=== PATIENT | male | born 1970 | race Caucasian/White ===

== ENCOUNTER 2023-06-23 14:01 | Outpatient (OUT) | payer MEDICARE, SELFPAY ==
[2023-06-23 16:00] LABS: Anion Gap 12.1; BUN Creatinine Ratio 11.1; Calcium 8.9 mg/dL (8.5-10.1); Carbon Dioxide 27.1 mmol/L (21.0-32.0); Chloride 103 mmol/L (98-107); Estimated GFR (African America >60 (>=60); Estimated GFR (Non-African Ame >60 (>=60); Glucose 114 mg/dL (74-106); Potassium 4.2 mmol/L (3.5-5.1); Sodium 138 mmol/L (136-145)
== END 2023-06-23 14:02 | disposition home or self-care (01) ==
LOC: LAB 14:07
PROVIDERS: PCP Family Medicine; Visit Provider Family Medicine
DX: N18.2 Chronic kidney disease, stage 2 (mild) (principal)
CPT/HCPCS: 36415; 80048

== ENCOUNTER 2024-02-25 14:33 | Outpatient (OUT) | payer MEDICARE, SELFPAY ==
[2024-02-25 15:51] LABS: Estimated GFR (African America >60 (>=60); Estimated GFR (Non-African Ame >60 (>=60); Thyroid Stimulating Hormone 0.027 uIU/mL (0.358-3.740)
[2024-02-26 10:10] LABS: Lithium (Eskalith(R)), Serum 0.3 mmol/L (0.5-1.2)
== END 2024-02-25 14:34 | disposition home or self-care (01) ==
LOC: LAB 14:35
PROVIDERS: PCP Family Medicine; Visit Provider Psychiatry & Neurology Psychiatry
DX: F31.9 Bipolar disorder, unspecified (principal); Z79.899 Other long term (current) drug therapy
CPT/HCPCS: 36415; 80178; 82565; 84443

== ENCOUNTER 2025-09-12 11:35 | Outpatient (OUT) | payer MEDICARE, SELFPAY ==
--- OUTSIDE RECORDS SUMMARY | 2025-09-06 08:30 | XMS_ITS | Encounter Summary ---
Author Organization [facility] Address [address] [facility] [[email or web address] [place] [address] Care Team Providers Care Program Host Name Role Phone Gabino Hdez DO Primary Care Provider [phone] Gabino Hdez DO Unavailable [phone] Edwige Gilman ADDICTION NURSE Unavailable [phone] Delicia Hearn Unavailable Reason for Visit * ReasonCommentsToe Problem Encounter Details DateTypeDepartmentCare Team (Latest Contact Info)Lxtkdyjxgzt83/20/2025 8:30 AM ESTOffice Visit [facility] [address] [facility] [address] [place] [address] Bharathi Chinchilla, DPM [address] [facility] [address] [place] [address] Contusion of left foot, initial encounter (Primary Dx); Diabetes mellitus due to underlying condition with diabetic polyneuropathy, without long-term current use of insulin (HCC); Paronychia, toe, left; Left Achilles tendinitis; Contracture of left ankle; Contracture of right ankle Social History Tobacco UseTypesPacks/DayYears UsedDateSmoking Tobacco: Every EtsAzdgxwzeem801.9 Started: 10/18/1984Smokeless Tobacco: Never Tobacco Cessation:Ready to Q uit: Not Asked; Counseling Given: Yes Alcohol UseStandard Drinks/FxjfEcyqwtrrGcw39 (1 standard drink = 0.6 oz pure alcohol)caffeine more than 4 cups per cieQ0097 Health LiteracyAnswerDate RecordedHow often do you need to have someone help you when you read instructions, pamphlets, or other written material from your doctor or pharmacy? Never05/19/2024Social Connection and Isolation PanelAnswerDate RecordedIn a typical week, how many times do you talk on the phone with family, friends, or neighbors?Three times a week05/19/2024How often do you get together with friends or relatives?Once a week05/19/2024How often do you attend sabianism or catholic services?Never05/19/2024o you belong to any clubs or organizations such as sabianism groups, unions, fraternal or athletic groups, or school groups?No 05/19/2024How often do you attend meetings of the clubs or organizations you belong to?Never05/19/2024re you , , , , never , or living with a partner?Bsrudio6305/19/2024UDIT-CAnswerDate RecordedQ1: How often do you have a drink containing alcohol?4 or more times a week 05/19/2024Q2: How many drinks containing alcohol do you have on a typical day when you are drinking?10 or more05/19/2024Q3: How often do you have six or more drinks on one occasion?Daily or almost daily05/19/2024Overall Financial Resource Strain (CARDIA)AnswerDate RecordedHow hard is it for you to pay for the very basics like food, housing, medical care, and heating?Not hard at all05/19/2024 PHQ-2AnswerDate RecordedPatient Health Questionnaire-2 [facility]bdnc191[facility] - Occupational Stress QuestionnaireAnswerDate RecordedDo you feel stress - tense, restless, nervous, or anxious, or unable to sleep at night because yourmind is troubled all the time - these days?To some senfbk0705/19/2024Exercise Vital SignAnswerDate RecordedOn average, how many days per week do you engage in moderate to strenuous exercise (like a brisk walk)?0 days05/19/2024On average, how many minutes do you engage in exercise at this level?0 min05/19/2024Hunger Vital SignAnswerDate RecordedWithin the past 12 months, you worried that your food would run out before you got the money to buy more.Never true05/19/2024Within the past 12 months, the food you bought just didn't last and you didn't have money to get more.Never true05/19/2024RAPARE - TransportationAnswerDate RecordedIn the past 12 months, has lack of transportation kept you from medical appointments or from getting medications?No 05/19/2024In the past 12 months, has lack of transportation kept you from meetings, work, or from getting things needed for daily living?No05/19/2024 Housing Stability Vital SignAnswerDate RecordedIn the last 12 months, was there a time when you were not able to pay the mortgage or rent on time?No05/19/2024 Number of Times Moved in the Last YearNot on file05/19/2024t any time in the past 12 months, were you homeless or living in a [place] facility (including now)?No 05/19/2024Sex and Gender InformationValueDate RecordedSex Assigned at BirthNot on fileLegal VkhFayk4612/30/2022 6:39 PM EDTGender IdentityNot on fileSexual OrientationNot on filedocumented as of this encounter Last Filed Vital Signs Vital SignReadingTime TakenCommentsBlood Pressure--Pulse--Temperature-- Respiratory Wfvi856411/06/2024 8:32 AM ESTOxygen Saturation--Inhaled Oxygen Concentration--Giboyd83.3 kg (208 lb)09/06/2025 8:32 AM DZEBskrxr944.3 cm (5' 11 )09/06/2025 8:32 AM ESTBody Mass Index29.01111/06/2024 8:32 AM ESTdocumented in this encounter Progress Notes * Bharathi Chinchilla DPM - 09/06/2025 8:30 AM EST Patient: Mo Randhawa : 1970 PCP: Gabino Hdez, SUBJECTIVE Patient presents today for follow up contusion to left 2nd toe and states now he has some drainage from the toe and redness and pain. Denies nausea vomiting chills Patient also has complaints of pain to the posterior left heel and states pain up to a 5/10 and points to the Achilles region of the left heel states been present for the past few weeks painful with ambulation Patient is type 2 diabetic with numbness and burning to his toes and history of peripheral neuropathy Patient also has had back issues in the past Allergies: Allergies Allergen Reactions Penicillins Hives and Unknown Other Reaction(s): Hives and rash Rifampin Other and Anaphylaxis Did not wake up for 3 days Rifamycins Other and Unknown Did not wake up for 3 days Heparin (Porcine) Unknown Rifapentine Fentanyl Rash, Unknown and Itching Patch only-irritation from Heparin Other and GI bleeding Unknown Latex Rash After prolong use Morphine Other and Unknown Brings pain on Other Reaction(s): Pt. states sometimes increases pain rather than decreasing Past Medical History: Past Medical History: Diagnosis Date Alcohol abuse 10/29/2020 Avascular necrosis of bone of hip (HCC) 05/22/2024 Bipolar disorder (HCC) Carpal tunnel syndrome of left wrist 05/22/2024 Cirrhosis (HCC) Diabetes (HCC) GERD (gastroesophageal reflux disease) Hyperlipidemia Hypertension Hypothyroid Kidney disease Kidney stones Lumbosacral spondylosis Lumbosacral spondylosis without myelopathy 06/21/2018 Added automatically from request for surgery [id number] MRSA (methicillin resistant staph aureus) culture positive 05/22/2024 NAFLD (nonalcoholic fatty liver disease) Nicotine abuse 05/22/2024 Osteomyelitis (HCC) 05/22/2024 Post concussion syndrome RAD (reactive airway disease) ([facility]) Medications: Current Outpatient Medications: acetaminophen (Tylenol 8 Hour) 650 MG ER tablet, Three times daily, Disp: , Rfl: albuterol (ProAir RespiClick) 90 mcg/act breath-activated inhaler, Inhale 180 mcg every 4 (four) hours., Disp: , Rfl: atenolol (Tenormin) 25 MG tablet, Take 1 tablet (25 mg) by mouth at bedtime, Disp: 90 tablet, Rfl: 1 Blood Glucose Monitoring Suppl (Propableuch Verio Flex System) w/Device kit, 1 each Daily, Disp: 1 kit, Rfl: 0 busPIRone (Buspar) 15 MG tablet, Take 15 mg by mouth in the morning and 15 mg in the evening., Disp: , Rfl: busPIRone (Buspar) 5 MG tablet, Take 5 mg by mouth in the morning and 5 mg before bedtime., Disp: ,Rfl: cyclobenzaprine (Flexeril) 5 MG tablet, TAKE 1 TO 2 TABLETS BY MOUTH AT BEDTIME, Disp: 60 tablet, Rfl: 2 diclofenac sodium 1 % gel, Four times daily, Disp: , Rfl: donepezil (Aricept) 5 MG tablet, TAKE 1 TABLET BY MOUTH AT BEDTIME, Disp: 90 tablet, Rfl: 1 doxepin (SINEquan) 150 MG capsule, 1 (one) time each day at the same time., Disp: , Rfl: glimepiride (Amaryl) 1 MG tablet, Take 1 tablet (1 mg) by mouth in the morning. Take before meals.,Disp: 90 tablet, Rfl: 1 glucose blood (OneTouch Verio) test strip, Fsbs daily, Disp: 100 strip, Rfl: 3 hydrOXYzine pamoate (Vistaril) 50 MG capsule, every 6 (six) hours., Disp: , Rfl: Lancets 33G misc, 1 each Daily, Disp: 100 each, Rfl: 2 levothyroxine (Synthroid, Levoxyl) 175 MCG tablet, TAKE 1 TABLET ONE TIME DAILY IN THE MORNING ON AN EMPTY STOMACH, Disp: 90 tablet, Rfl: 0 lithium 150 MG capsule, Take 150 mg by mouth in the morning and 150 mg before bedtime., Disp: , Rfl: magnesium oxide (Mag-Ox) 400 (240 Mg) MG tablet, TAKE 1 TABLET BY MOUTH EVERY DAY, Disp: 90 tablet,Rfl: 0 metFORMIN (Glucophage) 1000 MG tablet, Take 1 tablet (1,000 mg) by mouth in the morning and 1 tablet (1,000 mg) in the evening. Take with meals., Disp: 180 tablet, Rfl: 1 pantoprazole (ProtoNix) 40 MG EC tablet, Take 1 tablet (40 mg) by mouth in the morning. Take beforemeals. Do not crush, chew, or split., Disp: 30 tablet, Rfl: 0 pravastatin (Pravachol) 40 MG tablet, Take 1 tablet (40 mg) by mouth at bedtime, Disp: 90 tablet, Rfl: 1 pregabalin (Lyrica) 150 MG capsule, Take 1 capsule (150 mg) by mouth in the morning and 1 capsule (150 mg) before bedtime., Disp: 180 capsule, Rfl: 1 SEROquel 200 MG tablet, 1 tablet at bedtime Orally In the evening, Disp: , Rfl: sertraline (Zoloft) 50 MG tablet, Take 50 mg by mouth Daily, Disp: , Rfl: Social History: Social History Socioeconomic History Marital status: Spouse name: Not on file Number of children: Not on file Years of education: Not on file Highest education level: Not on file Occupational History Not on file Tobacco Use Smoking status: Every Day Current packs/day: 1.00 Average packs/day: 1 pack/day for 40.9 years (40.9 ttl pk-yrs) Types: Cigarettes Start date: 10/18/1984 Smokeless tobacco: Never Vaping Use Vaping status: Never Used Substance and Sexual Activity Alcohol use: Yes Alcohol/week: 42.0 standard drinks of alcohol Types: 42 Cans of beer per week Comment: caffeine more than 4 cups per day Drug use: Not on file Sexual activity: Not on file Other Topics Concern Not on file Social History Narrative Not on file Social Drivers of Health Financial Resource Strain: Low Risk (05/19/2024) Overall Financial Resource Strain (CARDIA) Difficulty of Paying Living Expenses: Not hard at all Food Insecurity: No Food Insecurity (05/24/2024) Received from [facility] Hunger Screening Within the past 12 months we worried whether our food would run out before we got money to buy more.: Never True Within the past 12 months the food we bought just didn't last and we didn't have money to get more.: Never True Transportation Needs: No Transportation Needs (05/19/2024) PRAPARE - Transportation Lack of Transportation (Medical): No Lack of Transportation (Non-Medical): No Physical Activity: Inactive (05/19/2024) Exercise Vital Sign Days of Exercise per Week: 0 days Minutes of Exercise per Session: 0 min Stress: Stress Concern Present (05/19/2024) [place] [facility]ational [facility] - Occupational Stress Questionnaire Feeling of Stress : To some extent Social Connections: Moderately Isolated (05/19/2024) Social Connection and Isolation Panel Frequency of Communication with Friends and Family: Three times a week Frequency of Social Gatherings with Friends and Family: Once a week Attends Uatsdin Services: Never Active Member of Clubs or Organizations: No Attends Club or Organization Meetings: Never Marital Status: Intimate Partner Violence: Not on file Housing Stability: Unknown (05/19/2024) Housing Stability Vital Sign Unable to Pay for Housing in the Last Year: No Number of Times Moved in the Last Year: Not on file Homeless in the Last Year: No ROS: Gastrointestinal: denies abdominal pain, ulcers, or changes in appetite or bowel habits Musculoskeletal: positive hx of arthritis, loss of strength, with positive history of back pain Cardiovascular: denies CP, palpitations, irregular rhythms OBJECTIVE LE EXAM: DERM: Positive hair growth b/l feet. Left 2nd digit nail has positive erythema with slight serous sanguinous drainage VASC: Positive palpable pedal pulses bilaterally NEURO: 5.07 [place] Germán monofilament test intact to digits and forefoot bilaterally 125Hz tuning fork diminished to 1st MPJ bilaterally ORTHO: Positive pain on palpation to toenails of the left 1,2,3,4,5 toes and right 1,2,3,4,5 toes positive pain on palpation left 2nd toe Positive pain on palpation to posterior left Achilles tendon retrocalcaneal bursa with negative palpable Mcgraws ASSESSMENT 1. Contusion of left foot, initial encounter 2. Diabetes mellitus due to underlying condition with diabetic polyneuropathy, without long-term current use of insulin (HCC) 3. Paronychia, toe, left 4. Left Achilles tendinitis 5. Contracture of left ankle PLAN Patient placed on Medrol pack Recommended to apply ice to affected areas for 20 minutes, twice daily. Ice should not be applied directly to skin. Pt dispensed pneumatic CAM walker ([id number]) today to maintain 90 degree foot to ankle position. Pt informed to only remove walker when at rest or bathing. ABN signed and in chart for device if warranted. The boot was assembled and adjusted liner and straps and pneumatically inflated for proper customfitting by Bharathi Chinchilla DPM and staff. A verbal order was given for dispensing of device. The radha ent is ambulatory and may benefit functionally from this device. It may be used for the following conditions as noted per medical diagnosis. Performed I and D of abcess with total removal of nail to access infection to the left 2nd toenail. Pt informed of risks and benefits of procedure including infection,pain,bleeding, reoccurance. Pt consents. Next, 3cc of xylocaine 2% plain injected into affected digit for anesthesia. The affected toe was prepped and draped in usual sterile manner and offending nail was removed withminimal blood loss and positive serosanguinous drainage noted. Wound then was flushed with NSS and DSD applied to digit. Pt is to have a prescription for an antibiotic. Bharathi Chinchilla DPM documented in this encounter Plan of Treatment DateTypeDepartmentCare Team (Latest Contact Info)Qcwkdsrpwzu57/04/2025 2:00 PM ESTOffice Visit [facility] [address] [facility] [address] [place] [phone] Bharathi Chinchilla DPM [address] [address] 11/01/2025 4:10 PM ESTOffice Visit [facility] [address] [facility] [address] [place] [phone] Bharathi Chinchilla DPM [address] [address] documented as of this encounter Visit Diagnoses Diagnosis Contusion of left foot, initial encounter- Primary Diabetes mellitus due to underlying condition with diabetic polyneuropathy, without long-term current use of insulin (HCC) Paronychia, toe, left Left Achilles tendinitis Contracture of left ankle Contracture of right ankle Paronychia, toe, left- Primary Contusion of left foot, initial encounter Diabetes mellitus due to underlying condition with diabetic polyneuropathy, without long-term current use of insulin (HCC) Left Achilles tendinitis Contracture of left ankle documented in this encounter Care Teams Team MemberRelationshipSpecialtyStart DateEnd Date Gabino Hdez DO [address] [place] [address] PCP - GeneralFamily Medicine02/23/23 Gabino Hdez DO [address] [place] [address] PCP - ACO Reach11/24/24 Edwige Gilman, THEA [address] [place] [address] Social WorkerFamily Medicine11/29/24 Delicia Hearn PA [address] [facility] [address] [place] [address] Physician AssistantNeurology01/03/25documented as of this encounter
--- OUTSIDE RECORDS SUMMARY | 2025-09-12 09:00 | XMS_ITS | Encounter Summary ---
Author Organization [facility] Address [address] [place] [address] Care Team Providers Care Resident In Diagnostic Radiology Name Role Phone Gabino Hdez DO Primary Care Provider [phone] Gabino Hdez DO Unavailable [phone] Edwige Gilman MACHINE TOOL OPERATOR Unavailable [phone] Delicia Hearn Unavailable Reason for Visit * ReasonCommentsAllergy TestingPt is miserable he vomits all day has lost over 60 last four months never gets out of house scents in the air make him sick also environmental. * Consultation (Routine) - ClosedSpecialtyDiagnoses / ProceduresReferred By ContactReferred To ContactAllergy Diagnoses Sensitive to smells Procedures HI OFFICE/OUTPATIENT [facility] 60 MINUTES Gabino Hdez, DO [address] [place] [address] Phone: tel: fax: Christiano Haley MD [address] [place] [address] Phone: tel: fax: Referral IDStatusReasonStart DateExpiration DateVisits RequestedVisits [id number] Specialty Services Required / Encounter Details DateTypeDepartmentCare Team (Latest Contact Info)Pmgaqhzkphf59/26/2025 9:00 AM ESTOffice Visit [facility] [address] [place] [phone] Christiano Haley MD [address] [place] [address] Chronic rhinitis Social History Tobacco UseTypesPacks/DayYears UsedDateSmoking Tobacco: Every KijWyipvjfgup161.9 Started: 10/18/1984Smokeless Tobacco: Never Tobacco Cessation:Ready to Q uit: Not Asked; Counseling Given: Not Answered Alcohol UseStandard Drinks/CdszJksldezaHbl19 (1 standard drink = 0.6 oz pure alcohol)caffeine more than 4 cups per qjgU8752 Health LiteracyAnswerDate RecordedHow often do you need [...] relatives?Once a week05/19/2024How often do you attend mosque or pentecostalism services?Never05/19/2024o you belong to any clubs or organizations such as mosque groups, unions, fraternal or athletic groups, or school groups?No 05/19/2024How often do you attend meetings of the clubs or organizations you belong to?Never05/19/2024re you , , , , never , or living with a partner?Xprgokl8005/19/2024UDIT-CAnswerDate RecordedQ1: How often do you have a [...] hard at all05/19/2024 PHQ-2AnswerDate RecordedPatient Health Questionnaire-2 Exucd185/26/2025[facility] [place] [facility] - Occupational Stress QuestionnaireAnswerDate RecordedDo you feel stress - tense, restless, nervous, or anxious, or unable to sleep at night because yourmind is troubled all the time - these days?To some tcrfra1805/19/2024Exercise Vital SignAnswerDate RecordedOn average, how many days [...] were you homeless or living in a long-term (including now)?No 05/19/2024Sex and Gender InformationValueDate RecordedSex Assigned at BirthNot on fileLegal AkiCxbh4912/30/2022 6:39 PM EDTGender IdentityNot on fileSexual OrientationNot on filedocumented as of this encounter Last Filed Vital Signs Vital SignReadingTime TakenCommentsBlood Pressure--Pulse--Temperature-- Respiratory Rate--Oxygen Saturation--Inhaled Oxygen Concentration--Tymbyj43.7 kg (200 lb)09/12/2025 9:07 AM LDLNqregn214.3 cm (5' 11 )09/12/2025 9:07 AM ESTBody Mass Index27.8909/12/2025 9:07 AM ESTdocumented in this encounter Plan of Treatment DateTypeDepartmentCare Team (Latest Contact Info)Svqepyravqa34/04/2025 2:00 PM ESTOffice Visit [facility] [address] [place] [phone] Bharathi Chinchilla, MANASM [address] [address] 11/01/2025 4:10 PM ESTOffice Visit [facility] [address] [place] [address] Bharathi Chinchilla DPM [address] [address] documented as of this encounter Visit Diagnoses Diagnosis Chronic rhinitis Paronychia, toe, left- Primary Contusion of left foot, initial encounter Diabetes mellitus due to underlying condition with diabetic polyneuropathy, without long-term current use of insulin (HCC) Left Achilles tendinitis Contracture of left ankle documented in this encounter Care Teams Team MemberRelationshipSpecialtyStart DateEnd Date Gabino Hdez DO [address] [place] [address] PCP - GeneralFamily Medicine02/23/23 Gabino Hdez DO [address] [place] [address] PCP - ACO Reach11/24/24 Edwige Gilman LSW [address] [place] [address] Social WorkerFamily Medicine11/29/24 Delicia Hearn PA [address] [place] [address] Physician AssistantNeurology01/03/25documented as of this encounter
--- OUTSIDE RECORDS SUMMARY | 2025-09-12 11:47 | XMS_ITS | Clinical Summary ---
Author Organization [facility] Address [facility] [place] [address] Care Team Providers Care Transmitter Engineer In Charge Name Role Phone Gabino Hdez Primary Care Provid er Allergies Active AllergyReactionsCriticalityNoted DateCommentsHeparin Gagbyhgjp49/29/2004 Xqbgiwtjm65/29/8646Gcoghhvgmjt63/29/9498Qexfervoogd72/29/2004 Medications MedicationSigDispense QuantityRefillsLast FilledStart DateEnd DateStatus MS CONTIN 30MG TABLET SA Take one(1) tablet two(2) times daily.Active TOPAMAX 100MG TABLET Take one(1) tablet two(2) times daily.Active FLEXERIL 10MG TABLET Take one(1) tablet three times daily.Active PROMETHAZINE 25MG TABLET Take one(1) tablet four (4) times daily.Active PAXIL CR 25MG TABLET Take one(1) tablet daily.Active METHADONE HCL 10MG TABLET every 8 hrs pfa320Active ATIVAN 1MG TABLET 1 2 mgmqid tzr626Active SYNTHROID 100MCG TABLET Take one(1) tablet daily.Active MULTIVITAMIN TABLET Take one(1) tablet daily.Active GLUCOSAMINE 500MG CAPLET 2 tabs yto019Active BEXTRA 20MG TABLET Take one(1) tablet daily.Active Active Problems ProblemNoted DateDiagnosed DateDisplacement of lumbar intervertebral disc without hmqzisnchl52/29/2004 Social History Tobacco UseTypesPacks/DayYears UsedDateSmoking Tobacco: Never AssessedSex and Gender InformationValueDate RecordedSex Assigned at BirthNot on fileLegal Sex Male09/18/2012 10:02 AM ESTGender IdentityNot on fileSexual OrientationNot on file Plan of Treatment Health MaintenanceDue DateLast DoneCommentsAnxiety Yatqtpdjn86/26/1990Depression Svwobwsfn67/26/1990HIV Olognzdla72/26/1990Hepatitis C Cpkproxyy21/26/1990 DTaP,Tdap,Td Vaccine (1 - Tdap)1991Hepatitis B Vaccine (1 of 3 - 19+ 3- dose series)1991Lipid Uwreqtscp79/26/2007CT Qotiidsrbwir54/26/2017 Cologuard (FIT-DNA)04/12/20171516Zfcrbebcurg24/26/2017Colorectal Cancer Screening 2017Diabetes Vttqkdape26/26/2017Fecal Occult Blood2017Sigmoidoscopy 2017Pneumococcal Vaccine: 50+ (1 of 1 - PCV)2022hingrix Vaccine (1 of 2)2Covid-19 Vaccine (1 - 2024- season)2025Influenza Vaccine (#1)2025 Insurance Care Teams Team MemberRelationshipSpecialtyStart DateEnd Gabino Hdez DO [address] [place] [address] PCP - GeneralFamily Medicine11/15/15
--- OUTSIDE RECORDS SUMMARY | 2025-09-12 11:47 | XMS_ITS | Clinical Summary ---
Author Organization [facility] Address [address] [place] [address] Phone Care Team Providers Care Landscaping Crew Leader Name Role Phone Gabino Hdez DO Primary Care Provider [phone] Allergies Active AllergyReactionsCriticalityNoted DateCommentsHeparin AnaloguesOtherLow 02/14/2004 Unknown RobuiijdInbrfmwNub03/14/2013 Brings pain on Other Reaction(s): Pt. states sometimes increases pain rather than decreasing Brings pain on PenicillinsHives,EjzmhirIlri29/29/2004 Other Reaction(s): Hives and rash Rifamycin AnaloguesAnaphylaxis,LypdiqlUrdr59/29/2004 Did not wake up for 3 days Medications MedicationSigDispense QuantityRefillsLast FilledStart DateEnd DateStatus atenolol (Tenormin) 25 mg tablet Take 1 tablet (25 mg) by mouth once daily.05/22/2024ctive busPIRone (Buspar) 5 mg tablet Take 1 tablet (5 mg) by mouth 2 times a day.07/06/2022ctive busPIRone (Buspar) 15 mg tablet Take 1 tablet (15 mg) by mouth twice a day.Active sertraline (Zoloft) 50 mg tablet Take 1 tablet (50 mg) by mouth once daily.07/01/2022ctive lithium 150 mg capsule Take 1 capsule (150 mg) by mouth twice a day.02/10/2024ctive SeroqueL 200 mg tablet Take 1 tablet (200 mg) by mouth once daily at bedtime.04/26/2024ctive levothyroxine (Synthroid, Levoxyl) 175 mcg tablet Take 1 tablet (175 mcg) by mouth early in the morning..05/22/2024ctive doxepin (SINEquan) 150 mg capsule Take 1 tablet by mouth once daily.Active PARoxetine (Paxil) 40 mg tablet Take 1 tablet (40 mg) by mouth once daily in the morning. Take before meals. Active metFORMIN (Glucophage) 1,000 mg tablet Take 1 tablet (1,000 mg) by mouth.05/22/2024ctive promethazine (Phenergan) 25 mg tablet Take 1 tablet (25 mg) by mouth every 6 hours if needed.Active hydrOXYzine pamoate (Vistaril) 50 mg capsule Take 1 capsule (50 mg) by mouth every 6 hours.Active pravastatin (Pravachol) 40 mg tablet Take 1 tablet (40 mg) by mouth once daily in the evening.02/16/2024ctive Active Problems ProblemNoted DateDiagnosed DatePreop cardiovascular exam05/29/2024Essential rsoknlyfcizs13/12/2024Mixed wfjounjlzhxkta84/12/2024iabetes mellitus type II, non insulin ycetoqfzx81/12/2024MI 30.0-30.9,adult05/29/2024urrent smoker 05/29/2024bnormal EKG005/29/2024 Family History Medical HistoryRelationNameCommentsNo Known ProblemsFatherAtrial fibrillation MotherDiabetes type IMotherThyroid diseaseMothercancer gallbladderMotherRheum arthritisSisterRelationNameStatusCommentsFatherMotherSister Social History Tobacco UseTypesPacks/DayYears UsedDateSmoking Tobacco: Every DayCigarettes Smokeless Tobacco: Former Tobacco Cessation:Ready to Q uit: No; Counseling Given: Yes Comments:vapin Alcohol UseStandard Drinks/WeekCommentsYes0 (1 standard drink = 0.6 oz pure alcohol)occSex and Gender InformationValueDate RecordedSex Assigned at BirthNot on fileLegal IhaWffh4104/27/2024 1:18 PM EDTGender IdentityNot on fileSexual OrientationNot on file Last Filed Vital Signs Vital SignReadingTime TakenCommentsBlood Celduagg765/8008 10:21 AM EDT Ddhmf7671 10:18 AM EDTTemperature--Respiratory Rate--Oxygen Saturation-- Inhaled Oxygen Concentration--Vuxkoh13.9 kg (218 lb)05/29/2024 10:18 AM EDT Bmigzs160.3 cm (5' 11 )05/29/2024 10:18 AM EDTBody Mass Index30. 10:18 AM EDT Plan of Treatment Health MaintenanceDue DateLast DoneCommentsDiabetes: Hemoglobin A1C1972HIV Ypcjnpder1972Lipid Panel1972Medicare Annual Wellness Visit (AWV) 1972TSH Level1972MMR Vaccines (1 of 1 - Standard series)1973 Diabetes: Retinopathy Pynfmcobo10/26/1982Hepatitis C Ffijeoooc92/26/1990 Hepatitis B Vaccines (1 of 3 - 19+ 3-dose series)1991Pneumococcal Vaccine (1 of 2 - PCV)1991DTaP/Tdap/Td Vaccines (1 - Tdap)1994PSA Prostate Cancer Xrkisurva69/26/2022Zoster Vaccines (1 of 2)2Diabetes: Urine Protein Srkflwcoc54/05/2023Influenza Vaccine (#1), 07/29/2017COVID-19 Vaccine ( - season), 01/28/2021, 01/06/2021HIB VaccinesAged OutNo longer eligible based on patient's age to complete this topicHPV VaccinesAged OutNo longer eligible based on patient's age to complete this topicHepatitis A VaccinesAged OutNo longer eligible based on patient's age to complete this topicIPV VaccinesAged OutNo longer eligible based on patient's age to complete this topicMeningococcal VaccineAged OutNo longer eligible based on patient's age to complete this topicRotavirus VaccinesAged Out No longer eligible based on patient's age to complete this topic Insurance * Guarantor: Cecelia Randhawa TypeRelation to PatientDate of BirthPhoneBilling AddressPersonal/DjtnxyLslc1970 [address] [address] Care Teams Team MemberRelationshipSpecialtyStart DateEnd Date Gabino Hdez DO [address] [place] [address] PCP - GeneralFamily Medicine05/29/24
--- OUTSIDE RECORDS SUMMARY | 2025-09-12 11:47 | XMS_ITS | Clinical Summary ---
Author Organization [facility] Address [address] [place] [address] Care Team Providers Care Technical Stenographer Name Role Phone Gabino Hdez DO Primary Care Provider [phone] Gabino Hdez DO Unavailable [phone] Edwige Gilman FIELD INTERVIEWER Unavailable [phone] Delicia Hearn Unavailable Allergies Active AllergyReactionsCriticalityNoted DateCommentsFentanylRash,Unknown,Itching Low01/13/2017 Patch only-irritation from HeparinOther,GI hxbxrkslVrv13/29/2004 Unknown Heparin (Porcine)Tmprlux2104/26/20246445DieeiSfjyXfd40/25/2020 After prolong use MorphineOther,OnmcndqPxm30/14/2013 Brings pain on Other Reaction(s): Pt. states sometimes increases pain rather than decreasing PenicillinsHives,VisduwcQlui49/29/2004 Other Reaction(s): Hives and rash RifampinOther,BddjkhitggwAdfi27/29/2017 Did not wake up for 3 days RifamycinsOther,XogpbwrKmvi66/29/2004 Did not wake up for 3 days Rzrfoahqbod72/29/2004 Medications MedicationSigDispense QuantityRefillsLast FilledStart DateEnd DateStatus albuterol (ProAir RespiClick) 90 mcg/act breath-activated inhaler Inhale 180 mcg every 4 (four) hours.Active busPIRone (Buspar) 15 MG tablet Take 15 mg by mouth in the morning and 15 mg in the evening.Active busPIRone (Buspar) 5 MG tablet Take 5 mg by mouth in the morning and 5 mg before bedtime.07/06/2022ctive doxepin (SINEquan) 150 MG capsule 1 (one) time each day at the same time.Active hydrOXYzine pamoate (Vistaril) 50 MG capsule every 6 (six) hours.Active SEROquel 200 MG tablet 1 tablet at bedtime Orally In the eveningActive sertraline (Zoloft) 50 MG tablet Take 50 mg by mouth Daily07/01/2022ctive acetaminophen (Tylenol 8 Hour) 650 MG ER tablet Three times daily08/30/2023ctive diclofenac sodium 1 % gel Four times daily04/26/2024ctive lithium 150 MG capsule Take 150 mg by mouth in the morning and 150 mg before bedtime.02/10/2024ctive donepezil (Aricept) 5 MG tablet Indications:Cognitive impairmentTAKE 1 TABLET BY MOUTH AT BEDTIME 90 tablet 4Active magnesium oxide (Mag-Ox) 400 (240 Mg) MG tablet Indications:Acute post-traumatic headache, not intractableTAKE 1 TABLET BY MOUTH EVERY DAY 90 tablet 5Active pregabalin (Lyrica) 150 MG capsule Indications:Numbness and tinglingTake 1 capsule (150 mg) by mouth in the morning and 1 capsule (150 mg) before bedtime. 180 capsule 5Active cyclobenzaprine (Flexeril) 5 MG tablet Indications:Classical migraine with intractable migraine, so statedTAKE 1 TO 2 TABLETS BY MOUTH AT BEDTIME 60 tablet 5Active glucose blood (PetrabytesTouch Verio) test strip Indications:Type 2 diabetes mellitus with other specified complication, without long-term current use of insulin ([facility])Fsbs daily 100 strip 5Active Blood Glucose Monitoring Suppl (OneTouch Verio Flex System) w/Device kit Indications:Type 2 diabetes mellitus with other specified complication, without long-term current use of insulin ([facility])1 each Daily 1 kit 5Active Lancets 33G [facility] Indications:Type 2 diabetes mellitus with other specified complication, without long-term current use of insulin ([facility])1 each Daily 100 each 5Active glimepiride (Amaryl) 1 MG tablet Indications:Type 2 diabetes mellitus with other specified complication, without long-term current use of insulin ([facility])Take 1 tablet (1 mg) by mouth in the morning. Take before meals. 90 tablet 503/6Active pravastatin (Pravachol) 40 MG tablet Indications:Mixed hyperlipidemiaTake 1 tablet (40 mg) by mouth at bedtime 90 tablet 5Active pantoprazole (ProtoNix) 40 MG EC tablet Indications:Gastroesophageal reflux disease, unspecified whether esophagitis presentTake 1 tablet (40 mg) by mouth in the morning. Take before meals. Do not crush, chew, or split. 30 tablet 5Active atenolol (Tenormin) 25 MG tablet Indications:Primary hypertensionTake 1 tablet (25 mg) by mouth at bedtime 90 tablet 5Active metFORMIN (Glucophage) 1000 MG tablet Indications:Type 2 diabetes mellitus with other skin complications (HCC)Take 1 tablet (1,000 mg) by mouth in the morning and 1 tablet (1,000 mg) in the evening. Take with meals. 180 tablet /6Active levothyroxine (Synthroid, Levoxyl) 175 MCG tablet Indications:Hypothyroidism, unspecified typeTAKE 1 TABLET ONE TIME DAILY IN THE MORNING ON AN EMPTY STOMACH 90 tablet 5Active methylPREDNISolone (Medrol Dospak) 4 MG tablets Indications:Left Achilles tendinitisFollow schedule on MEDROL PACK package instructions to be used as directed 21 tablet 5Active azithromycin (Zithromax Z-Darrell) 250 MG tablet Indications:Paronychia, toe, leftTake 1 tablet (250 mg) by mouth Daily for 5 days Use as directed 6 tablet Expired Active Problems ProblemNoted DateDiagnosed DateCognitive kaycyxwyga85/03/2024MI 30.0-30.9,adult 05/29/2024urrent onacqd1305/29/2024Mixed ipwcyijquzljyi06/12/2024Essential edjlmdhwhhom25/12/2024hronic pain jevzvwgt93/07/2024cquired mallet deformity of right ring pzeiut8405/22/20240407Ibikkyn77/05/2024hronic skoktlcwpp76/05/2024 Kidney ithkjzz6705/22/2024ervical disc bbjydnx5805/22/2024Herniation of intervertebral disc of cervical dieroz2405/22/2024Type 2 diabetes mellitus with other specified rbpsferjbksa25/10/2023ervical faeeirhdfqvbd39/07/2023ipolar 1 zvegpttl89/09/2017Type 2 diabetes mellitus with other skin complications 01/24/2017Encounter for long-term opiate analgesic use01/13/2017Cervical spondylosis without /08/1263Icqbpm55/11/2016Gastroesophageal reflux rpjmlyx2112/27/20150215Opflgpcpknwhux64/11/6312Jpmoxinyeoht44/11/2016Hypothyroidism 12/27/2015 Resolved Problems ProblemNoted DateDiagnosed DateResolved DateAbnormal EKG0 Preop cardiovascular examDiabetes mellitus type II, non insulin hasawlsig83vascular necrosis of bone of hip05/22/2024 04/17/2025ilateral hip painarpal tunnel syndrome of left wristRight carpal tunnel lnjryuat12MRSA (methicillin resistant staph aureus) culture volhglqx60 Nondisplaced fracture of proximal third of navicular (scaphoid) bone of left wrist, initial encounter for closed muggsrji45Osteomyelitis Other specified postprocedural Paresthesia of skinPostoperative visit Yoarsulvhygqdenx62Edema of right upper osijkcvaz29/05/2024 04/17/2025Nicotine abusePain due to internal orthopedic prosthetic devices, implants and grafts, initial otdrhkdic40 Edema of right upper fmphldhcy85/ight cervical radiculopathy ainyspepsia and disorder of function of jszgidg22GERD (gastroesophageal reflux disease)12/30/2023 01/03/2024ostoperative pain of zungbjoml00Intractable migraine without status lbjnihokumf53Peripheral vascular disorder due to diabetes sgvuwzgh61Skin sensation disturbance lcohol abuseRefractory migraine Lumbosacral spondylosis without laegxgkkrw09/04/2018 04/17/2025 Overview (05/27/2023): Added automatically from request for surgery [id number] Disorder of Overview (05/27/2023): Added automatically from request for surgery [id number] Disc displacement, mgytcg12 Overview (05/27/2023): Added automatically from request for surgery [id number] Sacrococcygeal disorders, not elsewhere oafzvfabpn78Other intervertebral disc displacement, lumbar dxnwfb67Spondylosis without myelopathy or radiculopathy, lumbar zzzegv33Fatigue Spondylosis of lumbar spineTesticular ggzsepgpfklm59Vitamin B ofkrjsjjqy57 Displacement of lumbar intervertebral disc without mwpzujtdmg31/29/2004 01/03/2024ain in limb Encounters DateTypeDepartmentCare ChlsVspfgcjhhcr22/26/2025 9:00 AM ESTOffice Visit [facility] [place] [address] [place] [address] Christiano Haley MD Chronic irurmapw03/26/2025[facility] flowsheet [facility] [address] [place] [address] Christiano Haley MD 09/12/20256100Waowns17/20/2025 8:[address] [facility] [address] [place] [phone] Bharathi Chinchilla DPM Contusion of left foot, initial encounter (Primary Dx); Diabetes mellitus due to underlying condition with diabetic polyneuropathy, without long-term current use of insulin (HCC); Paronychia, toe, left; Left Achilles tendinitis; Contracture of left ankle; Contracture of right ankle09/06/2025[facility] flowsheet [facility] [address] [facility] [address] [place] [phone] Bharathi Chinchilla DPM 09/06/20250240Uqnhpl01/10/2025Telephone [facility] [address] [place] [address] Edwige Gilman LSW 08/20/2025Patient Outreach [facility] [address] [place] [address] Edwige Gilman LSW 07/19/2025Refill [facility] [address] [place] [address] Adia Ramirez MA Primary hypertension; Type 2 diabetes mellitus with other skin complications (HCC); Hypothyroidism, unspecified type07/16/2025Patient Outreach [facility] [address] [place] [address] Edwige Gilman LSW 07/09/2025Refill [facility] [address] [place] [address] Adia Ramirez MA Gastroesophageal reflux disease, unspecified whether esophagitis present 07/05/2025 2:00 PM EDTOffice Visit [facility] [address] [place] [phone] Bharathi Chinchilla DPM Contusion of left foot, initial encounter (Primary Dx); Diabetes mellitus due to underlying condition with diabetic polyneuropathy, without long-term current use of insulin (HCC); Pain due to onychomycosis of toenails of both feet07/05/2025amboo flowsheet [facility] [address] [place] [address] Bharathi Chinchilla DPM 07/05/20259364Scorfk27/17/2025[facility] [address] [place] [address] Adia Ramirez MA Type 2 diabetes mellitus with other specified complication, without long-term current use of insulin (HCC); Gastroesophageal reflux disease, unspecified whether esophagitis present; Mixed znbsfnxsrgytvg66/17/2025[facility] [address] [place] [address] Gabino Hdez, Gastroesophageal reflux disease, unspecified whether esophagitis present; Mixed dssnfuylywvusp62/03/2025[facility]phone [facility] [address] [place] [address] Sima Veloz LPN Gywrsqvi05/02/2025[facility]phone [facility] [address] [place] [address] Nayeli Malagon MA 06/14/2025Patient Outreach [facility] [address] [place] [address] Edwige Gilman LSW from Last 3 Months Immunizations ImmunizationAdministration DatesNext DueInfluenza, Injectable, MDCK, preservative free07/29/2017Influenza, injectable, /26/2021 Family History Medical HistoryRelationNameCommentsHypertensionFatherMental illnessFatherCancer MotherDiabetesMotherObesityMotherOsteoporosisMotherRelationNameStatusComments DaughterAliveFatherAliveMotherAliveSisterAliveSonAlive Social History Tobacco UseTypesPacks/DayYears UsedDateSmoking Tobacco: Every PktGmjysghear472.9 Started: 10/18/1984Smokeless Tobacco: Never Tobacco Cessation:Ready to Q uit: Not Asked; Counseling Given: Not Answered Alcohol UseStandard Drinks/MshvOsdjjdmrIdt68 (1 standard drink = 0.6 oz pure alcohol)caffeine more than 4 cups per myfF4112 Health LiteracyAnswerDate RecordedHow often do you need [...] relatives?Once a week05/19/2024How often do you attend jain or druze services?Never05/19/2024o you belong to any clubs or organizations such as jain groups, unions, fraternal or athletic groups, or school groups?No 05/19/2024How often do you attend meetings of the clubs or organizations you belong to?Never05/19/2024re you , , , , never , or living with a partner?Oavlczq3305/19/2024UDIT-CAnswerDate RecordedQ1: How often do you have a [...] hard at all05/19/2024 PHQ-2AnswerDate RecordedPatient Health Questionnaire-2 Eaxlr102Finhighland ridge hospital [place] [facility] - Occupational Stress QuestionnaireAnswerDate RecordedDo you feel stress - tense, restless, nervous, or anxious, or unable to sleep at night because yourmind is troubled all the time - these days?To some pryoif6105/19/2024Exercise Vital SignAnswerDate RecordedOn average, how many days [...] were you homeless or living in a care home (including now)?No 05/19/2024Sex and Gender InformationValueDate RecordedSex Assigned at BirthNot on fileLegal RepJfav3412/30/2022 6:39 PM EDTGender IdentityNot on fileSexual OrientationNot on file Last Filed Vital Signs Vital SignReadingTime TakenCommentsBlood Fdurpxbt821/7407 4:05 PM EDT Hhwid486704/17/2025 4:05 PM MCINtrbggkkcfx34.6 ??C (97.9 ??F)04/17/2025 4:05 PM EDTRespiratory Zjhv440911/06/2024 8:32 AM ESTOxygen Axusqdzmpj05%04/17/2025 4:05 PM EDTInhaled Oxygen Concentration--Imqndl70.7 kg (200 lb)09/12/2025 9:07 AM EST Sfqceg144.3 cm (5' 11 )09/12/2025 9:07 AM ESTBody Mass Index27.8909/12/2025 9:07 AM EST Plan of Treatment DateTypeDepartmentCare Team (Latest Contact Info)Nhmvfkioiix04/04/2025 2:00 PM ESTOffice Visit [facility] [address] [facility] [address] [place] [address] Bharathi Chinchilla DPM [address] [address] 11/01/2025 4:10 PM ESTOffice Visit [facility] [address] [phone] Bharathi Chinchilla DPM [address] [address] Health MaintenanceDue DateLast DoneCommentsCT Fnuqjxejxcqo1972Colonoscopy 1972Colorectal Cancer Lftxitshb1972FIT-DNA1972FIT1972 FOBT1972Lung Cancer Screening Shared Decision Bodjjt18 1972 Vnzfkkiqxurrk1972Pneumococcal Vaccine: Pediatrics (0 to 5 Years) and At- Risk Patients (6 to 64 Years) (1 of 2 - PCV)1991Diabetes: Retinopathy Zlbqgwzzl09/, 12/20/2020, 12/08/2019COVID-19 Vaccine (2024- season), 01/28/2021, 01/06/2021Influenza Vaccine (#1) , 07/29/2017Diabetes: Hemoglobin A1C, 12/13/2024, 03/15/2024, Additional history existsDiabetes: Urine Protein Ajrpbrawv64, 05/25/2023, 05/25/2023, Additional history exists Medicare Annual Wellness (AWV), 05/27/2023, 05/26/2022 Procedures Procedure NamePriorityDate/TimeAssociated DiagnosisCommentsPOCT GLYCOSYLATED HEMOGLOBIN (HGB A1C)Jcrnoyx3104/17/2025 4:24 PM EDT Type 2 diabetes mellitus with other specified complication, without long-term current use of insulin (HCC) MICROALBUMIN / CREATININE URINE EIKJEPwupvom94/26/2025 2:43 PM EST Type 2 diabetes mellitus with other specified complication, without long-term current use of insulin (HCC) COLOR FUNDUS PHOTOGRAPHY - OU - BOTH CUFOGjhtiby84/18/2023 12:00 PM EDT from Last 3 Months or Most Recently Relevant to Health Maintenance Results * POCT glycosylated hemoglobin (Hb A1C) docked device (04/17/2025 4:24 PM EDT) ComponentValueRef RangeTest MethodAnalysis TimePerformed AtPathologist SignatureHemoglobin A1C5.5Specimen (Source)Anatomical Location / Laterality Collection Method / VolumeCollection TimeReceived TimeBloodVenous blood specimen / Cwffnfm1004/17/2025 4:24 PM EDT Narrative Authorizing ProviderResult TypeResult StatusMatthew Prasanth Hdez DOPOINT OF CARE TEST ENTER/EDIT ORDERABLESFinal Result * Microalbumin / creatinine urine ratio (12/13/2024 2:43 PM EST)ComponentValue Ref RangeTest MethodAnalysis TimePerformed AtPathologist SignatureCreat Ur 188.0Not Estab. mg/dLLABCORPAlbumin Ur17.6Not Estab. ug/mLLABCORPAlb/Creat Ratio Urine90 - 29 mg/g creatLABCORPComment: ? Normal: ?0 - ??29 ? Moderately increased: 30 - 300 Severely increased: >300 Specimen (Source)Anatomical Location / LateralityCollection Method / Volume Collection TimeReceived TimeUrineUrine specimen obtained by clean catch procedure / Jjmfbzl3512/13/2024 2:43 PM EST12/13/2024 Narrative [facility] - 12/14/2024 6:06 AM EST Performed at: 01 - [facility] [address] ??[id number] Armature Winder Helper Repair: Devon Leos PhD, Phone: ??[phone] Authorizing ProviderResult TypeResult StatusMatthew C Petznick DOLAB URINE ORDERABLESFinal ResultPerforming OrganizationAddressCity/State/[facility] CodePhone Number [facility] * Color Fundus Photography - OU - Both Eyes (02/02/2023 12:00 PM EDT)Anatomical RegionLateralityModalityHeadFundus PhotographySpecimen (Source)Anatomical Location / LateralityCollection Method / VolumeCollection TimeReceived Time 02/02/2023 12:00 PM EDT Narrative 02/02/2023 12:00 PM EDT PERFORMED AT [facility] LOCATION:[id number] [facility] Procedure Note CONVERSION, GENERIC - 03/04/2023 PERFORMED AT [facility] LOCATION:[id number] [facility] Authorizing ProviderResult TypeResult StatusMatthew C Petznick DOOPHTH PHOTOGRAPHYFinal Result from Last 3 Months or Most Recently Relevant to Health Maintenance Insurance Care Teams Team MemberRelationshipSpecialtyStart DateEnd Date Gabino Hdez, DO [address] [place] [address] [facility] - [facility]02/23/23 Gabino Hdez DO [address] [place] [address] PCP - ACO Reach11/24/24 Edwige Gilman, THEA [address] [place] [address] Social [facility]erC[facility] Specialty [facility] Medicine11/29/24 Delicia Hearn PA [address] [place] [address] Physician AssistantNeurology01/03/25
--- OUTSIDE RECORDS SUMMARY | 2025-09-12 11:47 | XMS_ITS | Encounter Summary ---
Author Organization [facility] Address [address] [place] [address] [place] [address] Care Team Providers Care Non Linear Editor Name Role Phone Gabino Hdez DO Primary Care Provider [phone] Gabino Hdez DO Unavailable [phone] Edwige Gilman CAREER SERVICES REPRESENTATIVE Unavailable [phone] Delicia Hearn Unavailable Encounter Details DateTypeDepartmentCare Team (Latest Contact Info)Evkzhkcisjv18/20/2025amboo flowsheet [facility] [address] [facility] 120 [place] [address] Bharathi Chinchilla DPM [address] [facility] 5 [place] [address] Social History Tobacco UseTypesPacks/DayYears UsedDateSmoking Tobacco: Every UllUiikpfnhbk614.9 Started: 10/18/1984Smokeless Tobacco: NeverAlcohol UseStandard Drinks/Week PckqkwfuZna80 (1 standard drink = 0.6 oz pure alcohol)caffeine more than 4 cups per bfvA7397 Health LiteracyAnswerDate RecordedHow often do you need to have someone help you when you read instructions, pamphlets, or other written material from your doctor or pharmacy?Never05/19/2024Social Connection and Isolation PanelAnswerDate RecordedIn a typical week, how many times do you talk on the phone with family, friends, or neighbors?Three times a week05/19/2024How often do you get together with friends or relatives?Once a week05/19/2024How often do you attend anglican or christian services?Never05/19/2024o you belong to any clubs or organizations such as anglican groups, unions, fraternal or athletic groups, or school groups?No05/19/2024How often do you attend meetings of the clubs or organizations you belong to?Never05/19/2024re you , , , , never , or living with a partner?Vsewovk7605/19/2024 AUDIT-CAnswerDate RecordedQ1: How often do you have a drink containing alcohol?4 or more times a week05/19/2024Q2: How many drinks containing alcohol do you have on a typical day when you are drinking?10 or more05/19/2024Q3: How often do you have six or more drinks on one occasion?Daily or almost daily05/19/2024Overall Financial Resource Strain (CARDIA)AnswerDate RecordedHow hard is it for you to pay for the very basics like food, housing, medical care, and heating?Not hard at all05/19/2024HQ-2AnswerDate RecordedPatient Health Questionnaire-2 Score0 12/13/2024[facility] [place] [facility] - Occupational Stress QuestionnaireAnswerDate RecordedDo you feel stress - tense, restless, nervous, or anxious, or unable to sleep at night because yourmind is troubled all the time - these days?To some uvexwg4005/19/2024Exercise Vital SignAnswerDate Recorded On average, how many days per week do you engage in moderate to strenuous exercise (like a brisk walk)?0 days05/19/2024On average, how many minutes do you engage in exercise at this level?0 min05/19/2024Hunger Vital SignAnswerDate RecordedWithin the past 12 months, you worried that your food would run out before you got the money to buymore.Never true05/19/2024Within the past 12 months, the food you bought just didn't last and you didn't have money to get more.Never true05/19/2024RAPARE - TransportationAnswerDate RecordedIn the past 12 months, has lack of transportation kept you from medical appointments or from getting medications?No05/19/2024In the past 12 months, has lack of transportation kept you from meetings, work, or from getting things needed for daily living?No05/19/2024Housing Stability Vital SignAnswerDate RecordedIn the last 12 months, was there a time when you were not able to pay the mortgage or rent on time?No05/19/2024Number of Times Moved in the Last YearNot on file 05/19/2024t any time in the past 12 months, were you homeless or living in a senior care (including now)?No05/19/2024Sex and Gender InformationValueDate Recorded Sex Assigned at BirthNot on fileLegal IdlPiwn1812/30/2022 6:39 PM EDTGender IdentityNot on fileSexual OrientationNot on filedocumented as of this encounter Plan of Treatment DateTypeDepartmentCare Team (Latest Contact Info)Ivkchlxzcik39/04/2025 2:00 PM ESTOffice Visit [facility] [address] [place] [place] [address] Bharathi Chinchilla DPM [address] [address] 11/01/2025 4:10 PM ESTOffice Visit [facility] [address] [place] [place] [address] Bharathi Chinchilla DPM [address] [address] documented as of this encounter Visit Diagnoses Not on filedocumented in this encounter Care Teams Team MemberRelationshipSpecialtyStart DateEnd Date Gabino Hdez DO [address] [place] [address] PCP - GeneralFamily Medicine02/23/23 Gabino Hdez DO [address] [place] [place] [address] PCP - ACO Reach11/24/24 Edwige Gilman, THEA [address] [place] [address] Social WorkerFamily Medicine11/29/24 Delicia Hearn PA [address] [place], [place] [address] Physician AssistantNeurology01/03/25documented as of this encounter
--- OUTSIDE RECORDS SUMMARY | 2025-09-12 11:47 | XMS_ITS | Encounter Summary ---
Author Organization [facility] Address [address] [place] [address] [place] [address] Care Team Providers Care Director Non Profit Name Role Phone Gabino Hdez DO Primary Care Provider +- [phone] Gabino Hdez DO Unavailable [phone] Edwige Gilman COMMUNITY MANAGER Unavailable [phone] Delicia Hearn Unavailable Encounter Details DateTypeDepartmentCare Team (Latest Contact Info)Hblqdyqooje74/26/2025Travel Social History Tobacco UseTypesPacks/DayYears UsedDateSmoking Tobacco: Every GzuOikrjycmwz121.9 Started: 10/18/1984Smokeless Tobacco: NeverAlcohol UseStandard Drinks/Week JlkykepiYcm58 (1 standard drink = 0.6 oz pure alcohol)caffeine more than 4 cups per mqjU7759 Health LiteracyAnswerDate RecordedHow often do you need [...] relatives?Once a week05/19/2024How often do you attend confucianism or scientologist services?Never05/19/2024o you belong to any clubs or organizations such as confucianism groups, unions, fraternal or athletic groups, or school groups?No05/19/2024How often do you attend meetings of the clubs or organizations you belong to?Never05/19/2024re you , , , , never , or living with a partner?Sswqvul3905/19/2024 AUDIT-CAnswerDate RecordedQ1: How often do you have [...] hard at all05/19/2024HQ-2AnswerDate RecordedPatient Health Questionnaire-2 Score0 12/13/2024[facility] [place] [facility] Occup[facility] - Occupational Stress QuestionnaireAnswerDate RecordedDo you feel stress - tense, restless, nervous, or anxious, or unable to sleep at night because yourmind is troubled all the time - these days?To some clnmqa2405/19/2024Exercise Vital SignAnswerDate Recorded On average, how many [...] were you homeless or living in a halfway (including now)?No05/19/2024Sex and Gender InformationValueDate Recorded Sex Assigned at BirthNot on fileLegal DxvJxtf2012/30/2022 6:39 PM EDTGender IdentityNot on fileSexual OrientationNot on filedocumented as of this encounter Plan of Treatment DateTypeDepartmentCare Team (Latest Contact Info)Zjedepzwozr81/04/2025 2:00 PM ESTOffice Visit [facility] [address] [place] [place] [address] Bharathi Chinchilla, DPM [address] [place] [address] 11/01/2025 4:10 PM ESTOffice Visit [facility] [address] [place] [place] [address] Bharathi Chinchilla DPM [address] [address] documented as of this encounter Visit Diagnoses Not on filedocumented in this encounter Care Teams Team MemberRelationshipSpecialtyStart DateEnd Date Gabino Hdez DO [address] [place] [address] PCP - GeneralFamily Medicine02/23/23 Gabino Hdez DO [address] [place] [address] PCP - ACO Reach11/24/24 Edwige Gilman LSW [address] [place] [address] Social WorkerFamily Medicine11/29/24 Delicia Hearn PA [address] [place] [address] Physician AssistantNeurology01/03/25documented as of this encounter
--- OUTSIDE RECORDS SUMMARY | 2025-09-12 11:47 | XMS_ITS | Encounter Summary ---
Author Organization [facility] Address [address] [place] [address] Care Team Providers Care Student Records Coordinator Name Role Phone Gabino Hdez DO Primary Care Provider [phone]- [phone] Gabino Hdez DO Unavailable [phone] Edwige Gilman PATIENT CLERICAL ASSISTANT Unavailable [phone] Delicia Hearn Unavailable Encounter Details DateTypeDepartmentCare Team (Latest Contact Info)Uolesfidojx14/20/2025Travel Social History Tobacco UseTypesPacks/DayYears UsedDateSmoking Tobacco: Every NvxBcdcxnpigv480.9 Started: 10/18/1984Smokeless Tobacco: NeverAlcohol UseStandard Drinks/Week RsabuudtBsg38 (1 standard drink = 0.6 oz pure alcohol)caffeine more than 4 cups per gwlU0677 Health LiteracyAnswerDate RecordedHow often do you need [...] relatives?Once a week05/19/2024How often do you attend cheondoism or judaism services?Never05/19/2024o you belong to any clubs or organizations such as cheondoism groups, unions, fraternal or athletic groups, or school groups?No05/19/2024How often do you attend meetings of the clubs or organizations you belong to?Never05/19/2024re you , , , , never , or living with a partner?Bxunuma4805/19/2024 AUDIT-CAnswerDate RecordedQ1: How often do you have [...] hard at all05/19/2024HQ-2AnswerDate RecordedPatient Health Questionnaire-2 Score0 12/13/2024[facility] [place] of Occupational Health - Occupational Stress QuestionnaireAnswerDate RecordedDo you feel stress - tense, restless, nervous, or anxious, or unable to sleep at night because yourmind is troubled all the time - these days?To some tscjeh3105/19/2024Exercise Vital SignAnswerDate Recorded On average, how many [...] were you homeless or living in a half-way (including now)?No05/19/2024Sex and Gender InformationValueDate Recorded Sex Assigned at BirthNot on fileLegal NdbFzin6512/30/2022 6:39 PM EDTGender IdentityNot on fileSexual OrientationNot on filedocumented as of this encounter Plan of Treatment DateTypeDepartmentCare Team (Latest Contact Info)Rxzjozndtjn12/04/2025 2:00 PM ESTOffice Visit [facility] [address] [place] [address] Bharathi Chinchilla, DPM [address] [place] [address] 11/01/2025 4:10 PM ESTOffice Visit [facility] [address] [place] [place] [address] Bharathi Chinchilla DPM [address] [address] documented as of this encounter Visit Diagnoses Not on filedocumented in this encounter Care Teams Team MemberRelationshipSpecialtyStart DateEnd Date Gabino Hdez DO [address] [place] [address] PCP - GeneralFamily Medicine02/23/23 Gabino Hdez DO [address] [place] [address] PCP - ACO Reach11/24/24 Edwige Gilman LSW [address] [place] [address] Social WorkerFamily Medicine11/29/24 Delicia Hearn PA [address] [place] [address] Physician AssistantNeurology01/03/25documented as of this encounter
--- OUTSIDE RECORDS SUMMARY | 2025-09-12 11:47 | XMS_ITS | Encounter Summary ---
Author Organization [facility] Address [address] [place] [place] [address] Care Team Providers Care Merchandise For Resale Purchasing Agent Name Role Phone Gabino Hdez DO Primary Care Provider [phone]- [phone] Gabino Hdez DO Unavailable [phone] Edwige Gilman MASTER ELECTRICIAN Unavailable [phone] Delicia Hearn Unavailable Encounter Details DateTypeDepartmentCare Team (Latest Contact Info)Wrbdxmlaayq34/26/2025amboo flowsheet [facility] [place] [facility] [address] [facility] [address] [place] [address] Christiano Haley MD [address] [facility] [address] [place] [address] Social History Tobacco UseTypesPacks/DayYears UsedDateSmoking Tobacco: Every FscVatsdafjey085.9 Started: 10/18/1984Smokeless Tobacco: NeverAlcohol UseStandard Drinks/Week WyzbwntlUrd84 (1 standard drink = 0.6 oz pure alcohol)caffeine more than 4 cups per idfS5711 Health LiteracyAnswerDate RecordedHow often do you need [...] relatives?Once a week05/19/2024How often do you attend congregation or gnosticist services?Never05/19/2024o you belong to any clubs or organizations such as congregation groups, unions, fraternal or athletic groups, or school groups?No05/19/2024How often do you attend meetings of the clubs or organizations you belong to?Never05/19/2024re you , , , , never , or living with a partner?Grsyzwd8405/19/2024 AUDIT-CAnswerDate RecordedQ1: How often do you have [...] hard at all05/19/2024HQ-2AnswerDate RecordedPatient Health Questionnaire-2 Score0 12/13/2024[facility] [place] of Occupational Health - Occupational Stress QuestionnaireAnswerDate RecordedDo you feel stress - tense, restless, nervous, or anxious, or unable to sleep at night because yourmind is troubled all the time - these days?To some vkqdij6905/19/2024Exercise Vital SignAnswerDate Recorded On average, how many [...] or living in a care home (including now)?No05/19/2024Sex and Gender InformationValueDate Recorded Sex Assigned at BirthNot on fileLegal NifXsxw5012/30/2022 6:39 PM EDTGender IdentityNot on fileSexual OrientationNot on filedocumented as of this encounter Plan of Treatment DateTypeDepartmentCare Team (Latest Contact Info)Qenanhplqlx33/04/2025 2:00 PM ESTOffice Visit [facility] [address] [place] [address] Bharathi Chinchilla DPM [address] [facility] [place] [address] [place] [address] 11/01/2025 4:10 PM ESTOffice Visit [facility] [address] [place] [address] Bharathi Chinchilla DPM [address] [facility] [place] [address] [place] [address] documented as of this encounter Visit Diagnoses Not on filedocumented in this encounter Care Teams Team MemberRelationshipSpecialtyStart DateEnd Date Gabino Hdez DO [address] [place] [address] PCP - GeneralFamily Medicine02/23/23 Gabino Hdez DO [address] [place] [address] PCP - ACO Reach11/24/24 Edwige Gilman, THEA [address] [place] [address] Social WorkerFamily Medicine11/29/24 Delicia Hearn PA [address] [facility] [address] [place] [address] Physician AssistantNeurology01/03/25documented as of this encounter
--- OUTSIDE RECORDS SUMMARY | 2025-09-12 11:47 | XMS_ITS | Clinical Summary ---
Author Organization [facility] Address [facility] [place] [address] Care Team Providers Care Inspector Production Plastic Parts Name Role Phone Gabino Hdez DO Primary Care Provider [phone] Allergies Active AllergyReactionsCriticalityNoted JassEcxjfcjoRpjwyjnqVqhfAqa38/29/2017 Patch only-irritation from Heparin AnaloguesOther (See Comments)Low01/13/2017 Unknown KyinuYqjxQwu52/25/2020 After prolong use MorphineOther (See Comments)Low01/13/2017 Brings pain on ZsidfgbgrsvIgshrWnv47/29/2017RifampinOther (See Comments)High01/13/2017 Did not wake up for 3 days Medications MedicationSigDispense QuantityRefillsLast FilledStart DateEnd DateStatus atenolol (TENORMIN) 25 mg tablet Take 1 tablet (25 mg total) by mouth once daily at bedtime.Active meloxicam (MOBIC) 7.5 mg tablet Take 1 tablet (7.5 mg total) by mouth in the morning and 1 tablet (7.5 mg total) before bedtime.Active levothyroxine (SYNTHROID, LEVOTHROID) 175 MCG tablet Take 1 tablet (175 mcg total) by mouth in the morning.Active albuterol sulfate 90 mcg/actuation aerosol powdr breath activated Inhale 180 mcg every 4 (four) hours.Active doxepin (SINEquan) 100 mg capsule Take 1 capsule (100 mg total) by mouth nightly.Active busPIRone (BUSPAR) 15 mg tablet Take 1 tablet (15 mg total) by mouth in the morning and 1 tablet (15 mg total) before bedtime.Active hydroCHLOROthiazide (HYDRODIURIL) 25 mg tablet Take 1 tablet (25 mg total) by mouth daily.Active ibuprofen (MOTRIN) 800 mg tablet Take 1 tablet (800 mg total) by mouth every 8 (eight) hours as needed for pain. Active empagliflozin (JARDIANCE) 10 mg tablet tablet Take 1 tablet (10 mg total) by mouth in the morning.Active metFORMIN (GLUCOPHAGE) 1000 mg tablet Take 1 tablet (1,000 mg total) by mouth in the morning and 1 tablet (1,000 mg total) in the evening. Take with meals.Active divalproex (DEPAKOTE) 500 mg EC tablet Take 1 tablet (500 mg total) by mouth in the morning and 1 tablet (500 mg total) before bedtime. Take one tab in the morning and two tabs at night .Active QUEtiapine (SEROquel) 300 mg tablet Take 1 tablet (300 mg total) by mouth nightly.Active hydrOXYzine (ATARAX) 50 mg tablet Take 1 tablet (50 mg total) by mouth as needed.12/28/2019Active promethazine (PHENERGAN) 25 mg tablet Take 1 tablet (25 mg total) by mouth every 6 (six) hours as needed for nausea or vomiting.Active sertraline (ZOLOFT) 50 mg tablet 07/01/2022ctive busPIRone (BUSPAR) 5 mg tablet 07/06/2022ctive pregabalin (LYRICA) 150 mg capsule TAKE 1 CAPSULE BY MOUTH TWICE A DAY FOR 30 DAYS07/02/2022ctive HYDROcodone-acetaminophen (NORCO) 5-325 mg per tablet Indications:Lumbosacral spondylosis without myelopathyTake 1 tablet by mouth 2 (two) times a day as needed for pain. Max Daily Amount: 2 tablets 45 tablet 2023ctive lithium aspartate 20 mg capsule Take 20 mg by mouth in the morning.03/15/2024ctive methylPREDNISolone (MEDROL, JONES,) 4 mg tablet follow package directions 21 tablet 03/29/2024ctive lidocaine (LIDODERM) 5 % Indications:Lumbosacral spondylosis without myelopathy,Sacrococcygeal disorders, not elsewhere classifiedPlace 1 patch on the skin daily. Remove & Discard patch within 12 hours or as directed by 30 patch 03/29/2024ctive cyclobenzaprine (FLEXERIL) 10 mg tablet Take 1 tablet (10 mg total) by mouth 2 (two) times a day as needed for muscle spasms. 30 tablet ctive Active Problems ProblemNoted DateDiagnosed DateChronic pain vtwrjrta34/07/2024ervical xosocbdaybyvj48/07/2023Lumbosacral spondylosis without fajteozksa56/09/2020 Lumbosacral spondylosis without qlpsuyvkku24/04/2018 Overview (06/21/2018): Added automatically from request for surgery [id number] Disorder of slfbnb8003/08/2018 Overview (03/08/2018): Added automatically from request for surgery [id number] Disc displacement, byhnts0311/11/2017 Overview (11/11/2017): Added automatically from request for surgery [id number] Other intervertebral disc displacement, lumbar vkjeru4701/13/2017Cervical spondylosis without ozqnejdvcy78/29/2017Sacrococcygeal disorders, not elsewhere leeqvvvvgk39/29/2017Spondylosis without myelopathy or radiculopathy, lumbar comhat4901/13/2017Encounter for long-term opiate analgesic use01/13/2017 Displacement of lumbar intervertebral disc without iauhlgjkey91/29/2004Pain in limb01/29/2003 Family History Medical HistoryRelationNameCommentsDiabetesDaughterDiabetesMotherRelationName StatusCommentsDaughterMother Social History Tobacco UseTypesPacks/DayYears UsedDateSmoking Tobacco: Every DayCigarettes Smokeless Tobacco: FormerAlcohol UseStandard Drinks/WeekCommentsYes0 (1 standard drink = 0.6 oz pure alcohol)drinks beer occasionallyChildcareAnswerDate Recorded IuhybdxqpKpwvjfp90/12/2019EmploymentAnswerDate RecordedEmploymentUnknown 03/29/2019Hunger ScreeningAnswerDate RecordedWithin the past 12 months we worried whether our food would run out before we got money to buy more.Never True05/24/2024Within the past 12 months the food we bought just didn't last and we didn't have money to get more.Never True4Purpose - LifeAnswerDate RecordedPurpose and direction in uvrjYdubaxa54/11/2021ex and Gender Information ValueDate RecordedSex Assigned at BirthNot on fileLegal OeaXguk9705/23/2015 11:34 AM EDTGender IdentityNot on fileSexual OrientationNot on file Last Filed Vital Signs Vital SignReadingTime TakenCommentsBlood Czzqtomh521/8008 2:09 PM EDT Fzfnr012305/24/2024 2:09 PM WLPWyuthangyhk64.1 ??C (97 ??F)02/11/2024 8:17 AM EDT Respiratory Lmbw986705/24/2024 2:09 PM EDTOxygen Vdhfmhcomm20%05/24/2024 2:09 PM EDTInhaled Oxygen Concentration--Leapxy69.3 kg (219 lb)05/24/2024 2:09 PM EDT Wcuvfb823.9 cm (6')05/24/2024 2:09 PM EDTBody Mass Index29.708 2:09 PM EDT Plan of Treatment Health MaintenanceDue DateLast DoneCommentsDepression Odbvuutmu23/26/1984 DTaP,Tdap and Td Vaccines (1 - Tdap)1991Zoster (Shingles) Vaccine (1 of 2) 2022dult BMI Ixfrkdjfz38/04/2024Tobacco Lppwtmwry62/07/2025 05/24/2024OVID-19 Vaccine ( season)/, 01/28/2021, 01/06/2021Influenza Pxgswjq96/, 07/29/2017 Medical Devices ImplantedTypeAreaManufacturerDevice IdentifierShelf Expiration DateModel / Serial / LotScrewDescription:screws in left hand Insurance Care Teams Team MemberRelationshipSpecialtyStart DateEnd Date Gabino Hdez DO [address] [place] [address] [facility]02/22/17
--- OUTSIDE RECORDS SUMMARY | 2025-09-12 11:47 | XMS_ITS | Clinical Summary ---
Author Organization [facility] Address [facility], [address] [place] [address] Care Team Providers Care Sales And Marketing Associate Name Role Phone Unavailable Primary Care Provider Unavailabl e Allergies Active AllergyReactionsCriticalityNoted UshtKpqaucxgMwabqat85/14/2013Morphine 12/01/20120560Ldcvqxsppea29/14/9517Jpqbsfdefy45/14/2013 Medications MedicationSigDispense QuantityRefillsLast FilledStart DateEnd DateStatus ATENOLOL PO Take by mouth daily.Active levothyroxine (SYNTHROID) 125 MCG tablet Take 125 mcg by mouth Daily.Active hydrochlorothiazide (HYDRODIURIL) 25 MG tablet Take 25 mg by mouth daily.Active omeprazole (PRILOSEC) 20 MG capsule Take 20 mg by mouth daily.Active meloxicam (MOBIC) 15 MG tablet Take 15 mg by mouth daily.Active amLODIPine (NORVASC) 10 MG tablet Take 10 mg by mouth daily.Active busPIRone (BUSPAR) 10 MG tablet Take 10 mg by mouth daily.Active PARoxetine (PAXIL) 40 MG tablet Take 40 mg by mouth every morning.Active Social History Tobacco UseTypesPacks/DayYears UsedDateSmoking Tobacco: Every DayCigarettesSex and Gender InformationValueDate RecordedSex Assigned at BirthNot on fileLegal ZkgSxep2811/27/2012 6:15 PM ESTGender IdentityNot on fileSexual OrientationNot on file Last Filed Vital Signs Vital SignReadingTime TakenCommentsBlood Rfrgaixs777/71012/01/2012 12:08 PM EST Gghpt356512/01/2012 12:08 PM ESTTemperature--Respiratory Rahd318912/01/2012 12:08 PM ESTOxygen Oecliuzmkc56%12/01/2012 12:08 PM ESTInhaled Oxygen Concentration-- Oybzeq42.8 kg (220 lb)12/01/2012 12:08 PM ESTHeight--Body Mass Index-- Plan of Treatment Not on file
--- OUTSIDE RECORDS SUMMARY | 2025-09-12 11:47 | XMS_ITS | CCD ---
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 Name Role Phone PETZNICK, AGATA Admitting Unavailable PETZNICK, AGATA Attending Unavailable PETZNICK, AGATA Primary Care Unavailable PETZNICK, AGATA Admitting Unavailable PETZNICK, AGATA Attending Unavailable PETZNICK, AGATA Primary Care Unavailable PETZNICK, AGATA Consulting Unavailable REQUEST, NONE LISTED Admitting Unavaila ble REQUEST, NONE LISTED Attending Unavaila ble PETZNICK, AGATA Primary Care Unavailable REQUEST, NONE LISTED Consulting Unavaila ble PETZNICK, AGATA Admitting Unavailable PETZNICK, AGATA Attending Unavailable PETZNICK, AGATA Primary Care Unavailable Magaly Rosario Unavailable Petznick, DO Agata Primary Care Provider ELICEO Ortiz Attending Provider Petluigiick, DO Agata Primary Care Provider ELICEO Ortiz Attending Provider Lino Nguyen Unavailable Petznick, DO Agata Primary Care Provider MD Lino Nguyen Attending Provider MD Terrence Gilbert Emergency Provider Kim Felipe Unavailable Petznick, DO Agata Attending Provider Petznick Agata GONSALVES C Primary Care Provider Petznick, DO Agata Primary Care Provider Petznick, DO Agata Attending Provider [phone] MD Ilya Ayers II Attending Provider [phone] Petznick, DO Agata Primary Care Provider [phone] MD Urban Cabrrea Attending Provider Petznick, DO Agata Primary Care Provider [phone] MD Urban Cabrera Attending Provider [phone] MD Magaly Rosario Attending Provider [phone] LONG MCDONALD Attending Unavailable PETZNICK, AGATA C Referring Unavailable PETZNICK, AGATA C Primary Care Unavailable GLENDY ARMENDARIZ Referring Unavailable PETZNICK, AGATA C Primary Care Unavailable BOSSJESSICA Attending Unavailable BOSS, JESSICA Mejia Referring Unavailable PETZNICK, AGATA C Primary Care Unavailable BOSS, JESSICA Mejia Admitting Unavailable BOSS, JESSICA Mejia Attending Unavailable PETZNICK, AGATA C Referring Unavailable PETZNICK, AGATA C Primary Care Unavailable DEISY JAY Attending Unavailable PETZNICK, AGATA C Primary Care Unavailable BSOS, JESSICA Mejia Admitting Unavailable BOSS, JESSICA Mejia Attending Unavailable PETZNICK, AGATA C Referring Unavailable PETZNICK, AGATA C Primary Care Unavailable BOSS, JESSICA Mejia Attending Unavailable BOSS, JESSICA Mejia Referring Unavailable PETZNICK, AGATA C Primary Care Unavailable PRIMO GARCIAS Attending Unavail able PETZNICK, AGATA C Primary Care Unavailable LONG MCDONALD Attending Unavailable PETZNICK, AGATA C Referring Unavailable PETZNICK, AGATA C Primary Care Unavailable LONG MCDONALD Attending Unavailable PETZNICK, AGATA C Referring Unavailable PETZNICK, AGATA C Primary Care Unavailable KRISTAL SINGH Attending Unavailable PETZNICK, AGATA C Primary Care Unavailable Petznick, DO [facility] Primary Care Provider MD Urban Cabrera Attending Provider Petznick DO, Agata C Primary Care Provider Petznick DO, Agata C Unavailable [phone] Mukul SPORTS MEDIA, Edwige Unavailable Mukul PHELPSW, Edwige Unavailable Delicia Heller Unavailable PETZNICK, AGATA C Referring Unavailable PETZNICK, AGATA C Attending Unavailable DELICIA HEARN Attending Unavailable AGATA CORDOVA Attending Unavailable BHARATHI CHINCHILLA Attending Unavailable DIETER CALLE Attending Unavailable BHARATHI RIVERA Attending Unavailable DIETER CALLE Referring Unavailable DELICIA HEARN Attending Unavailable Agata Cordova Primary Care Unavailable Chela Cabreraelrahman Attending Unavailab le DeborahChela vazquezelrahman Admitting Unavailab le Allergies Allergy ClassificationReported Allergen(s)Allergy TypeDate of OnsetReaction(s) Facility (10 sources)fentaNYL; 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: [FENTANYL]Drug Bxzoqun28-27-5347jtysouzVxw [facility] Repository (11 sources)Morphine; 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: [MORPHINE]Drug Vodpsvd50-36-7912Eh. states sometimes increases pain rather than decreasing [facility] Repository (19 sources)Penicillins; 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: [PENICILLINS]Drug allergy (disorder) 07-51-0563Jddyaob Reaction, Hives, Hives and rashThe [facility] (18 sources)rifAMPin; 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: [RIFAMPIN]Drug Mbibgcx00-55-8399Qalfikhpguu [facility] Repository (20 sources)fentaNYLDrug Xoexvcc37-78-6055Sirx, Unknown, ItchingNOMS Healthcare (20 sources)heparinDrug Nqbsobp62-56-4172Zcqxi, GI bleedingMercy Health [facility] (20 sources)MorphineDrug Pvzcvmr51-66-2477fqtog, Other, UnknownNortTemple University Health System [employer] Other (19 sources)Penicillin GDrug Escrhdx13-68-7774mqdxSoaufdzqhElyria Memorial Hospital (17 sources)rifAMPinDrug AllergyanaphylaxisSwedish Medical Center Edmonds [employer] Other (20 sources)Latex; 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: [LATEX]Propensity to adverse reactions 48-73-1488YhsqPUIG Healthcare (1 source)oxyCODONEDrug Drzmagh79-34-4835L[facility] (20 sources)PenicillinsDrug Pidlwsmyzyt41-90-5719Fukzy, UnknownNOMS Healthcare (20 sources)rifAMPinDrug Yprnznx44-25-5131Kbshz, AnaphylaxisNOMS Healthcare (20 sources)rifamycin SVDrug Wkddoun52-56-4187Cbhtt, Unknown, AnaphylaxisNOMS Healthcare (20 sources)rifapentineDrug Iibpmrm71-72-8351FRQZ Healthcare (20 sources)heparin; 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: [heparin (porcine)]Drug Wgdyjxo09-10-4459 [facility] (3 sources)HEPARIN ANALOGUES; 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: [HEPARIN ANALOGUES]Propensity to adverse reactions to drug (disorder)87-75-0597GkkbgYltSucojl Repository (1 source)RIFAMYCIN ANALOGUES; 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: [RIFAMYCIN ANALOGUES]Propensity to adverse reactions to drug (disorder)73[place]61-7[place] [address] Repository (1 source)PenicillinsDrug Fsptlhycdci71-12-3943Kdkqn, [facility] Work Phone: (1 source)PenicillinsDrug allergy (disorder)35-23-1084DfnrveklzMercy Health [facility] Repository (1 source)rifAMPinDrug Uqbualc51-90-5014YobmuiaaiMercy Health [facility] Repository Medications Current Medications MedicationDrug Class(es)DatesSig (Normalized)Sig (Original)8 hr acetaminophen 650 mg extended release oral tablet (20 sources)Start: 90-04-3185wofxomnczarwr (Tylenol 8 Hour) 650 MG ER tablet Three times daily 08/30/2023 Fejrzrzjq446356 200 actuat albuterol 0.09 mg/actuat metered dose inhaler (20 sources)beta2-Adrenergic AgonistStart: 07-99-8083vkpi 2 puff(s) by mouth every four hours as needed for coughalbuterol (ProAir RespiClick) 90 mcg/act breath-activated inhaler Inhale 180 mcg every 4 (four) hours. ActiveamLODIPine 10 mg oral tablet (7 sources)Dihydropyridine Calcium Channel Blockertake 1 tablet by mouth every twenty-four hoursaspirin 81 mg oral tablet (20 sources)Platelet Aggregation Inhibitor, Nonsteroidal Anti-inflammatory Drug Start: 75-60-9165eybd 1 tablet by mouth once dailyStart: 04-27-2019 End: 88-46-7657kxst 81 mg by mouth once dailyAspirin Discontinued 81 MG PO Daily April 27, 2019 12:00am January 22, 2022 8:38amtake 1 tablet by mouth once dailyatenolol 25 mg oral tablet (20 sources)beta-Adrenergic BlockerStart: 50-84-9780upzy 1 tablet by mouth at bedtimeatenolol (Tenormin) 25 MG tablet Indications: Primary hypertension Take 1 tablet (25 mg) by mouth at bedtime 90 tablet 3 05/22/2024 ActiveStart: 01-22-2022 End: 46-00-7404Vsfboglm Discontinued MG TABLET January 22, 2022 12:00am January 22, 2022 8:49amStart: 10-14-2017 End: 64-57-7808yulz 25 mg by mouth once daily in the morningAtenolol Active 25 MG PO Every morning October 14, 2017 1:00amBlood Glucose Monitoring Suppl ([employer] Verio Flex System) w/Device kit (5 sources)Start: 30-86-5104Rwoej Glucose Monitoring Suppl (OneTouch Verio Flex System) w/Device kit Indications: Type 2 diabetes mellitus with other specified complication, without long-term current use of insulin (HCC) 1 eachDaily 1 kit 04/17/2025 ActivebusPIRone hydrochloride 5 mg oral tablet (20 sources)Start: 16-19-8218lkqs 15 mg by mouth twice dailyBuspirone Active 15 MG PO Twice daily January 22, 2022 12:00amStart: 15-24-1945ylpc 1 tablet by mouth in the morningbusPIRone (Buspar) 5 MG tablet Take 5 mg by mouth in the morning and 5 mg before bedtime. 07/06/2022 ActiveStart: 10-14-2017 End: 18-77-0190yqvl 1 tablet by mouth twice dailyBuspirone Discontinued 1 TAB PO Twice daily October 14, 2017 1:00am January 22, 2022 8:38amtake 1 tablet by mouth twice dailyBuSpar 10 MG 1 tablet Orally bid Activecyclobenzaprine hydrochloride 5 mg oral tablet (20 sources)Muscle RelaxantStart: 95-33-3932cjea 1-2 tablets by mouth at bedtime cyclobenzaprine (Flexeril) 5 MG tablet Indications: Classical migraine with intractable migraine, so stated TAKE 1 TO 2 TABLETS BY MOUTH AT BEDTIME 60 tablet 2 03/06/2025 ActiveStart: 09-13-2024 End: 85-03-9520jqgq 1-2 tablets by mouth once daily at bedtimecyclobenzaprine (Flexeril) 5 MG tablet Indications: Classical migraine with intractable migraine, so stated (CMS/HCC) 1-2 tabs PO QHS 60 tablet 2 09/13/2024 12/13/2024 DiscontinuedStart: 85-15-5128cczv 10 mg by mouth every eight hours Cyclobenzaprine Active 10 MG PO Every 8 hours January 19, 2024 12:00amStart: 09-14-2023 End: 56-24-2541faqeewyzkyhrjbh (Flexeril) 10 MG tablet Three times daily 09/14/2023 09/13/2024 Discontinueddexlansoprazole 60 mg delayed release oral capsule (14 sources)Proton Pump InhibitorStart: 57-03-2172wopm 1 capsule by mouth every twenty-four hoursdiclofenac sodium 0.01 mg/mg topical gel (20 sources)Nonsteroidal Anti-inflammatory DrugStart: 98-91-7643sftkgrvcjk sodium 1 % gel Four times daily 04/26/2024 ActiveStart: 97-28-1483Qnwuptntgz Sodium Active 0 TOPICAL Four times daily April 26, 2024 12:00am topically four times daily PRN;Start: 01-19-2024 End: 30-15-5864Dgdtccxlte Sodium Discontinued 0 TOPICAL Four times daily January 19, 2024 12:00am April 26, 2024 3:42pm apply a pea sized amount to affected area two to four times dailyStart: 63-50-8354Uhvteeijii Sodium Active 0 TOPICAL Four times daily January 19, 2024 12:00am apply a pea sized amount to affected area two to four times dailydonepezil hydrochloride 5 mg oral tablet (19 sources)Start: 07-20-2024 End: 32-43-8350fqhv 1 tablet by mouth at bedtimedonepezil (Aricept) 5 MG tablet Indications: Cognitive impairment TAKE 1 TABLET BY MOUTH AT BRRFIAV16 tablet 1 08/14/2024 Activedoxepin hydrochloride 150 mg oral capsule (20 sources)Tricyclic AntidepressantStart: 50-36-4902joua 150 mg by mouth once daily at bedtimeDoxepin Active 150 MG PO Daily at bedtime January 22, 2022 12:00amStart: 01-22-2022 End: 98-39-8084Vhngjfu Discontinued MG January 22, 2022 12:00am January 22, 2022 8:41amStart: 10-14-2017 End: 74-70-7213Maghznl Discontinued October 14, 2017 1:00am October 14, 2017 3:33pmStart: 10-14-2017 End: 12-01-4494slnp 1 tablet by mouth once dailyDoxepin Discontinued 1 TAB PO Daily October 14, 2017 1:00am January 22, 2022 8:40amDoxepin HCl Active empagliflozin 10 mg oral tablet (7 sources)Sodium-Glucose Cotransporter 2 Inhibitortake 1 tablet by mouth every twenty-four hours1 ml erenumab-aooe 140 mg/ml auto-injector (8 sources)Start: 07-20-2024 End: 24-90-5694wydzak 1 mL by subcutaneous injection onceerenumab (Aimovig) 140 MG/ML injection Indications: Classical migraine with intractable migraine, so stated (CMS/HCC) Inject 1 mL (140 mg) under the skin every 28 (twenty-eight) days 1 each 2 07/20/2024 10/18/2024 Activeglimepiride 1 mg oral tablet (6 sources)SulfonylureaStart: 07-04-2025 End: 44-76-2130ptnl 1 tablet by mouth before mealtimeglimepiride (Amaryl) 1 MG tablet Indications: Type 2 diabetes mellitus with other specified complication, without long-term current use of insulin ([facility]) Take 1 tablet (1 mg) by mouth in the morning. Take before meals. 90 tablet 1 07/04/2025 12/31/2025 ActiveStart: 01-02-2025 End: 95-75-8950kaxy 1 tablet by mouth before mealtimeglimepiride (Amaryl) 1 MG tablet Indications: Type 2 diabetes mellitus with other specified complication, without long-term current use of insulin ([facility]) Take 1 tablet (1 mg) by mouth in the morning. Take before meals. 90 tablet 1 01/02/2025 07/01/2025 Active Hydrochlorothiazide-25 mg 25 mg (13 sources)take 25 mg by mouth once dailyHydrochlorothiazide-25 mg 25 mg Orally Once a day ActivehydrOXYzine hydrochloride 50 mg oral tablet (20 sources)AntihistamineStart: 65-04-0478bryl 50 mg by mouth every eight hours Hydroxyzine Hcl Active 50 MG PO Q8H August 30, 2023 1:00amhydrOXYzine pamoate (Vistaril) 50 MG capsule every 6 (six) hours. Activehyoscyamine sulfate 0.125 mg sublingual tablet (1 source)Start: 11-04-2023 End: 30-94-7759qqvhlbblxmv (Levsin/SL) 0.125 MG SL tablet Indications: Epigastric pain , Gastroesophageal reflux disease, unspecified whether esophagitis present , Peripheral vascular disorder due to diabetes mellitus (CMS/HCC) , Type 2 diabetes mellitus with other skin complications (CMS/HCC) , Primary hypertension (CMS/HCC) , Bipolar 1 disorder (CMS/HCC) , Numbness and tingling Place 1 tablet (125 mcg) under the tongue every 6 (six) hours if needed for cramping 45 tablet 1 11/04/2023 12/04/2023 Activeibuprofen 800 mg oral tablet (20 sources)Nonsteroidal Anti-inflammatory DrugStart: 72-07-5238ennj 1 tablet by mouth every eight hours at mealtime as neededIbuprofen 800 MG 1 tablet with food or milk as needed Orally every 8 hrs for 30 days May, ActiveStart: 04-27-2019 End: 98-92-0159nobc 800 mg by mouth three times dailyIbuprofen Discontinued 800 MG PO Three times daily 90 April 27, 2019 12:00am January 22, 2022 8:42am levothyroxine sodium 0.175 mg oral tablet (20 sources)l-ThyroxineStart: 80-38-0334kwhmulqptspqp (Synthroid, Levoxyl) 175 MCG tablet Indications: Hypothyroidism, unspecified type TAKE 1 TABLET ONE TIME DAILY IN THE MORNING ON AN EMPTY STOMACH 90 tablet 1 12/04/2024 ActiveStart: 95-76-5197adrz 1 tablet by mouth in the morninglevothyroxine (Synthroid, Levoxyl) 175 mcg tablet Take 1 tablet (175 mcg) by mouth early in the morning.. 05/22/2024 ActiveStart: 60-97-5691dtxk 150 ug by mouth once dailyLevothyroxine Active 150 MCG PO Daily October 14, 2017 1:00amStart: 32-36-2752vtko 1 tablet by mouth once dailyLevothyroxine Active 1 TAB PO Daily October 14, 2017 1:00amtake 1 tablet by mouth once daily in the morningLevothyroxine Sodium 150 MCG 1 tablet in the morning on an empty stomach Orally Once a day Activetake 1 tablet by mouth once daily in the morningLevothyroxine Sodium 150 MCG 1 tablet in the morning on an empty stomach Orally Once a day Activelithium carbonate 150 mg oral capsule (20 sources)Start: 50-48-3856sfsg 1 capsule by mouth in the morninglithium 150 MG capsule Take 150 mg by mouth in the morning and 150 mg before bedtime. 02/10/2024 Activemagnesium oxide 400 mg oral tablet (20 sources)Start: 48-58-5623cewp 1 tablet by mouth once dailymagnesium oxide (Mag-Ox) 400 (240 Mg) MG tablet Indications: Acute post-traumatic headache, not intractable TAKE 1 TABLET BY MOUTH EVERY DAY 90 tablet 12/08/2024 Active metFORMIN hydrochloride 1000 mg oral tablet (20 sources)BiguanideStart: 12-04-2024 End: 53-98-3253tbaj 1 tablet by mouth in the morningmetFORMIN (Glucophage) 1000 MG tablet Indications: Type 2 diabetes mellitus with other skin complications (HCC) Take 1 tablet (1,000 mg) by mouth in the morning and 1 tablet (1,000 mg) in the evening. Take with meals. 180 tablet 1 12/04/2024 ActiveStart: 05-22-2024 End: 34-13-7634foqv 1 tablet by mouth in the morningmetFORMIN (Glucophage) 1000 MG tablet Indications: Type 2 diabetes mellitus with other skin complications (CMS/HCC) Take 1 tablet (1,000 mg) by mouth in the morning and 1 tablet (1,000 mg) in the evening. Take with meals. 180 tablet 1 05/22/2024 11/18/2024 Active Start: 10-14-2017 End: 07-51-4263tllu 1 tablet by mouth twice dailyMetformin Active 1 TAB PO Twice daily October 14, 2017 1:00ammethylPREDNISolone 4 mg oral tablet (7 sources)CorticosteroidStart: 92-39-8804cmrvuayf 375 mg oral tablet (3 sources)Nonsteroidal Anti-inflammatory DrugStart: 27-62-3992cbbc 1 tablet by mouth every twelve hours at mealtime as neededpantoprazole 40 mg delayed release oral tablet (20 sources)Proton Pump InhibitorStart: 07-04-2025 End: 82-64-3076zpgs 1 tablet by mouth before mealtimepantoprazole (ProtoNix) 40 MG EC tablet Indications: Gastroesophageal reflux disease, unspecified whether esophagitis present Take 1 tablet (40 mg) by mouth in the morning. Take before meals. Do not crush, chew, or split. 90 tablet 1 07/04/2025 08/03/2025 Active Start: 05-22-2024 End: 06-99-5387dynh 1 tablet by mouth before mealtimepantoprazole (ProtoNix) 40 MG EC tablet Indications: Gastroesophageal reflux disease, unspecified whether esophagitis present Take 1 tablet (40 mg) by mouth in the morning. Take before meals. Do not crush, chew, or split.. 90 tablet 1 05/22/2024 ActiveStart: 10-14-2017 End: 18-92-0338nvby 40 mg by mouth once daily at bedtimePantoprazole Active 40 MG PO Daily at bedtime April 18, 2024 3:43pmStart: 02-54-5296uepu 40 mg by mouth twice dailyPantoprazole Active 40 MG PO Twice daily October 14, 2017 1:00am PARoxetine hydrochloride 40 mg oral tablet (1 source)Serotonin Reuptake Inhibitortake 1 tablet by mouth once daily before mealtimePARoxetine (Paxil) 40 mg tablet Take 1 tablet (40 mg) by mouth once daily in the morning. Take before meals. Activepravastatin sodium 40 mg oral tablet (20 sources)HMG-CoA Reductase InhibitorStart: 95-39-7391xygn 1 tablet by mouth at bedtimepravastatin (Pravachol) 40 MG tablet Indications: Mixed hyperlipidemia Take 1 tablet (40 mg) by mouth at bedtime 90 tablet 1 07/04/2025 ActiveStart: 02-81-9480olsekufyjzq (Pravachol) 40 MG tablet Indications: Mixed hyperlipidemia TAKE 1 TABLET EVERY EVENING 90 tablet 3 02/16/2024 ActiveStart: 10-14-2017 End: 96-22-3045voyo 1 tablet by mouth in the eveningpravastatin (Pravachol) 40 MG tablet Indications: Mixed hyperlipidemia (CMS/HCC) Take 1 tablet (40 mg) by mouth in the evening. 90 tablet 1 06/03/2023 11/30/2023 Activepregabalin 150 mg oral capsule (20 sources)Start: 67-27-3520lylf 1 capsule by mouth in the morningpregabalin (Lyrica) 150 MG capsule Indications: Numbness and tingling Take 1 capsule (150 mg) by mouth in the morning and 1 capsule (150 mg) before bedtime. 180 capsule 1 01/02/2025 ActiveStart: 81-72-6325lnny 1 capsule by mouth twice daily at bedtime pregabalin (Lyrica) 150 MG capsule Indications: Numbness and tingling TAKE 1 CAPSULE BY MOUTH TWICEDAILY (IN THE MORNING and BEFORE bedtime) 180 capsule 1 05/19/2024 ActiveStart: 08-30-2023 End: 89-89-8547heeo 150 mg by mouth three times dailyPregabalin Active 150 MG PO Three times daily August 30, 2023 1:00amtake 1 capsule by mouth every twenty-four hoursLyrica 150 MG 1 capsule Orally Once a day Activepromethazine hydrochloride 25 mg oral tablet (17 sources)PhenothiazineStart: 11-04-2023 End: 70-37-3860szlyjqltpsmh (Phenergan) 25 MG tablet Indications: Epigastric pain , Gastroesophageal reflux disease, unspecified whether esophagitis present , Peripheral vascular disorder due to diabetes mellitus (CMS/HCC) , Type 2 diabetes mellitus with other skin complications (CMS/HCC) , Primary hypertension (CMS/HCC) , Bipolar 1 disorder (CMS/HCC) , Numbness and tingling Take 1 tablet (25 mg) by mouth every8 (eight) hours if needed for vomiting or nausea 30 tablet 1 11/04/2023 12/04/2023 ActiveStart: 76-05-3156Clnfltfxbosi Active 1 TAB PO As Directed October 14, 2017 1:00amtake 1 tablet by mouth every six hours as neededpromethazine (Phenergan) 25 mg tablet Take 1 tablet (25 mg) by mouth every 6 hours if needed. ActiveQUEtiapine 200 mg oral tablet (20 sources)Atypical AntipsychoticStart: 49-81-5679glvp 1 tablet by mouth once daily at bedtimeSeroqueL 200 mg tablet Take 1 tablet (200 mg) by mouth once daily at bedtime. 04/26/2024 ActiveStart: 01-22-2022 End: 83-69-6911rfyq 200 mg by mouth once daily at bedtimeQuetiapine Discontinued 200 MG PO Daily at bedtime January 22, 2022 12:00am April 18, 2024 3:46pmStart: 10-14-2017 End: 76-25-7833sjuz 1 tablet by mouth once dailyQuetiapine Discontinued 1 TAB PO Daily October 14, 2017 1:00am January 22, 2022 8:44amtake 1 tablet by mouth at bedtimeSEROquel 300 MG 1 tablet Orally AT BEDTIME Activesertraline 50 mg oral tablet (20 sources)Serotonin Reuptake InhibitorStart: 83-13-6839yfth 1 tablet by mouth once dailysertraline (Zoloft) 50 MG tablet Take 50 mg by mouth Daily 07/01/2022 Activesucralfate 1000 mg oral tablet (13 sources)Aluminum ComplexStart: 47-27-3772woxr 1 tablet by mouth every eight hoursThumb Spica Thumb Spica (10 sources)Start: 52-69-8032Ylprh Spica Thumb Spica February, ActivetraMADol hydrochloride 50 mg oral tablet (13 sources)Opioid AgonistStart: 28-68-9039ccnw 1 tablet by mouth every six hours as needed for pain Completed/Discontinued Medications MedicationDrug Class(es)DatesSig (Normalized)Sig (Original)acetaminophen 325 mg / HYDROcodone bitartrate 5 mg oral tablet (20 sources)Opioid AgonistStart: 08-11-2024 End: 16-71-7382vgve 1-2 tablets by mouth every four to six hours as needed for painHYDROcodone-acetaminophen ([place]) 5-325 MG tablet TAKE 1 TO 2 TABLETS BY MOUTH EVERY 4 TO 6 HOURS NEEDED FOR PAIN FOR 7 DAYS 08/11/2024 12/13/2024 Discontinued (Therapy completed)Start: 06-12-2024 End: 80-20-5252gswk 1 tablet by mouth every four to six hoursHydrocodone- Acetaminophen Discontinued 1 - 2 TAB PO EVERY 4-6 HOURS 50 7 June 20, 2024 July 10, 2024 3:41pm Dispense #50 (fifty) Dx: Z98.890 postopStart: 60-33-3445dyig 1 tablet by mouth twice daily as neededHYDROcodone-acetaminophen ([place]) 5-325 MG tablet Take 1 tablet by mouth 2 (two) times a day as needed. 0 2023 ActiveStart: 01-26-2022 End: 62-66-7869rjtn 1 tablet by mouth every four to six hoursHydrocodone- Acetaminophen Discontinued 1 - 2 TAB PO EVERY 4-6 HOURS 50 7 January 26, 2022 August 30, 2023 5:01pmStart: 04-27-2019 End: 79-59-0648soce 1 tablet by mouth every four to six hoursHydrocodone- Acetaminophen ([place]) 5-325 mg tablet Discontinued 1 - 2 TAB PO EVERY 4-6 HOURS 50 7 April 27, 2019 January 22, 2022 8:45amStart: 10-14-2017 End: 11-94-4455Ferebtugquc-Acetaminophen Discontinued TABLET October 14, 2017 1:00am October 14, 2017 3:34pmtake 5-325 mg by mouth three times dailyNorco 5-325 MG Orally TID Not-Takingdoxycycline hyclate 100 mg oral tablet (20 sources)Tetracycline-class DrugStart: 06-12-2024 End: 98-50-3130onvv 100 mg by mouth twice dailyDoxycycline Hyclate Discontinued 100 MG PO Twice daily 10 June 12, 2024 12:00am July 10, 2024 3:32pm Start: 01-26-2022 End: 65-94-6276bjgr 100 mg by mouth twice dailyDoxycycline Hyclate Discontinued 100 MG PO Twice daily 10 January 26, 2022 12:00am August 5:00pm Start: 04-27-2019 End: 26-49-1347rflf 100 mg by mouth twice dailyDoxycycline Hyclate Discontinued 100 MG PO Twice daily 20 April 27, 2019 12:00am January 22, 2022 8:41am fluticasone propionate 0.05 mg/actuat metered dose nasal spray (10 sources)CorticosteroidStart: 01-02-2025 End: 97-73-2400zscybaonnoi (Flonase) 50 MCG/ACT nasal spray Indications: Sinus congestion 2 sprays daily x 14 days. Shake gently. Before first use, prime pump. After use, clean tip and replace cap. 16 g 01/02/2025 04/17/2025 Discontinued (Therapy completed)Start: 04-18-2024 End: 17-58-0164Baifpfotfoj Propionate Discontinued INTRANASAL April 18, 2024 12:00am April 26, 2024 3:39pmgabapentin 600 mg oral tablet (15 sources)Anti-epileptic AgentStart: 01-22-2022 End: 42-68-4932petw 600 mg by mouth three times dailyGabapentin Discontinued 600 MG PO Three times daily January 22, 2022 12:00am August 30, 2023 5:01pm hydroCHLOROthiazide 25 mg oral tablet (15 sources)Thiazide DiureticStart: 10-14-2017 End: 57-56-3285vzwj 1 tablet by mouth once dailyHydrochlorothiazide Discontinued 1 TAB PO Daily October 14, 2017 1:00am January 22, 2022 8:41amlidocaine 0.05 mg/mg medicated patch (14 sources)Antiarrhythmic, Amide Local AnestheticStart: 03-29-2024 End: 43-39-2676udexe 1 dose transdermal route once dailylidocaine (Lidoderm) 5 % patch Place 1 patch on the skin 1 (one) time each day at the same time 03/1812/13/2024 Discontinued (Therapy completed)lithium aspartate 20 mg oral capsule (8 sources)Start: 03-15-2024 End: 86-10-7344thkb 20 mg by mouth once dailyLithium Aspartate Discontinued 20 MG PO Daily March 15, 2024 12:00am April 26, 2024 3:41pmmeloxicam 7.5 mg oral tablet (20 sources)Nonsteroidal Anti-inflammatory DrugStart: 01-22-2022 End: 71-30-7320mhcp 7.5 mg by mouth twice dailyMeloxicam Discontinued 7.5 MG PO Twice daily January 22, 2022 12:00am August 30, 2023 5:01pmoxyCODONE hydrochloride 5 mg oral tablet (12 sources)Opioid AgonistStart: 09-14-2023 End: 80-54-7206qaru 5-10 mg by mouth every six hoursOxycodone Discontinued 5 - 10 MG PO Q6H 40 8 September 14, 2023 December 16, 2023 12:45pmPrednisone (12 sources)Start: 09-14-2023 End: 11-91-6765Iaveptfyzf Discontinued 1 dose pk PO per package directions September 14, 2023 1:00am December 16, 2023 12:45pm take 4 tabs for 3 days then take 3 tabs for 3 days then take 2 tabs for 3 days then take 1 tab for 3 daysStart: 16-63-6439Msvzxjjneh Active 1 dose pk PO per package directions September 14, 2023 12:00am take 4 tabs for 3 days then take 3 tabs for 3 days then take 2 tabs for 3 days then take 1 tab for 3 dayssulfamethoxazole 800 mg / trimethoprim 160 mg oral tablet (12 sources)Dihydrofolate Reductase Inhibitor Antibacterial, Sulfonamide AntimicrobialStart: 09-14-2023 End: 96-40-1585sdoi 1 tablet by mouth every twelve hoursSulfamethoxazole- Trimethoprim (Bactrim Ds) 800-160 mg tablet Discontinued 1 TAB PO Q12H 2022 1:00am December 16, 2023 12:45pmtriamcinolone acetonide 40 mg/ml injectable suspension (20 sources)CorticosteroidStart: 17-84-7540Tfheyzd-40 Jun, 20 mgStart: 63-59-0300Tgcdple-40 May, 40 mgStart: 74-02-8910Kinuuvr -40 mg Nov, 40 mgdivalproex sodium 500 mg delayed release oral tablet (20 sources)Mood Stabilizer, Anti-epileptic AgentStart: 01-19-2024 End: 81-83-8144Dymvhirftz (Depakote) 500 mg tablet,delayed release (DR/EC) Discontinued 125 MG PO Twice daily January 19, 2024 3:58pm March 15, 2024 4:09pm Start: 10-14-2017 End: 24-94-9040wzsb 1 tablet by mouth twice dailyDivalproex (Depakote) 500 mg tablet,delayed release (DR/EC) Discontinued 500 TAB PO Twice daily October 14, 2017 1:00am January 19, 2024 3:59pm Problems Active Problems Problem ClassificationProblemDateDocumented DateEpisodic/ChronicAbdominal pain (17 sources)Epigastric pain; 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: [Epigastric pain]EpisodicAnxiety disorders (20 sources)Anxiety; 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: [Anxiety disorder, unspecified]Onset: 329463-42-2105NiegwmgThtupi (20 sources)Asthma; 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: [Unspecified asthma, uncomplicated]Onset: 569114-69-2035FmqmomuTyyqbpop mellitus with complications (20 sources)Type 2 diabetes mellitus with other specified complication; 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: [Peripheral vascular disorder due to diabetes mellitus]Onset: 01-24-2017 Resolved: 444005-96-6262CsreqyhFctxnjwqt of lipid metabolism (20 sources)Hyperlipidemia, unspecified; 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: [Hyperlipidemia]Onset: 076138-42-8211YzwbwtwCyxxeobgiq disorders (20 sources)Gastroesophageal reflux disease; 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: [Gastro-esophageal reflux disease without esophagitis]Onset: 12-27-2015 Resolved: 301314-57-9683DjjrvqyQyudusswl hypertension (20 sources)Essential (primary) hypertension; 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: [Hypertensive disorder]Onset: 868811-37-5138UdwgssyObmanuju; including migraine (2 sources)Acute posttraumatic headache; 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: [Acute post-traumatic headache, not intractable]28-59-5901OqphshbgQyxv disorders (20 sources)Bipolar I disorder; 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: [Bipolar disorder, unspecified] Onset: 437756-01-2525RkbyadlUfgxipz (2 sources)Pain in toe; 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: [Tinea unguium]30-54-2598TtnwjaryZwizsr and vomiting (17 sources)Nausea; 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: [Nausea]EpisodicOther acquired deformities (20 sources)Mallet finger of right finger(s); 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: [Mallet finger] EpisodicOther aftercare (2 sources)Encounter for other specified surgical aftercare; 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: [Other specified aftercare following surgery]55-10-6085IbgixsroNsuyu bone disease and musculoskeletal deformities (2 sources)Idiopathic aseptic necrosis of right femur; 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: [Aseptic necrosis of head and neck of femur]16-71-7763QudyzcnMcxne injuries and conditions due to external causes (6 sources)Injury of head; 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: [Unspecified injury of head, sequela] 50-83-0775GtczxtegSgskx nervous system disorders (13 sources)Carpal tunnel syndrome, left upper limbOnset: 01-21-2022 Resolved: 92-35-2142XtwkktoUaaks nervous system disorders (20 sources)Carpal tunnel syndrome, right upper limb; 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: [Carpal tunnel syndrome]Onset: 05-27-2022 Resolved: 30-26-0045IaieplaQsvsh nervous system disorders (2 sources)Carpal tunnel syndrome; 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: [Carpal tunnel syndrome, left upper limb]40-10-7514DftlewaFtoyu nervous system disorders (1 source)Chronic pain syndrome; 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: [Chronic pain syndrome]Onset: 72-78-9388IvcwhyeNmvxr nervous system disorders (6 sources)Disturbance of attention; 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: [Attention and concentration deficit]31-12-6914SlvwrtpSatvw nervous system disorders (4 sources)Chronic pain; 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: [Other chronic pain]47-66-8686Hrnlqfh Other nervous system disorders (12 sources)Chronic pain syndrome; 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: [Chronic pain syndrome]Onset: 966902-63-5551QvndyukDfsnb non-traumatic joint disorders (8 sources)Pain in right wristOnset: 05-27-2022 Resolved: 23-40-8472FtncxmkzZzsjf non-traumatic joint disorders (2 sources)Pain in right hip; 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: [Pain in joint, pelvic region and thigh]29-45-7304AcayjmwxCzwdz nutritional; endocrine; and metabolic disorders (17 sources)Obese class I; 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: [Body mass index (BMI) 31.0-31.9, adult]ChronicOther nutritional; endocrine; and metabolic disorders (2 sources)Body mass index (BMI) 30.0-30.9, adult; 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: [Body mass index (BMI) 30.0-30.9, adult]Onset: 93-04-6181ClqcpzwYtmsw nutritional; endocrine; and metabolic disorders (14 sources)Body mass index 30+ - obesity; 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: [Body mass index (BMI) 30.0-30.9, adult]Onset: 328642-33-7534BowprolJyledlzi codes; unclassified (4 sources)Insomnia; 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: [Other insomnia]33-74-9549IrrjmbaIwvxuqte codes; unclassified (4 sources)Obstructive sleep apnea syndrome; 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: [Obstructive sleep apnea (adult) (pediatric)]42-73-7463YnlteiuQuacgybg codes; unclassified (2 sources)Tobacco use; 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: [Tobacco use disorder]66-85-1020Jehzvvad Skin and subcutaneous tissue infections (2 sources)Onychia of toe of right foot; 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: [Cellulitis of right toe] 00-99-9142KwqnqfgmNjtpcogcdrt; intervertebral disc disorders; other back problems (20 sources)Cervical spondylosis without myelopathy; 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: [Spondylosis without myelopathy or radiculopathy, cervical region]Onset: 02-14-2004 Resolved: 10-11-6864AigrsteVucbpjhnn-related disorders (14 sources)Nicotine dependence, unspecified, uncomplicated; 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: [Smoker]Onset: 79-91-8888GawmtseFkgsmtoavob injury; contusion (2 sources)Contusion of left foot; 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: [Contusion of left foot, initial encounter]82-18-5573HchpliagTkwazmh disorders (20 sources)Hypothyroidism, unspecified; 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: [Hypothyroidism]Onset: hronic Past or Other Problems Problem ClassificationProblemDateDocumented DateEpisodic/ChronicAlcohol-related disorders (20 sources)Alcohol abuse; 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: [Alcohol abuse, uncomplicated]Onset: 10-29-2020 Resolved: 229198-23-0171AzwvhtlIscumryotzp and hemorrhagic disorders (20 sources)Thrombocytopenic disorder; 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: [Thrombocytopenia, unspecified]Onset: 05-22-2024 Resolved: 747507-06-0595FapvsqpAucrjaqgabls of device; implant or graft (20 sources)Pain due to internal orthopedic prosthetic devices, implants and grafts, initial encounter; 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: [Pain]Onset: 01-21-2022 Resolved: 44-25-1883DfqidtucTxucrirn mellitus without complication (12 sources)Type 2 diabetes mellitus without complications; 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: [Type 2 diabetes mellitus]Onset: 05-29-2024 Resolved: 61-23-7094XnqkzjeBnmchghz of upper limb (20 sources)Fracture of scaphoid bone of wrist; 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: [Nondisplaced fracture of proximal third of navicular [scaphoid] bone of left wrist, subsequent encounter for fracture with nonunion]Onset: 01-21-2022 Resolved: 31-93-4627YfvxapccXucknwkx; including migraine (20 sources)Refractory migraine; 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: [Migraine, unspecified, intractable, without status migrainosus]Onset: 04-02-2020 Resolved: 799309-57-4729ThlkapjMimzphokvfofy and screening for infectious disease (20 sources)Culture positive for methicillin resistant Staphylococcus aureus; 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: [Carrier or suspected carrier of Methicillin resistant Staphylococcus aureus]Onset: 05-22-2024 Resolved: 026390-35-3295NbqvqrnbAkmruzmzw arthritis and osteomyelitis (except that caused by tuberculosis or sexually transmitted disease) (20 sources)Osteomyelitis; 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: [Osteomyelitis, unspecified]Onset: 05-22-2024 Resolved: 352538-60-9830NckbovbRtnfaip and fatigue (20 sources)Fatigue; 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: [Other fatigue]Onset: 12-27-2015 Resolved: 005156-06-9839MfidbqtlDqosiqlofuv deficiencies (20 sources)Vitamin B deficiency; 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: [Vitamin B deficiency, unspecified]Onset: 12-27-2015 Resolved: 161849-37-2902RxepjzeeIdhgp acquired deformities (20 sources)Mallet finger; 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: [Mallet finger of right finger(s)] Onset: 884282-90-0177HjbfknewGuymv aftercare (1 source)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; 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: [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]Onset: 830268-43-4905SwuxtfkbOyalz aftercare (20 sources)Postoperative visit; 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: [Encounter for other specified surgical aftercare]Onset: 05-22-2024 Resolved: 783038-51-4128WfqzmgesMdkkt aftercare (20 sources)Patient encounter status; 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: [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]Onset: 543788-42-8914EqwjurhsMfbbv bone disease and musculoskeletal deformities (20 sources)Avascular necrosis of bone of hip; 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: [Idiopathic aseptic necrosis of unspecified femur]Onset: 05-22-2024 Resolved: 028746-14-6669HtkthhcAcrvu diseases of kidney and ureters (20 sources)Kidney disease; 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: [Disorder of kidney and ureter, unspecified]Onset: 058525-07-2186HwguvlhpKhjtf disorders of stomach and duodenum (20 sources)Disorder of function of stomach; 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: [Disease of stomach and duodenum, unspecified]Onset: 12-30-2023 Resolved: 161714-44-9551DdmrgwnkOyfqf endocrine disorders (20 sources)Testicular hypofunction; 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: [Testicular hypofunction] Onset: 12-27-2015 Resolved: 460815-41-1473YpqmnydZzpej nervous system disorders (20 sources)Carpal tunnel syndrome of left wrist; 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: [Carpal tunnel syndrome, left upper limb]Onset: 05-22-2024 Resolved: 406319-94-1755BhzhgarZkjie nervous system disorders (20 sources)Carpal tunnel syndrome of right wrist; 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: [Carpal tunnel syndrome, right upper limb]Onset: 05-22-2024 Resolved: 956058-01-7298QwcutuaHbaqh nervous system disorders (20 sources)Paresthesia; 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: [Paresthesia of skin]Onset: 05-22-2024 Resolved: 870741-99-8138LuuqwyzoLosrs nervous system disorders (1 source)Paresthesia of skinOnset: 01-21-2022 Resolved: 67-01-1326YskrugqiYvxde nervous system disorders (1 source)Anesthesia of skinOnset: 01-21-2022 Resolved: 04-54-6943HbivoioyWcxfg nervous system disorders (20 sources)Pain in limb; 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: [Other acute postprocedural pain]Onset: 01-29-2003 Resolved: 475068-80-6814OczssfnzJftde nervous system disorders (20 sources)Skin sensation disturbance; 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: [Unspecified disturbances of skin sensation]Onset: 09-17-2021 Resolved: 572136-36-2323DlydcyfkTpqwd nervous system disorders (20 sources)Impaired cognition; 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: [Other symptoms and signs involving cognitive functions and awareness]Onset: 378637-49-5618Mjpxnwmy Other non-traumatic joint disorders (1 source)Pain in left wristOnset: 01-21-2022 Resolved: 36-32-9891IikuvcsrCahbj non-traumatic joint disorders (20 sources)Hip pain; 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: [Pain in right hip]Onset: 05-22-2024 Resolved: 671958-84-8951RxtzhtcoWgdmj screening for suspected conditions (not mental disorders or infectious disease) (17 sources)Encounter for screening for malignant neoplasm of prostate; 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: [Abnormal electrocardiogram [ECG] [EKG]]Onset: 05-07-2021 Resolved: 00-50-9005UgbphbduXnmecaqk codes; unclassified (20 sources)Postprocedural state finding; 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: [Other specified postprocedural states]Onset: 05-22-2024 Resolved: 882273-06-9484SawrzhkxLdnrkmwg codes; unclassified (5 sources)Other specified postprocedural statesOnset: 01-21-2022 Resolved: 56-23-1047BqsaaaccHqeuyhll codes; unclassified (20 sources)Edema of right upper limb; 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: [Localized edema]Onset: 12-30-2023 Resolved: 577908-21-1605OzqjajcfCxjdxyrl codes; unclassified (20 sources)Harmful pattern of use of nicotine; 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: [Tobacco use] Onset: 05-22-2024 Resolved: 054963-72-6419WtluwhhoFnloilhx codes; unclassified (20 sources)Pain; 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: [Pain, unspecified]Onset: 12-30-2023 Resolved: 535688-86-6666MsyudyrrIxvjhgtkeyg; intervertebral disc disorders; other back problems (20 sources)Radiculopathy, cervical region; 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: [Right cervical root neuropathy]Onset: 01-13-2017 Resolved: 23-02-9119KpbaqtzcGedshdywwmkq (2 sources)Patient encounter ykukzd66-79-6325 Results Test NameValueInterpretationReference RekehChsmfjecAjY6l (Bld) [Mass fraction]on 47-47-2530Gfrkqhdbjomfif and review of laboratory resultsNormalUniversity Health Truman Medical CenterS HealthcareLaboratory - Hematology and Cell countson 34-97-5769YjW1v (Bld) [Mass fraction]5.5 %[facility] HealthcareCBC W Auto Differential panel (Bld)on 52-65-0507Pcgqfnbvl (Bld) [#/Vol]0.1 10*3/uLNOMS HealthcareBasophils/100 WBC (Bld)1 %Not Estab.[facility] HealthcareEosinophils (Bld) [#/Vol]0.3 10*3/uLNOMS HealthcareEosinophils/100 WBC (Bld)3 %Not Estab.[facility] HealthcareErythrocyte distribution width (RBC) [Ratio]12.5 %11.6 - 15.4 %[facility] HealthcareHematocrit (Bld) [Volume fraction]51 %37.5 - 51.0 %[facility] HealthcareHemoglobin (Bld) [Mass/Vol]16.9 g/dL13.0 - 17.7 g/dLDELTA COMMUNITY MEDICAL [facility]ENTER HealthcareImmature granulocytes (Bld) [#/Vol]0 10*3/uLNOMS HealthcareImmature granulocytes/100 WBC (Bld)0 %Not Estab. [facility] HealthcareLymphocytes (Bld) [#/Vol]2.7 10*3/uLNOMS Healthcare Lymphocytes/100 WBC (Bld)26 %Not Estab.[facility] HospitalMCH (RBC) [Entitic mass]30 pg26.6 - 33.0 pgNOME HealthcareMCHC (RBC) [Mass/Vol]33.1 g/dL31.5 - 35.7 g/dL [facility] HospitalV (RBC) [Entitic vol]90 fL79 - 97 fLNOME HealthcareMonocytes (Bld) [#/Vol]0.8 10*3/uLNOMS HealthcareMonocytes/100 WBC (Bld)8 %Not Estab.[facility] HealthcareNeutrophils (Bld) [#/Vol]6.5 10*3/uLNOMS HealthcareNeutrophils/100 WBC (Bld)62 %Not Estab.[facility] HealthcarePlatelets (Bld) [#/Vol]331 10*3/uLNOMS HealthcareRBC (Bld) [#/Vol]5.64 10*6/uLNOMS HealthcareWBC (Bld) [#/Vol]10.5 10*3/uLNOMS HealthcareLaboratory - Chemistry and Chemistry - challengeon 71-19-5281Yosgcls [Mass/Vol]4.6 g/dL3.8 - 4.9 g/dLNOMS HealthcareALP [Catalytic activity/Vol]91 U/LNOMS HealthcareALT [Catalytic activity/Vol]49 U/LHighNOMS HealthcareAST [Catalytic activity/Vol]30 U/LNOMS HealthcareBilirubin [Mass/Vol] 0.4 mg/dL0.0 - 1.2 mg/dLNOMS HealthcareCalcium [Mass/Vol]9.5 mg/dL8.7 - 10.2 mg/dLNOMS HealthcareChloride [Moles/Vol]103 mmol/L96 - 106 mmol/LNOMS Healthcare CO2 [Moles/Vol]20 mmol/L20 - 29 mmol/LNOMS HealthcareCreatinine [Mass/Vol]1.09 mg/dL0.76 - 1.27 mg/dLNOMS HealthcareFree T4 [Mass/Vol]1.61 ng/dL0.82 - 1.77 ng/dLNOME HealthcareGFR/1.73 sq M.predicted among non-blacks MDRD (S/P/Bld) [Vol rate/Area]82 mL/min/{1.73_m2}59 - PINF mL/min/1.73N[facility]S HealthcareGlobulin (S) [Mass/Vol]2.3 g/dL1.5 - 4.5 g/dLNOMS HealthcareGlucose [Mass/Vol]167 mg/cIWujb45 - 99 mg/dLNOMS HealthcareMagnesium [Mass/Vol]1.8 mg/dL1.6 - 2.3 mg/dLNOME HealthcarePotassium [Moles/Vol]4.4 mmol/L3.5 - 5.2 mmol/LNOMS HealthcareProstate specific Ag [Mass/Vol]2.2 ng/mL0.0 - 4.0 ng/mLNOMS HealthcareComment on above: Tu[employer]anda ECLIA methodology. According to the [employer], Serum PSA should decrease and remain at undetectable levels after radical prostatectomy. The AUA defines biochemical recurrence as an initial PSA value 0.2 ng/mL or greater followed by a subsequent confirmatory PSA value 0.2 ng/mL or greater. Values obtained with different assay methods or kits cannot be used interchangeably. Results cannot be interpreted as absolute evidence of the presence or absence of malignant disease. Protein [Mass/Vol]6.9 g/dL6.0 - 8.5 g/dLNOME HealthcareSodium [Moles/Vol]139 mmol/L134 - 144 mmol/LNOMS HealthcareTSH Qn2.12 m[IU]/LNOMS HealthcareUrea nitrogen [Mass/Vol]11 mg/dL6 - 24 mg/dLNOME HealthcareUrea nitrogen/Creatinine [Mass ratio]10 mg/mg9 - 20NOSaint John's Breech Regional Medical CenterLaboratory - Hematology and Cell counts on 08-64-1147UbG0s (Bld) [Mass fraction]7.2 %High4.8 - 5.6 %[facility] Comment on above:Prediabetes: 5.7 - 6.4 Diabetes: >6.4 Glycemic control for adults with diabetes: <7.0 Lipid 1996 panelon 10-71-4310Hurcrliloxb [Mass/Vol]168 mg/dL100 - 199 mg/dLNOSaint John's Breech Regional Medical CenterCholesterol in HDL [Mass/Vol]35 mg/dLLow39 - PINF mg/dLTexas County Memorial Hospital Cholesterol in LDL [Mass/Vol]96 mg/dL0 - 99 mg/dLNOSaint John's Breech Regional Medical CenterCholesterol in VLDL [Mass/Vol]37 mg/dL5 - 40 mg/dLNOSaint John's Breech Regional Medical CenterTriglyceride [Mass/Vol]218 mg/dLHigh0 - 149 mg/dLTexas County Memorial HospitalMicroalbumin/Creatinine ratio panel (U)on 83-80-5236Ujuojen DL <= 20 mg/L (U) [Mass/Vol]17.6 ug/mLNot Estab.[facility] HealthcareAlbumin/Creatinine (U) [Mass ratio]9NOME HealthcareComment on above: Normal: 0 - 29 Moderately increased: 30 - 300 Severely increased: >300 Creatinine (U) [Mass/Vol]188 mg/dLNot Estab.[facility] HealthcareNo Panel Information on 14-29-4970Ifyzomyigbxpdu and review of laboratory resultsAbnormalTexas County Memorial HospitalPerformed at: 01 - [facility] [address] [id number] Internet Marketing Assistant: Devon Leos PhD, Phone: [phone] Healthcare Amphetamine Screen Ql (U)Ordered By: Arcadio Rao on 06-12-2024 Amphetamines Ql (U)NegativeNegativeMercy Health Springfield Regional Medical CenterBarbiturates [Presence] in Urine by Screen methodOrdered By: Arcadio Rao on 61-19-3060Ronphqnvysqg Screen Ql (U)NegativeNegativeMercy Health Springfield Regional Medical CenterBenzodiazepines Screen Ql (U)Ordered By: Arcadio Rao on 06-12-2024 Benzodiazepines Ql (U)NegativeNegGrant Hospital Benzoylecgonine [Presence] in Urine by Screen methodOrdered By: Arcadio Rao on 38-35-8165Micvxmqaqpkoxga Screen Ql (U)NegativeNegGrant HospitalCannabinoids [Presence] in Urine by Screen methodOrdered By: Arcadio Rao on 86-27-4760Bnrzmeigrygk Screen Ql (U)PositiveHigh NegativeMercy Health Springfield Regional Medical CenterComment on above:These are unconfirmed results and should not be used for legal purposes. Drug Cut-Off Concentration: AMPH 1000 ng/mL JUANI 200 ng/mL MOHAMUD 200 ng/mL COCM 300 ng/mL OP 300 ng/mL PCP 25 ng/mL THC 20 ng/mLGlucose Glucometer (BldC) [Mass/Vol]Ordered By: Magaly Rosario on 06-53-8086Czkohxs [Mass/Vol]131 mg/dLMercy Health Springfield Regional Medical Center Comment on above:Random Glucose Reference Range is dependent on time and content of last meal. Glucose of more than 200 mg/dL in a nonstressed, ambulatory subject supports the diagnosis of Diabetes Mellitus.No Panel InformationOrdered By: Magaly Rosario on 35-48-2006Pmmnrhn Glucose CommentGlu2: cleaned meter [facility] CenterOpiates [Presence] in Urine by Screen method Ordered By: Arcadio Rao on 27-40-1829Sfcaoon Screen Ql (U)Negative NegativeMercy Health Springfield Regional Medical CenterPhencyclidine Screen Ql (U)Ordered By: Arcadio Rao on 97-70-8313Febwxnjufjaxe Ql (U)NegativeNegGrant HospitalAlanine aminotransferase [Enzymatic activity/volume] in Serum or PlasmaOrdered By: Magaly Rosario on 40-71-4986ZJK [Catalytic activity/Vol]71 U/LHigh7-52Fire[facility] Medical CenterAlbumin [Mass/volume] in Serum or Plasma by Bromocresol green (BCG) dye binding metho Ordered By: Magaly Rosario on 70-90-5022Pvubren BCG dye [Mass/Vol]4.7 g/dL 3.5-5.7FSt. Francis HospitalAlkaline phosphatase [Enzymatic activity/volume] in Serum or PlasmaOrdered By: Magaly Rosario on 32-75-7824HLA [Catalytic activity/Vol]67 U/D23-667DuccmsxotMercy Health Springfield Regional Medical CenterAspartate aminotransferase [Enzymatic activity/volume] in Serum or PlasmaOrdered By: Magaly Rosario on 93-86-8884QTP [Catalytic activity/Vol]24 U/F99-58WdfpvtnbcMercy Health Springfield Regional Medical CenterBasophils Auto (Bld) [#/Vol]Ordered By: Magaly Rosario on 69-20-2856Sbpxptaxe (Bld) [#/Vol]0.1 10*3/uL0.0-0.2FSt. Francis HospitalBasophils/100 WBC Auto (Bld)Ordered By: Magaly Rosario on 06-01-2024 Basophils/100 WBC (Bld)1.0 %.[facility] Medical CenterBilirubin.total [Mass/volume] in Serum or PlasmaOrdered By: Magaly Rosario 06-01-2024 Bilirubin [Mass/Vol]0.4 mg/dL0.3-1.0[facility] CenterCalcium [Mass/volume] in Serum or PlasmaOrdered By: Magaly Rosario 77-39-6475Ozkhjjz [Mass/Vol]10.0 mg/dL8.6-10.3FSt. Francis HospitalCarbon dioxide, total [Moles/volume] in Serum or PlasmaOrdered By: Magaly Rosario on 06-01-2024 CO2 [Moles/Vol]25.3 mmol/L21.0-31.0[facility] CenterChloride [Moles/volume] in Serum or PlasmaOrdered By: Magaly Rosario on 06-01-2024 Chloride [Moles/Vol]105 mmol/I70-595TyfoumcmyMercy Health Springfield Regional Medical CenterCreatinine [Mass/volume] in Serum or PlasmaOrdered By: Magaly Rosario 06-01-2024 Creatinine [Mass/Vol]1.06 mg/dL0.70-1.30[facility] Eosinophils Auto (Bld) [#/Vol]Ordered By: Magaly Rosario on 06-01-2024 Eosinophils (Bld) [#/Vol]0.2 10*3/uL0.0-0.45[facility] Eosinophils/100 WBC Auto (Bld)Ordered By: Magaly Rosario on 06-01-2024 Eosinophils/100 WBC (Bld)1.8 %.[facility] Medical CenterErythrocyte distribution width Auto (RBC) [Ratio]Ordered By: Magaly Rosario on 06-01-2024 Erythrocyte distribution width (RBC) [Ratio]13.5 %12.0-14.8[facility] Medical CenterGlobulin Calc (S) [Mass/Vol]Ordered By: Magaly Rosario on 01-25-3114Yxxywvsh (S) [Mass/Vol]2.5 g/dLMercy Health Springfield Regional Medical Center Glucose [Mass/volume] in Serum or PlasmaOrdered By: Magaly Rosario on 06-01-2024 Glucose [Mass/Vol]123 mg/yFRpuo20-713ZutashkkyMercy Health Springfield Regional Medical CenterComment on above:ADA recommended reference rangeGlucose mean value [Mass/volume] in Blood Estimated from glycated hemoglobinOrdered By: Magaly Rosario on 06-01-2024 Average glucose Estimated from glycated hemoglobin (Bld) [Mass/Vol]131 mg/dL [facility] Medical CenterHematocrit Auto (Bld) [Volume fraction]Ordered By: Magaly Rosario on 40-35-7375Pdeyfyvrcc (Bld) [Volume fraction]51.3 %High 38.8-50.0[facility] Medical CenterHemoglobin [Mass/volume] in Blood Ordered By: Magaly Rosario 75-22-1738Ltnwnndgez (Bld) [Mass/Vol]17.2 g/dLHigh 13.0-17.0[facility] CenterLaboratory - Hematology and Cell countsOrdered By: Magaly Rosario on 04-63-4421IuA9e (Bld) [Mass fraction]6.2 % High4.3-5.6FSt. Francis HospitalComment on above:Increased risk for diabetes: 5.7 - 6.4diabetes: >6.4glycemic control for adults with diabetes: &l t;7.0Leukocytes [#/volume] corrected for nucleated erythrocytes in Blood by Automated counOrdered By: Magaly Rosario on 16-53-2086BDY corrected for nucl RBC Auto (Bld) [#/Vol]11.4 10*3/uLHigh4.1-10.5FSt. Francis Hospital Lymphocytes Auto (Bld) [#/Vol]Ordered By: Magaly Rosario on 06-01-2024 Lymphocytes (Bld) [#/Vol]2.1 10*3/uL1.00-4.8[facility] Lymphocytes/100 WBC Auto (Bld)Ordered By: Magaly Rosario on 06-01-2024 Lymphocytes/100 WBC (Bld)18.3 %.[facility] Auto (RBC) [Entitic mass]Ordered By: Magaly Rosario on 77-56-2266DPY (RBC) [Entitic mass] 31.2 pg27.5-35.2FSt. Francis HospitalMCHC Auto (RBC) [Mass/Vol] Ordered By: Magaly Rosario on 28-39-3656ZDUX (RBC) [Mass/Vol]33.6 g/dL32.5-35.6 [facility] CenterMCV Auto (RBC) [Entitic vol]Ordered By: Magaly Rosario on 95-95-1778VWG (RBC) [Entitic vol]93.1 fL83.5-101[facility] CenterMonocytes Auto (Bld) [#/Vol]Ordered By: Magaly Rosario on 81-69-2197Tkhhklymh (Bld) [#/Vol]0.6 10*3/uL0.0-0.8[facility] CenterMonocytes/100 WBC Auto (Bld)Ordered By: Magaly Rosario on 06-01-2024 Monocytes/100 WBC (Bld)5.5 %.[facility] CenterNeutrophils Auto (Bld) [#/Vol]Ordered By: Magaly Rosario on 15-68-8039Yotqmyhryph (Bld) [#/Vol] 8.4 10*3/uLHigh1.8-7.7FSt. Francis HospitalNeutrophils/100 WBC Auto (Bld)Ordered By: Magaly Rosario on 97-68-7824Hhsgqznbgbi/100 WBC (Bld)73.4 %. [facility] CenterNo Panel InformationOrdered By: Magaly Rosario on 06-16-2610Xejaltrxz GFR (CKD-EPI)> 60.0 mL/MinMercy Health Springfield Regional Medical CenterPharmacy Creatinine Clearance (ChemN/AFSt. Francis Hospital Nucleated erythrocytes [Presence] in Blood by Automated countOrdered By: Magaly Rosario on 56-27-4535Cnmgmivat RBC Auto Ql (Bld)0.2 /100{WBC}0-0.5FSt. Francis HospitalPlatelet mean volume Auto (Bld) [Entitic vol]Ordered By: Magaly Rosario on 89-01-9219Rfrwgykl mean volume (Bld) [Entitic vol]7.6 fL 6.6-10.1FSt. Francis HospitalPlatelets Auto (Bld) [#/Vol]Ordered By: Magaly Rosario on 66-52-9642Wduruwuvf (Bld) [#/Vol]345 10*3/hO119-283HpyihjvdlMercy Health Springfield Regional Medical CenterPotassium [Moles/volume] in Serum or PlasmaOrdered By: Magaly Rosario on 75-55-0965Vqsxpgchr [Moles/Vol]4.2 mmol/L3.5-5.1FSt. Francis HospitalProtein [Mass/volume] in Serum or PlasmaOrdered By: Magaly Rosario on 26-37-9172Jyvlcep [Mass/Vol]7.2 g/dL6.4-8.9[facility] CenterRBC Auto (Bld) [#/Vol]Ordered By: Magaly Rosario on 23-41-2599AEE (Bld) [#/Vol]5.51 10*6/uL3.90-5.60[facility]aritan Hospitalerum or plasma albumin/globulin mass ratioOrdered By: Magaly Rosario on 06-01-2024 Albumin/Globulin [Mass ratio]1.9 {ratio}[facility]aritan Hospitalerum or plasma anion gap determinationOrdered By: Magaly Rosario on 71-66-9553Hkzeo gap [Moles/Vol]13.9 mmol/L6.0-15.0[facility] Hospitalodium [Moles/volume] in Serum or PlasmaOrdered By: Magaly Rosario on 72-26-4375Pfcoyu [Moles/Vol]140 mmol/Q860-982AcfjesrftMercy Health Springfield Regional Medical CenterUrea nitrogen [Mass/volume] in Serum or PlasmaOrdered By: Magaly Rosario on 69-07-1325Dzam nitrogen [Mass/Vol]13 mg/dL7-25[facility] CenterWBC Auto (Bld) [#/Vol]Ordered By: Magaly Rosario on 40-67-4720SUK (Bld) [#/Vol]11.4 10*3/uLHigh 4.1-10.5FSt. Francis HospitalECG 12 [place] 00-92-8610Fprlqq sinus rhythmCPACSLakeHealth Beachwood Medical Center Work Phone: alanine aminotransferase [Enzymatic activity/volume] in Serum or PlasmaOrdered By: Magaly Rosario on 98-90-8270MAC [Catalytic activity/Vol]35 U/L7-52[facility] CenterAlbumin [Mass/volume] in Serum or Plasma by Bromocresol green (BCG) dye binding methoOrdered By: Magaly Rosario on 12-35-9997Atyvfft BCG dye [Mass/Vol]4.5 g/dL3.5-5.7FSt. Francis HospitalAlkaline phosphatase [Enzymatic activity/volume] in Serum or PlasmaOrdered By: Magaly Rosario on 43-71-4370UPZ [Catalytic activity/Vol]71 U/L 34-104[facility] CenterAspartate aminotransferase [Enzymatic activity/volume] in Serum or PlasmaOrdered By: Magaly Rosario on 27-68-8326MYG [Catalytic activity/Vol]23 U/Y87-13DhrmcqzpzMercy Health Springfield Regional Medical CenterBasophils Auto (Bld) [#/Vol]Ordered By: Magaly Rosario on 68-67-9219Gdlybygus (Bld) [#/Vol]0.0 10*3/uL0.0-0.2FSt. Francis HospitalBasophils/100 WBC Auto (Bld)Ordered By: Magaly Rosario on 70-98-5227Rujaublxa/100 WBC (Bld)0.6 %. [facility] CenterBilirubin.total [Mass/volume] in Serum or PlasmaOrdered By: Magaly Rosario on 10-41-4009Svszdglcz [Mass/Vol]0.4 mg/dL 0.3-1.0[facility] CenterCalcium [Mass/volume] in Serum or Plasma Ordered By: Magaly Rosario 62-10-9661Bstlsim [Mass/Vol]9.1 mg/dL8.6-10.3 [facility] CenterCarbon dioxide, total [Moles/volume] in Serum or PlasmaOrdered By: Magaly Rosario 06-48-1199MP5 [Moles/Vol]27.8 mmol/L 21.0-31.0[facility] CenterChloride [Moles/volume] in Serum or PlasmaOrdered By: Magaly Rosario 99-26-3963Isigxgfk [Moles/Vol]103 mmol/L 98-107[facility] CenterCreatinine [Mass/volume] in Serum or PlasmaOrdered By: Magaly Rosario 04-93-0103Bilexfrjiq [Mass/Vol]1.21 mg/dL 0.70-1.30[facility] CenterEosinophils Auto (Bld) [#/Vol]Ordered By: Magaly Rosario 80-24-7420Hqkoayrweii (Bld) [#/Vol]0.2 10*3/uL0.0-0.45 [facility] CenterEosinophils/100 WBC Auto (Bld)Ordered By: Magaly Rosario 59-06-9169Nbyrbnuseyg/100 WBC (Bld)2.1 %.[facility] CenterErythrocyte distribution width Auto (RBC) [Ratio]Ordered By: Magaly Rosario 57-36-9327Hwtzwgodmog distribution width (RBC) [Ratio]14.0 % 12.0-14.8[facility] CenterGlobulin Calc (S) [Mass/Vol]Ordered By: Magaly Rosario 89-64-6802Akycujgs (S) [Mass/Vol]2.4 g/dLMercy Health Springfield Regional Medical CenterGlucose [Mass/volume] in Serum or PlasmaOrdered By: Magaly Rosario on 62-19-8357Woiflvc [Mass/Vol]138 mg/lVTirq21-825AtllejjufMercy Health Springfield Regional Medical CenterComment on above:ADA recommended reference rangeGlucose mean value [Mass/volume] in Blood Estimated from glycated hemoglobinOrdered By: Magaly Rosario on 09-65-4865Rgzbipn glucose Estimated from glycated hemoglobin (Bld) [Mass/Vol]123 mg/dLMercy Health Springfield Regional Medical CenterHematocrit Auto (Bld) [Volume fraction]Ordered By: Magaly Rosario on 65-83-1670Fflhmwgtva (Bld) [Volume fraction]47.4 %38.8-50.0[facility] CenterHemoglobin [Mass/volume] in BloodOrdered By: Magaly Rosario on 79-75-4753Qxdnzyjbwp (Bld) [Mass/Vol]16.1 g/dL13.0-17.0[facility] CenterLaboratory - Hematology and Cell countsOrdered By: Magaly Rosario on 08-07-1051UkI3v (Bld) [Mass fraction]5.9 %High4.3-5.6FSt. Francis HospitalComment on above:Increased risk for diabetes: 5.7 - 6.4diabetes: >6.4glycemic control for adults with diabetes: <7.0Leukocytes [#/volume] corrected for nucleated erythrocytes in Blood by Automated counOrdered By: Magaly Rosario on 04-26-2024 WBC corrected for nucl RBC Auto (Bld) [#/Vol]7.8 10*3/uL4.1-10.5FSt. Francis HospitalLymphocytes Auto (Bld) [#/Vol]Ordered By: Magaly Rosario on 80-77-7877Amdouamvunf (Bld) [#/Vol]1.7 10*3/uL1.00-4.8[facility] CenterLymphocytes/100 WBC Auto (Bld)Ordered By: Magaly Rosario on 96-88-2042Gokkihwxbsc/100 WBC (Bld)21.4 %.[facility] Auto (RBC) [Entitic mass]Ordered By: Magaly Rosario on 17-31-8383VEZ (RBC) [Entitic mass]32.0 pg27.5-35.2FSt. Francis HospitalMCHC Auto (RBC) [Mass/Vol]Ordered By: Magaly Rosario on 88-87-4215CGUF (RBC) [Mass/Vol]34.0 g/dL 32.5-35.6FSt. Francis HospitalMCV Auto (RBC) [Entitic vol]Ordered By: Magaly Rosario on 41-70-6728XCZ (RBC) [Entitic vol]93.9 fL83.5-101[facility] CenterMonocytes Auto (Bld) [#/Vol]Ordered By: Magaly Rosario on 48-03-1373Urhnnarwy (Bld) [#/Vol]0.7 10*3/uL0.0-0.8[facility] CenterMonocytes/100 WBC Auto (Bld)Ordered By: Magaly Rosario on 04-26-2024 Monocytes/100 WBC (Bld)8.9 %.[facility] CenterNeutrophils Auto (Bld) [#/Vol]Ordered By: Magaly Rosario on 36-57-9556Kvmtytefiie (Bld) [#/Vol] 5.3 10*3/uL1.8-7.7FSt. Francis HospitalNeutrophils/100 WBC Auto (Bld)Ordered By: Magaly Rosario on 71-99-4896Usiivbgricy/100 WBC (Bld)67.0 %. [facility] CenterNo Panel InformationOrdered By: Magaly Rosario on 78-17-1806Koqawwtsz GFR (CKD-EPI)> 60.0 mL/MinMercy Health Springfield Regional Medical CenterPharmacy Creatinine Clearance (ChemN/AFSt. Francis Hospital Nucleated erythrocytes [Presence] in Blood by Automated countOrdered By: Magaly Rosario on 25-50-4698Svdnpamwg RBC Auto Ql (Bld)0.1 /100{WBC}0-0.5FSt. Francis HospitalPlatelet mean volume Auto (Bld) [Entitic vol]Ordered By: Magaly Rosario on 06-23-0561Ejauagmy mean volume (Bld) [Entitic vol]7.5 fL 6.6-10.1FSt. Francis HospitalPlatelets Auto (Bld) [#/Vol]Ordered By: Magaly Rosario on 81-05-1929Gbvaeurjb (Bld) [#/Vol]282 10*3/jG213-967FuwinnajyMercy Health Springfield Regional Medical CenterPotassium [Moles/volume] in Serum or PlasmaOrdered By: Magaly Rosario on 83-53-3820Qqxursreg [Moles/Vol]4.4 mmol/L3.5-5.1FSt. Francis HospitalProtein [Mass/volume] in Serum or PlasmaOrdered By: Magaly Rosario on 98-33-2006Ewmumlf [Mass/Vol]6.9 g/dL6.4-8.9[facility] CenterRBC Auto (Bld) [#/Vol]Ordered By: Magaly Rosario on 17-31-4815TYI (Bld) [#/Vol]5.05 10*6/uL3.90-5.60[facility] Hospitalerum or plasma albumin/globulin mass ratioOrdered By: Magaly Rosario on 04-26-2024 Albumin/Globulin [Mass ratio]1.9 {ratio}[facility] Hospitalerum or plasma anion gap determinationOrdered By: Magaly Rosario on 54-86-1112Xbkec gap [Moles/Vol]11.6 mmol/L6.0-15.0[facility] Hospitalodium [Moles/volume] in Serum or PlasmaOrdered By: Magaly Rosario on 33-82-1534Sxizvp [Moles/Vol]138 mmol/V995-831MayfjxffpMercy Health Springfield Regional Medical CenterUrea nitrogen [Mass/volume] in Serum or PlasmaOrdered By: Magaly Rosario on 47-26-8009Jewo nitrogen [Mass/Vol]21 mg/dL7-25[facility] CenterWBC Auto (Bld) [#/Vol]Ordered By: Magaly Rosario on 83-79-4409GJM (Bld) [#/Vol]7.8 10*3/uL 4.1-10.5FSt. Francis HospitalGlucose Glucometer (BldC) [Mass/Vol]on 44-85-8568Qtlyglv [Mass/Vol]81 mg/vRLdauea51-33SqoDwfcpyFirelands Regional Medical CenterGlucose Glucometer (BldC) [Mass/Vol]on 72-40-6151Ikswgyg [Mass/Vol]102 mg/fVRfdr20-93 [facility] Medical CenteredicAdventist Health Delano AND AUTO DIFFon 93-01-3302GURANQNY BASOPHIL0.0 X10E9/LNormal0.0-0.2PSt. Rita's HospitalComment on above:Performed By: #### CBCA #### [facility] ([id number]) [address], [address] [place], [place] [address]JDMRXMYX NEUTROPHIL4.4 X10E9/LNormal1.5-6.6ProBaylor Scott & White Medical Center – IrvingComment on above:Performed By: #### CBCA #### [facility] ([id number]) [address] [place], [place] [address]Ypmmcntwm/100 WBC (Bld)0.6 %NormalFirelands Regional Medical Center Comment on above:Performed By: #### CBCA #### [facility] ([id number]) [address] [place], [place] [address]Dijulsqcabd (Bld) [#/Vol]0.1 10*3/uLNormal0.0-0.4Firelands Regional Medical CenterComment on above:Performed By: #### CBCA #### [facility] ([id number]) [address], [address] [place], [place] [address]Zmggfvczmwj/100 WBC (Bld)1.4 %NormalFirelands Regional Medical Center Comment on above:Performed By: #### CBCA #### [facility] ([id number]) [address], [address] [place], [place] [address]Pexvpkmzqkr distribution width (RBC) [Ratio]13.3 %Normal 11.5-15.0Firelands Regional Medical CenterComment on above:Performed By: #### CBCA #### [facility] ([id number]) [address] [place] [address]Ownruxcywn (Bld) [Volume fraction]46.1 %Nwcekc22-64AfiXrzhmhBaylor Scott & White Medical Center – IrvingComment on above:Performed By: #### CBCA #### [facility] ([id number]) [address], [address] [place] [address]Edczctafpi (Bld) [Mass/Vol]15.7 g/bYLgcnaj17.0-17.0Firelands Regional Medical CenterComment on above:Performed By: #### CBCA #### [facility] ([id number]) [address], [address] [place], [place] [address]Pibzaqsblxg (Bld) [#/Vol]1.5 10*3/uLNormal1.0-3.5PSt. Rita's HospitalComment on above:Performed By: #### CBCA #### [facility] ([id number]) [address], [address] [place], [place] [address]Btgogkifmwb/100 WBC (Bld)22.1 %NormalProBaylor Scott & White Medical Center – Irving Comment on above:Performed By: #### CBCA #### [facility] ([id number]) [address], [address] [place], [place] [address]LXU (RBC) [Entitic mass]31.6 rfKobblf53-13AasJprqumBaylor Scott & White Medical Center – IrvingComment on above:Performed By: #### CBCA #### [facility] ([id number]) [address], [address] [place], [place] [address]FIWP (RBC) [Mass/Vol]34.0 g/yDAowcfk83-03RiuSusfsiBaylor Scott & White Medical Center – IrvingComment on above:Performed By: #### CBCA #### [facility] ([id number]) [address], [address] [place], [place] [address]CAQ (RBC) [Entitic vol]93 mBFdoflp19-534GcaVirddc [facility]remont HospitalComment on above:Performed By: #### CBCA #### [facility] ([id number]) [address], [address] [place] [address]Qavrxuweh (Bld) [#/Vol]0.7 10*3/uLNormal0-0.9Firelands Regional Medical CenterComment on above:Performed By: #### CBCA #### [facility] ([id number]) [address], [address] [place] [address]Qmttafzlj/100 WBC (Bld)11.0 %NormalFirelands Regional Medical Center Comment on above:Performed By: #### CBCA #### [facility] ([id number]) [address], [address] [place] [address]Eveqolktjnx/100 WBC (Bld)64.9 %[facility] Comment on above:Performed By: #### CBCA #### [facility] ([id number]) [address], [address] [place] [address]Pasbbady mean volume (Bld) [Entitic vol]8.0 fLNormal7-12 [facility] Medical CenterComcorewell health butterworth hospital on above:Performed By: #### CBCA #### [facility] ([id number]) [address], [address] [place] [address]Czguvtwon (Bld) [#/Vol]253 10*3/pCDlcqee357-545QqjPrnlzm [facility] HospitalComment on above:Performed By: #### CBCA #### [facility] ([id number]) [address], [address] [place] [address]OBO COUNT4.97 X10E12/LNormal4.10-5.70[facility] Comment on above:Performed By: #### CBCA #### [facility] ([id number]) [address], [address] [place], [place] [address]JYO (Bld) [#/Vol]6.8 10*3/uLNormal4.0-11.0Fire[facility] Medical CenterComment on above:Performed By: #### CBCA #### [facility] ([id number]) [address], [address] [place] [address]FEHXISOip 29-53-1809Efkvrsm [Mass/Vol]120 mg/zJDrvb77-88 [facility] CenterComment on above:Performed By: #### 2345-7, 15876-0, LIVR, 4085-5 #### [facility] ([id number]) [address], [address] [place] [address]PQKUA PANELon 18-94-5123Zpamgah [Mass/Vol]4.3 g/dLNormal3.2-5.3 [facility] CenterComment on above:Performed By: #### Emi5-7, 21605-8, LIVR, 4085- #### [facility] ([id number]) [address], [address] [place], [place] [address]TTA [Catalytic activity/Vol]72 U/WWrfcrf08-271WlbPyspffBaylor Scott & White Medical Center – IrvingComment on above:Performed By: #### 2345-7, 27244-4, LIVR, 4085- #### [facility] ([id number]) [address], [address] [place], [place] [address]ZHT [Catalytic activity/Vol]70 U/LHigh0-40ProBaylor Scott & White Medical Center – IrvingComment on above:Performed By: #### 2345-7, 98674-9, LIVR, 6-5 #### [facility] ([id number]) [address], [address] [place], [place] [address]BXE [Catalytic activity/Vol]34 U/LNormal0-41ProMetrohealth [facility] Medical Center HospitalComment on above:Performed By: #### 2345-7, 94232-7, LIVR, 6- #### [facility] ([id number]) [address], [address] [place] [address]Xavjjtgue [Mass/Vol]0.5 mg/dLNormal0.3-1.2PSt. Rita's HospitalComment on above:Performed By: #### 2345-7, 25926-6, LIVR, 4086-5 #### [facility] ([id number]) [address], [address] [place], [place] [address]Xbsxqkmug.direct [Mass/Vol]0.2 mg/dLNormal0.0-0.4Firelands Regional Medical CenterComment on above:Performed By: #### 2345-7, 99829-9, LIVFara, 4085- 5 #### [facility] ([id number]) [address], [address] [place] [address]Dtzfsll [Mass/Vol]6.9 g/dLNormal6.0-8.0Fire[facility] Medical CenterComment on above:Performed By: #### 2345-7, 67770-1, LIVR, 4086-5 #### [facility] ([id number]) [address], [address] [place] [address]Diklb 1996 panelon 52-62-0665Riyizbsufbt [Mass/Vol]152 mg/dL Glbvlr745-807IuaHfswjpBaylor Scott & White Medical Center – IrvingComment on above:Performed By: #### 2345- 7, 01726-8, LIVR, 4085-5 #### [facility] ([id number]) [address], [address] [place], [place] [address]Jinbqziszne in HDL [Mass/Vol]36 mg/dLLow>39ProBaylor Scott & White Medical Center – IrvingComment on above:Result Comment: HDL <40 mg/dL - High Risk HDL > or = 40mg/dL- Desirable HDL >60 mg/dL - Negative Risk Performed By: #### 2345-7, 63667-9, LIVR, 6-5 #### [facility] ([id number]) [address] [place], [place] [address]Njiuggpehzt in LDL [Mass/Vol]91 mg/dLNormal<130ProBaylor Scott & White Medical Center – IrvingComment on above:Result Comment: LDL <100 mg/dL - Desirable LDL >160 mg/dL - High Risk Performed By: #### Emi5-Emeterio, 33487-0, LIVR, 4086-5 #### [facility] ([id number]) [address], [address] [place], [place] [address]Tidsreyyxgh in VLDL [Mass/Vol]25 mg/dLNormal0-30ProBaylor Scott & White Medical Center – IrvingComment on above:Performed By: #### Nikky-Emeterio, 88104-7, LIVR, 6- 5 #### [facility] ([id number]) [address], [address] [place], [place] [address]MFNWLCRPVYM:HDL4.0Bezaoc2.0-5.0ProBaylor Scott & White Medical Center – IrvingComment on above:Performed By: #### Nikky-Emeterio, 55550-0, LIVFara, 4085-5 #### [facility] ([id number]) [address], [address] [place], [place] [address]Mxvjrsaiospj [Mass/Vol]126 mg/jSSsykgp98-752UwwVycbol [facility] HospitalComment on above:Performed By: #### Emi5-Emeterio, 23841-4, LIVR, 6-5 #### [facility] ([id number]) [address], [address] [place], [place] [address]Chcyjksyz [Mass/Vol]on 61-65-7633GBVNKYIP ACID97 ug/mLNormal 50-100Pro[facility]ica [facility] Surgical HospitalComment on above:Performed By: #### 2345-7, 48400-8, LIVR, 4086-5 #### [facility] ([id number]) [address], [address] [place], [place] [address]Alanine aminotransferase [Enzymatic activity/volume] in Serum or PlasmaOrdered By: Agata Cordova on 72-34-3027DTF [Catalytic activity/Vol]95 U/L7-52[facility] Medical CenterAlbumin [Mass/volume] in Serum or Plasma by Bromocresol green (BCG) dye binding methoOrdered By: Agata Cordova on 63-94-5682Etjhkwj BCG dye [Mass/Vol]4.7 g/dL3.5-5.7FSt. Francis HospitalAlkaline phosphatase [Enzymatic activity/volume] in Serum or PlasmaOrdered By: Agata Cordova on 58-89-3231TEK [Catalytic activity/Vol]74 U/L34-104 [facility] Medical CenterAmylaseon 77-62-9636Svrqfoz [Catalytic activity/Vol]24 U/LLow29 - 103 U/LNOMS HealthcareAmylase [Enzymatic activity/volume] in Serum or PlasmaOrdered By: Agata Cordova on 11-25-2023 Amylase [Catalytic activity/Vol]24 U/V77-530YrtbhbewfMercy Health [facility] Medical Center Aspartate aminotransferase [Enzymatic activity/volume] in Serum or PlasmaOrdered By: Agata Cordova on 30-42-3080JHF [Catalytic activity/Vol]65 U/L13-39 [facility] Medical CenterBilirubin.direct [Mass/volume] in Serum or PlasmaOrdered By: Agata Cordova on 86-14-5118Udmwbwhkl.direct [Mass/Vol]0.10 mg/dL0.03-0.18FSt. Francis HospitalBilirubin.total [Mass/volume] in Serum or PlasmaOrdered By: Agata Cordova on 29-39-0599Kjhrprtpj [Mass/Vol]0.6 mg/dL0.3-1.0[facility] Medical CenterGlobulin Calc (S) [Mass/Vol] Ordered By: Agata Cordova on 55-61-1205Vjbrpxag (S) [Mass/Vol]2.4 g/dL [facility] CenterHepatic function 2000 panelon 62-63-7386Olefebk [Mass/Vol]4.7 g/dL3.5 - 5.7 g/dLNOME HealthcareAlbumin/Globulin [Mass ratio]2.0 {ratio}NOMS HealthcareALP [Catalytic activity/Vol]74 U/L34 - 104 U/LNOMS HealthcareALT [Catalytic activity/Vol]95 U/LHigh7 - 52 U/LNOMS HealthcareAST [Catalytic activity/Vol]65 U/LHigh13 - 39 U/LNOMS HealthcareBilirubin [Mass/Vol] 0.6 mg/dL0.3 - 1.0 mg/dLNOME HealthcareBILIRUBIN,INDIRECT0.5 mg/dLNOME HealthcareBilirubin.indirect [Mass/Vol]0.10 mg/dL0.03 - 0.18 mg/dLNOME HealthcareGlobulin (S) [Mass/Vol]2.4 g/dLNOME HealthcareProtein [Mass/Vol]7.1 g/dL6.4 - 8.9 g/dLNOME HealthcareLipaseon 02-65-5287Qtawtl [Catalytic activity/Vol]41.0 U/L11.0 - 82.0 U/LNOMS HealthcareLipase [Enzymatic activity/volume] in Serum or PlasmaOrdered By: Agata Cordova on 11-25-2023 Lipase [Catalytic activity/Vol]41.0 U/L11.0-82.0[facility] CenterNo Panel Informationon 57-25-2532Qwwbubpjbvrtlz and review of laboratory resultsAbnormalTexas County Memorial HospitalNOMS HealthcareProtein [Mass/volume] in Serum or PlasmaOrdered By: Agata Cordova on 41-02-1528Lwxezgo [Mass/Vol]7.1 g/dL 6.4-8.9Sam[facility]itan Hospitalerum or plasma albumin/globulin mass ratioOrdered By: Agata Cordova on 93-31-4581Atyweyy/Globulin [Mass ratio]2.0 {ratio}[facility] Hospitalerum or plasma non-glucuronidated bilirubin measurement (mass/volume)Ordered By: Agata Cordova on 11-25-2023 Bilirubin.indirect [Mass/Vol]0.5 mg/dLMercy Health Springfield Regional Medical CenterActivated partial thromboplastin time (aPTT) in platelet poor plasma by coagulation a Ordered By: Terrence Gilbert on 13-21-2889gNKR Coag (PPP) [Time]33.8 s25.1-36.5 [facility] CenterComment on above:A hematocrit value greater than 55% may lead to inaccurate results in coagulation testing. Patientshaving hematocrit values >55% require a special collection tube for coagulation studies. Please contact the laboratory at [phone] for redraw instructions. Basophils Auto (Bld) [#/Vol]Ordered By: Terrence Gilbert on 19-79-1496Ezldrgcut (Bld) [#/Vol]0.1 10*3/uL0.0-0.2FSt. Francis HospitalBasophils/100 WBC Auto (Bld)Ordered By: Terrence Gilbert on 56-43-5832Fajzdbwbj/100 WBC (Bld)0.4 %.[facility] CenterCalcium [Mass/volume] in Serum or PlasmaOrdered By: Terrence Gilbert on [id number] [Mass/Vol]8.8 mg/dL8.6-10.3FSt. Francis HospitalCarbon dioxide, total [Moles/volume] in Serum or PlasmaOrdered By: Terrence Gilbert on 91-99-9725BH0 [Moles/Vol]22.8 mmol/L21.0-31.0[facility] CenterChloride [Moles/volume] in Serum or PlasmaOrdered By: Terrence Gilbert [id number] [Moles/Vol]101 mmol/M65-457YdbtacjarMercy Health [facility] Medical CenterCreatinine [Mass/volume] in Serum or PlasmaOrdered By: Terrence Gilbert on 01-98-3477Hvxkzjzmam [Mass/Vol]0.97 mg/dL0.70-1.30[facility] CenterEosinophils Auto (Bld) [#/Vol]Ordered By: Terrence Gilbert on 09-14-2023 Eosinophils (Bld) [#/Vol]0.0 10*3/uL0.0-0.45[facility] Eosinophils/100 WBC Auto (Bld)Ordered By: Terrence Gilbert on 09-14-2023 Eosinophils/100 WBC (Bld)0.0 %.[facility] CenterErythrocyte distribution width Auto (RBC) [Ratio]Ordered By: Terrence Gilbert on 09-14-2023 Erythrocyte distribution width (RBC) [Ratio]13.6 %12.0-14.8[facility] CenterGlucose Glucometer (BldC) [Mass/Vol]Ordered By: Lino Nguyen on 29-44-6647Kpywznj [Mass/Vol]151 mg/dLMercy Health Springfield Regional Medical CenterComment on above:Random Glucose Reference Range is dependent on time and content of last meal. Glucose of more than 200 mg/dL in a nonstressed, ambulatory subject supports the diagnosis of Diabetes Mellitus.Glucose [Mass/volume] in Serum or PlasmaOrdered By: Terrence Gilbert on [id number] [Mass/Vol]130 mg/nN33-931 [facility] CenterComment on above:ADA recommended reference rangeRandom Glucose Reference Range is dependent on time and content of last meal. Glucose of more than 200 mg/dL in a nonstressed, ambulatory subject supports the diagnosisof Diabetes Mellitus.Hematocrit Auto (Bld) [Volume fraction]Ordered By: Terrence Gilbert on 79-07-7439Vlmebpajpv (Bld) [Volume fraction] 39.3 %38.8-50.0[facility] CenterHemoglobin [Mass/volume] in BloodOrdered By: Terrence Gilbert on 92-51-0296Eskjchonpr (Bld) [Mass/Vol]13.3 g/dL 13.0-17.0[facility] CenterINR in Platelet poor plasma by Coagulation assayOrdered By: Terrence Gilbert on 50-95-9799EWU Coag (PPP) [Relative time]1.0 {INR}[facility] CenterComment on above:INR Therapeutic Range A) Pre- and Peroperative OAT started two weeks before surgery. NOT HIP SURGERY: 1.5 - 2.5 HIP SURGERY: 2 - 3B) Primary and secondary prevention of venous THROMBOSIS: 2 - 3C) Active venous thrombosis, pulmonary embolismand prevention of recurrent venous thrombosis: 2 - 3D) Prevention of arterial thromboembolismincluding patients with mechanical heart valves: 3 - 4.5 Leukocytes [#/volume] corrected for nucleated erythrocytes in Blood by Automated counOrdered By: Terrence Gilbert on 02-11-6886TWP corrected for nucl RBC Auto (Bld) [#/Vol]13.2 10*3/uL4.1-10.5FSt. Francis HospitalLymphocytes Auto (Bld) [#/Vol]Ordered By: Terrence Gilbert on 26-77-6402Obdzkbnfoue (Bld) [#/Vol]0.8 10*3/uL1.00-4.8[facility] CenterLymphocytes/100 WBC Auto (Bld) Ordered By: Terrence Gilbert on 85-39-5238Tmjmwywpzqx/100 WBC (Bld)5.7 %.[facility] HospitalH Auto (RBC) [Entitic mass]Ordered By: Terrence Gilbert on 80-14-2809OPW (RBC) [Entitic mass]32.1 pg27.5-35.2FSt. Francis HospitalMCHC Auto (RBC) [Mass/Vol]Ordered By: Terrence Gilbert on 06-87-6459GTRA (RBC) [Mass/Vol]33.9 g/dL32.5-35.6FSt. Francis HospitalMCV Auto (RBC) [Entitic vol]Ordered By: Terrence Gilbert on 89-18-8102SWF (RBC) [Entitic vol]94.7 fL 83.5-101[facility] CenterMonocyte distribution width [Entitic volume] in Blood by AutomatedOrdered By: Terrence Gilbert on 54-85-4606Hhtknvqq distribution width Auto (Bld) [Entitic vol]19.29 %0.00-20.00[facility] CenterMonocytes Auto (Bld) [#/Vol]Ordered By: Terrence Gilbert on 09-14-2023 Monocytes (Bld) [#/Vol]1.1 10*3/uL0.0-0.8[facility] Monocytes/100 WBC Auto (Bld)Ordered By: Terrence Gilbert on 32-03-0412Ypughjbhp/100 WBC (Bld)8.1 %.[facility] CenterNeutrophils Auto (Bld) [#/Vol] Ordered By: Terrence Gilbert on 26-00-3183Imgquonlhub (Bld) [#/Vol]11.4 10*3/uL1.8-7.7 [facility] CenterNeutrophils/100 WBC Auto (Bld)Ordered By: Terrence Gilbert on 82-04-1118Epadueegdch/100 WBC (Bld)85.8 %.[facility] CenterNo Panel InformationOrdered By: Terrence Gilbert on 80-02-4846Hpjqguarr GFR (CKD-EPI)> 60.0 mL/MinMercy Health Springfield Regional Medical CenterPharmacy Creatinine Clearance (Kynw237.51[facility] CenterNucleated erythrocytes [Presence] in Blood by Automated countOrdered By: Terrence Gilbert on 09-14-2023 Nucleated RBC Auto Ql (Bld)0.0 /100{WBC}0-0.5FSt. Francis Hospital Platelet mean volume Auto (Bld) [Entitic vol]Ordered By: Terrence Gilbert on 99-62-0437Nhfqfkpb mean volume (Bld) [Entitic vol]7.9 fL6.6-10.1FSt. Francis HospitalPlatelets Auto (Bld) [#/Vol]Ordered By: Terrence Gilbert on 79-58-7068Ogxxrrlby (Bld) [#/Vol]252 10*3/eZ606-705EzppueipfMercy Health Springfield Regional Medical CenterPotassium [Moles/volume] in Serum or PlasmaOrdered By: Terrence Gilbert on 89-89-7251Jtgqmasvg [Moles/Vol]4.2 mmol/L3.5-5.1FSt. Francis HospitalProthrombin time (PT)Ordered By: Terrence Gilbert on 38-99-2101XV Coag (PPP) [Time]11.7 s9.0-12.9[facility] CenterComment on above:A hematocrit value greater than 55% may lead to inaccurate results in coagulation testing. Patientshaving hematocrit values >55% require a special collection tube for coagulation studies. Please contact the laboratory at [phone] for redraw instructions.RBC Auto (Bld) [#/Vol]Ordered By: Terrence Gilbert on 09-14-2023 RBC (Bld) [#/Vol]4.15 10*6/uL3.90-5.60[facility]aritan Hospitalerum or plasma anion gap determinationOrdered By: Terrence Gilbert on 27-12-5965Rulqk gap [Moles/Vol]14.4 mmol/L6.0-15.0[facility] Hospitalodium [Moles/volume] in Serum or PlasmaOrdered By: Terrence Gilbert on 97-09-6113Cfdkgu [Moles/Vol]134 mmol/F829-846OtvjxalawMercy Health Springfield Regional Medical CenterUrea nitrogen [Mass/volume] in Serum or PlasmaOrdered By: Terrence Gilbert on 11-85-3729Crad nitrogen [Mass/Vol]17 mg/dL7-25[facility] CenterWBC Auto (Bld) [#/Vol]Ordered By: Terrence Gilbert on 91-52-3727MDX (Bld) [#/Vol]13.2 10*3/uL4.1-10.5 [facility] CenterAmphetamine Screen Ql (U)Ordered By: Ilya Carr on 23-30-9738Vvmwytzwwnzg Ql (U)NegativeNegGrant HospitalBarbiturates [Presence] in Urine by Screen methodOrdered By: Ilya Carr on 83-19-5333Gkunuvlnqbcv Screen Ql (U)NegativeNegGrant HospitalBenzodiazepines Screen Ql (U)Ordered By: Ilya Carr on 30-86-1104Nynldytshhwreps Ql (U)NegativeNegGrant HospitalBenzoylecgonine [Presence] in Urine by Screen methodOrdered By: Ilya Carr on 59-61-4636Fiyzzrsgkzwwjtk Screen Ql (U)NegativeNegGrant HospitalCannabinoids [Presence] in Urine by Screen methodOrdered By: Ilya Carr on 18-29-3615Mjsbmgkxfeit Screen Ql (U)PositiveNegative [facility] CenterComment on above:These are unconfirmed results and should not be used for legal purposes. Drug Cut-Off Concentration: AMPH 1000 ng/mL JUANI 200 ng/mL MOHAMUD 200 ng/mL COCM 300 ng/mL OP 300 ng/mL PCP 25 ng/mL THC 20 ng/mLNo Panel InformationOrdered By: Lino Nguyen on 71-62-0047Voiyhqr Glucose CommentGlu2: cleaned meterMercy Health Springfield Regional Medical CenterOpiates [Presence] in Urine by Screen methodOrdered By: Ilya Carr on 11-27-2023 Opiates Screen Ql (U)NegativeNegativeMercy Health [facility] Phencyclidine Screen Ql (U)Ordered By: Ilya Carr on 83-73-1371Bzoapkhfiompl Ql (U)NegativeNegativeMercy Health Springfield Regional Medical CenterBasophils Auto (Bld) [#/Vol]Ordered By: Lino Nguyen on 11-51-1388Rncdfkfun (Bld) [#/Vol]0.0 10*3/uL 0.0-0.2FSt. Francis HospitalBasophils/100 WBC Auto (Bld)Ordered By: Lino Nguyen on 98-32-5179Pdhnpuwtx/100 WBC (Bld)0.6 %.[facility] CenterCalcium [Mass/volume] in Serum or PlasmaOrdered By: Lino Nguyen on 79-54-4515Mdyzxyn [Mass/Vol]9.0 mg/dL8.6-10.3FSt. Francis Hospital Carbon dioxide, total [Moles/volume] in Serum or PlasmaOrdered By: Lino Nguyen on 80-66-7422MH0 [Moles/Vol]27.3 mmol/L21.0-31.0[facility] Chloride [Moles/volume] in Serum or PlasmaOrdered By: Lino Nguyen on 08-30-2023 Chloride [Moles/Vol]105 mmol/A97-404VlzivdcerMercy Health Springfield Regional Medical CenterCreatinine [Mass/volume] in Serum or PlasmaOrdered By: Lino Nguyen on 25-38-4303Hlpmmvoquw [Mass/Vol]1.02 mg/dL0.70-1.30[facility] CenterEosinophils Auto (Bld) [#/Vol]Ordered By: Lino Nguyen on 96-13-5394Pndrxlphxvd (Bld) [#/Vol]0.0 10*3/uL0.0-0.45[facility] CenterEosinophils/100 WBC Auto (Bld) Ordered By: Lino Nguyen on 64-36-6593Puxmyeveozn/100 WBC (Bld)0.8 %.[facility] CenterErythrocyte distribution width Auto (RBC) [Ratio]Ordered By: Lino Nguyen on 20-63-9670Oikiwbxfohi distribution width (RBC) [Ratio]14.1 % 12.0-14.8[facility] CenterGlucose [Mass/volume] in Serum or PlasmaOrdered By: Lino Nguyen on 86-46-7881Jzozrvj [Mass/Vol]141 mg/sL38-372 [facility] CenterComment on above:ADA recommended reference rangeRandom Glucose Reference Range is dependent on time and content of last meal. Glucose of more than 200 mg/dL in a nonstressed, ambulatory subject supports the diagnosisof Diabetes Mellitus.Hematocrit Auto (Bld) [Volume fraction]Ordered By: Lino Nguyen on 44-41-4345Mhdutircgp (Bld) [Volume fraction] 43.3 %38.8-50.0[facility] CenterHemoglobin [Mass/volume] in BloodOrdered By: Lino Nguyen on 09-04-6910Gjopjwbqvy (Bld) [Mass/Vol]14.5 g/dL 13.0-17.0[facility] CenterLeukocytes [#/volume] corrected for nucleated erythrocytes in Blood by Automated counOrdered By: Lino Nguyen on 24-10-2686MFO corrected for nucl RBC Auto (Bld) [#/Vol]4.4 10*3/uL4.1-10.5 [facility] CenterLymphocytes Auto (Bld) [#/Vol]Ordered By: Lino Nguyen on 89-42-2432Rpdibmuhyso (Bld) [#/Vol]1.1 10*3/uL1.00-4.8[facility] CenterLymphocytes/100 WBC Auto (Bld)Ordered By: Lino Nguyen on 84-01-2668Uvgkltsqgah/100 WBC (Bld)24.3 %.[facility] HospitalH Auto (RBC) [Entitic mass]Ordered By: Lino Nguyen on 62-00-0603UAX (RBC) [Entitic mass]32.2 pg27.5-35.2FSt. Francis HospitalMCHC Auto (RBC) [Mass/Vol] Ordered By: Lino Nguyen on 97-86-6197RWBO (RBC) [Mass/Vol]33.6 g/dL32.5-35.6 [facility] CenterMCV Auto (RBC) [Entitic vol]Ordered By: Lino Nguyen on 89-74-8591EUJ (RBC) [Entitic vol]95.8 fL83.5-101[facility] CenterMonocytes Auto (Bld) [#/Vol]Ordered By: Lino Nguyen on 08-30-2023 Monocytes (Bld) [#/Vol]0.6 10*3/uL0.0-0.8[facility] Monocytes/100 WBC Auto (Bld)Ordered By: Lino Nguyen on 86-02-6957Xvdzloxvm/100 WBC (Bld)14.5 %.[facility] CenterNeutrophils Auto (Bld) [#/Vol] Ordered By: Lino Nguyen on 12-67-4912Rjhpklkfzak (Bld) [#/Vol]2.6 10*3/uL1.8-7.7 [facility] CenterNeutrophils/100 WBC Auto (Bld)Ordered By: Lino Nguyen on 93-19-5221Dvjhjwssiup/100 WBC (Bld)59.8 %.[facility] CenterNo Panel InformationOrdered By: Lino Nguyen on 70-46-6903Xwhzyjeqr GFR (CKD-EPI)> 60.0 mL/MinMercy Health [facility] Regional Medical CenterPharmacy Creatinine Clearance (ChemN/[facility] HospitalNucleated erythrocytes [Presence] in Blood by Automated countOrdered By: Lino Nguyen on 08-30-2023 Nucleated RBC Auto Ql (Bld)0.2 /100{WBC}0-0.5FSt. Francis Hospital Platelet mean volume Auto (Bld) [Entitic vol]Ordered By: Lino Nguyen on 80-17-1533Fpfbtdye mean volume (Bld) [Entitic vol]7.9 fL6.6-10.1FSt. Francis HospitalPlatelets Auto (Bld) [#/Vol]Ordered By: Lino Nguyen on 61-19-9791Pfiwnhsyh (Bld) [#/Vol]210 10*3/iA112-696CosxxdjhdMercy Health Springfield Regional Medical CenterPotassium [Moles/volume] in Serum or PlasmaOrdered By: Lino Nguyen on 36-78-7942Wemwrdhsa [Moles/Vol]4.3 mmol/L3.5-5.1FSt. Francis HospitalRBC Auto (Bld) [#/Vol]Ordered By: Lino Nguyen on 29-71-3933TYL (Bld) [#/Vol]4.52 10*6/uL3.90-5.60[facility] Hospitalerum or plasma anion gap determinationOrdered By: Lino Nguyen on 76-30-4556Uexjv gap [Moles/Vol] 11.0 mmol/L6.0-15.0[facility] Hospitalodium [Moles/volume] in Serum or PlasmaOrdered By: Lino Nguyen on 14-85-9557Apppln [Moles/Vol]139 mmol/L 136-145[facility] CenterUrea nitrogen [Mass/volume] in Serum or PlasmaOrdered By: Lino Nguyen on 83-03-0027Xmim nitrogen [Mass/Vol]8 mg/dL7-25 [facility] CenterWBC Auto (Bld) [#/Vol]Ordered By: Lino Nguyen on 13-99-4910UTU (Bld) [#/Vol]4.4 10*3/uL4.1-10.5FSt. Francis Hospital XR Chest 2 Views*on 62-96-6224ZK Chest 2 Views*HISTORY: Shortness of breath and cough. COMPARISON: Chest radiographs 12/29/2019 TECHNIQUE: Frontal and lateral views of the chest FINDINGS: The cardiomediastinal silhouette is within normal limits. No pneumothorax, pleural effusion, or consolidation. Bones of the thorax appear intact. IMPRESSION: No radiographic evidence of acute intrathoracic process. Report reported and signed by Ilya Mendosa on 08/19/2022 1355NormalNorthern The Hospital Of Central ConnecticutXR wrist min BI 3Von 54-82-2203ML wrist min BI 3V [facility] [employer] Other XR wrist min BI 3VVan [facility] [employer] Other XR wrist min BI [id number] [place] [address] [employer] Other XR wrist min BI 3VSRegina [place] [id number] [employer] Other XR wrist min BI 3VXRay ReportShedd [employer] Other XR wrist min BI 3VSignedShedd [employer] Other XR wrist min BI 3VPatient: Mo Radnhawa MR#: [id number] [employer] Other XR wrist min BI 3VDOB: 1970 Acct:[id number] [employer] Other XR wrist min BI 3VAge/Sex: 52 / M ADM Date: 05/27/22 [employer] Other XR wrist min BI 3VLoc: SOXD Room: Type: [facility] [employer] Other XR wrist min BI 3VAttending Dr: Magaly Rosario MD [employer] Other XR wrist min BI 3VCopies to: Magaly Rosario MDWorld Reviewer [employer] Other XR wrist min BI 3VOrdering Provider: Magaly Rosario MDWorld Reviewer [employer] Other XR wrist min BI 3VDate of Service: 05/27/22Noitavonne [employer] Other XR wrist min BI 3VAccession #: ([id number]) XR/XR wrist min BI 3V: S62.035[facility] [employer] Other XR wrist min BI 3VBILATERAL WRIST SERIES, 4 VIEWS EACH [employer] Other XR wrist min BI 3VCLINICAL HISTORY: Status post removal of hardware left scaphoid.[employer] Other XR wrist min BI 3VCOMPARISON: Left wrist series 04/01/2022Noitavonne [employer] Other XR wrist min BI 3VFINDINGS:[employer] Other XR wrist min BI 3VLeft wrist demonstrate hardware fixation involving the scaphoid bone unchanged in alignment withoutNoitavonne [employer] Other XR wrist min BI 3Vevidence of radiographic complication. No significant healing is seen at the fracture site. [facility] [employer] Other XR wrist min BI 3Vacute bony process is seen. There is questionable calcification of the TFCC.[employer] Other XR wrist min BI 3VRight wrist demonstrates presumed surgical resection versus osteonecrosis of the scaphoid bone.[employer] Other XR wrist min BI 3VThere also appears to be osteonecrosis possibly the lunate bone. There is possible developing slaFreeman Orthopaedics & Sports Medicine [employer] Other XR wrist min BI 3Vwrist deformity. No acute bony process is seen.[employer] Other XR wrist min BI 3VORDER #: [id number] XR/XR wrist min BI 3VNocooper county memorial hospital [employer] Other XR wrist min BI 3VIMPRESSION:[employer] Other XR wrist min BI 3V1. LEFT WRIST DEMONSTRATES HARDWARE FIXATION OF THE SCAPHOID BONE WITHOUT RADIOGRAPHICNort [employer] Other XR wrist min BI 3VCOMPLICATION. NO SIGNIFICANT HEALING IS SEEN AT THE FRACTURE SITE.[employer] Other XR wrist min BI 3V2. RIGHT WRIST DEMONSTRATES A PRESUMED OSTEONECROSIS VERSUS POSTSURGICAL CHANGES INVOLVING [facility] [employer] Other XR wrist min BI 3VSCAPHOID AND LUNATE BONES WITH WHAT APPEARS TO BE DEVELOPING SLAC WRIST DEFORMITY.[employer] Other XR wrist min BI 3VImpression dictated by: Taras Holman Jr., DKanuOKanu05/27/2022 4:09 [facility] [employer] Other XR wrist min BI 3VDictation Location: [id number] [employer] Other XR wrist min BI 3VTranscribed By: JOHANNY 05/27/22 1602 [employer] Other XR wrist min BI 3VDictated By: Taras Holman Jr, DO 05/27/22 160[facility] [employer] Other XR wrist min BI 3VSigned By:[employer] Other XR wrist min BI 3V05/27/22 160[facility] [employer] Other XR wrist LT min 3V*on 93-17-9621BA wrist LT min 3V* [facility] [employer] Other XR wrist LT min 3V*[facility] [employer] Other XR wrist LT min 3V*[facility] [employer] Other XR wrist LT min 3V*[place] [employer] Other XR wrist LT min 3V*XRay [facility] [employer] Other XR wrist LT min 3V*[facility] [employer] Other XR wrist LT min 3V*Patient: Mo Randhawa MR#: [id number] [employer] Other XR wrist LT min 3V*: 1970 Acct:[id number] [employer] Other XR wrist LT min 3V*Age/Sex: 51 / M ADM Date: 04/01/22 [employer] Other XR wrist LT min 3V*Loc: SOXD Room: Type: [facility] [employer] Other XR wrist LT min 3V*Attending Dr: Magaly Rosario MD [employer] Other XR wrist LT min 3V*Copies to: Magaly Rosario MD [employer] Other XR wrist LT min 3V*Ordering Provider: Magaly Rosario MDNoitavonne [employer] Other XR wrist LT min 3V*Date of Service: 04/01/22[employer] Other XR wrist LT min 3V* XR/XR wrist LT min 3V*: Nondisplaced fracture of proximal third ofShedd [employer] Other XR wrist LT min 3V*navicular [scaphoShedd [employer] Other XR wrist LT min 3V*LEFT WRIST - 4 viewsShedd [employer] Other XR wrist LT min 3V*COMPARISON: [facility] [employer] Other XR wrist LT min 3V*CLINICAL DATA: Follow-up scaphoid fractureShedd [employer] Other XR wrist LT min 3V*COMPARISON: 03/04/2022[employer] Other XR wrist LT min 3V*AP, lateral, oblique and ulnar deviation views were obtained. There is redemonstration of [facility] Hospital-PontiacGILUPI Other XR wrist LT min 3V*through the scaphoid traversing a fracture at the proximal third of the bone. There is appropriateGILUPI Other XR wrist LT min 3V*alignment, unchanged from the comparison. Lucency at the distal radial metaphysis might be a boneShedd [employer] Other XR wrist LT min 3V*grafting donor site. There are no other acute fractures or dislocation. There is dorsal soft tissueShedd [employer] Other XR wrist LT min 3V*swelling.[employer] Other XR wrist LT min 3V* XR/XR wrist LT min 3V*[employer] Other XR wrist LT min 3V*IMPRESSION:[employer] Other XR wrist LT min 3V*STABLE SCAPHOID FRACTURE, STATUS POST FIXATION.[facility] [employer] Other XR wrist LT min 3V*Impression dictated by: Leslye Maher M.D.04/01/2022 5:15 PMNFour [facility]s Psych[facility] [employer] Other XR wrist LT min 3V*Dictation Location: [address] [employer] Other XR wrist LT min 3V*Transcribed By: JOHANNY 04/01/22 1715 [facility] [employer] Other XR wrist LT min 3V*Dictated By: Leslye Maher MD 04/01/[address] [place] [address] [employer] Other XR wrist LT min 3V*Signed By:[employer] Other XR wrist LT min 3V*04/01/[address] [place] [address] [employer] Other XR hand LT min 3V*on 28-08-8082KY hand LT min 3V* [facility] [employer] Other XR hand LT min 3V*[facility] [employer] Other XR hand LT min 3V*[address] [place] [address] [employer] Other XR hand LT min 3V*[place] [id number] [employer] Other XR hand LT min 3V*XRay ReportShedd [employer] Other XR hand LT min 3V*SignedShedd [employer] Other XR hand LT min 3V*Patient: Mo Randhawa MR#: [id number] [employer] Other XR hand LT min 3V*: 1970 Acct:[id number] [employer] Other XR hand LT min 3V*Age/Sex: 51 / M ADM Date: 01/21/22 [employer] Other XR hand LT min 3V*Loc: SOXD Room: Type: [facility] HIGHLANDSCodeMonkey Studios Other XR hand LT min 3V*Attending Dr: Magaly Rosario MD [employer] Other XR hand LT min 3V*Ordering Provider: Magaly Rosario MDShedd [employer] Other XR hand LT min 3V*Date of Service: 01/21/22[employer] Other XR hand LT min 3V* XR/XR hand LT min 3V*: Nondisplaced fracture of proximal third [facility] [employer] Other XR hand LT min 3V*navicular [[facility] [employer] Other XR hand LT min 3V*Copies to: Magaly Rosario MDShedd [employer] Other XR hand LT min 3V*XR hand LT min 3V* 01/21/2022 9:56 AM [employer] Other XR hand LT min 3V*SIGNS AND SYMPTOMS: Status post fixation of previous left scaphoid fractureShedd [employer] Other XR hand LT min 3V*PROTOCOL: Frontal, lateral, and oblique radiographs of the left wristShedd [employer] Other XR hand LT min 3V*COMPARISON: 12/08/2019S[employer] Other XR hand LT min 3V*FINDINGS:[employer] Other XR hand LT min 3V*The patient is status post screw fixation across a proximal scaphoid fracture. The healing remainsShedd [employer] Other XR hand LT min 3V*incomplete. The bony structures are in anatomic alignment. Findings suggest partial collapse of [facility] Medical CenterCodeMonkey Studios Other XR hand LT min 3V*scaphoid with the distal threads of the screw traversing the junction of the scaphoid and trapeziumNoJefferson Abington Hospital [employer] Other XR hand LT min 3V*and extending into the articular surface of the trapezium. This is new when compared to the priorShedd [employer] Other XR hand LT min 3V*exam. There is moderate narrowing of the radiocarpal joint space. Similar subcortical cystic changeSwedish Medical Center Edmonds [employer] Other XR hand LT min 3V*is partly visualized in the distal radius.[employer] Other XR hand LT min 3V* XR/XR hand LT min 3V*[employer] Other XR hand LT min 3V*IMPRESSION:[employer] Other XR hand LT min 3V*Incomplete healing of a scaphoid fracture with partial collapse of the scaphoid. The distal aspectNocooper county memorial hospital [employer] Other XR hand LT min 3V*of the fixation screw now protrudes across the junction of the scaphoid and trapezium into [facility] [employer] Other XR hand LT min 3V*articular surface of the trapezium. [employer] Other XR hand LT min 3V*Similar moderate degenerative changes of the radiocarpal joint.[employer] Other XR hand LT min 3V*Impression dictated by: Ady Costello M.D.01/21/2022 11:21 [facility] [employer] Other XR hand LT min 3V*Dictation Location: [id number] [employer] Other XR hand LT min 3V*Transcribed By: JOHANNY 01/21/22 1121 [employer] Other XR hand LT min 3V*Dictated By: Ady Costello II, MD 01/21/22 1119[employer] Other xr hand LT min 3V*Signed By:[facility] [employer] Other xr hand LT min 3V*01/21/22 1121NoJefferson Abington Hospital [employer] Other CBC AUTO DIFFon 87-86-8412NOJC #0.1 103/ulNormal 0.0-0.1[facility] HospitalComment on above:Performed By: #### CBC #### [facility] [address] [address] Dawit KarenBasophils/100 WBC (Bld)0.8 %Normal0.2-2.0[facility] Comment on above:Performed By: #### CBC #### [facility] [address] [place] [address] Dawit KarenEO #0.2 103/ulNormal0.0-0.7The [facility] HospitalComment on above: Performed By: #### CBC #### [facility] [address] [place] [address] Dawit KarenEosinophils/100 WBC (Bld)3.0 %Normal0.9-7.0[facility] Comment on above:Performed By: #### CBC #### [facility] [address] [place] [address] Dawit KarenErythrocyte distribution width (RBC) [Ratio]12.3 %Pqopnz41.0-15.0The [facility] HospitalComment on above:Performed By: #### CBC #### [facility] [address] [place] [address] Dawit KarenHematocrit (Bld) [Volume fraction]43.3 %Dpvuzj05.0-54.0The [facility] HospitalComment on above:Performed By: #### CBC #### [facility] [address] [place] [address] Dawit KarenHemoglobin (Bld) [Mass/Vol]14.9 g/jRWrlclz26.0-18.0[facility] Euclid HospitalComment on above:Performed By: #### CBC #### [facility] [address] [place] [address] Dawit PhillipsenIG #0.02 10e3/ulNormal0.00-0.03[facility] SouthComment on above:Performed By: #### CBC #### [facility] [address] [place] [address] Dawit GutierrezG %0.3 %Normal0.0-0.5The [facility]uclid HospitalComment on above: Performed By: #### CBC #### [facility] [address] [place] [address] Dawit PhillipsenLYMPH #2.1 103/ulNormal1.2-3.8The [facility]uclid HospitalComment on above: Performed By: #### CBC #### [facility] [address] [place] [address] Dawit GavinLymphocytes/100 WBC (Bld)33.8 %Wazket24.5-60.0[facility] Comment on above:Performed By: #### CBC #### [facility] [address] [place] [address] Dawit GavinMANUAL DIFF REQNONormalThe [facility] Euclid HospitalComment on above: Performed By: #### CBC #### [facility] [address] [place] [address] Dawit KarenH (RBC) [Entitic mass]31.6 brUquwoz17.9-34.0[facility] Comment on above:Performed By: #### CBC #### [facility] [address] [place] [address] Dawit KarenMCHC (RBC) [Mass/Vol]34.4 g/aUQhughx33.9-35.2[facility] Comment on above:Performed By: #### CBC #### [facility] [address] [place] [address] Dawit KarenMCV (RBC) [Entitic vol]91.9 jQFdjavt72.0-94.0[facility] Comment on above:Performed By: #### CBC #### [facility] [address] [place] [address] Dawit KarenMONO #0.7 103/ulNormal0.3-0.8The [facility] HospitalComment on above: Performed By: #### CBC #### [facility] [address] [place] [address] Dawit KarenMonocytes/100 WBC (Bld)10.7 %Normal1.7-12.0[facility] Comment on above:Performed By: #### CBC #### [facility] [address] [place] [address] Dawit PhillipsenNEUT #3.1 103/ulNormal1.4-6.5The [facility]id HospitalComment on above: Performed By: #### CBC #### [facility] [address] [place] [address] Dawit KarenNeutrophils/100 WBC (Bld)51.4 %Kbufgm14.0-75.0[facility] Comment on above:Performed By: #### CBC #### [facility] [address] [place] [address] Dawit KarenPlatelet mean volume (Bld) [Entitic vol]9.2 fLCritically low9.5-13.5 The [facility]uclid HospitalComment on above:Performed By: #### CBC #### [facility] [address] [place] [address] Dawit SlvkpFTH206 103/aeXjxtit295-329Eec [facility]uclid HospitalComment on above: Performed By: #### CBC #### [facility] [address] [place] [address] Dawit KarenRBC4.71 106/ulNormal4.70-6.10The [facility] Euclid HospitalComment on above: Performed By: #### CBC #### [facility] [address] [place] [address] Dawit KarenWBC6.1 103/ulNormal4.0-11.0The [facility]uclid HospitalComment on above: Performed By: #### CBC #### [facility] [address] [place] [address] Dawit KarenGLYCOHEMOGLOBIN A1Con [id number] RECOMMENDATIONADA THERAPEUTIC TARGET 6.0 - 7.0 ACTION SUGGESTED > 7.0[facility] HospitalComment on above:Performed By: #### A1C #### [facility] [address] [address] Dawit KarenGlucose [Mass/Vol]143 mg/dLNoOhioHealth Berger HospitalComment on above:Performed By: #### A1C #### [facility] [address] [address] Dawit BsuslNuC9v (Bld) [Mass fraction]6.6 %Critically high<=6.0[facility] SouthComment on above:Performed By: #### A1C #### [facility] [address] [place] [address] Dawit KarenLIPID PROFILEon [id number]-HDL RATIO NORMSEE BELOWAdams County HospitalComment on above:Result Comment: 3.3 - 4.4 LOW RISK 4.4 - 7.1 AVERAGE RISK 7.1 - 11.0 MODERATE RISK >11.0 HIGH RISKPerformed By: #### TSH, PSAD, LIPID, CMP #### [facility] [address] [address] Dawit KarenCholesterol [Mass/Vol]196 mg/dLNormal<=200[facility] Comment on above:Performed By: #### TSH, PSAD, LIPID, CMP #### [facility] [address] [address] Dawit KarenCholesterol in HDL [Mass/Vol]35 mg/dLAdams County Hospital Comment on above:Performed By: #### TSH, PSAD, LIPID, CMP #### [facility] [address] [address] Dawit KarenCholesterol in LDL [Mass/Vol]114.8 mg/dLAdams County Hospital Comment on above:Performed By: #### TSH, PSAD, LIPID, CMP #### [facility] [address] [address] Dawit KarenCholesterol.total/Cholesterol in HDL [Mass ratio]5.6 {ratio}Normal The [facility] on above:Performed By: #### TSH, PSAD, LIPID, CMP #### [facility] [address] [place] [address] Dawit KarenHDL NORMAL> or = 60 mg/dl - LOW CARDIOVASCULAR RISK <40 mg/dl - HIGH CARDIOVASCULAR RISKOhioHealth Van Wert Hospital on above:Performed By: #### TSH, PSAD, LIPID, CMP #### [facility] [address] [place] [address] Dawit KarenLDL CALC NORMALSEE [facility]Comcorewell [facility] on above: Result Comment: <100 mg/dl OPTIMAL 100 - 129 mg/dl NEAR OR ABOVE OPTIMAL 130 - 159 mg/dl BORDERLINE HIGH 160 - 189 mg/dl HIGH >190 mg/dl VERY HIGHPerformed By: #### TSH, PSAD, LIPID, CMP #### [facility] [address] [place] [address] Dawit KarenTriglyceride [Mass/Vol]231 mg/dLCritically high<=150The [facility] on above:Performed By: #### TSH, PSAD, LIPID, CMP #### [facility] [address] [place] [address] Dawit KarenVLDL CALC46.2 mg/dLOhioHealth Van Wert Hospital on above: Performed By: #### TSH, PSAD, LIPID, CMP #### [facility] [address] [place] [address] Dawit KarenMICROALB CREAT RATIO RANDOMon [id number]<1.3Normal<=30.0[facility] on above:Performed By: #### MCRR #### [facility] [address] [place] [address] Dawit KarenMALB CR RATIO4.9 mg/gNormal0.0-29.9The [facility] on above:Performed By: #### MCRR #### [facility] [address] [place] [address] Dawit KarenMALB CR RATIO RANGESEE [facility] Hospital LimaComment on above:Result Comment: NO MICROALBUMINURIA 0-29 MG/G CLINICAL MICROALBUMINURIA 30-300 MG/G MACROALBUMINURIA >300 MG/GPerformed By: #### MCRR #### [facility] [address] [place] [address] Dawit KarenURINE VPPFP888.88 mg/qEMtmaqw12.00-300.00[facility] Comment on above:Performed By: #### MCRR #### [facility] [address] [address] Dawit KarenPROF 14(COMP METB)on [id number] [Mass/Vol]4.1 g/dLNormal 3.5-5.0[facility] SouthComment on above:Performed By: #### TSH, PSAD, LIPID, CMP #### [facility] [address] [place] [address] Dawit KarenAlbumin/Globulin [Mass ratio]1.2 {ratio}NormalSelect [facility] Comment on above:Performed By: #### TSH, PSAD, LIPID, CMP #### [facility] [address] [place] [address] Dawit KarenALP [Catalytic activity/Vol]66 U/IOwjyta88-370YvdSelect Medical Specialty Hospital - [facility] Comment on above:Performed By: #### TSH, PSAD, LIPID, CMP #### [facility] [address] [place] [address] Dawit KarenALT [Catalytic activity/Vol]95 U/LCritically cwgr77-21Qbj [facility] Euclid HospitalComment on above:Performed By: #### TSH, PSAD, LIPID, CMP #### [facility] [address] [place] [address] Dawit KarenAnion gap [Moles/Vol]13.5 mmol/LNormalSt. Elizabeth Hospital on above:Performed By: #### TSH, PSAD, LIPID, CMP #### [facility] [address] [place] [address] Dawit KarenAST [Catalytic activity/Vol]34 U/XUdzfxf42-80TzpSelect Medical Specialty Hospital - [facility] Comment on above:Performed By: #### TSH, PSAD, LIPID, CMP #### [facility] [address] [place] [address] Dawit KarenBilirubin [Mass/Vol]0.3 mg/dLNormal0.2-1.3The [facility] Comment on above:Performed By: #### TSH, PSAD, LIPID, CMP #### [facility] [address] [place] [address] Dawit KarenCalcium [Mass/Vol]8.8 mg/dLNormal8.4-10.2[facility] Comment on above:Performed By: #### TSH, PSAD, LIPID, CMP #### [facility] [address] [place] [address] Dawit KarenChloride [Moles/Vol]103 mmol/DOfdebs92-794GkoSelect Medical Specialty Hospital [facility] Comment on above:Performed By: #### TSH, PSAD, LIPID, CMP #### [facility] [address] [place] [address] Dawit KarenCO2 [Moles/Vol]28.7 mmol/HXfvtvf53.0-30.0[facility] Comment on above:Performed By: #### TSH, PSAD, LIPID, CMP #### [facility] [address] [place] [address] Dawit KarenCreatinine [Mass/Vol]1.23 mg/dLNormal0.66-1.25[facility] Comment on above:Performed By: #### TSH, PSAD, LIPID, CMP #### [facility] [address] [place] [address] Dawit KarenEGFR-AF UKRAINIAN>60Normal>=60[facility] - [facility] SouthComment on above: Performed By: #### TSH, PSAD, LIPID, CMP #### [facility] [address] [place] [address] Dawit KarenEGFR-NON AF UKRAINIAN>60Normal>=60The [facility] HospitalComment on above:Performed By: #### TSH, PSAD, LIPID, CMP #### [facility] [address] [place], [place] [address] Dawit KarenGlobulin (S) [Mass/Vol]3.3 g/dLNormSouthwest General Health CenterComment on above:Performed By: #### TSH, PSAD, LIPID, CMP #### [facility] [address] [place] [address] Dawit KarenGlucose [Mass/Vol]140 mg/dLCritically anag89-625Utk [facility] HospitalComment on above:Performed By: #### TSH, PSAD, LIPID, CMP #### [facility] [address] [place] [address] Dawit KarenPotassium [Moles/Vol]4.2 mmol/LNormal3.4-5.0[facility] Comment on above:Performed By: #### TSH, PSAD, LIPID, CMP #### [facility] [address] [place] [address] Dawit KarenProtein [Mass/Vol]7.4 g/dLNormal6.1-8.2The [facility] HospitalComment on above:Performed By: #### TSH, PSAD, LIPID, CMP #### [facility] [address] [place] [address] Dawit KarenSodium [Moles/Vol]141 mmol/NPzanjj830-714Nmm [facility] Comment on above:Performed By: #### TSH, PSAD, LIPID, CMP #### [facility] [address] [place] [address] Dawit KarenUrea nitrogen [Mass/Vol]20.0 mg/dLNormal9.0-20.0The [facility]ucl[facility] HospitalComment on above:Performed By: #### TSH, PSAD, LIPID, CMP #### [facility] [address] [place] [address] Dawit KarenUrea nitrogen/Creatinine [Mass ratio]16.3 mg/mgNoOhioHealth Berger HospitalComcorewell health butterworth hospital on above:Performed By: #### TSH, PSAD, LIPID, CMP #### [facility] [address] [place] [address] Dawit KarenTSHon 96-33-0945PVJ1.314 uIU/mLNormal0.470-4.680The [facility] HospitalComment on above:Performed By: #### TSH, PSAD, LIPID, CMP #### [facility] [address] [place], [place] [address] Dawit RAMIREZAshtabula County Medical CenterComment on above:Result Comment: <0.34 UIU/ml HYPERTHYROID 0.34-5.60 UIU/ml EUTHYROID >5.60 UIU/ml HYPOTHYROIDPerformed By: #### TSH, PSAD, LIPID, CMP #### [facility] [address] [place], [place] [address] Dawit Gavin Vital Signs Date TimeVital SignValuePerforming UzwxlnimrYixoqnrk89-67-7428 14:13-0400Body xaijjp307.3 cmZeinabariana Chinchilla DPM Work Phone: [facility] HospitalDjonwtqxkk64-50-9531 14:13-0400Body mass index (BMI) [Ratio]29.01 kg/v1Sobnsldsluis Chinchilla DPM Work Phone: [facility] HospitalJoavglnwzx21-89-7848 14:13-0400Body pheodt07.35 kgNicluis Chinchilla DPM Work Phone: [facility] HospitalGosawlfumn57-71-1069 14:13-0400Respiratory rate16 /minDeliophillipariana Chinchilla DPM Work Phone: [facility] HospitalImawoxcbsc44-42-2760 16:05-0400Body rpvsra445.3 cmMatthetyler Petznick DO Work Phone: noSaint [facility] CenterZafzjiavxi45-39-6749 16:05-0400Body mass index (BMI) [Ratio]31.94 kg/f6Niuvoiq Petznick DO Work Phone: noSaint [facility] Medical CenterSsmslslwuq09-95-3653 16:05-0400Body temperature 97.9 [degF]Agata Cordova DO Work Phone: noSaint [facility] Medical CenterHiabadklfn35-57-7129 16:05-0400Body mxsymx471.87 kgMatthew Petznick DO Work Phone: noSaint [facility] CenterUtpwfnrqlt68-27-9155 16:05-0400Diastolic blood mm[Hg]Agata Petluigiick DO Work Phone: 1(295)[facility] [place], [place] [address]Omxleiadhb07-36-1339 16:05-0400Heart rate64 /min Agata Petznick DO Work Phone: 1(936)[facility] [place], [place] [address]Ioumrbfksh76-64-3275 16:05-6887JyN3% (BldA) [Mass fraction]97 %Agata Tateznick DO Work Phone: 1(085)[facility] [place], [place] [address]Rokhrtwevr00-04-6210 16:05-0400Systolic blood cxerntvu240 mm[Hg]Agata Petznick DO Work Phone: 1(527)[facility] [place], [place] [address]Gnbbiaolto61-69-9878 13:39-0500Body ugxlcg656.3 cmMattadonay Cordova DO Work Phone: 1(386)[facility] [place], [place] [address]Jnippllnlx47-39-2882 13:39-0500Body mass index (BMI) [Ratio]32.36 kg/y5Zzyzjfo Petluigiick DO Work Phone: 1(138)[facility] [place], [place] [address]Igtmdjbjos53-53-2116 13:39-0500Body temperature 98.29 [degF]Agata Petluigiick DO Work Phone: 1(699)[facility] [place], [place] [address]Wcygghwnom47-26-2506 13:39-0500Body tkpjuc140.23 kgMattadonay Cordova DO Work Phone: 1(123)[facility] [place], [place] [address]Izcrjsmxuj13-74-4879 13:39-0500Diastolic blood kggwgane00 mm[Hg]Agata Harrisonick DO Work Phone: 1(258)[facility] [place], [place] [address]Bqhhjpksge89-30-6072 13:39-0500Heart rate74 /min Agata Petznick DO Work Phone: 1(840)[facility] [place], [place] [address]Htchxotepw69-13-2004 13:39-5536VrB5% (BldA) [Mass fraction]97 %Agata Harrisonick DO Work Phone: 1(836)[facility] [place], [place] [address]Devpkmlctx60-09-1998 13:39-0500Systolic blood fdbbqnur611 mm[Hg]Agata Petluigiick DO Work Phone: 1(362)[facility] [place], [place] [address]Sjrruxkomx14-74-7981 12:07-0500Body ouvhrk417.3 cmAngela Lowe PA Work Phone: [facility] HospitalRzxbrlkwid15-16-6293 12:07-0500Body mass index (BMI) [Ratio]31.52 kg/a6Lzjnxt Lowe PA Work Phone: [facility] HospitalKcalemhdni64-14-5253 12:07-0500Body .51 kgAngela Lowe PA Work Phone: [facility] HospitalNuksgsymoe32-08-8661 12:07-0500Diastolic blood jstwcwul97 mm[Hg]Delicia Lowe PA Work Phone: [facility] HospitalTglflpbflr66-28-0934 12:07-0500Systolic blood wannqdeb249 mm[Hg]Delicia Lowe PA Work Phone: [facility] HospitalSfdvtyfdop43-32-4564 09:49-0400Body .3 cmFelicia Nandininagel PARTS ADMINISTRATOR Work Phone: [facility] HospitalRojferxwic84-52-4183 09:49-0400Body mass index (BMI) [Ratio]30.4 kg/a3Jnjygqv Windnagel PARTS ADMINISTRATOR Work Phone: [facility] HospitalMvcjpidmmt10-63-0648 09:49-0400Body .88 kgFelicia Windnagel PARTS ADMINISTRATOR Work Phone: [facility] HospitalXalqddzvfa77-62-5905 09:49-0400Diastolic blood xiwwuqkw72 mm[Hg]Dieter Windnagel PARTS ADMINISTRATOR Work Phone: [facility] HospitalDzcotkurml58-69-6884 09:49-0400Heart xudy541 /min Dieter Windnagel PARTS ADMINISTRATOR Work Phone: [facility] HospitalIheyvzajnb58-62-9358 09:49-0400Systolic blood mm[Hg]Dieter Windnagel PARTS ADMINISTRATOR Work Phone: [facility] HospitalLaggvjkohp38-40-1435 12:30-0400Diastolic blood nazhstpe43 mm[Hg]DO Agata Cordova Work Phone: [facility]08-26-2024 12:30-0400 Heart rate67 /minDO Agata Cordova Work Phone: 1(423)[address] [place], [place] 1795308-26-2024 12:30-0400 Respiratory rate18 /Ilir Cordova Work Phone: 1(658)[address] [place], [place] 1795308-26-2024 12:30-0400 SaO2% (BldA) [Mass fraction]95 %DO Agata Cordova Work Phone: 1(933)[address] [place], [place] 1795308-26-2024 12:30-0400 Systolic blood crpbfuqp866 mm[Hg]DO Agata Cordova Work Phone: 1(515)[address] [place], [place] 1795308-26-2024 11:45-0400 Body sdutgwidcqr56.9 [degF]DO Agata Cordova Work Phone: 1(613)[address] [place], [place] 1795308-26-2024 11:45-0400 Inhaled oxygen flow rate4 L/Ilir Cordova Work Phone: 1(574)[address] [place], [place] 1795308-26-2024 08:21-0400 Body tcwoks581.88 cmDO Agata Cordova Work Phone: 1(139)[address] [place], [place] 1795308-26-2024 08:21-0400 Body dmfubu32 kgDO Agata Cordova Work Phone: 1(853)[address] [place], [place] 1795308-12-2024 10:21-0400 Diastolic blood mehkbkgd54 mm[Hg]Kristal Singh MD Work Phone: 1(083)895-[address] [place], [place] 7858908-12-2024 10:21-0400 Systolic blood ofkjkfvj006 mm[Hg]Kristal Singh MD Work Phone: 1(050)[address]08-12-2024 10:18-0400 Body .3 cmKristal Singh MD Work Phone: 1(756)[address]08-12-2024 10:18-0400 Body mass index (BMI) [Ratio]30.4 kg/c9HxwvcfaKristal Singh MD Work Phone: 9(548)[address]08-12-2024 10:18-0400 Body ejvzts74.88 kgKristal Singh MD Work Phone: [facility]08-12-2024 10:18-0400 Heart rate66 /minKristal Singh MD Work Phone: [facility]07-10-2024 15:10-0400 Body .34 cmDO Agata Petznick Work Phone: 1(198)[address] [place], [place] 1795307-10-2024 15:10-0400 Body bpewanmgbhk82.9 [degF]DO Agata Petznick Work Phone: 1(772)[address] [place], [place] 1795307-10-2024 15:10-0400 Body uppxqc34 kgDO Agata Petznick Work Phone: 1(424)[address] [place], [place] 1795307-10-2024 15:10-0400 Diastolic blood livaxadb57 mm[Hg]DO Agata Petznick Work Phone: 1(365)[address] [place], [place] 1795307-10-2024 15:10-0400 Heart rate69 /minDO Agata Petznick Work Phone: 1(276)[address] [place], [place] 1795307-10-2024 15:10-0400 Respiratory rate20 /minDO Agata Petznick Work Phone: 1(547)[address] [place], [place] 1795307-10-2024 15:10-0400 SaO2% (BldA) [Mass fraction]98 %DO Agata Petznick Work Phone: 1(129)[address] [place], [place] 1795307-10-2024 15:10-0400 Systolic blood qxkrpyrd184 mm[Hg]DO Agata Petznick Work Phone: 1(470)[address] [place], [place] 1795302-29-2024 14:12-0500 Body dudalc743.42 cmDO Agata Petznick Work Phone: 1(261)[address] [place], [place] 1795302-29-2024 14:12-0500 Body mass index (BMI) [Ratio]29.9 kg/m2DO Agata Petznick Work Phone: 1(682)[address] [place], [place] 1795302-29-2024 14:12-0500 Body .96 kgDO Agata Cordova Work Phone: 1(418)[address] [place], [place] 1795302-29-2024 11:40-0500 Body .42 cmDO Agata Cordova Work Phone: 1(269)[address] [place], [place] 1795302-29-2024 11:40-0500 Body mass index (BMI) [Ratio]29.9 kg/m2DO Agata Cordova Work Phone: 1(530)[address] [place], [place] 1795302-29-2024 11:40-0500 Body lvkoep708.13 kgDO Agata Cordova Work Phone: 1(211)[address] [place], [place] 1795302-01-2024 08:20-0500 Body coppyn822.34 cmKim Felipe Other [address]02-01-2024 08:20-0500 Body mass index (BMI) [Ratio]32.21 kg/j4Cjhyxdc Matteo Other [employer] Other 02-01-2024 08:20-0500Body wwpsyi360.78 kgJessica Matteo Other [employer] Other 02-01-2024 08:20-0500Body rxixjk387.77 kgDO Agata Cordova Work Phone: 1(940)218-[address] [place], [place] 2734112-12-2023 10:00-0500 Body .34 cmLino Nguyen Other [employer] Other 12-12-2023 10:00-0500Body mass index (BMI) [Ratio] 33.83 kg/m2Lino Nguyen Other [employer] Other 12-12-2023 10:00-0500Body qygdkd810.04 kgDale Patrick Other [employer] Other 11-28-2023 20:55-0500Body syffnawymne09.1 [degF]DO Agata Petznick Work Phone: 1(209)[address] [place], [place] 1795311-28-2023 20:55-0500 Diastolic blood adxpxfbo10 mm[Hg]DO Agata Petznick Work Phone: [phone])[address] [place], [place] 1795311-28-2023 20:55-0500 Heart rate88 /minDO Agata Petznick Work Phone: [phone])[address] [place], [place] 1795311-28-2023 20:55-0500 Respiratory rate17 /minDO Agata Petznick Work Phone: 1(273)[address] [place], [place] 1795311-28-2023 20:55-0500 SaO2% (BldA) [Mass fraction]95 %DO Agata Petznick Work Phone: 1(054)[address] [place], [place] 1795311-28-2023 20:55-0500 Systolic blood wyvmadts588 mm[Hg]DO Agata Petznick Work Phone: 1(996)[address] [place], [place] 1795311-28-2023 19:06-0500 Body .88 cmDO Agata Petznick Work Phone: 1(861)[address] [place], [place] 1795311-28-2023 19:06-0500 Body syjiaf829.2 kgDO Agata Petznick Work Phone: 1(115)[address] [place], [place] 1795311-28-2023 12:46-0500 Body mjalzqzzlfd32 [degF]DO Agata Petznick Work Phone: 1(783)[address] [place], [place] 1795311-28-2023 12:46-0500 Diastolic blood mm[Hg]DO Agata Petznick Work Phone: 1)[address] [place], [place] 1795311-28-2023 12:46-0500 Heart rate77 /minDO Agata Petznick Work Phone: [phone])[address] [place], [place] 1795311-28-2023 12:46-0500 Respiratory rate14 /minDO Agata Petznick Work Phone: 1(528)[address] [place], [place] 1795311-28-2023 12:46-0500 SaO2% (BldA) [Mass fraction]96 %DO Agata Cordova Work Phone: 1(757)[address] [place], [place] 1795311-28-2023 12:46-0500 Systolic blood qtkxlgop552 mm[Hg]DO Agata Cordova Work Phone: 1(712)[address] [place], [place] 1795311-28-2023 04:33-0500 Body mnbteh416.2 kgDO Agata Cordova Work Phone: 1(827)[address] [place], [place] 1795311-27-2023 16:06-0500 Inhaled oxygen flow rate8 L/minDO Agata Cordova Work Phone: 1(809)[address] [place], [place] 1795311-27-2023 13:08-0500 Body ynphzj226.88 cmDO Agata Cordova Work Phone: 1(544)[address] [place], [place] 1795311-27-2023 13:08-0500 Body mass index (BMI) [Ratio]33.2 kg/m2DO Agata Cordova Work Phone: 1(787)[address] [place], [place] 1795311-09-2023 13:20-0500 Body wfypnj404.34 cmDanader Nguyen Other [employer] Other 11-09-2023 13:20-0500Body mass index (BMI) [Ratio] 33.61 kg/m2Danader Nguyen Other [employer] Other 11-09-2023 13:20-0500Body rkmhyr728.32 kgDale Nguyen Other [employer] Other 11-02-2022 15:45-0400Body sayrew413.34 Hugo Rosario Other [employer] Other 08-10-2022 14:30-0400Body hneqjr420.34 Nataliabeba Rosario Other [employer] Other 08-10-2022 14:30-0400Body mass index (BMI) [Ratio] 33.47 kg/x9NopyvjaMagaly Rosario Other [employer] Other 08-10-2022 14:30-0400Body .86 kgMagaly Rosario Other [employer] Other 04-06-2022 11:30-0400Body xlnann664.34 cmCari Rosario Other [employer] Other Encounters Encounter DateEncounter [facility]Care ProviderFacilityStart: 07-05-2025 End: 08-23-3034lanyrfceonPOGYYHAW A BROWNNot AvailableStart: 07-05-2025 End: 05-26-6195Sdandn flowsheetBharathi Chinchilla DPM Work Phone: [facility] CI PODIATRYStart: 07-05-2025 End: 63-49-3542Soduyx flowsKenji Chinchilla DPM Work Phone: NOQG CI PODIATRYStart: 07-05-2025 End: 98-04-7086Wxbmcv outpatient new 30 minutesBharathi Chinchilla DPM Work Phone: NOMS CI PODIATRYComment on above:Contusion of left foot, initial encounter (Primary Dx); Diabetes mellitus due to underlying condition with diabetic polyneuropathy, without long-term current use of insulin (HCC); Pain due to onychomycosis of toenails of both feetStart: 04-17-2025 End: 58-53-7162fazeeykpwhZILTXQN Prasanth PETZNICKNot AvailableStart: 04-17-2025 End: 54-84-1392Kpdyjy outpatient visit 25 minutesMattfarhatw Prasanth Harrisonick DO Work Phone: [facility] S[facility] FM 230Comment on above:Onychomycosis of multiple toenails with type 2 diabetes mellitus (HCC) (Primary Dx); Type 2 diabetes mellitus with other specified complication, without long-term current use of insulin (HCC); Inflammation of toenail, right; Chronic pain syndrome; Cognitive impairment; Bipolar 1 disorder (HCC); BMI 30.0-30.9,adultStart: 04-17-2025 End: 83-25-6311Fhimwt flowsheetMatthew C Petznick DO Work Phone: [facility] FM 230Start: 04-17-2025 End: 39-60-0231Lxhrqy flowsheetMatthew C Petznick DO Work Phone: [facility] FM 230Start: 08-41-2895lnlafelvxnYoewofr PetznickFacility:[facility] Hospitaltart: 01-03-2025 End: 61-62-1308gknpzgaxxrJRCPJR LOWENot AvailableStart: 12-13-2024 End: 05-23-8869Oqhiyy flowsheetMatthew C Petznick DO Work Phone: [facility] FM 230Start: 12-13-2024 End: 94-24-3705Ofrdmb flowsheetMatthew C Petznick DO Work Phone: [facility] FM 230Start: 12-13-2024 End: 91-16-4509Rcvzlpw encounter procedureMatthew C Petznick DO Work Phone: [facility] 230Comment on above:Routine general medical examination at a health care facility (Primary Dx); Chronic pain syndrome; Peripheral vascular disorder due to diabetes mellitus (CMS/HCC); Primary hypertension (CMS/HCC); Spondylosis of lumbar spine; Type 2 diabetes mellitus with other specified complication, without long-term current use of insulin (CMS/HCC); Anxiety; Bipolar 1 disorder (CMS/HCC); Chronic depression (CMS/HCC); Current smoker; Mixed hyperlipidemia (CMS/HCC); Thrombocytopenia (CMS/HCC); Alcohol abuse; Hypothyroidism, unspecified type (CMS/HCC); BMI 30.0-30.9,adult; Cervical disc disease; Screening for colorectal cancerStart: 12-13-2024 End: 09-46-1750Lbzgiwr encounter statusMatthew C Petznick DO Work Phone: [facility] HealthcareStart: 12-13-2024 End: 35-69-7163jpspvyzlhdNMLEBXH C PETZNICKNot AvailableStart: 12-07-2024 End: 39-79-1527vaweiufkbqXSYEABC C PETZNICKNot AvailableStart: 12-07-2024 End: 50-19-3046Hicuwdh encounter procedureBharathi Rivera PhD Work Phone: ana [facility] HEALTHUSKYComment on above:Cognitive impairment (Primary Dx); Acute post-traumatic headache, not intractable; Abnormal finding on MRI of brain; Injury of head, sequela; Concentration deficit; MARCIA (obstructive sleep apnea); Other insomnia; Other chronic pain; Bipolar affective disorder, remission status unspecified (CMS/HCC); Severe episode of recurrent major depressive disorder, without psychotic features (HCC) (CMS/HCC); Severe anxietyStart: 09-13-2024 End: 32-87-9507Frcmuv flowsheetAngela Lowe PA Work Phone: noms [place] [address] ROUTEStart: 09-13-2024 End: 22-90-3906Cvwudv flowsheetAngela Lowe PA Work Phone: [facility] [place] ROUTEStart: 09-13-2024 End: 69-08-5879dsqprtpbdtDIKOSV LOWENot AvailableStart: 09-13-2024 End: 34-70-1948Zdbtmp outpatient visit 15 minutesAngela Gymboxe PA Work Phone: noms [place] ROUTEComment on above:Classical migraine with intractable migraine, so stated (CMS/HCC) (Primary Dx); Injury of head, sequela; Cognitive impairment; Concentration deficitStart: 08-21-2024 End: 51-74-2688vmjyuthuygSWNQTYRR DENBESTENNot AvailableStart: 08-21-2024 End: 24-26-5846Kivtfag encounter procedureBharathi Rivera PhD Work Phone: noMS NEUROLOGYComment on above:Cognitive impairment (Primary Dx); Concentration deficit; Injury of head, sequela; Bipolar affective disorder, remission status unspecified (CMS/HCC); Other insomnia; MARCIA (obstructive sleep apnea); Other chronic painStart: 08-21-2024 End: 49-73-8602Bljxbk Fredi Rivera PhD Work Phone: noms NEUROLOGYStart: 08-21-2024 End: 57-99-5417Visils Fredi Rivera PhD Work Phone: noms NEUROLOGYStart: 07-20-2024 End: 19-44-9673Dyktdd flowsheetFelicia C Windnagel PARTS ADMINISTRATOR Work Phone: N[facility] [place] ROUTEStart: 07-20-2024 End: 06-25-3061Ijplha flowsheetFelicia C Windnagel PARTS ADMINISTRATOR Work Phone: N[facility] [place] ROUTEStart: 07-20-2024 End: 04-45-1187Dapqwx outpatient new 60 minutesFelicia C Windnagel PARTS ADMINISTRATOR Work Phone: noms [facility] ROUTEComment on above:Cognitive impairment (Primary Dx); Classical migraine with intractable migraine, so stated ([facility])Start: 07-20-2024 End: 98-67-0065gwdkaiuwcuQGXMLJQ C WINDNAGELNot AvailableStart: 07-10-2024 End: 68-20-0785uhuinuhynrSR Agata Cordova Work Phone: [facility] Work Phone: Start: 07-10-2024 End: 07-08-8999Stfezsu encounter procedureDO Agata Cordova Work Phone: [facility] Work Phone: Start: 17-01-3093Ntwbzlgnwo RecurringDO Agata Cordova Work Phone: [facility]- CredibleStart: 05-33-9333Egq-patient / Non-visitDO Agata Cordova Work Phone: [facility] Work Phone: Start: 06-12-2024 End: 03-84-5383Cdfyufdvm to same day surgery centerDO Agata Cordova Work Phone: [facility]-Surgery Center Main CampusStart: 06-12-2024 End: 66-66-8364xambhzsmpyNM Agata Cordova Work Phone: [facility] Work Phone: Start: 06-07-2024 End: 99-18-2250ywxozeuzqiJK Agata Cordova Work Phone: [facility] Work Phone: Start: 06-07-2024 End: 29-52-8829Etzawrj encounter procedureDO Agata Leayonatan Work Phone: [facility] Work Phone: Start: 06-01-2024 End: 78-11-3498utovegwrigYU Agata Leayonatan Work Phone: [facility] Work Phone: Start: 06-01-2024 End: 42-32-5153Vsljxqu encounter procedureDO Agata Leayonatan Work Phone: [facility]-Pre-Surgical Testing Work Phone: Start: 05-29-2024 End: 26-08-0402Comjcj consultation new/estab patient 62 Susie Singh MD Work Phone: [facility] on above:Abnormal EKG (Primary Dx); Preop cardiovascular exam; Mixed hyperlipidemia; Essential hypertension; Diabetes mellitus type II, non insulin dependent (Multi); BMI 30.0-30.9,adult; Current smokerStart: 05-29-2024 End: 83-97-7962Dsplmcv encounter statusKristal Singh MD Work Phone: [facility] Work Phone: Start: 05-29-2024 End: 91-45-9603dqtbtjpnxiLMOMCNBTGH [place] AmbulatoryStart: 05-29-2024 End: 14-61-2651Ivwgfciwv for preprocedural cardiovascular examinationIrwin County Hospital AmbulatoryStart: 05-24-2024 End: 79-30-9344yaxhbbnoxuOEQCI [facility]tart: 05-08-2024 End: 74-86-6620zjdcnvbzjbYE Agata Cordova Work Phone: [facility] Work Phone: Start: 05-08-2024 End: 32-88-6373Ijqftqsy ReferredDO Agata Cordova Work Phone: [facility] CampusStart: 04-26-2024 End: 91-43-8716nbnxnutozoVQ Agata Cordova Work Phone: [facility] Work Phone: Start: 04-26-2024 End: 85-35-7977Kocfqxx encounter procedureDO Agata Cordova Work Phone: [facility] Zst-Mhu-Dvyaeukr Testing Work Phone: Start: 04-18-2024 End: 85-43-2699svnepfgcboZG Agata Cordova Work Phone: [facility] Work Phone: Start: 04-18-2024 End: 51-64-3208Qiahzlh encounter procedureDO Agata Cordova Work Phone: [facility] Work Phone: Start: 03-29-2024 End: 19-04-9549ujwednmmzeDMPAF VERHOFFProMedica Cando HospitalStart: 30-88-1163Bysyzgxksf RecurringDO Agata Cordova Work Phone: [facility]- CredibleStart: 03-15-2024 End: 22-78-6591zldzcjdutlIW Agata Petznmehrdad Work Phone: [facility] Work Phone: Start: 03-15-2024 End: 58-93-2255Yrhzika encounter procedureDO Agata Cordova Work Phone: [facility] Work Phone: Start: 02-12-2024 End: 74-80-3060qmnkrxarirTSMMJF SALENA MILLERSelect Medical [facility], [facility] HospitalStart: 02-11-2024 End: 86-30-1995pwozbrljikZUJHVCP E HOGANProMetrohealth [facility] HospitalStart: 01-29-2024 End: 71-09-7848amkfjtgtfcDVNJKQ S DROWNProMedica Cando HospitalStart: 01-28-2024 End: 18-26-0194abvpmbokcrQLHJEET E HOGANProMetrohealth [facility] HospitalStart: 01-19-2024 End: 11-35-0741esxlnhqtjgPN Agata Cordova Work Phone: [facility] Work Phone: Start: 01-19-2024 End: 96-00-6532Okvbput encounter procedureDO Agata Cordova Work Phone: [facility] Work Phone: Start: 66-69-4660Rscgsphnma RecurringDO Agata Cordova Work Phone: [facility] CredibleStart: 12-22-2023 End: 17-95-2376pobvtibzhxLLVQS L SPROUTProMedica Cando HospitalStart: 12-22-2023 End: 72-60-8459vrxfmrncviVZVAN N VERHOFFProMediSaint John's Regional [facility] Center HospitalStart: 12-16-2023 End: 12-44-9067Fraluvy encounter procedureDO Agata Cordova Work Phone: [facility] Work Phone: Start: 12-16-2023 End: 17-24-3158Xpalzrs encounter procedureDO Agata Cordova Work Phone: [facility] Work Phone: start: 69-18-6709Qqxkcoap Result EncounterMatthew Prasanth Cordova DO Work Phone: noms External Department UnsolicitedStart: 11-25-2023 External Result EncounterMatthew Prasanth Cordova DO Work Phone: noms External Department UnsolicitedStart: 11-25-2023 End: 60-98-0909lcdxqgdtdxYE Agata Cordova Work Phone: [facility] Work Phone: Start: 11-25-2023 End: 01-29-6147Uzamzem encounter procedureDO Agata Cordova Work Phone: [facility]-Digestive Health Work Phone: Start: 11-24-2023 End: 42-91-0032igbtnszmfwAazgimx Marlene Other noNoitavonne [employer] Other Start: 68-58-9674Cvllmr outpatient visit 15 minutes Magaly RosarioHONORHEALTH [facility] [place] OrthopedicsStart: 11-18-2023 End: 70-64-4576thmxcnwxgjDfjabru Felipe Other noNoitavonne [employer] Other start: 99-62-7439Aqknmv follow up visit related to original pxJessica [facility] NeurosurgeryStart: 11-18-2023 End: 92-59-5773Vkkpjod encounter procedureDO Agata Cordova Work Phone: [facility]-Start: 09-28-2023 End: 69-69-9192zlqsrnlclmCmkn Braun Other noGILUPI Other start: 28-66-7576Gckecj follow up visit related to original pxDale BraunTennova Healthcare NeurosurgeryStart: 09-28-2023 End: 92-46-5842Dbprpfg encounter procedureDO Agata Leayonatan Work Phone: [facility] Neurosurgery Work Phone: start: 09-21-2023 End: 92-94-6787wpanuhmelrPfynlrm Calvey Other [employer] Other Start: 32-23-0457Jllimo outpatient visit 15 minutes Magaly [facility] OrthopedicsStart: 09-14-2023 End: 78-30-7026Kihnefjtu department patient visitDO Agata Cordova Work Phone: [facility]-Emergency Room Work Phone: Start: 09-14-2023 End: 04-41-3801akyatkneilQiwnvan Calveduardo Other [employer] Other Start: 98-07-5896Ahvgnddrq encounterColleen Mary [facility] OrthopedicsStart: 09-13-2023 End: 44-15-5095Uoliscwvj to same day surgery centerDO Agata Cordova Work Phone: [facility]-Surgery Center [facility] HealthStart: 09-13-2023 End: 51-02-5071cautarchsaBZ Matthew Leayonatan Work Phone: [facility] Work Phone: Start: 08-30-2023 End: 82-47-4672ahywunqyeqCU Agata Leayonatan Work Phone: [facility] Work Phone: Start: 08-30-2023 End: 38-41-9731Bauqilq encounter procedureDO Agata Leayonatan Work Phone: [facility] Nvr-Ifx-Hlsibwup Testing Work Phone: Start: 08-26-2023 End: 79-83-2414fnctvepcdrQnth Nguyen Other [employer] Other start: 06-54-3637Tnwlwf outpatient new 30 minutesDale BraunFPG [facility] NeurosurgeryStart: 07-14-2023 End: 45-45-6556yojvsmxuvtVqsglfa Calvey Other [employer] Other Start: 09-36-9309Zjoagc outpatient visit 15 minutes Magaly MarleneFPG [place] OrthopedicsStart: 02-15-2023 End: 24-21-2225jmmvjszcxrVI Agata Cordova Work Phone: [facility] Work Phone: Start: 02-15-2023 End: 53-27-9306Ldpfsck encounter procedureDO Agata Cordova Work Phone: [facility] Work Phone: Start: 02-15-2023 End: 01-20-4017rjtcemiwjtGT Agata Cordova Work Phone: [facility] Work Phone: Start: 02-15-2023 End: 16-17-0182Lhxrovt encounter procedureDO Agata Cordova Work Phone: [facility] Work Phone: Start: 11-18-2022 End: 35-39-0336iybxdcczkrExvnvzj Calvey Other [employer] Other Start: 94-43-7200Lsnzhv outpatient visit 15 minutes Magaly CalveduardoFPG [facility]icsStart: 08-19-2022 End: 22-72-7950dqfveppvloNomdkgq Calvey Other [employer] Other Start: 09-74-0269Poewra outpatient visit 15 minutes Magaly CalveyFPG [facility]opedicsStart: 07-29-2022 End: 93-71-2542tecfstrbnmCsupsoz Calvey Other [employer] Other Start: 31-28-6193Kqcwmc outpatient visit 15 minutes Magaly CalveyFPG [facility]opedicsStart: 06-24-2022 End: 55-61-8291dbgifgdnewXywwlyd Calvey Other [employer] Other start: 17-44-1642Hogeoi outpatient visit 15 minutes Magaly CalveyFPG [facility]opedicsStart: 05-27-2022 End: 45-02-5508zpqhytxbgjOincqlm Calvey Other noNoitavonne [employer] Other start: 64-62-1553Rrjmyz outpatient visit 15 minutes Magaly CalveyFPG [place] OrthopedicsStart: 04-01-2022 End: 42-06-5504pidqnhqlwrVhjrffo Calvey Other [employer] Other start: 89-03-0539Ybopya follow up visit related to original pxColleen CalveyFPG [place] OrthopedicsStart: 03-04-2022 End: 75-60-2088mepklwgenmMilremn Calvey Other [employer] Other Start: 11-42-0268Nxigxt follow up visit related to original pxColleen CalveyFPG [facility]opedicsStart: 02-03-2022 End: 76-04-9830kgigwqpotnAdeiuzl Calvey Other [employer] Other Start: 03-02-1691Xsclvu follow up visit related to original pxColleen CalveyFPG [facility]opedicsStart: 01-21-2022 End: 45-83-0604xvmcdglnyyMzandqc Calvey Other [employer] Other Start: 82-77-7082Xqgyyn outpatient visit 25 minutes Magaly Banegas OrthopedicsStart: 31-04-5019klouiyydurEHKUPOJ PETZNICKFacility:R5Rubbt: 78-34-3382Kjnalwnjh for general adult medical examination without abnormal findingsMATTHEW PETZNICKThe Garnett HospitalStart: 04-24-2021 End: 65-48-2352sahtksidahBFVGVUY PETZNICKFacility:T6Pnjzh: 04-24-2021 End: 32-96-3237Jnnpeamoo for general adult medical examination without abnormal findingsMATTHEW PETZNICKFacility:P8Gupxc: 35-31-9025kkjnszdgveLCZDSVH PETZNICK Facility:J0Hxfxu: 01-06-2021 End: 42-78-8291ubqxuhpajxST NONE LISTED REQUESTFacility:H1 Procedures DateProcedureProcedure DetailPerforming ClinicianStart: 87-27-2822Fphxnmpnhg glycosylated r7sFnuxmlb C Petznick DO Work Phone: Start: 68-70-6122Hoitnwih blood count with white cell differential, automatedMatthew C Petznick DO Work Phone: Start: 55-30-7410Mldrjjpjwmdkp metabolic panelMatthew C Petznick DO Work Phone: Start: 08-70-3406Lozmv panelMatthew C Petznick DO Work Phone: Start: 33-49-8868Jtkih albumin quantitativeMatthew C Petznick DO Work Phone: Start: 58-08-3344Kxndmwbhdipue of median nerveDO Agata Cordova Work Phone: Start: 14-98-0106Ted routine ecg w/least 12 lds w/i&r Kristal Singh MD Work Phone: Start: 15-89-5639Wvrml x-ray of pelvis and lower extremityDO Agata Cordova Work Phone: Start: 33-41-6310Umeau of amylaseMatthew C Petznick DO Work Phone: Start: 76-61-8535Difwbmr function panelMatthew C Petznick DO Work Phone: Start: 94-87-8564Gsjtrqxzgk elastography of liverDO Agata Cordova Work Phone: Start: 89-52-1490Tmvmsm scan veins of upper limbDO Agata Cordova Work Phone: Start: 02-41-1744E-ray of cervical spineDO Agata Cordova Work Phone: Start: 40-10-7339Pcpjyyokjbswt of cervical spineDO Agata Cordova Work Phone: Start: 10-66-6364Krnab X-ray of left tibia and left fibulaDO Agata Cordova Work Phone: Start: 60-23-4090VVU screeningMATTHEW PETZNICKComment on above:Performed By: #### TSH, PSAD, LIPID, CMP #### [facility] [address] [place] [address] Dawit Leslye Plan of Treatment DateCare ActivityDetailAuthorStart: 02-26-2026Medicare Annual Wellness (AWV) Medicare Annual Wellness (AWV)[facility] HealthcareStart: 31-69-2599Ghgdr screening for proteinDiabetes: Urine Protein ScreeningNOMS HealthcareStart: 10-04-2025 End: 70-36-9709Cmgtupl encounter goixwijkc09/18/2025 2:00 PM EST Office Visit [facility] [address] [address] Bharathi Chinchilla DPM [address] [facility] [address] [place] [address] N[facility] CI PODIATRYStart: 08-08-2025 End: 72-00-4637Hhpdcxv encounter vioxecspz41/22/2025 11:00 AM EDT Office Visit [facility] [place] [facility] [address] [place] [address] Christiano Haley MD [address] [place] [address] NOMS [place] AllergyStart: 07-18-2025 Hemoglobin A1c measurementDiabetes: Hemoglobin S2VMJTX HealthcareStart: 91-91-1810Mmbqzxucw vaccinationNOME HealthcareStart: 03-14-2025 End: 68-10-6611Ixsrork encounter zfzknuzfz27/28/2025 1:00 PM EDT Office Visit [facility] [address] [place] [phone] Agata Cordova DO [address] [place] [address] [facility] 230Start: 17-05-7441Mukamywarx A1c measurementDiabetes: Hemoglobin M3GBCFH HealthcareStart: 91-32-9323Eqgpxazf screeningDiabetes: Retinopathy ScreeningNOME HealthcareStart: 01-03-2025 End: 44-33-0854Ircodzp encounter procedureNOTHE JEWISH [facility] ROUTEStart: 12-13-2024 End: 55-64-1296Njkexjj encounter procedureNOMS [facility] FM 230Comment on above: ArrivedStart: 97-00-5846Oygqg screening for proteinDiabetes: Urine Protein ScreeningNOME HealthcareStart: 10-09-2024 End: 53-80-6632Fknytqd encounter lvmcfopvi66/23/2024 12:30 PM EST Office Visit [facility] [address] [address] [place] [address]160-992-[address]DW[address] NEUROLOGYStart: 09-20-2024 End: 14-73-9803Rvlrbnb encounter mejmwqhhs71/04/2024 2:00 PM EST Office Visit [facility] [address] [facility] [address] [place] [address] NEUROLOGYStart: 09-13-2024 End: 59-43-3778Kgdnoty encounter weutbtgrm53/27/2024 12:00 PM EST Office Visit [facility] [place] [address] [place] [address] Delicia Hearn, RAMONITA [address] [place] [address] [facility] ROUTEStart: 09-11-2024 End: 49-41-2555Utjgckq encounter hnyyldmwl45/25/2024 4:20 PM EST Office Visit [facility] [place] [address] [place] [phone] Dieter Calle, PARTS ADMINISTRATOR [address] [place] [address] [facility] [place] [facility] ROUTEStart: 08-08-2024 End: 78-09-1665Dwtifqh encounter ytbqrzeov62/22/2024 2:30 PM EDT Office Visit [facility]UROLOG[facility] [address] [place] [address] Bharathi Rivera, PhD [address] [place] [address] [facility] NEUROLOGYStart: 07-20-2024 End: 52-48-8378Saxoiivxl (Vitamin B12) [Mass/volume] in Serum or PlasmaVitamin B12 Lab Routine Cognitive impairment Expected: 07/20/2024 (Approximate), Expires: 07/20/2025NOME HealthcareComment on above:Expected: 07/20/2024 (Approximate), Expires: 07/20/2025Start: 07-20-2024 End: 42-50-1514Immqfc [Mass/volume] in Serum or PlasmaFolate Lab Routine Cognitive impairment Expected: 07/20/2024 (Approximate), Expires: 07/20/2025NOME HealthcareComment on above:Expected: 07/20/2024 (Approximate), Expires: 07/20/2025Start: 07-20-2024 End: 77-14-7022Dvnkgjgzrthctq [Moles/volume] in Serum or PlasmaMethylmalonic acid, serum Lab Routine Cognitive impairment Expected: 07/20/2024 (Approximate), Expires: 07/20/2025[facility] Work Phone: comment on above:Expected: 07/20/2024 (Approximate), Expires: 07/20/2025Start: 07-20-2024 End: 73-61-1000Lulgtuf encounter /03/2024 10:00 AM EDT Office Visit [facility] [address] [place] [address] Dieter Calle, PARTS ADMINISTRATOR [address] [place] [address] ArrivedCOMMUNITY MEMORIAL HOSPITAL ROUTEComment on above:ArrivedStart: 03-47-2609Lvyvgmcxg vaccinationInfluenza Vaccine (#1)[facility] HealthcareStart: 81-46-2276Gkqdoeonfb A1c measurementDiabetes: Hemoglobin A1C [facility] HospitalStart: 24-86-7533DpymzxvpsSamaritan Hospitaltart: 08-10-2024Medicare Annual Wellness (AWV)Medicare Annual Wellness (AWV)[facility] HospitalStart: 90-09-0569Yspjh screening for proteinDiabetes: Urine Protein ScreeningTexas County Memorial HospitalStart: 94-58-2322Tjoerzgypzodf of median nerveOR Carpal Tunnel Release Unilateral (Right)[facility] Hospitaltart: 79-62-9553Yxhdcchril A1c measurementDiabetes: Hemoglobin W2ZYZWMTexas County Memorial Hospital Start: 52-04-3898Uzliqyk function panelSamaritan Hospitaltart: 11-25-2023 End: 73-80-7528ZldmpcntxSamaritan Hospitaltart: 12-76-3430Vvdgsm scan veins of upper limbUS venous duplex UE [facility] Hospitaltart: 80-03-0050HJ Upper extremity vein - rightMercy Health [facility] Start: 58-50-8247BlgefvswlSamaritan Hospitaltart: 97-84-7236Wtkpfwkd admissionSamaritan Hospitaltart: 94-60-6465AauhtnqgnSamaritan Hospitaltart: 09-86-8116MVGGR-19 Vaccine ( season)COVID-19 Vaccine ( season)[facility]: 06-18-2023 Influenza vaccinationInfluenza Vaccine (#1)[facility]OM[facility] HealthcareStart: 2022 Zoster Vaccines (1 of 2)Zoster Vaccines (1 of 2)[facility]: 40-47-1053MKeF/Tdap/Td Vaccines (1 - Tdap)DTaP/Tdap/Td Vaccines (1 - Tdap)[facility]: 08-64-7529Xapnkvzei B Vaccines (1 of 3 - 19+ 3-dose series)Hepatitis B Vaccines (1 of 3 - 19+ 3-dose series) [facility]: 40-98-1472Gjtuybfmp C screeningHepatitis C ScreeningUnCorey Hospital: 81-05-0780PIF Vaccines (1 of 1 - Standard series)MMR Vaccines (1 of 1 - Standard series)[facility]: 72-88-4312SEK screeningHIV ScreeningUnCorey Hospital: 77-99-9059Fwzgk panelLipid PanelUnCorey Hospital: 1972Medicare Annual Wellness VisitMedicare Annual Wellness Visit (AWV)[facility]: 13-89-6403Rmupseaui for malignant neoplasm of colonNOME HealthcareStart: 32-52-4433Ydcftyjrv for malignant neoplasm of lungLung Cancer Screening Shared Decision MakingTexas County Memorial HospitalAlbumin/Globulin ratioMercy Health [facility] Medical Center Bilirubin.indirect [Mass/volume] in Serum or PlasmaMercy Health Springfield Regional Medical CenterGlobulin [Mass/volume] in SerumMercy Health Springfield Regional Medical CenterGlucose measurement estimated from glycated hemoglobinMercy Health [facility] Regional Medical Center Glucose measurement estimated from glycated hemoglobinMercy Health Springfield Regional Medical CenterPatient EducationLakehealth [facility] Work Phone: Patient referralLakehealth Tripoint Medical Center Ctr Work Phone: [facility] Immunizations Immunization DateImmunizationNotesCare ZljplcfnHsxdsulr11-36-6699MAXNS-50 mRNA, Comirnaty (Pfizer)DO Agata Petznick Work Phone: [facility]10-26-2021influenza, injectable, quadrivalent, contains preservativeMatthew Petznick DO Work Phone: noSaint John's Breech [facility] Medical [id number] virus vaccine, unspecified formulationMatthew Petznick DO Work Phone: [facility] [id number]-84 mRNA, Comirnaty (Pfizer)DO Agata Petznick Work Phone: [facility]03-22-2021COVID-19 mRNA, Comirnaty (Pfizer)DO Agata Cordova Work Phone: [facility]10-12-2017influenza, injectable, madin catherine canine kidney, preservative freeMatthew Petznick DO Work Phone: [facility] Healthcare Payers DatePayer CategoryPayerPolicy ID2006Medicare [id number] 2..1.738362.3.57[id number] 2..1.422520.3.57[id number] 2..1.314067.3.57[id number] 2..1.867389.3.57[id number] 2..1.126257.3.57[id number] 2..1.585318.3.57[id number] 2.16.840.1.346135.3.57[id number] 2.0.1.098778.3.57[id number] 2.840.1.778332.3.57[id number] 2.0.1.131012.3.57[id number] 2.0.1.094976.3.57[id number] 2.0.1.689099.3.57[id number] 2.0.1.835819.3.57[id number] 2.0.1.532960.3.57[id number] 2..1.687818.3.57[id number] 2..1.873960.3.57[id number] 2.0.1.613040.3.57[id number] 2.0.1.979213.3.57[id number] 2.0.1.098932.3.57[id number] 2.0.1.162354.3.57[id number] 2.0.1.404045.3.57[id number] 2.16.840.1.891756.3.57[id number] 2.16.840.1.380439.3.57[id number] 2.16.840.1.694718.3.579.2.1259 [id number] 1960Self-pay [id number] 2.16.840.1.3[id number] 2.16.840.1.389792.3.579.2.531 Social History DateTypeDetailFacilityUnknown if ever smokedShedd [employer] Other Start: 11-04-2023 End: 63-15-7983Mfw Assigned At [facility] [employer] Other Start: 01-26-2022 End: 97-90-0812Zxhotug smoking status NHISSmoker (finding)[facility]: 38-38-4815Ijo [facility]: [facility]-1984 End: 31-11-7682Ihbmvvr smoking status NHISSmokes tobacco dailyNOMS Healthcare Start: 56-09-3119Hdwsmgj of tobacco useCigarette SmokerNOMS HealthcareStart: 05-24-2023 End: 44-14-3291Qgqinkdwgi smoked current (pack per day) - Reported1.5NOMS HealthcareStart: 05-24-2023 End: 86-50-0328Rlxgdtq use and exposureSmokeless tobacco non-userNOMS Healthcare Start: 11-04-2023 End: 35-83-9674Ldbcfhz intakeCurrent drinker of alcohol (finding)[facility] Start: 84-01-1892Jkwgnpa Commentcaffeine more than 4 cups per dayNOMS Healthcare Start: 73-10-2975Qxl Assigned At [facility] SouthNot on fileNOMS HealthcareHow often do you need to have someone help you when you read instructions, pamphlets, or other written material from your doctor or pharmacy [SILS]NeverNOMS HealthcareDo you belong to any clubs or organizations such as episcopal groups, unions, fraternal or athletic groups, or school groups?NoNOMS HealthcareAre you now , , , , never or living with a partner?MarriedNOMS HealthcareHow often to you have a drink containing alcohol?4 or more times a weekNOMS HealthcareHow many standard drinks containing alcohol do you have on a typical day?10 or moreNOMS HealthcareHow often do you have 6 or more drinks on 1 occasion?Daily or almost dailyNOMS HealthcareDo you feel stress - tense, restless, nervous, or anxious, or unable to sleep at night because yourmind is troubled all the time - these days [OSQ]To some extentNOMS Healthcare(I/We) worried whether (my/our) food would run out before (I/we) got money to buy more. Never trueNOMS HealthcareStart: 41-94-5804Bweplam use and exposureFormer smokeless tobacco userLakeHealth Beachwood [facility] Center Work Phone: Start: 32-05-6604Zxabgmm CommentvapinLakeHealth Beachwood Medical Center Work Phone: Start: 95-05-1360Danhjet CommentoccLakeHealth Beachwood Medical Center Work Phone: Start: 05-19-2024 End: 26-55-6558Ztdwfvca to SARS-CoV-2 (event)Not sureLakeHealth Beachwood Medical CenterHow often do you need to have someone help you when you read instructions, pamphlets, or other written material from your doctor or pharmacy [SILS]NeverNOME Healthcare Medical Equipment Procedure CodeEquipment CodeEquipment Original TextEquipment IdentifierDates Arthroplasty, thumbOrthopaedic bone screw, non-bioabsorbable, non-sterile ()[id number] FDAStart: 42-91-0243Bmdbebewxkfi, thumbSCREW 3.0X25MM HEADLESS LONGFDAStart: 00-65-3882Imwcazomcjsj, thumbSCREW 3.0X25MM HEADLESS LONG FDAStart: 54-05-0557Kgcgiidcdwlb, thumbSCREW 3.0X25MM HEADLESS LONGFDAStart: 13-40-0666Bkvhiaakdohy, thumbSCREW 3.0X25MM HEADLESS LONGFDAStart: 04-27-2019 Arthroplasty, thumbSCREW 3.0X25MM HEADLESS LONGFDAStart: 33-84-3262Fwzfdytoaxsn, thumbSCREW 3.0X25MM HEADLESS LONGFDAStart: 13-76-0323Ksmmwfgprwjy, thumbSCREW 3.0X25MM HEADLESS LONGFDAStart: 64-42-6441Isowkyjocend, thumbSCREW 3.0X25MM HEADLESS LONGFDAStart: 73-49-2279Ztcmjjasgpnh, thumbSCREW 3.0X25MM HEADLESS LONG FDAStart: 48-96-9067Mukocilyvcci, thumbSCREW 3.0X25MM HEADLESS LONGFDAStart: 68-95-0865Oeamsuoaqzmb, thumbSCREW 3.0X25MM HEADLESS LONGFDAStart: 04-27-2019 Arthroplasty, thumbSCREW 3.0X25MM HEADLESS LONGFDAStart: 65-90-0536Uhhiqgoqitdw, thumbSCREW 3.0X25MM HEADLESS LONGFDAStart: 12-36-3587Idwjrxkfzafg, thumbSCREW 3.0X25MM HEADLESS LONGFDAStart: 14-34-9602Rakczqrnwsip, thumbSCREW 3.0X25MM HEADLESS LONGFDAStart: 32-41-5781Tfpq [id number]: each Daily [id number]: 04-17-2025 Goals DatePatient GoalDesired Activity/State Clinical Notes 01-21-2022 to 07-05-2025 Note Date & TsreTqsiEnwsnpir87-80-8262 History of Present illness Narrative* Bharathi Chinchilla DPM - 07/05/2025 2:00 PM EDT Patient: Mo Virgen Edis : 1970 PCP: Agata Codrova, DO SUBJECTIVE This is a 55 y.o. male that presents today with a CC of elongated, thick nails. Pt states nails have been elongated and thick for many years and cause pain with ambulation in shoegear. Pt has tried previous treatment with minimal relief. Pt presents today for nail care and treatment. Patient is type 2 diabetic with numbness and burning to his toes and history of peripheral neuropathy Patient also has had back issues in the past Pt presents today for casting of a removable foot inserts/orthotics today that were form fiited/molded to the patient's foot.(L3030 right and L3030 left foot). Pt received a semi-rigid device that was heated with heat gun for a moldable device and was form fitted to each foot today. Pt understands out of pocket cost if not covered by insurance and is agreeable to cost and signed ABN for device if needed. It was explained to the patient of a break in period for the devices. The patient is ambulatory andmay benefit functionally from this device. It may be used for the following conditions as noted permedical diagnosis in the EMR. Plain today well as flatness to his left 2nd toes and present for the past few weeks and denies anytrauma that he can recall and denies any drainage nausea fever vomiting chills Allergies: Allergies Allergen Reactions Penicillins Hives and [...] 06/21/2018 Added automatically from request for surgery [id number] MRSA (methicillin resistant staph aureus) culture positive 05/22/2024 NAFLD (nonalcoholic fatty liver disease) Nicotine abuse 05/22/2024 Osteomyelitis (HCC) 05/22/2024 Post concussion syndrome RAD (reactive airway disease) ([facility]) Medications: Current Outpatient Medications: acetaminophen (Tylenol 8 Hour) 650 MG ER tablet, Three times daily, Disp: , Rfl: albuterol (ProAir RespiClick) 90 mcg/act breath-activated inhaler, Inhale 180 mcg every 4 (four) hours., Disp: , Rfl: atenolol (Tenormin) 25 MG tablet, Take 1 tablet (25 mg) by mouth at bedtime, Disp: 90 tablet, Rfl: 3 Blood Glucose Monitoring Suppl (OneTouch Verio Flex System) w/Device kit, 1 each [...] meals.,Disp: 90 tablet, Rfl: 1 glucose blood (Logical TherapeuticsTouch Verio) test strip, Fsbs daily, Disp: 100 strip, Rfl: 3 hydrOXYzine pamoate (Vistaril) 50 MG capsule, every 6 (six) hours., Disp: , Rfl: Lancets 33G misc, 1 each Daily, Disp: 100 each, Rfl: 2 levothyroxine (Synthroid, Levoxyl) 175 MCG tablet, TAKE 1 TABLET ONE TIME DAILY IN THE MORNING ON AN EMPTY STOMACH, Disp: 90 tablet, Rfl: 1 lithium 150 MG capsule, Take 150 mg [...] Do not crush, chew, or split., Disp: 90 tablet, Rfl: 1 pravastatin (Pravachol) 40 MG tablet, Take 1 [...] packs/day: 1.00 Average packs/day: 1 pack/day for 40.7 years (40.7 ttl pk-yrs) Types: Cigarettes Start date: 10/18/1984 [...] Insecurity: No Food Insecurity (05/24/2024) Received from [facility] Hunger Screening Within the past 12 [...] 0 min Stress: Stress Concern Present (05/19/2024) [employer] [place] [employer] - Occupational Stress Questionnaire Feeling of Stress : To some extent Social Connections: Moderately Isolated (05/19/2024) Social Connection and Isolation Panel [NHANES] Frequency of Communication with Friends and Family: Three times a week Frequency of Social Gatherings with Friends and Family: Once a week Attends Denominational Services: Never Active Member of Clubs or [...] palpitations, irregular rhythms OBJECTIVE LE EXAM: DERM: Elongated thick yellow crumbly nails digits 1 through 10. Positive hair growth b/l feet. Txhw8jl digit nail has proximally 1/3 black type region with negative Cuevas sign VASC: Positive palpable pedal pulses bilaterally NEURO: 5.07 Inman Germán monofilament test intact to digits and forefoot bilaterally 125Hz tuning fork diminished to 1st MPJ bilaterally ORTHO: Positive pain on palpation to toenails of the left 1,2,3,4,5 toes and right 1,2,3,4,5 toes Minimal pain on palpation left 2nd toe ASSESSMENT 1. Contusion of left foot, initial encounter 2. Diabetes mellitus due to underlying condition with diabetic polyneuropathy, without long-term current use of insulin (HCC) 3. Pain due to onychomycosis of toenails of both feet PLAN Discussed proper foot care with patient today. Debride nails in length and thickness digits 1 through 10 Patient educated today on proper diabetic foot care including monitoring feet daily for any signs of infection openings in the skin or irregularities to both feet. Patient had a diabetic neurologicalexam today to both their feet and discussed proper shoe gear. Discussed left 2nd toe condition in detail and most likely nail continues to grow well but had noticed any drainage redness or lifting of nail the contact Podiatry for possible nail avulsion in the future Bharathi Chinchilla DPM documented in this encounterTexas County Memorial HospitalGcbkhdtqdn96-77-2386 History of Present illness Narrative* Agata Prasanth Cordova, DO - 04/17/2025 3:45 PM EDT Images from the original note were not included. Mo Randhawa is a 55 y.o. male presents with chief complaint of Chief Complaint Patient presents with Diabetes Mo was seen today for diabetes. Diagnoses and all orders for this visit: Onychomycosis of multiple toenails with type 2 diabetes mellitus (HCC) Type 2 diabetes mellitus with other specified complication, without long-term current use of insulin ([facility]) - POCT glycosylated hemoglobin (Hb A1C) docked device - glucose blood (OneTouch Verio) test strip; Fsbs daily - Blood Glucose Monitoring Suppl (OneTouch Verio Flex System) w/Device kit; 1 each Daily - Lancets 33G misc; 1 each Daily Inflammation of toenail, right Chronic pain syndrome Cognitive impairment Bipolar 1 disorder (HCC) BMI 30.0-30.9,adult Assessment & Plan Diabetes mellitus. Hemoglobin A1c has decreased from 7.2 to 5.9, indicating improved glycemic control. The patient is advised to monitor blood glucose levels first thing in the morning before eating or drinking. A glucometer will be provided for monitoring purposes; if levels consistently fall below 100, medication dosage reduction will be considered. The patient is also advised to limit intake of energy drinks dueto their potential impact on blood pressure. Memory loss. The patient reports difficulty with memory and cognitive function, potentially related to the current medication regimen. The patient is currently taking Aricept and Lyrica; potential side effects, including impact on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 Randhawa is a 54 y.o. male white male who is scheduled to undergo my understanding carpal tunnel surgery was sent for evaluation for abnormal EKG and questionable new changes on his EKG. Patientdenies any previous history of coronary artery disease, congestive heart failure or valvular heart disease. He recently underwent preoperative risk assessment and his EKG interpreted as cannot rule out old septal infarct. The patient denies any previous history of coronary artery disease or heart failure. He does have history of multiple risk factor for ischemic heart disease including hypertension, diabetes mellitus, hyperlipidemia and tobacco use. He denies any chest pain. He does describe fun ctional class I but does describe some limitation because of his back pain. His EKG today in our office appears to be normal. I reviewed his EKG from the hospital and clearly the questionable septal infarct appears to be due to lead placement. Assessment 1. Borderline abnormal EKG 1 was done in the hospital showing questionable septal infarct clearly due to lead placement. Today's EKG in our office showing sinus rhythm with no evidence of prior myocardial infarction 2. Moderate risk profile for ischemic heart disease but the patient denies any symptoms or previousdiagnosis 3. Patient reported functional class I 4 essential hypertension controlled 5. Mixed hyperlipidemia 6. Diabetes mellitus 7. Tobacco use 8. BMI of 30 9. Patient anticipating hand surgery Plan 1. I reviewed with the patient operative risk from cardiovascular standpoint at great length. Basedon lack of symptoms, normal cardiovascular exam and normal EKG as it was done in the office I believe the patient is operative risk is less than 1-2% and he can proceed safely with acceptable surgical risk cardiac mensah patient understood and agreed 2. I discussed with the patient the importance of risk factor modification and smoking cessation 3. Follow-up on as-needed basis Past Medical History: He has no past medical history on file. Surgical History: He has a past surgical history that includes Neck surgery; Hand surgery (Bilateral); Wrist fusion; Wrist surgery (Right); Knee arthroscopy w/ laser; Tonsillectomy; and Colon surgery. Family History: Family History Problem Relation Name Age of Onset Thyroid disease Mother Diabetes type I Mother Other (cancer gallbladder) Mother Atrial fibrillation Mother No Known Problems Father Rheum arthritis Sister Social History: Social History Tobacco Use Smoking status: Every Day Types: Cigarettes Smokeless tobacco: Former Tobacco comments: vapin Substance Use Topics Alcohol use: Yes Comment: occ Allergies: Penicillins, Rifamycin analogues, Heparin analogues, and Morphine Current Medications: Current Outpatient Medications: atenolol (Tenormin) 25 mg tablet, Take 1 tablet (25 mg) by mouth once daily., Disp: , Rfl: busPIRone (Buspar) 15 mg tablet, Take 1 tablet (15 mg) by mouth twice a day., Disp: , Rfl: busPIRone (Buspar) 5 mg tablet, Take 1 tablet (5 mg) by mouth 2 times a day., Disp: , Rfl: doxepin (SINEquan) 150 mg capsule, Take 1 tablet by mouth once daily., Disp: , Rfl: hydrOXYzine pamoate (Vistaril) 50 mg capsule, Take 1 capsule (50 mg) by mouth every 6 hours., Disp:, Rfl: levothyroxine (Synthroid, Levoxyl) 175 mcg tablet, Take 1 tablet (175 mcg) by mouth early in the morning.., Disp: , Rfl: lithium 150 mg capsule, Take 1 capsule (150 mg) by mouth twice a day., Disp: , Rfl: metFORMIN (Glucophage) 1,000 mg tablet, Take 1 tablet (1,000 mg) by mouth., Disp: , Rfl: PARoxetine (Paxil) 40 mg tablet, Take 1 tablet (40 mg) by mouth once daily in the morning. Take before meals., Disp: , Rfl: pravastatin (Pravachol) 40 mg tablet, Take 1 tablet (40 mg) by mouth once daily in the evening., Disp: , Rfl: promethazine (Phenergan) 25 mg tablet, Take 1 tablet (25 mg) by mouth every 6 hours if needed., Disp: , Rfl: SeroqueL 200 mg tablet, Take 1 tablet (200 mg) by mouth once daily at bedtime., Disp: , Rfl: sertraline (Zoloft) 50 mg tablet, Take 1 tablet (50 mg) by mouth once daily., Disp: , Rfl: Vitals: Vitals: 05/29/24 1018 05/29/24 1021 BP: 130/90 130/80 BP Location: Right arm Left arm Patient Position: Sitting Sitting Pulse: 66 Weight: 98.9 kg (218 lb) Height: 1.803 m (5' 11 ) EKG done in office today Review of Systems Neurological: Describe back pain All other systems reviewed and are negative. Objective Physical Exam Constitutional: Appearance: Normal appearance. HENT: Nose: Nose normal. Neck: Vascular: No carotid bruit. Cardiovascular: Rate and Rhythm: Normal rate. Pulses: Normal pulses. Heart sounds: Normal heart sounds. Pulmonary: Effort: Pulmonary effort is normal. Abdominal: General: Bowel sounds are normal. Palpations: Abdomen is soft. Musculoskeletal: General: Normal range of motion. Cervical back: Normal range of motion. Right lower leg: No edema. Left lower leg: No edema. Skin: General: Skin is warm and dry. Neurological: General: No focal deficit present. Mental Status: He is alert. Psychiatric: Mood and Affect: Mood normal. Behavior: Behavior normal. Thought Content: Thought content normal. Judgment: Judgment normal. Assessment and Plan: 1. Abnormal EKG 2. Preop cardiovascular exam ECG 12 Lead 3. Mixed hyperlipidemia 4. Essential hypertension 5. Diabetes mellitus type II, non insulin dependent (Multi) 6. BMI 30.0-30.9,adult 7. Current smoker Scribe Attestation By signing my name below, Yuliana Kohler LPN , Scribe attest that this documentation has been prepared under the direction and in the presence of MD Nasrin. Provider Attestation - Scribe documentation All medical record entries made by the Scribe were at my direction and personally dictated by me. Ihave reviewed the chart and agree that the record accurately reflects my personal performance of the history, physical exam, discussion and plan. documented in this encounterLake[facility] Work Phone: 1(273) 745-166908-12-2024 Instructions* Patient Instructions* Yuliana Cedillo LPN - 05/29/2024 10:00 AM EDT Please bring all medicines, vitamins, and herbal supplements with you when you come to the office. Prescriptions will not be filled unless you are compliant with your follow up appointments or have a follow up appointment scheduled as per instruction of your physician. Refills should be requested at the time of your visit. BMI was above normal measurement. Current weight: 98.9 kg (218 lb) Weight change since last visit (-) denotes wt loss 218 lbs Weight loss needed to achieve BMI 25: 39.1 Lbs Weight loss needed to achieve BMI 30: 3.4 Lbs Mo Edis is clear for surgery from a cardiac standpoint * Attachments The following attachments cannot be sent through Care Everywhere. 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 Advised to wear splint for heavy lifting activities. We gave him a size 4 stack splint. He will follow up in 6 weeks. 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 He can make an appointment with Dr Ayers for evaluation. [facility] Other 02-01-2024 Evaluation note* Encounter Date Diagnosis Assessment Notes Treatment Notes Treatment Clinical Notes Nov, Herniation of interv ertebral disc of cervical region (ICD-10 - M50.20) Mo is doing well, he now says that his right arm pain is much better, and has no left arm pain atthis time. I will see him again in 1 month for his final postop visit. Nov,ight cervical radiculopathy (ICD-10 - M54.12) [facility] Other 12-12-2023 Evaluation note* Encounter Date Diagnosis Assessment Notes Treatment Notes Treatment Clinical Notes Sep, Herniation of interv ertebral disc of cervical region (ICD-10 - M50.20) Patient presents today 3 weeks postop. His wounds are healing well he says his neck pain is much like it was previously. His right arm pain is the same as it was previously. It may or may be changed a little bit it is difficult to tell it has never gotten better 1 days since the surgical decompression. The patient is now having occasional left arm symptoms. My feeling on this is I believe we had a very good nerve root decompression I do not believe he is unstable. The patient has never had any benefit from the surgery I am not convinced any further surgery should be entertained. He will be evaluated in 1 month if he continues to get symptomatology we could refer him for another opinion. 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 Instructed to continue use of splint and keep DIP joint in extensionat all times Sep,Left carpal tunnel syndrome (ICD-10 - G56.02) Sep,ainful orthopaedic hardware (ICD-10 - T84.84XA) Sep,Right carpal tunnel syndrome (ICD-10 - G56.01)We performed a cortisone injection into the right carpal tunnel under sterile technique. The patient tolerated this well without complication. We discussed that the wrist/hand may feel numb and tingle for hours after this injection. Sep,Right wrist pain (ICD-10 - M25.531) [facility] [employer] Other 11-28-2023 Progress note Author Lino Nguyen [facility] September 14, 2023 7:53amNote Date/TimeNov2022 7:53[place] [address] Neurosurgery Progress Note Signed Patient: Mo Randhawa MR#: [id number] 57 : 1970 Acct:[id number] Age/Sex: 53 / M Adm Date: 3 Loc: 4N Room: 9Z5286-0 Type: REG SDC Attending Dr: Lino Nguyen MD Copies to: ~ Date of Service: 09/14/2023 Subjective Subjective HPI: Patient in bed sleeping, arouses easily. Says his neck is sore but tolerable, says there is no difference in his arm. Wishes to go home. Exam Physical Exam Vital Signs: Temp Pulse Resp BP Pulse Ox O2 Del Method O2 Flow Rate 98.3 F 94 H 20 151/88 H 94 L Room Air 8 09/14/23 03:22 09/14/23 03:22 09/14/23 03:22 09/14/23 03:22 09/14/23 03:22 09/14/23 03:22 09/13/23 16:06 Narrative: Incision clean and dry Upper and lower extremity strength and motion baseline Gait grossly normal Brace fitting appropriately Objective Lab Results Most Recent Labs: 09/13/23 20:39: POC Glucose 153 09/13/23 12:55: POC Glucose 111, POC Glucose Comment Glu2: cleaned meter 09/13/23 12:12: Urine Opiates Screen Negative, Ur Barbiturates Screen Negative, Ur Phencyclidine Scrn Negative, Ur Amphetamines Screen Negative, U Benzodiazepines Scrn Negative, Urine Cocaine Screen Negative, U Marijuana (THC) Screen Positive H Assessment/Plan Assessment/Plan (1) Right cervical radiculopathy: Plan: Increase activity as tolerated, will reevaluate at lunchtime and consider discharge. Code(s): M54.12 - Radiculopathy, cervical region Status: Acute Documented By: Lino Nguyen MD 09/14/23 0744 Signed By: <Electronically signed by MD Lino Nguyen> 09/14/23 0753 [facility] Work Phone: [phone]) 745-598711-09-2023 Evaluation note* Encounter Date Diagnosis Assessment Notes Treatment Notes Treatment Clinical Notes Aug, Herniation of interv ertebral disc of cervical region (ICD-10 - M50.20) Independently reviewed the MRI of the cervical spine and the report. This gentleman has a foraminalstenosis C6-7 that is actually bilateral he appears to have a C7 radiculopathy on the right with tricep pain. He has failed pain management. He has weakness. He has pain with increased activity. Given the failure of conservative care which included therapy. At this point having failed conservative care with pain and weakness he is in need of an anterior cervical discectomy with structural allograft fusion C6-7. I discussed with him the indication operation postop course risk benefits of surgeryand complications and would like to proceed. His has been through the same operation I think he is well aware of it. Aug,Right cervical radiculopathy (ICD-10 - M54.12) [facility] Other 09-27-2023 Evaluation note* Encounter Date Diagnosis Assessment Notes Treatment Notes Treatment Clinical Notes Jun, Nondisplaced fractur e of proximal third of navicular [scaphoid] bone of left wrist, subsequent encounter for fracture with nonunion (ICD-10 - S62.035K) Jun,Left carpal tunnel syndrome (ICD-10 - G56.02) We performed a cortisone injection into the left carpal tunnel under sterile technique. The patienttolerated this well without complication. We discussed that the wrist/hand may feel numb and tinglefor hours after this injection. Jun,ainful orthopaedic hardware (ICD-10 - T84.84XA) Jun,Right carpal tunnel syndrome (ICD-10 - G56.01) We performed a cortisone injection into the right carpal tunnel under sterile technique. The patient tolerated this well without complication. We discussed that the wrist/hand may feel numb and tingle for hours after this injection. Jun,Right wrist pain (ICD-10 - M25.531) [facility] Other 02-01-2023 Evaluation note* Encounter Date Diagnosis Assessment Notes Treatment Notes Treatment Clinical Notes Nov, Nondisplaced fractur e of proximal third of navicular [scaphoid] bone of left wrist, subsequent encounter for fracture with nonunion (ICD-10 - S62.035K) Nov,Left carpal tunnel syndrome (ICD-10 - G56.02)Extensive discussion about current condition and treatment options available. He is doing well at th is time. He opts to hold off on injections today and monitor. May return for injection when he needs. Nov,ainful orthopaedic hardware (ICD-10 - T84.84XA) Nov,Right carpal tunnel syndrome (ICD-10 - G56.01) Nov,Right wrist pain (ICD-10 - M25.531) [facility] Other 11-02-2022 Evaluation note* Encounter Date Diagnosis Assessment Notes Treatment Notes Treatment Clinical Notes Aug, Nondisplaced fractur e of proximal third of navicular [scaphoid] bone of left wrist, subsequent encounter for fracture with nonunion (ICD-10 - S62.035K) Aug,Left carpal tunnel syndrome (ICD-10 - G56.02)Bilateral carpal tunnel injected with cortisone under sterile technique, patient tolerated well Aug,ainful orthopaedic hardware (ICD-10 - T84.84XA) Aug,ight carpal tunnel syndrome (ICD-10 - G56.01) Aug, wrist pain (ICD-10 - M25.531) [facility] Other 10-12-2022 Evaluation note* Encounter Date Diagnosis Assessment Notes Treatment Notes Treatment Clinical Notes Jul, Nondisplaced fractur e of proximal third of navicular [scaphoid] bone of left wrist, subsequent encounter for fracture with nonunion (ICD-10 - S62.035K) Jul,Left carpal tunnel syndrome (ICD-10 - G56.02)EMG discussed with patient and today. We discussed with the patent repeating cortisone injections. We also discussed the use of wearing braces can help with symptoms. We also discussed the option of surgical release which can eliminate the problem. Activity as tolerated. Jul,ainful orthopaedic hardware (ICD-10 - T84.84XA) Jul,ight carpal tunnel syndrome (ICD-10 - G56.01) Jul, wrist pain (ICD-10 - M25.531) [facility] Other 09-07-2022 Evaluation note* Encounter Date Diagnosis Assessment Notes Treatment Notes Treatment Clinical Notes Jun, Nondisplaced fractur e of proximal third of navicular [scaphoid] bone of left wrist, subsequent encounter for fracture with nonunion (ICD-10 - S62.035K) Jun,Left carpal tunnel syndrome (ICD-10 - G56.02)Patient is not improving as expected with time and conservative treatment. An EMG will be necessary. Prescription for medrol dose pack sent into patients pharmacy Jun, ainful orthopaedic hardware (ICD-10 - T84.84XA) Jun, carpal tunnel syndrome (ICD-10 - G56.01) Jun, wrist pain (ICD-10 - M25.531) [facility] Other 08-10-2022 Evaluation note* Encounter Date Diagnosis Assessment Notes Treatment Notes Treatment Clinical Notes May, Nondisplaced fractur e of proximal third of navicular [scaphoid] bone of left wrist, subsequent encounter for fracture with nonunion (ICD-10 - S62.035K) Xrays reviewed with patient today. Patient is progressing well from surgery. We discussed the importance of continuing motion and strength exercise. May,Left carpal tunnel syndrome (ICD-10 - G56.02)We performed a cortisone injection into the carpal tunnel under sterile technique. The patient tolerated this well without complication. We discussed that the wrist/hand may feel numb and tingle for hours after this injection. May,ainful orthopaedic hardware (ICD-10 - T84.84XA) May,ight carpal tunnel syndrome (ICD-10 - G56.01) May, wrist pain (ICD-10 - M25.531)Xrays reviewed with patient today. This appears to be Carpal Tunnel Syndrome. We discussed the cause of this condition and the treatment options. We discussed the use of cortisone injection into the carpal tunnel can be helpful in relieving painful symptoms .We also discussed the use of wearing braces and hand occupational therapy can help with symptoms. We also discussed the option of surgical release which can eliminate the problem. We performed a cortisone injection into the carpal tunnel under sterile technique. The patient tolerated this well without complication. We discussed that the wrist/hand may feel numb and tingle for hours after this injection. [facility] Other 06-15-2022 Evaluation note* Encounter Date Diagnosis Assessment Notes Treatment Notes Treatment Clinical Notes Mar, Nondisplaced fractur e of proximal third of navicular [scaphoid] bone of left wrist, subsequent encounter for fracture with nonunion (ICD-10 - S62.035K) Mar,Left carpal tunnel syndrome (ICD-10 - G56.02) Mar,ainful orthopaedic hardware (ICD-10 - T84.84XA) Mar,ther specified postprocedural states (ICD-10 - Z98.890) [facility] Other 05-18-2022 Evaluation note* Encounter Date Diagnosis Assessment Notes Treatment Notes Treatment Clinical Notes February, Nondisplaced fractur e of proximal third of navicular [scaphoid] bone of left wrist, subsequent encounter for fracture with nonunion (ICD-10 - S62.035K) Discussed to Sleep in the brace. May come out to work on range of motion exersises and to use the bone stimulator. 18 Feb, 2022Left carpal tunnel syndrome (ICD-10 - G56.02) February,ainful orthopaedic hardware (ICD-10 - T84.84XA) February,2Other specified postprocedural states (ICD-10 - Z98.890) [facility] Other 04-19-2022 Evaluation note* Encounter Date Diagnosis Assessment Notes Treatment Notes Treatment Clinical Notes Jan, Nondisplaced fractur e of proximal third of navicular [scaphoid] bone of left wrist, subsequent encounter for fracture with nonunion (ICD-10 - S62.035K) Patient placed in thumb spica cast. Patient instructed on cast care to avoid heavy lifting and strenuous use Jan,Left carpal tunnel syndrome (ICD-10 - G56.02) Jan,ainful orthopaedic hardware (ICD-10 - T84.84XA) Jan,2Other specified postprocedural states (ICD-10 - Z98.890) [facility] Other 04-06-2022 Evaluation note* Encounter Date Diagnosis Assessment Notes Treatment Notes Treatment Clinical Notes Jan, Nondisplaced fractur e of proximal third of navicular [scaphoid] bone of left wrist, subsequent encounter for fracture with nonunion (ICD-10 - S62.035K) Jan, 2Other specified postprocedural states (ICD-10 - Z98.890) Jan,Left wrist pain (ICD-10 - M25.532) Jan, 2021Le carpal tunnel syndrome (ICD-10 - G56.02) Jan, aresthesia of skin (ICD-10 - R20.2) 06 Apr, 2022Anesthesia of skin (ICD-10 - R20.0) Jan,2Painful orthopaedic hardware (ICD-10 - T84.84XA)Radiographs reviewed with patient as the previous screw fixation having shifted from previous positi on, and is now crossing the joint into the trapezium. Would recommend surgical removal of screw, aswell as packing of the screw hole with bone graft or a new screw. Surgical procedure, risks, recovery and restrictions discussed in detail. Patient was in understanding and wishes to proceed. [facility] [employer] Other Evaluation noteNo assessment information available [facility] Work Phone: Evaluation note* Diagnosis Onset Date Resolution Status Right cervical radiculopathy acute [facility] Work Phone: Evaluation noteNo InformationNortTemple University Health System [employer] Other Evaluation note* Diagnosis Onset Date Resolution Status Cervical disc disease acutePostoperative visitacuteAlcohol abuseacuteBilateral hip painacuteNicotine abuseacuteAvascular necrosis of bones of both hipsnoneactiveAcquired mallet deformity of right ring qplbwevovsjZOJ-[id number]-[id number] carpal tunnel syndromeacute [facility] Work Phone: Evaluation note* Diagnosis Onset Date Resolution Status Cervical disc disease acutePostoperative visitacuteAlcohol abuseacuteBilateral hip painacuteNicotine abuseacuteAvascular necrosis of bones of both hipsnoneactiveAcquired mallet deformity of right ring ymniaelcxksEZW-[id number]-[id number] carpal tunnel syndromeacute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acute [id number]-[id number]-[id number] carpal tunnel syndromeacute [facility] Work Phone: Evaluation note* Diagnosis Onset Date Resolution Status 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 xxkbtFVJ-[id number]-[id number] carpal tunnel syndromeacute Acquired mallet deformity of right ring irjtdgpmsxdRTR-SWUR-[id number] BOF-CDSW-[id number] carpal tunnel syndromeacuteAcquired mallet deformity of right ring atijwvelhoeLQR-TISV-[id number]-[id number] carpal tunnel syndromeacute [facility] Work Phone: Evaluation note* Diagnosis Onset Date Resolution Status 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 cnbwdBOM-[id number]-[id number] carpal tunnel syndromeacute Acquired mallet deformity of right ring kyvyxjkyjdaPRF-FJXN-[id number] LOL-PIHE-[id number] carpal tunnel syndromeacute [facility] Work Phone: Evaluation note* Diagnosis Cognitive impairment- Primary Unspecified persistent mental disorders due to conditions classified elsewhere Classical migraine with intractable migraine, so stated (CMS/HCC) Migraine with aura, with intractable migraine, so stated, without mention of status migrainosus [facility] Diagnosis Cognitive impairment- Primary Unspecified persistent mental disorders due to conditions classified elsewhere Concentration deficit Injury of head, sequela Bipolar affective disorder, remission status unspecified (CMS/HCC) Other insomnia MARCIA (obstructive sleep apnea) Obstructive sleep apnea (adult) (pediatric) Other chronic pain documented [facility]* Diagnosis Classical migraine with intractable migraine, so stated (CMS/HCC)- Primary Migraine with aura, with intractable migraine, so stated, without mention of status migrainosus Injury of head, sequela Cognitive impairment Unspecified persistent mental disorders due to conditions classified elsewhere Concentration deficit [facility]* Diagnosis Abnormal EKG- Primary Nonspecific abnormal electrocardiogram (ECG) (EKG) Preop cardiovascular exam Pre-operative cardiovascular examination Mixed hyperlipidemia Essential hypertension Unspecified essential hypertension Diabetes mellitus type II, non insulin dependent (Multi) Type II or unspecified type diabetes mellitus without mention of complication, not stated as uncontrolled BMI 30.0-30.9,adult Current smoker documented in this encounter [facility] Work Phone: Evaluation note* Diagnosis Cognitive impairment- Primary Unspecified persistent mental disorders due to conditions classified elsewhere Acute post-traumatic headache, not intractable Abnormal finding on MRI of brain Injury of head, sequela Concentration deficit MARCIA (obstructive sleep apnea) Obstructive sleep apnea (adult) (pediatric) Other insomnia Other chronic pain Bipolar affective disorder, remission status unspecified ([facility]) Severe episode of recurrent major depressive disorder, without psychotic features ([facility]) ([facility]) Severe anxiety documented in this encounter [facility] HealthcareEvaluation note* Diagnosis Routine general medical examination at a health care facility- Primary Chronic pain syndrome Peripheral vascular disorder due to diabetes mellitus ([facility]) Primary hypertension ([facility]) Unspecified essential hypertension Spondylosis of lumbar spine Type 2 diabetes mellitus with other specified complication, without long-term current use of insulin ([facility]) Anxiety Anxiety state, unspecified Bipolar 1 disorder ([facility]/HCC) Chronic depression ([facility]) Current smoker Mixed hyperlipidemia ([facility]) Mixed hyperlipidemia Thrombocytopenia ([facility]) Unspecified thrombocytopenia Alcohol abuse Nondependent alcohol abuse, unspecified drinking behavior Hypothyroidism, unspecified type ([facility]) BMI 30.0-30.9,adult Cervical disc disease Screening for colorectal cancer documented in this encounter [facility] HealthcareEvaluation note* Diagnosis Onychomycosis of multiple toenails with type 2 diabetes mellitus (HCC)- Primary Type 2 diabetes mellitus with other specified complication, without long-term current use of insulin ([facility]) Inflammation of toenail, right Chronic pain syndrome Cognitive impairment Unspecified persistent mental disorders due to conditions classified elsewhere Bipolar 1 disorder (HCC) BMI 30.0-30.9,adult documented in this encounter [facility] HealthcareEvaluation note* Diagnosis Contusion of left foot, initial encounter- Primary Diabetes mellitus due to underlying condition with diabetic polyneuropathy, without long-term current use of insulin ([facility]) Pain due to onychomycosis of toenails of both feet documented in this encounter [facility] HealthcareHistory general Narrative - Reported* Type Description Date Medical History Bipolar 1 disorder Medical HistoryHypertensionMedical HistoryHyperlipidemiaMedical History HypothyroidMedical HistoryThrombocytopeniaMedical HistoryOsteomyelitisMedical HistoryMRSA (methicillin resistant staph aureus) culture positiveMedical History DM IIMedical HistoryGERDSurgical Historyfracture repairSurgical Historywrist surgeryHospitalization [id number] [facility] Other History general Narrative - Reported* Type Description Date Medical History Bipolar 1 disorder Medical HistoryHypertensionMedical HistoryHyperlipidemiaMedical History HypothyroidMedical HistoryThrombocytopeniaMedical HistoryOsteomyelitisMedical HistoryMRSA (methicillin resistant staph aureus) culture positiveMedical History DM IIMedical HistoryGERDSurgical Historyfracture repairSurgical Historywrist surgerySurgical HistoryRemoval Hardware Left WristHospitalization [id number] [facility] Other History general Narrative - Reported* Type Description Date Medical History Bipolar 1 disorder Medical HistoryHypertensionMedical HistoryHyperlipidemiaMedical History HypothyroidMedical HistoryThrombocytopeniaMedical HistoryOsteomyelitisMedical HistoryMRSA (methicillin resistant staph aureus) culture positiveMedical History DM IIMedical HistoryGERDMedical HistoryArthritisMedical Historydiabetes mallitus Medical Historyhigh cholesterolMedical Historykidney diseaseMedical History chronic depressionMedical HistoryanxietySurgical Historyfracture repairSurgical Historywrist surgerySurgical HistoryRemoval Hardware Left WristHospitalization [id number] [facility] Other Hospital Discharge instructions Additional Instructions May shower Wednesday Wear soft collar for comfort If wound drains placed a dressing if not a dressing may not be needed Ice to affected area as needed for neck spasm for the next 5 days No lifting greater than [address] [facility] Work [facility]: Hospital Discharge instructions Additional Instructions Continue current meds Elevate your arm above your heart at home on pillows Return if symptoms are worse [facility] Work Phone[facility] Hospital Discharge instructions Additional Instructions DR. ROSARIO'S POST OP INSTRUCTIONS Take prescribed pain medication as directed and as needed to control your post- operative pain. -In addition to the prescribed medication, you may take ibuprofen (Advil, Motrin) or naproxen (Aleve/Naprosyn) to help control pain and decrease swelling. -DO NOT TAKE ibuprofen/Naprosyn/naproxen if you have a history of bleeding ulcer, are taking anticoagulation medication (Coumadin/warfarin, Eliquis, Xarelto, Plavix, Lovenox), if you have had a history of gastric bypass surgery, or if you have a history of kidney disease. Elevate the operative area as much as possible, using at least 2-3 pillows, keeping the hand higher than the elbow. Keep ice at the operative area as much as possible. It takes longer than 20 minutes for the cold to penetrate the bandages, so leave the ice bag or cold pack in place until the ice melts, then it is time to change to a fresh ice bag or cold pack. -Elevation and ice help to lessen the swelling post-operatively which helps to lessen pain so that you will need to take less pain medication, as well as maintaining better range of motion and function of your hand (more swelling, less movement). You may wiggle your fingers, bending, flexing, and move them to decrease stiffness. You may use your hands for light activities of 2-5 lbs. This is lifting your coffee cup, using your silverware, and typing on a computer or tablet. -Do NOT perform strenuous lifting or lift greater than 10 lbs until 4-6 weeks after surgery to minimize exacerbation of pain at the surgery site. You may remove your dressing on the third day after surgery, and get your surgical incision wet in the shower or when washing your hands with soap and water. -DO NOT soak your incision or submerge it under standing water such as dishwater or bathtub. -DO NOT apply perfumed moisturizers or ointments unless otherwise instructed by your physician. -Washing your incision gently with soap and water on a daily basis, helps to rid your skin of bacteria and decrease the risk of wound infections. -After showering or washing your hands, pat the incision dry, and keep covered with a clean dry gauze bandage. -You may apply Bacitracin, Neosporin, or generic triple antibiotic ointment to incision if you would like Take vitamin C 500 mg by mouth daily to help skin and incision heal Take antibiotics as directed to decrease risk of infection after surgery [facility] Work Phone: Reason for visit Narrative* Self Referral (Routine) - ClosedSpecialtyDiagnoses / ProceduresReferred By ContactReferred To Contact Neurology Diagnoses Memory changes, MRI @ [facility] ref by Dr Buddy Cordova Procedures NEURO NEW PATIENT Dieter Calle, PARTS ADMINISTRATOR [address] [facility] [address] [place] [address] Referral IDStatusReasonStart DateExpiration DateVisits RequestedVisits [id number] Consult and Treat [facility] HealthcareReason for visit Narrative* Consultation (Routine) - Closed SpecialtyDiagnoses / ProceduresReferred By ContactReferred To Contact Psychology Diagnoses Cognitive impairment Procedures DE OFFICE/OUTPATIENT [facility] MDM 60 MINUTES Dieter Calle, PARTS ADMINISTRATOR [address] [place] [address] Phone: tel: fax: Bharathi Rivera, PhD [address] [facility] [address] [place] [address] Phone: tel: fax: Referral IDStatusReasonStcollege grove DateExpiration DateVisits RequestedVisits [id number] Specialty Services Required [facility] HealthcareReason for visit Narrative* Consultation (Routine) - Closed SpecialtyDiagnoses / ProceduresReferred By ContactReferred To ContactNeurology Diagnoses Acute post-traumatic headache, not intractable Abnormal finding on MRI of brain Procedures DE OFFICE/OUTPATIENT [facility] 60 MINUTES Agata Cordova DO [address] [facility] [address] [place] [address] Phone: tel: fax: Ady Olson MD [address] [facility] [address] [place] [address] Phone: tel: fax: Referral IDStatusReasonStcollege grove DateExpiration DateVisits RequestedVisits [id number] Specialty Services Required [facility] Healthcare Summary Purpose Family History No Family History Records Found Relationship Condition Age at Onset Recorded Date/T kit Not Specified Diabetes mellitus Unknown fatherAlive and wellUnknownsisterRheumatoid arthritisUnknown Relationship Condition Age at Onset Recorded Date/T kit mother Diabetes mellitus Unknown fatherAlive and wellUnknownsisterRheumatoid arthritisUnknown Advance Directives No Advanced Directives Records Found Advance Directive Response Recorded Date/ Time Advance Directives No September 1:38pm Advance Directive Response Recorded Date/ Time Advance Directives No September 12:38pm Advance Directive Response Recorded Date/ Time Advance Directives Yes November 12:12pm Advance Directive Response Recorded Date/ Time Advance Directives Yes June 06, 2024 8:11am Reason for Referral SpecialtyDiagnoses / ProceduresReferred By ContactReferred To Contact Diagnoses Preop cardiovascular exam Procedures ECG 12 Lead Kristal Singh MD [address] [facility] [address] [place] [address] Referral IDStatusReasonStart DateExpiration DateVisits RequestedVisits [id number] / Procedures Referred By ContactReferred To Contact Diagnoses Intractable chronic migraine without aura and without status migrainosus (CMS/HCC) Dieter Calle NP [address] [place] [address] Referral IDStatusReasonBenton DateExpiration DateVisits RequestedVisits [id number] [id number] / Procedures Referred By ContactReferred To ContactPsychology Diagnoses Cognitive impairment Procedures DE OFFICE/OUTPATIENT NEW HIGH MDM 60 MINUTES Dieter Calle NP [address] [place] [address] Bharathi Rivera, PhD [address] [facility] [address] [place] [address] Referral IDStatusasonBenton DateExpiration DateVisits RequestedVisits [id number] Specialty Services Required / Reason Bilateral upper EMG Diagnosis 1 Left carpal tunnel s yndrome (G56.02) Referral Organization [facility] Referring Provider First Name Magaly Referring Provider Last Name Brnedaeduardo Referring Provider Specialty Hand Surger y Referred Organization [facility] Referred Address [address] [place], [place],[address] Referred Provider Specialty Neurology Referral Priority Routine Chief Complaint and Reason for Visit Chief Complaint Herniated Cervical D isc Chief Complaint Herniated Cervical D isc Herniated Cervical DiscReason for VisitRight cervical radiculopathy Chief Complaint Herniated Cervical D isc Herniated Cervical Disc rt arm post op issuesReason for VisitRight cervical radiculopathy Chief Complaint Herniated Cervical D isc Herniated Cervical Disc rt arm post op issues 4 Week Po Acdf Po 09/13/23 F/U Elevated Liver Enzymes k85.90Reason for VisitRight cervical radiculopathy Chief Complaint Po 09/13/23 F/U Elevated Liver Enzymes k85.90 3 mo po 09/13/[address] [place] [facility] CT NOMS 6 month fu / 6 week recheck rt ring fingerReason for VisitCervical disc disease Postoperative visit Alcohol abuse Bilateral hip pain Nicotine abuse Avascular necrosis of bones of both hips 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 [id number] Right carpal tunnel syndrome Chief Complaint 3 mo po 09/13/[address] [facility] CT NOMS 6 month fu / 6 week recheck rt ring finger 6-8 WEEKSReason for VisitCervical disc disease Postoperative visit Alcohol abuse Bilateral hip pain Nicotine abuse Avascular necrosis of bones of both hips 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 [id number] IAR-[id number] Right carpal tunnel syndrome 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 [id number] VVB-[id number]-[id number] Right carpal tunnel syndrome Chief Complaint 6 month fu / 6 week recheck rt ring finger 6-8 WEEKS H&P REVISION RCTRReason for 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 [id number] [id number]-[id number] Right carpal tunnel syndrome 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 [id number]-TSGF-275344 FMI-[id number]-[id number] Right carpal tunnel syndrome 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 JKZ-GPBY-764059 QIC-MRYF-295122 Right carpal tunnel syndrome Chief Complaint 6-8 WEEKS BH H&P REVISION RCTR Carpal TunnelReason for 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 [id number]-[id number]-[id number] XQG-[id number]-344713 Right carpal tunnel syndrome 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 [id number]-[id number]-481566 [id number]-[id number] Right carpal tunnel syndrome Chief Complaint 6-8 WEEKS BH H&P REVISION RCTR Carpal Tunnel CTS, Bone SpurReason for 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 [id number] YQQ-[id number] Right carpal tunnel syndrome 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 [id number] YVR-[id number]-[id number] Right carpal tunnel syndrome Chief Complaint 6-8 WEEKS BH H&P REVISION RCTR Carpal Tunnel CTS, Bone Spur H&P RIGHT CARPAL TUNNEL REVISIONReason for 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 [id number] AVD-[id number] Right carpal tunnel syndrome 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 JID-UTYQ-057536 BQB-IWNJ-162600 Right carpal tunnel syndrome 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 AHQ-QMXI-050796 OVY-WNUI-467692 Right carpal tunnel syndrome Chief Complaint 6-8 WEEKS BH H&P REVISION RCTR Carpal Tunnel CTS, Bone Spur H&P RIGHT CARPAL TUNNEL REVISION CTS, Bone SpurReason for 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 [id number] CWN-SMFE-616694 Right carpal tunnel syndrome 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 [id number]-QLNF-561430 ZFN-VITD-728615 Right carpal tunnel syndrome 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 ULY-QFOP-556275 LQY-WCVF-[id number] Right carpal tunnel syndrome Chief Complaint H&P REVISION RCTR Carpal Tunnel CTS, Bone Spur H&P RIGHT CARPAL TUNNEL REVISION CTS, Bone Spur CTS, Bone Spur BH 2-3 WK POST OPReason for 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 [id number]-[id number] SXL-[id number]-[id number] Right carpal tunnel syndrome 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 ZCN-IBFH-870820 YOQ-WMYU-014885 Right carpal tunnel syndrome 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 OCY-[id number]-398044 KQP-SJEQ-131340 Right carpal tunnel syndrome Chief Complaint H&P REVISION RCTR Carpal Tunnel Carpal Tunnel CTS, Bone Spur H&P RIGHT CARPAL TUNNEL REVISION CTS, Bone Spur CTS, Bone Spur BH 2-3 WK POST OPReason for 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 [id number]-[id number] KEM-WANQ-[id number] Right carpal tunnel syndrome 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 AXS-HLXP-650305 RXY-CJAW-381613 Right carpal tunnel syndrome 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 KGT-EKEM-494368 JRK-MPLX-380441 Right carpal tunnel syndrome Additional Source Comments (unrecognized sect ion and content) No Status Records FoundNo Status Records FoundNo Status Records FoundNo Status Records FoundNo Status Records FoundNo Status Records Found INFORMATION SOURCE (unrecogn ized section and content) DATE CREATED AUTHOR 12/05/2021 [facility] DATE CREATED AUTHOR AUTHOR'S ORGANIZ ATION 08/20/2022 [facility] [employer] DATE CREATED AUTHOR AUTHOR'S ORGANIZ ATION 05/27/2024 [facility] DATE CREATED AUTHOR AUTHOR'S ORGANIZ ATION 05/30/2024 [facility] DATE CREATED AUTHOR AUTHOR'S ORGANIZ ATION 07/07/2025 [facility] DATE CREATED AUTHOR AUTHOR'S ORGANIZ ATION 07/08/2025 [facility] REASON FOR VISIT (unrecogniz ed section and content) ReasonCommentsMemory LossHeadacheReasonCommentsEstablish CarepocPre-op Clearance SpecialtyDiagnoses / ProceduresReferred By ContactReferred To Contact Diagnoses Preop cardiovascular exam Procedures ECG 12 Lead Kristal Singh MD [address] [address], [address] [address] Referral IDStatusReasonStart DateExpiration DateVisits RequestedVisits [id number] ExamReason CommentsDiabetesReasonCommentsToe Problem Care Teams (unrecognized sec tion and content) Team Status: Active Member Role Status Dates Agata Cordova , Primary Care Provider Active Team Status: Inactive Member Role Status Dates Agata Cordova DO Primary Care Provider Active Terence Ortiz NP-CAttending ProviderActive Team Status: Inactive Member Role Status Dates Agata Cordova , Primary Care Provider Active Marjan Oglesby ProviderActive Team Status: Inactive Member Role Status Dates Agata Cordova DO Primary Care Provider Active Melia Hammer ProviderActive Team Status: Inactive Member Role Status Dates Agata Cordova DO Primary Care Provider Active Start: August 30, 2023 End: August 30Marjan Quan ProviderActiveStart: August 30, 2023 End: August 30, 2023 Team Status: Inactive Member Role Status Dates Agata Cordova DO Primary Care Provider Active Start: September 13, 2023 End: September 14Marjan Quan ProviderActiveStart: September 13, 2023 End: September 14, 2023 Team Status: Inactive Member Role Status Dates Agata Cordova DO Primary Care Provider Active Start: September 14, 2023 End: September 14, 2023Melia Hammer ProviderActiveStart: September 14, 2023 End: September 14, 2023 Team Status: Inactive Member Role Status Dates Lino Nguyen MD Attending Provider Active Star t: September 28, 2023 End: September 28, 2023 Team Status: Inactive Member Role Status Dates RADHA LangleyC Attending Provider Active Start: November 18, 2023 End: November 18, 2023 Team Status: Inactive Member Role Status Dates Agata Cordova DO Primary Care Provi andrew, Attending Provider Active Start: November 25, 2023 End: November 25, 2023Team MemberRelationshipSpecialtyStart DateEnd Date Agata Cordova DO [address] [place] [address] PCP - [facility]02/23/23 Team Status: Inactive Member Role Status Dates Agata Cordova DO Primary Care Provider Active Start: December 16, 2023 End: December 16, 2023RADHA LangleyCAttending ProviderActiveStart: December 16, 2023 End: December 16, 2023 Team Status: Inactive Member Role Status Dates Agata Cordova DO Primary Care Provider Active Start: December 16, 2023 End: Novemberbree Ayers II, MDAttending ProviderActiveStart: December 16, 2023 End: December 16, 2023 Team Status: Inactive Member Role Status Dates Agata Cordova DO Primary Care Provider Active Start: January 19, 2024 End: January 18ari Rosario , MDAttending ProviderActiveStart: January 19, 2024 End: January 19, 2024 Team Status: Active Member Role Status Dates Agata Cordova DO Primary Care Provider Active Start: December 28, 2023 Urban Cabrera , MDAttending ProviderActiveStart: December 28, 2023 Team Status: Inactive Member Role Status Dates Agata Cordova DO Primary Care Provider Active Start: March 15, 2024 End: March 15ari Rosario MDAttending ProviderActiveStart: March 15, 2024 End: March 15, 2024 Team Status: Active Member Role Status Dates Agata Cordova DO Primary Care Provider Active Start: March 28, 2024 Urban Cabrera , MDAttending ProviderActiveStart: March 28, 2024 Team Status: Inactive Member Role Status Dates Agata Cordova DO Primary Care Provider Active Start: April 18, 2024 End: April 184Cari Rosario MDAttending ProviderActiveStart: April 18, 2024 End: April 18, 2024 Team Status: Inactive Member Role Status Dates Agata Cordova DO Primary Care Provider Active Start: April 26, 2024 End: April 26ari Rosario MDAttending ProviderActiveStart: April 26, 2024 End: April 26, 2024 Team Status: Inactive Member Role Status Dates Agata Cordova DO Primary Care Provider Active Start: June 01, 2024 End: June 01ari Rosario , MDAttending ProviderActiveStart: June 01, 2024 End: June 01, 2024 Team Status: Inactive Member Role Status Dates Agata Cordova DO Primary Care Provider Active Start: June 07, 2024 End: June 07ari Rosario , MDAttending ProviderActiveStart: June 07, 2024 End: June 07, 2024 Team Status: Inactive Member Role Status Dates Agata Cordova DO Primary Care Provider Active Start: June 12, 2024 End: June 12ari Rosario , MDAttending ProviderActiveStart: June 12, 2024 End: June 12, 2024 Team Status: Active Member Role Status Lisa Cordova DO Primary Care Provider Active Start: June 12, 2024 Magaly Rosario , MDAttending Provider, Other ProviderActiveStart: June 12, 2024 Team Status: Active Member Role Status Dates Agata Cordova DO Primary Care Provider Active Start: June 27, 2024 Urban Cabrera , MDAttending ProviderActiveStart: June 27, 2024 Team Status: Inactive Member Role Status Lisa Cordova DO Primary Care Provider Active Start: July 10, 2024 End: July 104Cari Rosario , MDAttending ProviderActiveStart: July 10, 2024 End: July 10, 2024 Team Status: Inactive Member Role Status Dates Agata Cordova DO Primary Care Provider Active Start: May 08, 2024 End: May 08ari Rosario , MDAttending ProviderActiveStart: May 08, 2024 End: May 08, 2024Team MemberRelationshipSpecialtyStart DateEnd Date Agata Cordova DO [address] [place] [address] PCP - [facility]02/23/23Team MemberRelationshipSpecialtyStart DateEnd Date Agata Cordova DO [address] [place] [address] PCP - [facility]02/23/23Team MemberRelationshipSpecialtyStart DateEnd Date Agata Cordova, DO [address] [place] [address] [facility]/23Team MemberRelationshipSpecialtyStart DateEnd Date Agata Cordova, DO [address] [place] [address] [facility] - [facility]/23Team MemberRelationshipSpecialtyStart DateEnd Date Agata Cordova, DO [address] [place] [address] [facility] - [facility]/23/23Team MemberRelationshipSpecialtyStart DateEnd Date Agata Cordova, DO [address] [place] [address] PCP - [facility]05/29/24Team MemberRelationshipSpecialtyStart DateEnd Date Agata Cordova, DO [address] [place] [address] [facility] - [facility]/23/23 Agata Cordova, DO [address] [place] [address] PCP - [facility]11/24/24 Edwige Garcias LSW Social [facility] Medicine11/29/24Team MemberRelationshipSpecialtyStart DateEnd Date Agata Cordova, DO [address] [place] [address] PCP - [facility] Medicine02/23/23 Agata Cordova, DO [address] [place] [address] PCP - [facility]11/24/24 Edwige Garcias, [facility] Social [facility]11/29/24Team MemberRelationshipSpecialtyStart DateEnd Date Agata Cordova, DO [address] [place] [address] [facility] Medicine02/23/23 Agata Cordova, DO [address] [place] [address] PCP - [facility]11/24/24 Edwige Garcias, [employer] [facility]11/29/24Team MemberRelationshipSpecialtyStart DateEnd Date Agata Cordova, DO [address] [place] [address] [facility]02/23/23 Agata Cordova, DO [address] [place] [address] [facility]11/24/24 Edwige Garcias, [employer] [address] [place] [address] Social [facility] Medicine11/29/24 Delicia Hearn PA [address] [place] [address] Physician AssistantNeurology01/03/25Team MemberRelationshipSpecialtyStart DateEnd Date Agata Cordova, DO [address] [place] [address] PCP - GeneralFamily Medicine02/23/23 Agata Cordova, DO [address] [place] [address] PCP - [facility]11/24/24 Edwige Garcias, [employer] [address] [place] [address] [facility]11/29/24 Delicia Hearn PA [address] [place] [address] Physician AssistantNeurology01/03/25Team MemberRelationshipSpecialtyStart DateEnd Date Agata Cordova, DO [address] [place] [address] PCP - GeneralFamily Medicine02/23/23 Agata Cordova, DO [address] [place] [address] PCP - [facility]11/24/24 Edwige Garcias, [employer] [address] [place] [address] [facility]11/29/24 Delicia Hearn PA [address] [address] Physician AssistantNeurology01/03/25Team MemberRelationshipSpecialtyStart DateEnd Date Agata Cordova DO [address] [place] [address] PCP - GeneralFamily Medicine02/23/23 Agata Cordova, DO [address] [place] [address] PCP - [facility]11/24/24 Mukul Edwige, [employer] [address] [place] [address] [facility]11/29/24 Delicia Hearn PA [address] [place] [address] Physician AssistantNeurology01/03/25 Goals (unrecognized section and content) Goals may be documented in a n alternate section FOR RECORDS PERTAINING TO PATIENTS WHO ARE OR HAVE BEEN ENROLLED IN A CHEMICAL DEPENDENCY/SUBSTANCEABUSE PROGRAM, SOME INFORMATION MAY BE OMITTED. This clinical summary was aggregated from multiple sources. Caution should be exercised in using it in the provision of clinical care. This summary normalizes information from multiple sources, and as a consequence, information in this document may materially change the coding, format and clinical context of patient data. In addition, data may be omitted in some cases. CLINICAL DECISIONS SHOULD BE BASED ON THE PRIMARY CLINICAL RECORDS. [employer] provides no warranty or guarantee of the accuracy or completeness of information in this document.
[2025-09-12 12:11] LABS: Hematocrit 51.5 % (42.0-54.0); Hemoglobin 17.8 g/dL (14.0-18.0); Immature Granulocytes Abs Auto 0.05 10^3/uL (0.00-0.03); Immature Granulocytes Pct Auto 0.4 % (0.0-0.5); Lymphocytes Absolute Auto 2.4 10^3/uL (1.2-3.8); Mean Corpuscular HGB Conc 34.6 g/dL (29.9-35.2); Mean Corpuscular Hemoglobin 32.8 pg (25.9-34.0); Mean Corpuscular Volume 94.8 fL (80.0-94.0); Platelet Count 323 10^3/uL (150-450); Red Blood Count 5.43 10^6/uL (4.70-6.10); White Blood Count 12.0 10^3/uL (4.0-11.0)
[2025-09-12 12:33] LABS: Glucose Urine UA NEGATIVE (NEGATIVE)
[2025-09-12 13:26] LABS: Alanine Aminotransferase 112 U/L (16-63); Albumin Globulin Ratio 1.3; Albumin Level 4.6 g/dL (3.4-5.0); Alkaline Phosphatase 78 U/L (46-116); Anion Gap 10.8; Aspartate Amino Transferase 27 U/L (15-37); Blood Urea Nitrogen 18.0 mg/dL (7.0-18.0); Calcium 10.0 mg/dL (8.5-10.1); Carbon Dioxide 32.1 mmol/L (21.0-32.0); Chloride 101 mmol/L (98-107); Estimated GFR (African America >60 (>=60 mL/min/1.73m^2); Estimated GFR (Non-African Ame >60 (>=60 mL/min/1.73m^2); Globulin 3.6 g/dL; Glucose 71 mg/dL (74-106); Potassium 3.9 mmol/L (3.5-5.1); Sodium 140 mmol/L (136-145); Thyroid Stimulating Hormone 3.116 uIU/mL (0.358-3.740); Total Protein 8.2 g/dL (6.4-8.2)
[2025-09-12 14:43] LABS: Cast Seen? SEEN #/LPF (NONE SEEN); Crystals Seen? None Seen #/HPF (None Seen)
== END 2025-09-12 11:36 | disposition home or self-care (01) ==
LOC: LAB 11:43
PROVIDERS: PCP Family Medicine; Visit Provider Family Medicine
DX: N28.9 Disorder of kidney and ureter, unspecified (principal); R11.2 Nausea with vomiting, unspecified; R63.4 Abnormal weight loss
CPT/HCPCS: 36415; 80053; 81001; 84439; 84443; 85025

== ENCOUNTER 2025-10-14 04:31 | Emergency (ER) | payer MEDICARE, SELFPAY ==
[2025-10-14 04:35] VITALS: BP 153/104; PULSE 88; TEMP 36.6; O2SAT 99; BMI 28.6
[2025-10-14 05:01] VITALS: BP 120/86
--- NOTE | 2025-10-14 05:02 | PC.NURSE ---
pt describes the pain as a stabbing in the ear, warm pack to ear per pt request
--- NOTE | 2025-10-14 05:18 | ED_ITS ---
HPI - Ear Problem General Chief complaint: Ear Stated complaint: ear pain Time Seen by Provider: 10/14/25 04:52 Source: patient Mode of arrival: walk-in History of Present Illness HPI Narrative: cc - right ear pain Pain woke the patient from sleep about an hour ago. Described as a line from the middle of my head and on the right side of my head including my ear and my jaw there is pain. He said that the right ear is painful to touch and the pain extends deep into the right ear . No nasal congestion or cough. No GI or symptoms. He took Tylenol just before he left home to come to the ED. Related Data Previous Rx's ?Medication ?Instructions ?Recorded azithromycin 250 mg tablet See Rx Instructions PO .COM PLEX #6 10/14/25 tabs [id number]-sztavf-DG-thonzonm 3.3 4 drp otic (ear) TID 1 week #10 mL 10/14/25 mg-3 mg-10 mg-0.5 mg/mL ear drops,susp (Cortisporin-TC) Allergies Allergy/AdvReac Type Severity Reaction Status Date / Time rifampin Allergy Severe Anaphylaxis Verified 10/14/25 04:40 Penicillins Allergy Unknown Verified 10/14/25 04:40 PFSH PFSH Social History Little interest or pleasure in doing things: not at all Feeling down, depressed, or hopeless: not at all Exam Narrative Exam Narrative: Nurses notes and vital signs reviewed and patient is not hypoxic. afebrile General: Well-appearing and in no apparent distress. Skin: Warm, dry, no pallor noted. No rash. Head: Normocephalic, atraumatic. Neck: Supple, non-tender. No cervical lymphadenopathy. No meningismus. Eye: Pupils are equal, round and EOMI. No scleral icterus. Ears, Nose, Mouth, and Throat: Right EAC is swollen, erythematous and tender. Right TM is erythematous with injection and dullness. Left TM is clear. No nasal mucosal hypertrophy. No posterior oropharynx erythema, uvula is mid-line, Oral mucosa is moist Cardiovascular: Regular Rate and Rhythm without murmur, gallop or rub. Respiratory: No accessory muscle use or respiratory distress. Lungs are clear to auscultation, no wheezing, rales or rhonchi Neurological: A&O x4. No cranial nerve dysfunction observed. No truncal ataxia. Moves all extremities. Sensation intact. Psychiatric: Cooperative and interactive. Normal mood and affect. Constitutional Vital Signs, click to edit/add: Last Vital Signs Temp 97.9 F 10/14/25 04:35 Pulse 88 10/14/25 04:35 Resp 16 10/14/25 04:35 BP 120/86 10/14/25 05:01 Pulse Ox 99 10/14/25 04:35 O2 Del Method Room Air 10/14/25 04:35 Course Vital Signs Vital signs: Vital Signs Temperature 97.9 F 10/14/25 04:35 Pulse Rate 88 10/14/25 04:35 Respiratory Rate 16 10/14/25 04:35 Blood Pressure 153/104 H 10/14/25 04:35 Pulse Oximetry 99 10/14/25 04:35 Oxygen Delivery Method Room Air 10/14/25 04:35 Temperature 97.9 F 10/14/25 04:35 Pulse Rate 88 10/14/25 04:35 Respiratory Rate 16 10/14/25 04:35 Blood Pressure 120/86 10/14/25 05:01 Pulse Oximetry 99 10/14/25 04:35 Oxygen Delivery Method Room Air 10/14/25 04:35 Medical Decision Making MDM Narrative Medical decision making narrative: Patient has both otitis externa and otitis on the right. He asked for something for pain and was ordered to receive IM Toradol. He was discharged home with prescriptions for Romycin to control the otitis media and Cortisporin otic for his otitis externa. He was instructed to continue to take Tylenol as needed for pain. He has had some problems with kidney injury in the past due to excessive Motrin use so I cautioned him with regards to any NSAID use. Discharge Plan Discharge Chief Complaint: Ear Clinical Impression: Otitis externa, Otitis media Patient Disposition: Home, Self-Care Time of Disposition Decision: 05:25 Prescriptions / Home Meds: New Cortisporin-TC 3.3-3-10-0.5 mg/mL drops,suspension 4 drp otic (ear) TID 7 Days Qty: 10 0RF Rx Instructions: apply to right ear for one week azithromycin 250 mg tablet See Rx Instructions .ROUTE .COMPLEX Qty: 6 0RF Rx Instructions: For 250 mg dose pack: take 500 mg today (day 1), then 250 mg for 4 days (days 2-5) Print Language: Kuwaiti Instructions: Ear Infection (ED) Referrals: AGATA CORDOVA [Primary Care Provider, Unknown] - 1 week
[2025-10-14] MEDS: KETOROLAC TROMETHAMINE 60 MG/2 ML VIAL IM (05:24)
--- OUTSIDE RECORDS SUMMARY | 2025-10-14 05:25 | XMS_ITS | CCD ---
Author Organization [facility] Care Team Providers Care Paint Tester Name Role Phone PETZNICK, AGATA Admitting Unavailable [...] Primary Care Provider ELICEO Ortiz Attending Provider Petyonatan, DO Agata Primary Care Provider ELICEO Ortiz Attending Provider Lino Nguyen Unavailable Petznick, DO Agata Primary Care Provider MD Lino Nguyen Attending Provider MD Terrence Gilbert Emergency Provider Kim Felipe Unavailable Petznick, DO Agata Attending Provider Petznick Agata GONSALVES C Primary Care Provider Petznick, DO Agata Primary Care Provider [phone] Petznick, DO Agata Attending Provider MD Ilya Ayers II Attending Provider Petznick, DO Agata Primary Care Provider MD Urban Cabrera Attending Provider Petznick, DO Agata Primary Care Provider MD Urban Cabrera Attending Provider [phone] MD Magaly Rosario Attending Provider LONG MCDONALD Attending Unavailable PETZNICK, AGATA C [...] AGATA C Primary Care Unavailable Petznick, DO [facility] Primary Care Provider MD Urban Cabrera Attending Provider Petznick DO, Agata C Primary Care Provider Petznick DO, Agata C Unavailable Mukul AUTOMATIC SHIRRING MACHINE OPERATOR, Edwige Unavailable Mukul PHELPSW, Edwige Unavailable Delicia Heller Unavailable PETZNICK, AGATA C Referring Unavailable PETZNICK, AGATA C Attending Unavailable DELICIA HEARN Attending Unavailable AGATA CORDOVA Attending Unavailable BHARATHI CHINCHILLA Attending Unavailable DIETER ACLLE Attending Unavailable BHARATHI RIVERA Attending Unavailable DIETER CALLE Referring Unavailable DELICIA HEARN Attending Unavailable Agata Cordova Primary Care Unavailable Chela Cabreraelrahman Attending Unavailab le DeborahChela vazquezelrahman Admitting Unavailab le Allergies Allergy ClassificationReported Allergen(s)Allergy TypeDate of OnsetReaction(s) Facility (10 sources)fentaNYL; 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: [FENTANYL]Drug Ljsgozv50-78-0511hijxhqlFeg [facility] Repository (11 sources)Morphine; 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: [MORPHINE]Drug Lpgdwst66-23-6053Hx. states sometimes increases pain rather than decreasing [facility] Repository (19 sources)Penicillins; 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: [PENICILLINS]Drug allergy (disorder) 46-38-2018Oqcyavg Reaction, Hives, Hives and rashThe [facility] (18 sources)rifAMPin; 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: [RIFAMPIN]Drug Imhgaef27-96-6949Ogmueihkzwt [facility] Repository (20 sources)fentaNYLDrug Ydvhebg69-05-6634Badu, Unknown, ItchingNOMS Healthcare (20 sources)heparinDrug Gncjwjg11-59-8492Ipkxp, GI bleedingOhio State University [facility] (20 sources)MorphineDrug Foocypz95-73-0430kozis, Other, UnknownNortHoly Redeemer Hospital [employer] Other (19 sources)Penicillin GDrug Pazqtsw26-74-3858fymyTzvcngpqoWVUMedicine [facility] (17 sources)rifAMPinDrug AllergyanaphylaxisNorthwest Hospital [employer] Other (20 sources)Latex; 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: [LATEX]Propensity to adverse reactions 37-64-9424RvmiNEFW Healthcare (1 source)oxyCODONEDrug Kpfwqtv78-38-7588PH[facility] (20 sources)PenicillinsDrug Bdmgqzowjio99-90-3501Mncbc, UnknownNOMS Healthcare (20 sources)rifAMPinDrug Xqgqpkt20-39-7268Gbrmp, AnaphylaxisNOMS Healthcare (20 sources)rifamycin SVDrug Vsriebq32-41-9758Zwyug, Unknown, AnaphylaxisNOMS Healthcare (20 sources)rifapentineDrug Taijccz83-22-5760NXTU [facility] (20 sources)heparin; 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: [heparin (porcine)]Drug Bmfbfll18-55-3489 [facility] (3 sources)HEPARIN ANALOGUES; 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: [HEPARIN ANALOGUES]Propensity to adverse reactions to drug (disorder)78-75-3490GtwfjZqiAbmqyb Repository (1 source)RIFAMYCIN ANALOGUES; 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: [RIFAMYCIN ANALOGUES]Propensity to adverse reactions to drug (disorder)88[place]34-7833[place] [address] Repository (1 source)PenicillinsDrug Mmzkrdkbtfx10-00-7980Llykd, [facility] Work Phone: (1 source)PenicillinsDrug allergy (disorder)05-03-9624EpmxaoxzjOhio State University [facility] Repository (1 source)rifAMPinDrug Flljeaw01-71-6604LguyhjolrOhio State University [facility]xner [facility] Repository Medications Current Medications MedicationDrug Class(es)DatesSig (Normalized)Sig (Original)8 hr acetaminophen 650 mg extended release oral tablet (20 sources)Start: 22-80-1455kevfjtzydwaxi (Tylenol 8 Hour) 650 MG ER tablet Three times daily 08/30/2023 Qzocbvpyw753225 200 actuat albuterol 0.09 mg/actuat metered dose inhaler (20 sources)beta2-Adrenergic AgonistStart: 68-60-5272tjma 2 puff(s) by mouth every four hours as needed for coughalbuterol (ProAir RespiClick) 90 mcg/act breath-activated inhaler Inhale 180 mcg every 4 (four) hours. ActiveamLODIPine 10 mg oral tablet (7 sources)Dihydropyridine Calcium Channel Blockertake 1 tablet by mouth every twenty-four hoursaspirin 81 mg oral tablet (20 sources)Platelet Aggregation Inhibitor, Nonsteroidal Anti-inflammatory Drug Start: 78-08-6061ljyh 1 tablet by mouth once dailyStart: 04-27-2019 End: 13-94-5518lszp 81 mg by mouth once dailyAspirin Discontinued 81 MG PO Daily April 27, 2019 12:00am January 22, 2022 8:38amtake 1 tablet by mouth once dailyatenolol 25 mg oral tablet (20 sources)beta-Adrenergic BlockerStart: 86-70-0401tcyz 1 tablet by mouth at bedtimeatenolol (Tenormin) 25 MG tablet Indications: Primary hypertension Take 1 tablet (25 mg) by mouth at bedtime 90 tablet 3 05/22/2024 ActiveStart: 01-22-2022 End: 31-60-7420Vvarjpfc Discontinued MG TABLET January 22, 2022 12:00am January 22, 2022 8:49amStart: 10-14-2017 End: 18-98-6553icwo 25 mg by mouth once daily in the morningAtenolol Active 25 MG PO Every morning October 14, 2017 1:00amBlood Glucose Monitoring Suppl ([facility] Verio Flex System) w/Device kit (5 sources)Start: 57-94-7028Tqtvd Glucose Monitoring Suppl (OneTouch Verio Flex System) w/Device kit Indications: Type 2 diabetes mellitus with other specified complication, without long-term current use of insulin (HCC) 1 eachDaily 1 kit 04/17/2025 ActivebusPIRone hydrochloride 5 mg oral tablet (20 sources)Start: 32-85-0780lhku 15 mg by mouth twice dailyBuspirone Active 15 MG PO Twice daily January 22, 2022 12:00amStart: 40-79-0750ivbh 1 tablet by mouth in the morningbusPIRone (Buspar) 5 MG tablet Take 5 mg by mouth in the morning and 5 mg before bedtime. 07/06/2022 ActiveStart: 10-14-2017 End: 37-65-7769zifw 1 tablet by mouth twice dailyBuspirone Discontinued 1 TAB PO Twice daily October 14, 2017 1:00am January 22, 2022 8:38amtake 1 tablet by mouth twice dailyBuSpar 10 MG 1 tablet Orally bid Activecyclobenzaprine hydrochloride 5 mg oral tablet (20 sources)Muscle RelaxantStart: 61-06-3356bwjs 1-2 tablets by mouth at bedtime cyclobenzaprine (Flexeril) 5 MG tablet Indications: Classical migraine with intractable migraine, so stated TAKE 1 TO 2 TABLETS BY MOUTH AT BEDTIME 60 tablet 2 03/06/2025 ActiveStart: 09-13-2024 End: 17-62-1075nkdg 1-2 tablets by mouth once daily at bedtimecyclobenzaprine (Flexeril) 5 MG tablet Indications: Classical migraine with intractable migraine, so stated (CMS/HCC) 1-2 tabs PO QHS 60 tablet 2 09/13/2024 12/13/2024 DiscontinuedStart: 87-54-1519drrv 10 mg by mouth every eight hours Cyclobenzaprine Active 10 MG PO Every 8 hours January 19, 2024 12:00amStart: 09-14-2023 End: 71-56-0545vtjzzplcupztztm (Flexeril) 10 MG tablet Three times daily 09/14/2023 09/13/2024 Discontinueddexlansoprazole 60 mg delayed release oral capsule (14 sources)Proton Pump InhibitorStart: 54-07-5385kolm 1 capsule by mouth every twenty-four hoursdiclofenac sodium 0.01 mg/mg topical gel (20 sources)Nonsteroidal Anti-inflammatory DrugStart: 10-60-5604xkduwqfqpr sodium 1 % gel Four times daily 04/26/2024 ActiveStart: 20-77-8500Qnllkwztal Sodium Active 0 TOPICAL Four times daily April 26, 2024 12:00am topically four times daily PRN;Start: 01-19-2024 End: 62-74-7857Zgaggkjkoq Sodium Discontinued 0 TOPICAL Four times daily January 19, 2024 12:00am April 26, 2024 3:42pm apply a pea sized amount to affected area two to four times dailyStart: 74-52-6821Qbnhvavcqz Sodium Active 0 TOPICAL Four times daily January 19, 2024 12:00am apply a pea sized amount to affected area two to four times dailydonepezil hydrochloride 5 mg oral tablet (19 sources)Start: 07-20-2024 End: 81-38-6816oizj 1 tablet by mouth at bedtimedonepezil (Aricept) 5 MG tablet Indications: Cognitive impairment TAKE 1 TABLET BY MOUTH AT PQAXDRP94 tablet 1 08/14/2024 Activedoxepin hydrochloride 150 mg oral capsule (20 sources)Tricyclic AntidepressantStart: 87-07-8166dngv 150 mg by mouth once daily at bedtimeDoxepin Active 150 MG PO Daily at bedtime January 22, 2022 12:00amStart: 01-22-2022 End: 38-76-5592Gjeuqdr Discontinued MG January 22, 2022 12:00am January 22, 2022 8:41amStart: 10-14-2017 End: 83-01-4653Wqxigpj Discontinued October 14, 2017 1:00am October 14, 2017 3:33pmStart: 10-14-2017 End: 68-58-2512rurm 1 tablet by mouth once dailyDoxepin Discontinued 1 TAB PO Daily October 14, 2017 1:00am January 22, 2022 8:40amDoxepin HCl Active empagliflozin 10 mg oral tablet (7 sources)Sodium-Glucose Cotransporter 2 Inhibitortake 1 tablet by mouth every twenty-four hours1 ml erenumab-aooe 140 mg/ml auto-injector (8 sources)Start: 07-20-2024 End: 75-23-4711hyqzzn 1 mL by subcutaneous injection onceerenumab (Aimovig) 140 MG/ML injection Indications: Classical migraine with intractable migraine, so stated (CMS/HCC) Inject 1 mL (140 mg) under the skin every 28 (twenty-eight) days 1 each 2 07/20/2024 10/18/2024 Activeglimepiride 1 mg oral tablet (6 sources)SulfonylureaStart: 07-04-2025 End: 14-11-4089cuzi 1 tablet by mouth before mealtimeglimepiride (Amaryl) 1 MG tablet Indications: Type 2 diabetes mellitus with other specified complication, without long-term current use of insulin ([facility]) Take 1 tablet (1 mg) by mouth in the morning. Take before meals. 90 tablet 1 07/04/2025 12/31/2025 ActiveStart: 01-02-2025 End: 63-03-4784xnsr 1 tablet by mouth before mealtimeglimepiride (Amaryl) 1 MG tablet Indications: Type 2 diabetes mellitus with other specified complication, without long-term current use of insulin ([facility]) Take 1 tablet (1 mg) by mouth in the morning. Take before meals. 90 tablet 1 01/02/2025 07/01/2025 Active Hydrochlorothiazide-25 mg 25 mg (13 sources)take 25 mg by mouth once dailyHydrochlorothiazide-25 mg 25 mg Orally Once a day ActivehydrOXYzine hydrochloride 50 mg oral tablet (20 sources)AntihistamineStart: 81-61-9532ifyq 50 mg by mouth every eight hours Hydroxyzine Hcl Active 50 MG PO Q8H August 30, 2023 1:00amhydrOXYzine pamoate (Vistaril) 50 MG capsule every 6 (six) hours. Activehyoscyamine sulfate 0.125 mg sublingual tablet (1 source)Start: 11-04-2023 End: 78-93-5097ewukzupoztd (Levsin/SL) 0.125 MG SL tablet Indications: Epigastric [...] mg oral tablet (20 sources)Nonsteroidal Anti-inflammatory DrugStart: 83-32-9612mxbn 1 tablet by mouth every eight hours at mealtime as neededIbuprofen 800 MG 1 tablet with food or milk as needed Orally every 8 hrs for 30 days May, ActiveStart: 04-27-2019 End: 85-71-5790lkfk 800 mg by mouth three times dailyIbuprofen Discontinued 800 MG PO Three times daily 90 April 27, 2019 12:00am January 22, 2022 8:42am levothyroxine sodium 0.175 mg oral tablet (20 sources)l-ThyroxineStart: 47-27-2143dnasvqbineoax (Synthroid, Levoxyl) 175 MCG tablet Indications: Hypothyroidism, unspecified type TAKE 1 TABLET ONE TIME DAILY IN THE MORNING ON AN EMPTY STOMACH 90 tablet 1 12/04/2024 ActiveStart: 31-05-7605xntm 1 tablet by mouth in the morninglevothyroxine (Synthroid, Levoxyl) 175 mcg tablet Take 1 tablet (175 mcg) by mouth early in the morning.. 05/22/2024 ActiveStart: 67-72-0901jpwt 150 ug by mouth once dailyLevothyroxine Active 150 MCG PO Daily October 14, 2017 1:00amStart: 97-12-1791yjsq 1 tablet by mouth once dailyLevothyroxine Active [...] carbonate 150 mg oral capsule (20 sources)Start: 27-94-2925zomw 1 capsule by mouth in the morninglithium 150 MG capsule Take 150 mg by mouth in the morning and 150 mg before bedtime. 02/10/2024 Activemagnesium oxide 400 mg oral tablet (20 sources)Start: 34-13-0088uhzg 1 tablet by mouth once dailymagnesium oxide (Mag-Ox) 400 (240 Mg) MG tablet Indications: Acute post-traumatic headache, not intractable TAKE 1 TABLET BY MOUTH EVERY DAY 90 tablet 12/08/2024 Active metFORMIN hydrochloride 1000 mg oral tablet (20 sources)BiguanideStart: 12-04-2024 End: 38-90-2987vzez 1 tablet by mouth in the morningmetFORMIN (Glucophage) 1000 MG tablet Indications: Type 2 diabetes mellitus with other skin complications (HCC) Take 1 tablet (1,000 mg) by mouth in the morning and 1 tablet (1,000 mg) in the evening. Take with meals. 180 tablet 1 12/04/2024 ActiveStart: 05-22-2024 End: 01-04-7674kzwr 1 tablet by mouth in the morningmetFORMIN (Glucophage) 1000 MG tablet Indications: Type 2 diabetes mellitus with other skin complications (CMS/HCC) Take 1 tablet (1,000 mg) by mouth in the morning and 1 tablet (1,000 mg) in the evening. Take with meals. 180 tablet 1 05/22/2024 11/18/2024 Active Start: 10-14-2017 End: 77-82-4013vemn 1 tablet by mouth twice dailyMetformin Active 1 TAB PO Twice daily October 14, 2017 1:00ammethylPREDNISolone 4 mg oral tablet (7 sources)CorticosteroidStart: 27-64-7599ixbkogru 375 mg oral tablet (3 sources)Nonsteroidal Anti-inflammatory DrugStart: 01-26-0514svql 1 tablet by mouth every twelve hours at mealtime as neededpantoprazole 40 mg delayed release oral tablet (20 sources)Proton Pump InhibitorStart: 07-04-2025 End: 92-48-5640zuew 1 tablet by mouth before mealtimepantoprazole (ProtoNix) 40 MG EC tablet Indications: Gastroesophageal reflux disease, unspecified whether esophagitis present Take 1 tablet (40 mg) by mouth in the morning. Take before meals. Do not crush, chew, or split. 90 tablet 1 07/04/2025 08/03/2025 Active Start: 05-22-2024 End: 18-52-2502jnha 1 tablet by mouth before mealtimepantoprazole (ProtoNix) 40 MG EC tablet Indications: Gastroesophageal reflux disease, unspecified whether esophagitis present Take 1 tablet (40 mg) by mouth in the morning. Take before meals. Do not crush, chew, or split.. 90 tablet 1 05/22/2024 ActiveStart: 10-14-2017 End: 78-24-5919lkfy 40 mg by mouth once daily at bedtimePantoprazole Active 40 MG PO Daily at bedtime April 18, 2024 3:43pmStart: 51-82-4039eevs 40 mg by mouth twice dailyPantoprazole Active 40 MG PO Twice daily October 14, 2017 1:00am PARoxetine hydrochloride 40 mg oral tablet (1 source)Serotonin Reuptake Inhibitortake 1 tablet by mouth once daily before mealtimePARoxetine (Paxil) 40 mg tablet Take 1 tablet (40 mg) by mouth once daily in the morning. Take before meals. Activepravastatin sodium 40 mg oral tablet (20 sources)HMG-CoA Reductase InhibitorStart: 41-26-8168xuou 1 tablet by mouth at bedtimepravastatin (Pravachol) 40 MG tablet Indications: Mixed hyperlipidemia Take 1 tablet (40 mg) by mouth at bedtime 90 tablet 1 07/04/2025 ActiveStart: 55-49-8990yekitwxahmb (Pravachol) 40 MG tablet Indications: Mixed hyperlipidemia TAKE 1 TABLET EVERY EVENING 90 tablet 3 02/16/2024 ActiveStart: 10-14-2017 End: 73-02-9941tehh 1 tablet by mouth in the eveningpravastatin (Pravachol) 40 MG tablet Indications: Mixed hyperlipidemia (CMS/HCC) Take 1 tablet (40 mg) by mouth in the evening. 90 tablet 1 06/03/2023 11/30/2023 Activepregabalin 150 mg oral capsule (20 sources)Start: 89-78-5513zaeb 1 capsule by mouth in the morningpregabalin (Lyrica) 150 MG capsule Indications: Numbness and tingling Take 1 capsule (150 mg) by mouth in the morning and 1 capsule (150 mg) before bedtime. 180 capsule 1 01/02/2025 ActiveStart: 52-02-4960fakz 1 capsule by mouth twice daily at bedtime pregabalin (Lyrica) 150 MG capsule Indications: Numbness and tingling TAKE 1 CAPSULE BY MOUTH TWICEDAILY (IN THE MORNING and BEFORE bedtime) 180 capsule 1 05/19/2024 ActiveStart: 08-30-2023 End: 06-03-4942zhay 150 mg by mouth three times dailyPregabalin Active 150 MG PO Three times daily August 30, 2023 1:00amtake 1 capsule by mouth every twenty-four hoursLyrica 150 MG 1 capsule Orally Once a day Activepromethazine hydrochloride 25 mg oral tablet (17 sources)PhenothiazineStart: 11-04-2023 End: 14-74-0152rbwnxzhhbrfs (Phenergan) 25 MG tablet Indications: Epigastric pain [...] nausea 30 tablet 1 11/04/2023 12/04/2023 ActiveStart: 12-46-7461Rehcupxrjzhb Active 1 TAB PO As Directed October 14, 2017 1:00amtake 1 tablet by mouth every six hours as neededpromethazine (Phenergan) 25 mg tablet Take 1 tablet (25 mg) by mouth every 6 hours if needed. ActiveQUEtiapine 200 mg oral tablet (20 sources)Atypical AntipsychoticStart: 81-22-0923xxup 1 tablet by mouth once daily at bedtimeSeroqueL 200 mg tablet Take 1 tablet (200 mg) by mouth once daily at bedtime. 04/26/2024 ActiveStart: 01-22-2022 End: 42-07-6076liel 200 mg by mouth once daily at bedtimeQuetiapine Discontinued 200 MG PO Daily at bedtime January 22, 2022 12:00am April 18, 2024 3:46pmStart: 10-14-2017 End: 85-67-1011bgml 1 tablet by mouth once dailyQuetiapine Discontinued 1 TAB PO Daily October 14, 2017 1:00am January 22, 2022 8:44amtake 1 tablet by mouth at bedtimeSEROquel 300 MG 1 tablet Orally AT BEDTIME Activesertraline 50 mg oral tablet (20 sources)Serotonin Reuptake InhibitorStart: 99-03-6473txff 1 tablet by mouth once dailysertraline (Zoloft) 50 MG tablet Take 50 mg by mouth Daily 07/01/2022 Activesucralfate 1000 mg oral tablet (13 sources)Aluminum ComplexStart: 55-34-3316obhy 1 tablet by mouth every eight hoursThumb Spica Thumb Spica (10 sources)Start: 74-07-7075Wmifc Spica Thumb Spica February, ActivetraMADol hydrochloride 50 mg oral tablet (13 sources)Opioid AgonistStart: 13-25-5611fieg 1 tablet by mouth every six hours as needed for pain Completed/Discontinued Medications MedicationDrug Class(es)DatesSig (Normalized)Sig (Original)acetaminophen 325 mg / HYDROcodone bitartrate 5 mg oral tablet (20 sources)Opioid AgonistStart: 08-11-2024 End: 97-84-4163euyq 1-2 tablets by mouth every four to six hours as needed for painHYDROcodone-acetaminophen ([place]) 5-325 MG tablet TAKE 1 TO 2 TABLETS BY MOUTH EVERY 4 TO 6 HOURS NEEDED FOR PAIN FOR 7 DAYS 08/11/2024 12/13/2024 Discontinued (Therapy completed)Start: 06-12-2024 End: 97-32-9301vymd 1 tablet by mouth every four to six hoursHydrocodone- Acetaminophen Discontinued 1 - 2 TAB PO EVERY 4-6 HOURS 50 7 June 20, 2024 July 10, 2024 3:41pm Dispense #50 (fifty) Dx: Z98.890 postopStart: 72-93-0211cqru 1 tablet by mouth twice daily as neededHYDROcodone-acetaminophen ([place]) 5-325 MG tablet Take 1 tablet by mouth 2 (two) times a day as needed. 0 2023 ActiveStart: 01-26-2022 End: 02-40-8634sihf 1 tablet by mouth every four to six hoursHydrocodone- Acetaminophen Discontinued 1 - 2 TAB PO EVERY 4-6 HOURS 50 7 January 26, 2022 August 30, 2023 5:01pmStart: 04-27-2019 End: 45-41-2860rsvr 1 tablet by mouth every four to six hoursHydrocodone- Acetaminophen ([place]) 5-325 mg tablet Discontinued 1 - 2 TAB PO EVERY 4-6 HOURS 50 7 April 27, 2019 January 22, 2022 8:45amStart: 10-14-2017 End: 02-41-3583Djuxbsnuaqv-Acetaminophen Discontinued TABLET October 14, 2017 1:00am October 14, 2017 3:34pmtake 5-325 mg by mouth three times dailyNorco 5-325 MG Orally TID Not-Takingdoxycycline hyclate 100 mg oral tablet (20 sources)Tetracycline-class DrugStart: 06-12-2024 End: 92-80-4991hvap 100 mg by mouth twice dailyDoxycycline Hyclate Discontinued 100 MG PO Twice daily 10 June 12, 2024 12:00am July 10, 2024 3:32pm Start: 01-26-2022 End: 10-79-4444isyl 100 mg by mouth twice dailyDoxycycline Hyclate Discontinued 100 MG PO Twice daily 10 January 26, 2022 12:00am August 5:00pm Start: 04-27-2019 End: 28-23-0095esma 100 mg by mouth twice dailyDoxycycline Hyclate Discontinued 100 MG PO Twice daily 20 April 27, 2019 12:00am January 22, 2022 8:41am fluticasone propionate 0.05 mg/actuat metered dose nasal spray (10 sources)CorticosteroidStart: 01-02-2025 End: 06-95-7324kmdajalxesq (Flonase) 50 MCG/ACT nasal spray Indications: Sinus congestion 2 sprays daily x 14 days. Shake gently. Before first use, prime pump. After use, clean tip and replace cap. 16 g 01/02/2025 04/17/2025 Discontinued (Therapy completed)Start: 04-18-2024 End: 80-61-5081Sblzharisul Propionate Discontinued INTRANASAL April 18, 2024 12:00am April 26, 2024 3:39pmgabapentin 600 mg oral tablet (15 sources)Anti-epileptic AgentStart: 01-22-2022 End: 65-83-0908pmrg 600 mg by mouth three times dailyGabapentin Discontinued 600 MG PO Three times daily January 22, 2022 12:00am August 30, 2023 5:01pm hydroCHLOROthiazide 25 mg oral tablet (15 sources)Thiazide DiureticStart: 10-14-2017 End: 84-42-3360osbw 1 tablet by mouth once dailyHydrochlorothiazide Discontinued 1 TAB PO Daily October 14, 2017 1:00am January 22, 2022 8:41amlidocaine 0.05 mg/mg medicated patch (14 sources)Antiarrhythmic, Amide Local AnestheticStart: 03-29-2024 End: 23-88-0969wfqmx 1 dose transdermal route once dailylidocaine (Lidoderm) 5 % patch Place 1 patch on the skin 1 (one) time each day at the same time 03/1812/13/2024 Discontinued (Therapy completed)lithium aspartate 20 mg oral capsule (8 sources)Start: 03-15-2024 End: 23-23-2759jhkq 20 mg by mouth once dailyLithium Aspartate Discontinued 20 MG PO Daily March 15, 2024 12:00am April 26, 2024 3:41pmmeloxicam 7.5 mg oral tablet (20 sources)Nonsteroidal Anti-inflammatory DrugStart: 01-22-2022 End: 82-99-4190dydu 7.5 mg by mouth twice dailyMeloxicam Discontinued 7.5 MG PO Twice daily January 22, 2022 12:00am August 30, 2023 5:01pmoxyCODONE hydrochloride 5 mg oral tablet (12 sources)Opioid AgonistStart: 09-14-2023 End: 10-62-0852ipuo 5-10 mg by mouth every six hoursOxycodone Discontinued 5 - 10 MG PO Q6H 40 8 September 14, 2023 December 16, 2023 12:45pmPrednisone (12 sources)Start: 09-14-2023 End: 40-88-0373Jxvlhpdvuo Discontinued 1 dose pk PO per package directions September 14, 2023 1:00am December 16, 2023 12:45pm take 4 tabs for 3 days then take 3 tabs for 3 days then take 2 tabs for 3 days then take 1 tab for 3 daysStart: 33-93-3908Fhefzpkyim Active 1 dose pk PO per package directions September 14, 2023 12:00am take 4 tabs for 3 days then take 3 tabs for 3 days then take 2 tabs for 3 days then take 1 tab for 3 dayssulfamethoxazole 800 mg / trimethoprim 160 mg oral tablet (12 sources)Dihydrofolate Reductase Inhibitor Antibacterial, Sulfonamide AntimicrobialStart: 09-14-2023 End: 05-69-0872cnnj 1 tablet by mouth every twelve hoursSulfamethoxazole- Trimethoprim (Bactrim Ds) 800-160 mg tablet Discontinued 1 TAB PO Q12H 2022 1:00am December 16, 2023 12:45pmtriamcinolone acetonide 40 mg/ml injectable suspension (20 sources)CorticosteroidStart: 46-37-4182Jvbktsn-40 Jun, 20 mgStart: 39-56-6636Mbbnvqc-40 May, 40 mgStart: 58-48-0062Osgvzxm -40 mg Nov, 40 mgdivalproex sodium 500 mg delayed release oral tablet (20 sources)Mood Stabilizer, Anti-epileptic AgentStart: 01-19-2024 End: 53-83-8148Jftmtxbokg (Depakote) 500 mg tablet,delayed release (DR/EC) Discontinued 125 MG PO Twice daily January 19, 2024 3:58pm March 15, 2024 4:09pm Start: 10-14-2017 End: 61-09-6972cxxt 1 tablet by mouth twice dailyDivalproex (Depakote) 500 mg tablet,delayed release (DR/EC) Discontinued 500 TAB PO Twice daily October 14, 2017 1:00am January 19, 2024 3:59pm Problems Active Problems Problem ClassificationProblemDateDocumented DateEpisodic/ChronicAbdominal pain (17 sources)Epigastric pain; 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: [Epigastric pain]EpisodicAnxiety disorders (20 sources)Anxiety; 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: [Anxiety disorder, unspecified]Onset: [id number] (20 sources)Asthma; 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: [Unspecified asthma, uncomplicated]Onset: 201961-06-0584WjcqezxYbhkicge mellitus with complications (20 sources)Type 2 diabetes mellitus with other specified complication; 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: [Peripheral vascular disorder due to diabetes mellitus]Onset: 01-24-2017 Resolved: 572949-07-3596IymwzorWmlntdcia of lipid metabolism (20 sources)Hyperlipidemia, unspecified; 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: [Hyperlipidemia]Onset: [id number]v disorders (20 sources)Gastroesophageal reflux disease; 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: [Gastro-esophageal reflux disease without esophagitis]Onset: 12-27-2015 Resolved: 923059-28-1385KxlpkgpOfdmvedak hypertension (20 sources)Essential (primary) hypertension; 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: [Hypertensive disorder]Onset: 926636-01-1576JftedewIbroysmf; including migraine (2 sources)Acute posttraumatic headache; 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: [Acute post-traumatic headache, not intractable]14-56-4852QtxlpjxvHiix disorders (20 sources)Bipolar I disorder; 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: [Bipolar disorder, unspecified] Onset: 758071-25-7898AkppvtyFurbxpy (2 sources)Pain in toe; 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: [Tinea unguium]47-37-1674GgjmmpjtZxyejv and vomiting (17 sources)Nausea; 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: [Nausea]EpisodicOther acquired deformities (20 sources)Mallet finger of right finger(s); 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: [Mallet finger] EpisodicOther aftercare (2 sources)Encounter for other specified surgical aftercare; 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: [Other specified aftercare following surgery]28-62-9489XbgfygqiPfkuk bone disease and musculoskeletal deformities (2 sources)Idiopathic aseptic necrosis of right femur; 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: [Aseptic necrosis of head and neck of femur]06-29-8680EfqplawAnxhi injuries and conditions due to external causes (6 sources)Injury of head; 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: [Unspecified injury of head, sequela] 52-79-6873JymefhsdYxfqa nervous system disorders (13 sources)Carpal tunnel syndrome, left upper limbOnset: 01-21-2022 Resolved: 06-78-5974FngaeifUtuoj nervous system disorders (20 sources)Carpal tunnel syndrome, right upper limb; 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: [Carpal tunnel syndrome]Onset: 05-27-2022 Resolved: 64-07-3373ZrvumjhUfwjg nervous system disorders (2 sources)Carpal tunnel syndrome; 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: [Carpal tunnel syndrome, left upper limb]85-44-8030JtcnecsDbjyn nervous system disorders (1 source)Chronic pain syndrome; 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: [Chronic pain syndrome]Onset: 83-59-8183GkezlejJxxof nervous system disorders (6 sources)Disturbance of attention; 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: [Attention and concentration deficit]62-67-0266RbfavheXbkeh nervous system disorders (4 sources)Chronic pain; 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: [Other chronic pain]86-82-0495Ulabivg Other nervous system disorders (12 sources)Chronic pain syndrome; 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: [Chronic pain syndrome]Onset: 832508-22-5103WwllrcyPhwvo non-traumatic joint disorders (8 sources)Pain in right wristOnset: 05-27-2022 Resolved: 67-95-6712KafrrvuaTcips non-traumatic joint disorders (2 sources)Pain in right hip; 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: [Pain in joint, pelvic region and thigh]06-64-9471ActyodirCmyec nutritional; endocrine; and metabolic disorders (17 sources)Obese class I; 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: [Body mass index (BMI) 31.0-31.9, adult]ChronicOther nutritional; endocrine; and metabolic disorders (2 sources)Body mass index (BMI) 30.0-30.9, adult; 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: [Body mass index (BMI) 30.0-30.9, adult]Onset: 37-32-5374XtqugquUqbbr nutritional; endocrine; and metabolic disorders (14 sources)Body mass index 30+ - obesity; 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: [Body mass index (BMI) 30.0-30.9, adult]Onset: 882241-44-6760ZclzjvvGywkdcfw codes; unclassified (4 sources)Insomnia; 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: [Other insomnia]77-80-5191LzwtcxzDwevbsex codes; unclassified (4 sources)Obstructive sleep apnea syndrome; 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: [Obstructive sleep apnea (adult) (pediatric)]17-49-7975CpgpthwCyjssedb codes; unclassified (2 sources)Tobacco use; 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: [Tobacco use disorder]12-08-0060Wgdvwmbj Skin and subcutaneous tissue infections (2 sources)Onychia of toe of right foot; 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: [Cellulitis of right toe] 13-89-4695BquwrlspVwbijmfpzqk; intervertebral disc disorders; other back problems (20 sources)Cervical spondylosis without myelopathy; 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: [Spondylosis without myelopathy or radiculopathy, cervical region]Onset: 02-14-2004 Resolved: 99-68-3720KuzpjvdImzsmfvej-related disorders (14 sources)Nicotine dependence, unspecified, uncomplicated; 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: [Smoker]Onset: 85-96-1931AqrqlrhTkuwhjqhdmx injury; contusion (2 sources)Contusion of left foot; 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: [Contusion of left foot, initial encounter]34-50-0003NvozttuxYxffzju disorders (20 sources)Hypothyroidism, unspecified; 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: [Hypothyroidism]Onset: hronic Past or Other Problems Problem ClassificationProblemDateDocumented DateEpisodic/ChronicAlcohol-related disorders (20 sources)Alcohol abuse; 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: [Alcohol abuse, uncomplicated]Onset: 10-29-2020 Resolved: 112184-23-1970AilmgtvDrdhguvmusv and hemorrhagic disorders (20 sources)Thrombocytopenic disorder; 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: [Thrombocytopenia, unspecified]Onset: 05-22-2024 Resolved: 399219-33-9008TnpbfduOdbzfcskbygf of device; implant or graft (20 sources)Pain due to internal orthopedic prosthetic devices, implants and grafts, initial encounter; 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: [Pain]Onset: 01-21-2022 Resolved: 29-66-5196MvmfwpjmCzkocfel mellitus without complication (12 sources)Type 2 diabetes mellitus without complications; 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: [Type 2 diabetes mellitus]Onset: 05-29-2024 Resolved: 89-70-3001GjnbxdeVfqxppdc of upper limb (20 sources)Fracture of scaphoid bone of wrist; 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: [Nondisplaced fracture of proximal third of navicular [scaphoid] bone of left wrist, subsequent encounter for fracture with nonunion]Onset: 01-21-2022 Resolved: 34-58-9053KwdrbzoyNukmofml; including migraine (20 sources)Refractory migraine; 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: [Migraine, unspecified, intractable, without status migrainosus]Onset: 04-02-2020 Resolved: 175190-98-1390GifkdhaFaocvbzbpkdwg and screening for infectious disease (20 sources)Culture positive for methicillin resistant Staphylococcus aureus; 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: [Carrier or suspected carrier of Methicillin resistant Staphylococcus aureus]Onset: 05-22-2024 Resolved: 077272-54-1928HitquwduWjhjgbsxt arthritis and osteomyelitis (except that caused by tuberculosis or sexually transmitted disease) (20 sources)Osteomyelitis; 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: [Osteomyelitis, unspecified]Onset: 05-22-2024 Resolved: 346048-19-5072FdcfnocJkkpsib and fatigue (20 sources)Fatigue; 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: [Other fatigue]Onset: 12-27-2015 Resolved: 716343-63-6318KgsdgekkVophgdzpitq deficiencies (20 sources)Vitamin B deficiency; 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: [Vitamin B deficiency, unspecified]Onset: 12-27-2015 Resolved: 480223-56-6157RydzfcnmSbone acquired deformities (20 sources)Mallet finger; 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: [Mallet finger of right finger(s)] Onset: 386427-59-0659HlchxmmxUvmqs aftercare (1 source)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; 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]Onset: 729275-68-0132EtfytlkmApqqw aftercare (20 sources)Postoperative visit; 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: [Encounter for other specified surgical aftercare]Onset: 05-22-2024 Resolved: 348307-68-2401PadibmecVqyba aftercare (20 sources)Patient encounter status; 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]Onset: 388420-04-3749WbnxxmojMaxww bone disease and musculoskeletal deformities (20 sources)Avascular necrosis of bone of hip; 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: [Idiopathic aseptic necrosis of unspecified femur]Onset: 05-22-2024 Resolved: 654924-18-6959ErpimshDadpi diseases of kidney and ureters (20 sources)Kidney disease; 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: [Disorder of kidney and ureter, unspecified]Onset: 493525-19-7463XyrzxqxzTmpuc disorders of stomach and duodenum (20 sources)Disorder of function of stomach; 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: [Disease of stomach and duodenum, unspecified]Onset: 12-30-2023 Resolved: 796203-72-1431WqqxfuaqZpfns endocrine disorders (20 sources)Testicular hypofunction; 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: [Testicular hypofunction] Onset: 12-27-2015 Resolved: 428349-91-1140TycdjihTthyp nervous system disorders (20 sources)Carpal tunnel syndrome of left wrist; 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: [Carpal tunnel syndrome, left upper limb]Onset: 05-22-2024 Resolved: 889536-43-6337UgxncjbJzisu nervous system disorders (20 sources)Carpal tunnel syndrome of right wrist; 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: [Carpal tunnel syndrome, right upper limb]Onset: 05-22-2024 Resolved: 082398-30-3090YrdlvzpXjruu nervous system disorders (20 sources)Paresthesia; 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: [Paresthesia of skin]Onset: 05-22-2024 Resolved: 850038-62-4655GxxjsjtxXyrre nervous system disorders (1 source)Paresthesia of skinOnset: 01-21-2022 Resolved: 50-31-2541RulosseoRnzxq nervous system disorders (1 source)Anesthesia of skinOnset: 01-21-2022 Resolved: 13-17-0492TvbzieucPadru nervous system disorders (20 sources)Pain in limb; 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: [Other acute postprocedural pain]Onset: 01-29-2003 Resolved: 488809-48-1547ZtvssiwfJrdvz nervous system disorders (20 sources)Skin sensation disturbance; 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: [Unspecified disturbances of skin sensation]Onset: 09-17-2021 Resolved: 982122-54-0577ArxakkmuCaocq nervous system disorders (20 sources)Impaired cognition; 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: [Other symptoms and signs involving cognitive functions and awareness]Onset: 537305-01-2727Wbvtyjfo Other non-traumatic joint disorders (1 source)Pain in left wristOnset: 01-21-2022 Resolved: 69-49-6683KghycklpCivcs non-traumatic joint disorders (20 sources)Hip pain; 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: [Pain in right hip]Onset: 05-22-2024 Resolved: 638544-76-1854ClmmxossRmwjm screening for suspected conditions (not mental disorders or infectious disease) (17 sources)Encounter for screening for malignant neoplasm of prostate; 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: [Abnormal electrocardiogram [ECG] [EKG]]Onset: 05-07-2021 Resolved: 28-51-8463QilvjlseSgrdrheg codes; unclassified (20 sources)Postprocedural state finding; 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: [Other specified postprocedural states]Onset: 05-22-2024 Resolved: 131003-34-9870BcxagyreZwuascpb codes; unclassified (5 sources)Other specified postprocedural statesOnset: 01-21-2022 Resolved: 25-36-7203PijwzxbtBhgffirs codes; unclassified (20 sources)Edema of right upper limb; 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: [Localized edema]Onset: 12-30-2023 Resolved: 351963-08-1134UcppcnwzYtzfmvfq codes; unclassified (20 sources)Harmful pattern of use of nicotine; 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: [Tobacco use] Onset: 05-22-2024 Resolved: 236575-47-0661DfabyzndTqezbgwf codes; unclassified (20 sources)Pain; 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: [Pain, unspecified]Onset: 12-30-2023 Resolved: 696072-28-7329GzxptiwqLmkahfhapoy; intervertebral disc disorders; other back problems (20 sources)Radiculopathy, cervical region; 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: [Right cervical root neuropathy]Onset: 01-13-2017 Resolved: 52-40-4288WimxcxvlRljyunbswqoh (2 sources)Patient encounter ijjbcd49-14-0417 Results Test NameValueInterpretationReference MeddcVvsipyvcMqH9n (Bld) [Mass fraction]on 63-46-5148Tpgojhegmjcira and review of laboratory resultsNormalSSM RehabS HealthcareLaboratory - Hematology and Cell countson 35-35-6230FrY2y (Bld) [Mass fraction]5.5 %[facility] HealthcareCBC W Auto Differential panel (Bld)on 96-65-2468Jonhkkzem (Bld) [#/Vol]0.1 10*3/uLNOMS HealthcareBasophils/100 WBC (Bld)1 %Not Estab.[facility] HealthcareEosinophils (Bld) [#/Vol]0.3 10*3/uLNOMS HealthcareEosinophils/100 WBC (Bld)3 %Not Estab.[facility] HealthcareErythrocyte distribution width (RBC) [Ratio]12.5 %11.6 - 15.4 %[facility] HealthcareHematocrit (Bld) [Volume fraction]51 %37.5 - 51.0 %[facility] HealthcareHemoglobin (Bld) [Mass/Vol]16.9 g/dL13.0 - 17.7 g/dLMOUNTAINSTAR HEALTHCARE HealthcareImmature granulocytes (Bld) [#/Vol]0 10*3/uLNOMS HealthcareImmature granulocytes/100 WBC (Bld)0 %Not Estab. [facility] HealthcareLymphocytes (Bld) [#/Vol]2.7 10*3/uLNOMS Healthcare Lymphocytes/100 WBC (Bld)26 %Not Estab.[facility] HospitalMCH (RBC) [Entitic mass]30 pg26.6 - 33.0 pgNOME HealthcareMCHC (RBC) [Mass/Vol]33.1 g/dL31.5 - 35.7 g/dL [facility]V (RBC) [Entitic vol]90 fL79 - 97 fLNOME HealthcareMonocytes (Bld) [#/Vol]0.8 10*3/uLNOMS HealthcareMonocytes/100 WBC (Bld)8 %Not Estab.[facility] HealthcareNeutrophils (Bld) [#/Vol]6.5 10*3/uLNOMS HealthcareNeutrophils/100 WBC (Bld)62 %Not Estab.[facility] HealthcarePlatelets (Bld) [#/Vol]331 10*3/uLNOMS HealthcareRBC (Bld) [#/Vol]5.64 10*6/uLNOMS HealthcareWBC (Bld) [#/Vol]10.5 10*3/uLNOMS HealthcareLaboratory - Chemistry and Chemistry - challengeon 46-05-1777Cqdixpi [Mass/Vol]4.6 g/dL3.8 - 4.9 g/dLNOMS HealthcareALP [Catalytic [...] [Mass/Vol]2.3 g/dL1.5 - 4.5 g/dLNOMS HealthcareGlucose [Mass/Vol]167 mg/tMRrje71 - 99 mg/dLNOMS HealthcareMagnesium [Mass/Vol]1.8 mg/dL1.6 - 2.3 mg/dLNOME HealthcarePotassium [Moles/Vol]4.4 mmol/L3.5 - 5.2 mmol/LNOMS HealthcareProstate specific Ag [Mass/Vol]2.2 ng/mL0.0 - 4.0 ng/mLNOMS HealthcareComment on above: [employer] ECLIA methodology. According to the [employer], Serum PSA should decrease and [...] HealthcareUrea nitrogen/Creatinine [Mass ratio]10 mg/mg9 - 20NOSaint Luke's East HospitalLaboratory - Hematology and Cell counts on 31-80-9822YuW1x (Bld) [Mass fraction]7.2 %High4.8 - 5.6 %[facility] Comment on above:Prediabetes: 5.7 - 6.4 Diabetes: >6.4 Glycemic control for adults with diabetes: <7.0 Lipid 1996 panelon 43-86-4819Ehubdtaxzbr [Mass/Vol]168 mg/dL100 - 199 mg/dLNOSaint Luke's East HospitalCholesterol in HDL [Mass/Vol]35 mg/dLLow39 - PINF mg/dLCedar County Memorial Hospital Cholesterol in LDL [Mass/Vol]96 mg/dL0 - 99 mg/dLNOSaint Luke's East HospitalCholesterol in VLDL [Mass/Vol]37 mg/dL5 - 40 mg/dLNOSaint Luke's East HospitalTriglyceride [Mass/Vol]218 mg/dLHigh0 - 149 mg/dLCedar County Memorial HospitalMicroalbumin/Creatinine ratio panel (U)on 18-99-1150Vwwpfpq DL <= 20 mg/L (U) [Mass/Vol]17.6 ug/mLNot Estab.[facility] HealthcareAlbumin/Creatinine (U) [Mass ratio]9NOME HealthcareComment on above: Normal: 0 - 29 Moderately increased: 30 - 300 Severely increased: >300 Creatinine (U) [Mass/Vol]188 mg/dLNot Estab.[facility] HealthcareNo Panel Information on 01-79-5678Iwmbcofpkswfjr and review of laboratory resultsAbnormalCedar County Memorial HospitalPerformed at: 01 - [facility] [address] [id number] Waiter And Cashier: Devon Leos PhD, Phone: [phone] Healthcare Amphetamine Screen Ql (U)Ordered By: Arcadio Rao on 06-12-2024 Amphetamines Ql (U)NegativeNegativeOhio State University Wexner Medical CenterBarbiturates [Presence] in Urine by Screen methodOrdered By: Arcadio Rao on 15-82-9395Qekwugwedlmn Screen Ql (U)NegativeNegativeOhio State University Wexner Medical CenterBenzodiazepines Screen Ql (U)Ordered By: Arcadio Rao on 06-12-2024 Benzodiazepines Ql (U)NegativeNegMartins Ferry Hospital Benzoylecgonine [Presence] in Urine by Screen methodOrdered By: Arcadio Rao on 13-18-3813Navlunwipgpskhn Screen Ql (U)NegativeNegMartins Ferry HospitalCannabinoids [Presence] in Urine by Screen methodOrdered By: Arcadio Rao on 32-24-1923Nfwkfrovteqp Screen Ql (U)PositiveHigh NegativeOhio State University Wexner Medical CenterComment on above:These are unconfirmed results and should not be used for legal purposes. Drug Cut-Off Concentration: AMPH 1000 ng/mL JUANI 200 ng/mL MOHAMUD 200 ng/mL COCM 300 ng/mL OP 300 ng/mL PCP 25 ng/mL THC 20 ng/mLGlucose Glucometer (BldC) [Mass/Vol]Ordered By: Magaly Rosario on 30-65-2797Nvnypti [Mass/Vol]131 mg/dLOhio State University Wexner Medical Center Comment on above:Random Glucose Reference Range is dependent on time and content of last meal. Glucose of more than 200 mg/dL in a nonstressed, ambulatory subject supports the diagnosis of Diabetes Mellitus.No Panel InformationOrdered By: Magaly Rosario on 27-96-8981Zvhyihf Glucose CommentGlu2: cleaned meter [facility] CenterOpiates [Presence] in Urine by Screen method Ordered By: Arcadio Rao on 99-38-5915Mbgyjva Screen Ql (U)Negative NegativeOhio State University Wexner Medical CenterPhencyclidine Screen Ql (U)Ordered By: Arcadio Rao on 02-72-5908Cptkyvndbmpsl Ql (U)NegativeNegMartins Ferry HospitalAlanine aminotransferase [Enzymatic activity/volume] in Serum or PlasmaOrdered By: Magaly Rosario on 74-42-9782EUR [Catalytic activity/Vol]71 U/LHigh7-52Fire[facility] Medical CenterAlbumin [Mass/volume] in Serum or Plasma by Bromocresol green (BCG) dye binding metho Ordered By: Magaly Rosario on 37-58-3317Qeignvc BCG dye [Mass/Vol]4.7 g/dL 3.5-5.7FWexner Medical CenterAlkaline phosphatase [Enzymatic activity/volume] in Serum or PlasmaOrdered By: Magaly Rosario on 80-17-8942UKO [Catalytic activity/Vol]67 U/D52-940EjgokodshOhio State University Wexner Medical CenterAspartate aminotransferase [Enzymatic activity/volume] in Serum or PlasmaOrdered By: Magaly Rosario on 21-53-1474TKG [Catalytic activity/Vol]24 U/B06-94JoyhgbobbOhio State University Wexner Medical CenterBasophils Auto (Bld) [#/Vol]Ordered By: Magaly Rosario on 62-13-0767Iaotqenlv (Bld) [#/Vol]0.1 10*3/uL0.0-0.2FWexner Medical CenterBasophils/100 WBC Auto (Bld)Ordered By: Magaly Rosario on 06-01-2024 Basophils/100 WBC (Bld)1.0 %.[facility] CenterBilirubin.total [Mass/volume] in Serum or PlasmaOrdered By: Magaly Rosario 06-01-2024 Bilirubin [Mass/Vol]0.4 mg/dL0.3-1.0[facility] CenterCalcium [Mass/volume] in Serum or PlasmaOrdered By: Magaly Rosario 98-88-1693Dhsvgrk [Mass/Vol]10.0 mg/dL8.6-10.3FWexner Medical CenterCarbon dioxide, total [Moles/volume] in Serum or PlasmaOrdered By: Magaly Rosario on 06-01-2024 CO2 [Moles/Vol]25.3 mmol/L21.0-31.0[facility] CenterChloride [Moles/volume] in Serum or PlasmaOrdered By: Magaly Rosario on 06-01-2024 Chloride [Moles/Vol]105 mmol/G09-222AamglofykOhio State University Wexner Medical CenterCreatinine [Mass/volume] in Serum or PlasmaOrdered By: Magaly Rosario 06-01-2024 Creatinine [Mass/Vol]1.06 mg/dL0.70-1.30[facility] Eosinophils Auto (Bld) [#/Vol]Ordered By: Magaly Rosario on 06-01-2024 Eosinophils (Bld) [#/Vol]0.2 10*3/uL0.0-0.45[facility] Eosinophils/100 WBC Auto (Bld)Ordered By: Magaly Rosario on 06-01-2024 Eosinophils/100 WBC (Bld)1.8 %.[facility] CenterErythrocyte distribution width Auto (RBC) [Ratio]Ordered By: Magaly Rosario on 06-01-2024 Erythrocyte distribution width (RBC) [Ratio]13.5 %12.0-14.8[facility] Medical CenterGlobulin Calc (S) [Mass/Vol]Ordered By: Magaly Rosario on 09-50-3034Tqtqwfhs (S) [Mass/Vol]2.5 g/dLOhio State University Wexner Medical Center Glucose [Mass/volume] in Serum or PlasmaOrdered By: Magaly Rosario on 06-01-2024 Glucose [Mass/Vol]123 mg/oIRele03-370QeedvkyemOhio State University Wexner Medical CenterComment on above:ADA recommended reference rangeGlucose mean value [Mass/volume] in Blood Estimated from glycated hemoglobinOrdered By: Magaly Rosario on 06-01-2024 Average glucose Estimated from glycated hemoglobin (Bld) [Mass/Vol]131 mg/dL [facility] CenterHematocrit Auto (Bld) [Volume fraction]Ordered By: Magaly Rosario on 12-08-2326Ylrzcetswg (Bld) [Volume fraction]51.3 %High 38.8-50.0[facility] CenterHemoglobin [Mass/volume] in Blood Ordered By: Magaly Rosario 35-46-5727Efbvufgwlx (Bld) [Mass/Vol]17.2 g/dLHigh 13.0-17.0[facility] CenterLaboratory - Hematology and Cell countsOrdered By: Magaly Rosario on 94-49-1262LzR1l (Bld) [Mass fraction]6.2 % High4.3-5.6FWexner Medical CenterComment on above:Increased risk for diabetes: 5.7 - 6.4diabetes: >6.4glycemic control for adults with diabetes: &l t;7.0Leukocytes [#/volume] corrected for nucleated erythrocytes in Blood by Automated counOrdered By: Magaly Rosario on 00-95-9169ZWO corrected for nucl RBC Auto (Bld) [#/Vol]11.4 10*3/uLHigh4.1-10.5FWexner Medical Center Lymphocytes Auto (Bld) [#/Vol]Ordered By: Magaly Rosario on 06-01-2024 Lymphocytes (Bld) [#/Vol]2.1 10*3/uL1.00-4.8[facility] Lymphocytes/100 WBC Auto (Bld)Ordered By: Magaly Rosario on 06-01-2024 Lymphocytes/100 WBC (Bld)18.3 %.[facility] Auto (RBC) [Entitic mass]Ordered By: Magaly Rosario on 67-67-9242ERD (RBC) [Entitic mass] 31.2 pg27.5-35.2FWexner Medical CenterMCHC Auto (RBC) [Mass/Vol] Ordered By: Magaly Rosario on 49-83-6295QCST (RBC) [Mass/Vol]33.6 g/dL32.5-35.6 [facility] CenterMCV Auto (RBC) [Entitic vol]Ordered By: Magaly Rosario on 51-46-6518CGU (RBC) [Entitic vol]93.1 fL83.5-101[facility] CenterMonocytes Auto (Bld) [#/Vol]Ordered By: Magaly Rosario on 29-09-9118Hhwrsntwe (Bld) [#/Vol]0.6 10*3/uL0.0-0.8[facility] CenterMonocytes/100 WBC Auto (Bld)Ordered By: Magaly Rosario on 06-01-2024 Monocytes/100 WBC (Bld)5.5 %.[facility] CenterNeutrophils Auto (Bld) [#/Vol]Ordered By: Magaly Rosario on 03-98-1163Zrajzqnbnxc (Bld) [#/Vol] 8.4 10*3/uLHigh1.8-7.7FWexner Medical CenterNeutrophils/100 WBC Auto (Bld)Ordered By: Magaly Rosario on 93-86-7748Lorhdgztqrs/100 WBC (Bld)73.4 %. [facility] CenterNo Panel InformationOrdered By: Magaly Rosario on 86-15-7838Veabphlbj GFR (CKD-EPI)> 60.0 mL/MinOhio State University Wexner Medical CenterPharmacy Creatinine Clearance (ChemN/AFWexner Medical Center Nucleated erythrocytes [Presence] in Blood by Automated countOrdered By: Magaly Rosario on 76-90-3064Nywrkscmz RBC Auto Ql (Bld)0.2 /100{WBC}0-0.5FWexner Medical CenterPlatelet mean volume Auto (Bld) [Entitic vol]Ordered By: Magaly Rosario on 16-56-9258Kahnpjjq mean volume (Bld) [Entitic vol]7.6 fL 6.6-10.1FWexner Medical CenterPlatelets Auto (Bld) [#/Vol]Ordered By: Magaly Rosario on 09-94-5765Bxhxlmszk (Bld) [#/Vol]345 10*3/fL058-718YvqmyuruyOhio State University Wexner Medical CenterPotassium [Moles/volume] in Serum or PlasmaOrdered By: Magaly Rosario on 56-57-3053Hwakibkho [Moles/Vol]4.2 mmol/L3.5-5.1FWexner Medical CenterProtein [Mass/volume] in Serum or PlasmaOrdered By: Magaly Rosario on 50-12-4818Hgmabwb [Mass/Vol]7.2 g/dL6.4-8.9[facility] Medical CenterRBC Auto (Bld) [#/Vol]Ordered By: Magaly Rosario on 11-93-8701UTY (Bld) [#/Vol]5.51 10*6/uL3.90-5.60[facility] Hospitalerum or plasma albumin/globulin mass ratioOrdered By: Magaly Rosario on 06-01-2024 Albumin/Globulin [Mass ratio]1.9 {ratio}[facility] Hospitalerum or plasma anion gap determinationOrdered By: Magaly Rosario on 92-71-9851Cbzem gap [Moles/Vol]13.9 mmol/L6.0-15.0[facility] Hospitalodium [Moles/volume] in Serum or PlasmaOrdered By: Magaly Rosario on 06-04-3337Rvdukp [Moles/Vol]140 mmol/U054-382FcajeqgvxOhio State University Wexner Medical CenterUrea nitrogen [Mass/volume] in Serum or PlasmaOrdered By: Magaly Rosario on 99-55-5381Nszb nitrogen [Mass/Vol]13 mg/dL7-25[facility] CenterWBC Auto (Bld) [#/Vol]Ordered By: Magaly Rosario on 73-91-0279LWI (Bld) [#/Vol]11.4 10*3/uLHigh 4.1-10.5FWexner Medical CenterECG [address] [place] 99-39-3063Yswtqg sinus rhythmCPACSSt. John of God Hospital Work Phone: alanine aminotransferase [Enzymatic activity/volume] in Serum or PlasmaOrdered By: Magaly Rosario on 79-07-1157UAA [Catalytic activity/Vol]35 U/L7-52[facility] CenterAlbumin [Mass/volume] in Serum or Plasma by Bromocresol green (BCG) dye binding methoOrdered By: Magaly Rosario on 16-77-3323Xuhnjyu BCG dye [Mass/Vol]4.5 g/dL3.5-5.7FWexner Medical CenterAlkaline phosphatase [Enzymatic activity/volume] in Serum or PlasmaOrdered By: Magaly Rosario on 82-01-1315RMZ [Catalytic activity/Vol]71 U/L 34-104[facility] Medical CenterAspartate aminotransferase [Enzymatic activity/volume] in Serum or PlasmaOrdered By: Magaly Rosario on 51-38-3732OVB [Catalytic activity/Vol]23 U/K59-38AihhbuiuxOhio State University Wexner Medical CenterBasophils Auto (Bld) [#/Vol]Ordered By: Magaly Rosario on 38-73-4922Snkgdtksf (Bld) [#/Vol]0.0 10*3/uL0.0-0.2FWexner Medical CenterBasophils/100 WBC Auto (Bld)Ordered By: Magaly Rosario on 89-43-3752Hxztlgiea/100 WBC (Bld)0.6 %. [facility] CenterBilirubin.total [Mass/volume] in Serum or PlasmaOrdered By: Magaly Rosario on 87-08-2817Voelqdsrj [Mass/Vol]0.4 mg/dL 0.3-1.0[facility] CenterCalcium [Mass/volume] in Serum or Plasma Ordered By: Magaly Rosario 12-38-5834Ljlfcov [Mass/Vol]9.1 mg/dL8.6-10.3 [facility] CenterCarbon dioxide, total [Moles/volume] in Serum or PlasmaOrdered By: Magaly Rosario 12-05-8079XH2 [Moles/Vol]27.8 mmol/L 21.0-31.0[facility] CenterChloride [Moles/volume] in Serum or PlasmaOrdered By: Magaly Rosario 66-80-1519Gxurjttx [Moles/Vol]103 mmol/L 98-107[facility] CenterCreatinine [Mass/volume] in Serum or PlasmaOrdered By: Magaly Rosario 45-00-0426Yknptudurr [Mass/Vol]1.21 mg/dL 0.70-1.30[facility] CenterEosinophils Auto (Bld) [#/Vol]Ordered By: Magaly Rosario 80-80-6783Kyblyehneqh (Bld) [#/Vol]0.2 10*3/uL0.0-0.45 [facility] CenterEosinophils/100 WBC Auto (Bld)Ordered By: Magaly Rosario 92-12-8914Dpcdyxsffhf/100 WBC (Bld)2.1 %.[facility] CenterErythrocyte distribution width Auto (RBC) [Ratio]Ordered By: Magaly Rosario 84-23-7546Thknvippztq distribution width (RBC) [Ratio]14.0 % 12.0-14.8[facility] CenterGlobulin Calc (S) [Mass/Vol]Ordered By: Magaly Rosario 83-72-5412Cxqohrky (S) [Mass/Vol]2.4 g/dLOhio State University Wexner Medical CenterGlucose [Mass/volume] in Serum or PlasmaOrdered By: Magaly Rosario on 18-34-1215Bpjhavj [Mass/Vol]138 mg/tCJezs98-561NcxrebydyOhio State University Wexner Medical CenterComment on above:ADA recommended reference rangeGlucose mean value [Mass/volume] in Blood Estimated from glycated hemoglobinOrdered By: Magaly Rosario on 36-62-7918Djsvwtt glucose Estimated from glycated hemoglobin (Bld) [Mass/Vol]123 mg/dLOhio State University Wexner Medical CenterHematocrit Auto (Bld) [Volume fraction]Ordered By: Magaly Rosario on 73-44-0784Njsgwesqhn (Bld) [Volume fraction]47.4 %38.8-50.0[facility] CenterHemoglobin [Mass/volume] in BloodOrdered By: Magaly Rosario on 48-85-6285Wsskiflvhh (Bld) [Mass/Vol]16.1 g/dL13.0-17.0[facility] CenterLaboratory - Hematology and Cell countsOrdered By: Magaly Rosario on 87-82-0218KjA5e (Bld) [Mass fraction]5.9 %High4.3-5.6FWexner Medical CenterComment on above:Increased risk for diabetes: 5.7 - 6.4diabetes: >6.4glycemic control for adults with diabetes: <7.0Leukocytes [#/volume] corrected for nucleated erythrocytes in Blood by Automated counOrdered By: Magaly Rosario on 04-26-2024 WBC corrected for nucl RBC Auto (Bld) [#/Vol]7.8 10*3/uL4.1-10.5FWexner Medical CenterLymphocytes Auto (Bld) [#/Vol]Ordered By: Magaly Rosraio on 98-62-5771Qmsiehppnyt (Bld) [#/Vol]1.7 10*3/uL1.00-4.8[facility] CenterLymphocytes/100 WBC Auto (Bld)Ordered By: Magaly Rosario on 72-46-4995Oiqkeyzkubg/100 WBC (Bld)21.4 %.[facility] Auto (RBC) [Entitic mass]Ordered By: Magaly Rosario on 86-81-9827AQK (RBC) [Entitic mass]32.0 pg27.5-35.2FWexner Medical CenterMCHC Auto (RBC) [Mass/Vol]Ordered By: Magaly Rosario on 40-94-0409TEOI (RBC) [Mass/Vol]34.0 g/dL 32.5-35.6FWexner Medical CenterMCV Auto (RBC) [Entitic vol]Ordered By: Magaly Rosario on 34-19-7891UKX (RBC) [Entitic vol]93.9 fL83.5-101[facility] CenterMonocytes Auto (Bld) [#/Vol]Ordered By: Magaly Rosario on 39-89-0881Otljovbny (Bld) [#/Vol]0.7 10*3/uL0.0-0.8[facility] CenterMonocytes/100 WBC Auto (Bld)Ordered By: Magaly Rosario on 04-26-2024 Monocytes/100 WBC (Bld)8.9 %.[facility] CenterNeutrophils Auto (Bld) [#/Vol]Ordered By: Magaly Rosario on 09-35-0163Aehxapgghqh (Bld) [#/Vol] 5.3 10*3/uL1.8-7.7FWexner Medical CenterNeutrophils/100 WBC Auto (Bld)Ordered By: Magaly Rosario on 25-12-8625Evlmwskkvzk/100 WBC (Bld)67.0 %. [facility] CenterNo Panel InformationOrdered By: Magaly Rosario on 66-67-4220Wlwdetbpe GFR (CKD-EPI)> 60.0 mL/MinOhio State University Wexner Medical CenterPharmacy Creatinine Clearance (ChemN/AFWexner Medical Center Nucleated erythrocytes [Presence] in Blood by Automated countOrdered By: Magaly Rosario on 42-95-3092Fpxobsafm RBC Auto Ql (Bld)0.1 /100{WBC}0-0.5FWexner Medical CenterPlatelet mean volume Auto (Bld) [Entitic vol]Ordered By: Magaly Rosario on 78-24-8170Hshiciam mean volume (Bld) [Entitic vol]7.5 fL 6.6-10.1FWexner Medical CenterPlatelets Auto (Bld) [#/Vol]Ordered By: Magaly Rosario on 10-91-5408Npyjmxljk (Bld) [#/Vol]282 10*3/tK275-108ZafolosseOhio State University Wexner Medical CenterPotassium [Moles/volume] in Serum or PlasmaOrdered By: Magaly Rosario on 29-82-6851Ihnpqvxyr [Moles/Vol]4.4 mmol/L3.5-5.1FWexner Medical CenterProtein [Mass/volume] in Serum or PlasmaOrdered By: Magaly Rosario on 43-00-2043Widuzda [Mass/Vol]6.9 g/dL6.4-8.9[facility] CenterRBC Auto (Bld) [#/Vol]Ordered By: Magaly Rosario on 80-53-2329CWH (Bld) [#/Vol]5.05 10*6/uL3.90-5.60[facility] Hospitalerum or plasma albumin/globulin mass ratioOrdered By: Magaly Rosario on 04-26-2024 Albumin/Globulin [Mass ratio]1.9 {ratio}[facility] Hospitalerum or plasma anion gap determinationOrdered By: Magaly Rosario on 18-50-6829Rzmhh gap [Moles/Vol]11.6 mmol/L6.0-15.0[facility] Hospitalodium [Moles/volume] in Serum or PlasmaOrdered By: Magaly Rosario on 99-01-3160Tctspu [Moles/Vol]138 mmol/X099-431ZomdoovilOhio State University Wexner Medical CenterUrea nitrogen [Mass/volume] in Serum or PlasmaOrdered By: Magaly Rosario on 63-93-2521Mwav nitrogen [Mass/Vol]21 mg/dL7-25[facility] CenterWBC Auto (Bld) [#/Vol]Ordered By: Magaly Rosario on 09-44-9748MCV (Bld) [#/Vol]7.8 10*3/uL 4.1-10.5FWexner Medical CenterGlucose Glucometer (BldC) [Mass/Vol]on 53-39-7967Axgqnkx [Mass/Vol]81 mg/mWWsadqw62-74ZbvFtqiebAkron Children's HospitalGlucose Glucometer (BldC) [Mass/Vol]on 92-12-2063Vkfexhu [Mass/Vol]102 mg/uPYfjy52-99 [facility] HospitaledicMattel Children's Hospital UCLA AND AUTO DIFFon 54-62-7887PEXQODSB BASOPHIL0.0 X10E9/LNormal0.0-0.2PGood Samaritan HospitalComment on above:Performed By: #### CBCA #### [facility] ([id number]) [address], [address] [place], [place] [address]TMMRZNQW NEUTROPHIL4.4 X10E9/LNormal1.5-6.6ProBaylor University Medical CenterComment on above:Performed By: #### CBCA #### [facility] ([id number]) [address], [address] [place], [place] [address]Qtxcbuwjc/100 WBC (Bld)0.6 %NormalAkron Children's Hospital Comment on above:Performed By: #### CBCA #### [facility] ([id number]) [address], [address] [place], [place] [address]Xsfiqhlqlrs (Bld) [#/Vol]0.1 10*3/uLNormal0.0-0.4Ak[facility] Children's HospitalComment on above:Performed By: #### CBCA #### [facility] ([id number]) [address], [address] [place], [place] [address]Udlhxksawjq/100 WBC (Bld)1.4 %NormalAkron Children's Hospital Comment on above:Performed By: #### CBCA #### [facility] ([id number]) [address], [address] [place], [place] [address]Bymbuoxnemx distribution width (RBC) [Ratio]13.3 %Normal 11.5-15.0[facility] Children's HospitalComment on above:Performed By: #### CBCA #### [facility] ([id number]) [address], [address] [place] [address]Nknswqurzj (Bld) [Volume fraction]46.1 %Zldmsc56-48NggEqzrwcBaylor University Medical CenterComment on above:Performed By: #### CBCA #### [facility] ([id number]) [address], [address] [place] [address]Wgbsxzelzn (Bld) [Mass/Vol]15.7 g/dNPecdwe75.0-17.0[facility]'s HospitalComment on above:Performed By: #### CBCA #### [facility] ([id number]) [address], [address] [place], [place] [address]Pjcmzmknzjd (Bld) [#/Vol]1.5 10*3/uLNormal1.0-3.5PGood Samaritan HospitalComment on above:Performed By: #### CBCA #### [facility] ([id number]) [address], [address] [place], [place] [address]Vsjwwcpnqmq/100 WBC (Bld)22.1 %NormalProBaylor University Medical Center Comment on above:Performed By: #### CBCA #### [facility] ([id number]) [address], [address] [place], [place] [address]NOO (RBC) [Entitic mass]31.6 kqXryfig33-30GjoBphaorBaylor University Medical CenterComment on above:Performed By: #### CBCA #### [facility] ([id number]) [address], [address] [place], [place] [address]EMKA (RBC) [Mass/Vol]34.0 g/yJZquzeh20-67SvjCaeqraBaylor University Medical CenterComment on above:Performed By: #### CBCA #### [facility] ([id number]) [address], [address] [place], [place] [address]CPX (RBC) [Entitic vol]93 tWGtostw94-035FyjYwmabs [facility]remont HospitalComment on above:Performed By: #### CBCA #### [facility] ([id number]) [address], [address] [place] [address]Cktqpvpqb (Bld) [#/Vol]0.7 10*3/uLNormal0-0.9Ak[facility] Children's HospitalComment on above:Performed By: #### CBCA #### [facility] ([id number]) [address], [address] [place] [address]Ilghcgljm/100 WBC (Bld)11.0 %NormalAkron Children's Hospital Comment on above:Performed By: #### CBCA #### [facility] ([id number]) [address], [address] [place] [address]Orhnxqgltwd/100 WBC (Bld)64.9 %[facility] Comment on above:Performed By: #### CBCA #### [facility] ([id number]) [address], [address] [place] [address]Erqbzegk mean volume (Bld) [Entitic vol]8.0 fLNormal7-12 [facility]'s HospitalComuniversity of michigan health on above:Performed By: #### CBCA #### [facility] ([id number]) [address], [address] [place] [address]Libbatwxa (Bld) [#/Vol]253 10*3/iJYcpquo423-053QowIztzvt [facility]ont HospitalComment on above:Performed By: #### CBCA #### [facility] ([id number]) [address], [address] [place] [address]GEJ COUNT4.97 X10E12/LNormal4.10-5.70[facility] Comment on above:Performed By: #### CBCA #### [facility] ([id number]) [address], [address] [place], [place] [address]QYM (Bld) [#/Vol]6.8 10*3/uLNormal4.0-11.0[facility]'s HospitalComment on above:Performed By: #### CBCA #### [facility] ([id number]) [address], [address] [place] [address]PLWDNJWls 47-76-2634Hghzcue [Mass/Vol]120 mg/gTLfcl32-59 [facility] HospitalComment on above:Performed By: #### 2345-7, 00640-8, LIVR, 4085-5 #### [facility] ([id number]) [address], [address] [place] [address]JGCDQ PANELon 88-81-1973Urghexi [Mass/Vol]4.3 g/dLNormal3.2-5.3 [facility] HospitalComment on above:Performed By: #### Emi5-7, 31840-4, LIVR, 4085- #### [facility] ([id number]) [address], [address] [place], [place] [address]KIZ [Catalytic activity/Vol]72 U/PMoygrk07-095NnlBarqngBaylor University Medical CenterComment on above:Performed By: #### 2345-7, 55659-4, LIVR, 4085- #### [facility] ([id number]) [address], [address] [place], [place] [address]GAM [Catalytic activity/Vol]70 U/LHigh0-40ProBaylor University Medical CenterComment on above:Performed By: #### 2345-7, 30222-9, LIVR, 6-5 #### [facility] ([id number]) [address], [address] [place], [place] [address]PSX [Catalytic activity/Vol]34 U/LNormal0-41ProRegency Hospital Toledo HospitalComment on above:Performed By: #### 2345-7, 97769-6, LIVR, 6- #### [facility] ([id number]) [address], [address] [place] [address]Pxcnvxnmf [Mass/Vol]0.5 mg/dLNormal0.3-1.2PGood Samaritan HospitalComment on above:Performed By: #### 2345-7, 48135-8, LIVR, 4086-5 #### [facility] ([id number]) [address], [address] [place], [place] [address]Xyiibjtbu.direct [Mass/Vol]0.2 mg/dLNormal0.0-0.4[facility]'s HospitalComment on above:Performed By: #### 2345-7, 84996-0, LIVFara, 4085- 5 #### [facility] ([id number]) [address], [address] [place] [address]Wmkmpdt [Mass/Vol]6.9 g/dLNormal6.0-8.0[facility] HospitalComment on above:Performed By: #### 2345-7, 80669-6, LIVR, 4086-5 #### [facility] ([id number]) [address], [address] [place] [address]Hojdg 1996 panelon 26-20-7925Lopnrvfmukt [Mass/Vol]152 mg/dL Lehkkf859-861RgpVjjzscBaylor University Medical CenterComment on above:Performed By: #### 2345- 7, 73414-1, LIVR, 4085-5 #### [facility] ([id number]) [address], [address] [place], [place] [address]Abmaprolhdw in HDL [Mass/Vol]36 mg/dLLow>39ProBaylor University Medical CenterComment on above:Result Comment: HDL <40 mg/dL - High Risk HDL > or = 40mg/dL- Desirable HDL >60 mg/dL - Negative Risk Performed By: #### 2345-7, 64530-9, LIVR, 6-5 #### [facility] ([id number]) [address], [address] [place], [place] [address]Dxzvuyobppl in LDL [Mass/Vol]91 mg/dLNormal<130ProBaylor University Medical CenterComment on above:Result Comment: LDL <100 mg/dL - Desirable LDL >160 mg/dL - High Risk Performed By: #### Emi5-Emeterio, 47853-1, LIVR, 4086-5 #### [facility] ([id number]) [address], [address] [place], [place] [address]Sahmhnrgqep in VLDL [Mass/Vol]25 mg/dLNormal0-30ProBaylor University Medical CenterComment on above:Performed By: #### Nikky-Emeterio, 01264-1, LIVR, 6- 5 #### [facility] ([id number]) [address], [address] [place], [place] [address]GTPUPFBBHAN:HDL4.6Dcjckx9.0-5.0ProBaylor University Medical CenterComment on above:Performed By: #### Nikky-Emeterio, 66498-4, LIVFara, 4085-5 #### [facility] ([id number]) [address], [address] [place], [place] [address]Opodmwtgggkx [Mass/Vol]126 mg/lQHzkxqy69-246OeyHlwqlq [facility] HospitalComment on above:Performed By: #### Emi5-Emeterio, 82290-8, LIVR, 6-5 #### [facility] ([id number]) [address], [address] [place], [place] [address]Dnaunvmuc [Mass/Vol]on 58-87-1102CWVZQFIL ACID97 ug/mLNormal 50-100ProMedica San Gabriel Valley Medical CenterComment on above:Performed By: #### 2345-7, 57012-2, LIVR, 4086-5 #### [facility] ([id number]) [address], [address] [place], [place] [address]Alanine aminotransferase [Enzymatic activity/volume] in Serum or PlasmaOrdered By: Agata Cordova on 77-60-0280PFZ [Catalytic activity/Vol]95 U/L7-52[facility] CenterAlbumin [Mass/volume] in Serum or Plasma by Bromocresol green (BCG) dye binding methoOrdered By: Agata Cordova on 08-19-9046Fkdpahc BCG dye [Mass/Vol]4.7 g/dL3.5-5.7FWexner Medical CenterAlkaline phosphatase [Enzymatic activity/volume] in Serum or PlasmaOrdered By: Agata Cordova on 33-14-6560BWC [Catalytic activity/Vol]74 U/L34-104 [facility] CenterAmylaseon 58-99-4712Yhkjnyx [Catalytic activity/Vol]24 U/LLow29 - 103 U/LNOMS HealthcareAmylase [Enzymatic activity/volume] in Serum or PlasmaOrdered By: Agata Cordova on 11-25-2023 Amylase [Catalytic activity/Vol]24 U/B14-091KiphajjnqOhio State University [facility] Medical Center Aspartate aminotransferase [Enzymatic activity/volume] in Serum or PlasmaOrdered By: Agata Cordova on 83-21-5176CMK [Catalytic activity/Vol]65 U/L13-39 [facility] CenterBilirubin.direct [Mass/volume] in Serum or PlasmaOrdered By: Agata Cordova on 47-31-9539Okmtnenvg.direct [Mass/Vol]0.10 mg/dL0.03-0.18FWexner Medical CenterBilirubin.total [Mass/volume] in Serum or PlasmaOrdered By: Agtaa Cordova on 03-90-7353Dfjkokrna [Mass/Vol]0.6 mg/dL0.3-1.0[facility] Medical CenterGlobulin Calc (S) [Mass/Vol] Ordered By: Agata Cordova on 47-34-3333Ldcpoind (S) [Mass/Vol]2.4 g/dL [facility] CenterHepatic function 2000 panelon 60-98-5663Pgrxiyz [Mass/Vol]4.7 g/dL3.5 - 5.7 g/dLNOME HealthcareAlbumin/Globulin [Mass ratio]2.0 {ratio}NOMS HealthcareALP [Catalytic activity/Vol]74 U/L34 - 104 U/LNOMS HealthcareALT [Catalytic activity/Vol]95 U/LHigh7 - 52 U/LNOMS HealthcareAST [Catalytic activity/Vol]65 U/LHigh13 - 39 U/LNOMS HealthcareBilirubin [Mass/Vol] 0.6 mg/dL0.3 - 1.0 mg/dLNOME HealthcareBILIRUBIN,INDIRECT0.5 mg/dLNOME HealthcareBilirubin.indirect [Mass/Vol]0.10 mg/dL0.03 - 0.18 mg/dLNOME HealthcareGlobulin (S) [Mass/Vol]2.4 g/dLNOME HealthcareProtein [Mass/Vol]7.1 g/dL6.4 - 8.9 g/dLNOME HealthcareLipaseon 64-00-4778Yiqjur [Catalytic activity/Vol]41.0 U/L11.0 - 82.0 U/LNOMS HealthcareLipase [Enzymatic activity/volume] in Serum or PlasmaOrdered By: Agata Cordova on 11-25-2023 Lipase [Catalytic activity/Vol]41.0 U/L11.0-82.0[facility] CenterNo Panel Informationon 82-28-9952Rvxeiuwrdfjoff and review of laboratory resultsAbnormalCedar County Memorial HospitalNOMS HealthcareProtein [Mass/volume] in Serum or PlasmaOrdered By: Agata Cordova on 49-29-4563Zuuqztd [Mass/Vol]7.1 g/dL 6.4-8.9[facility] God Hospitalerum or plasma albumin/globulin mass ratioOrdered By: Agata Cordova on 39-17-9730Wcqours/Globulin [Mass ratio]2.0 {ratio}[facility] Hospitalerum or plasma non-glucuronidated bilirubin measurement (mass/volume)Ordered By: Agata Cordova on 11-25-2023 Bilirubin.indirect [Mass/Vol]0.5 mg/dLOhio State University Wexner Medical CenterActivated partial thromboplastin time (aPTT) in platelet poor plasma by coagulation a Ordered By: Terrence Gilbert on 93-12-5541qHQT Coag (PPP) [Time]33.8 s25.1-36.5 [facility] CenterComment on above:A hematocrit value greater than 55% may lead to inaccurate results in coagulation testing. Patientshaving hematocrit values >55% require a special collection tube for coagulation studies. Please contact the laboratory at [phone] for redraw instructions. Basophils Auto (Bld) [#/Vol]Ordered By: Terrence Gilbert on 31-36-5913Oiglqqlmo (Bld) [#/Vol]0.1 10*3/uL0.0-0.2FWexner Medical CenterBasophils/100 WBC Auto (Bld)Ordered By: Terrence Gilbert on 51-46-9336Nxykfcscc/100 WBC (Bld)0.4 %.[facility] CenterCalcium [Mass/volume] in Serum or PlasmaOrdered By: Terrence Gilbert on 76-93-3634Axrclhb [Mass/Vol]8.8 mg/dL8.6-10.3FWexner Medical CenterCarbon dioxide, total [Moles/volume] in Serum or PlasmaOrdered By: Terrence Gilbert on 63-88-6560MK5 [Moles/Vol]22.8 mmol/L21.0-31.0[facility] CenterChloride [Moles/volume] in Serum or PlasmaOrdered By: Terrence Gilbert 12-66-1608Vwkwfmzd [Moles/Vol]101 mmol/T56-703IrnkkzotiOhio State University Wexner Medical CenterCreatinine [Mass/volume] in Serum or PlasmaOrdered By: Terrence Gilbert on 05-10-1983Krxvykwhmd [Mass/Vol]0.97 mg/dL0.70-1.30[facility] CenterEosinophils Auto (Bld) [#/Vol]Ordered By: Terrence Gilbert on 09-14-2023 Eosinophils (Bld) [#/Vol]0.0 10*3/uL0.0-0.45[facility] Eosinophils/100 WBC Auto (Bld)Ordered By: Terrence Gilbert on 09-14-2023 Eosinophils/100 WBC (Bld)0.0 %.[facility] CenterErythrocyte distribution width Auto (RBC) [Ratio]Ordered By: Terrence Gilbert on 09-14-2023 Erythrocyte distribution width (RBC) [Ratio]13.6 %12.0-14.8[facility] CenterGlucose Glucometer (BldC) [Mass/Vol]Ordered By: Lino Nguyen on 83-23-2667Stxfius [Mass/Vol]151 mg/dLOhio State University Wexner Medical CenterComment on above:Random Glucose Reference Range is dependent on time and content of last meal. Glucose of more than 200 mg/dL in a nonstressed, ambulatory subject supports the diagnosis of Diabetes Mellitus.Glucose [Mass/volume] in Serum or PlasmaOrdered By: Terrence Gilbert on 93-61-4371Yqrchbx [Mass/Vol]130 mg/vC76-458 [facility] CenterComment on above:ADA recommended reference rangeRandom Glucose Reference Range is dependent on time and content of last meal. Glucose of more than 200 mg/dL in a nonstressed, ambulatory subject supports the diagnosisof Diabetes Mellitus.Hematocrit Auto (Bld) [Volume fraction]Ordered By: Terrence Gilbert on 40-16-5377Pgiylcvwto (Bld) [Volume fraction] 39.3 %38.8-50.0[facility] CenterHemoglobin [Mass/volume] in BloodOrdered By: Terrence Gilbert on 53-00-3642Zrkqgrfrfm (Bld) [Mass/Vol]13.3 g/dL 13.0-17.0[facility] CenterINR in Platelet poor plasma by Coagulation assayOrdered By: Terrence Gilbert on 52-00-1208SQU Coag (PPP) [Relative time]1.0 {INR}[facility] CenterComment on above:INR Therapeutic Range A) [...] by Automated counOrdered By: Terrence Gilbert on 50-02-4657QTS corrected for nucl RBC Auto (Bld) [#/Vol]13.2 10*3/uL4.1-10.5FWexner Medical CenterLymphocytes Auto (Bld) [#/Vol]Ordered By: Terrence Gilbert on 03-85-5896Ajqzopcjrjw (Bld) [#/Vol]0.8 10*3/uL1.00-4.8[facility] CenterLymphocytes/100 WBC Auto (Bld) Ordered By: Terrence Gilbert on 45-06-8850Mihkeimghnu/100 WBC (Bld)5.7 %.[facility] CenterH Auto (RBC) [Entitic mass]Ordered By: Terrence Gilbert on 13-21-1144ADJ (RBC) [Entitic mass]32.1 pg27.5-35.2FWexner Medical CenterMCHC Auto (RBC) [Mass/Vol]Ordered By: Terrence Gilbert on 27-26-9481RBOO (RBC) [Mass/Vol]33.9 g/dL32.5-35.6FWexner Medical CenterMCV Auto (RBC) [Entitic vol]Ordered By: Terrence Gilbert on 81-40-2965LKK (RBC) [Entitic vol]94.7 fL 83.5-101[facility] CenterMonocyte distribution width [Entitic volume] in Blood by AutomatedOrdered By: Terrence Gilbert on 27-52-7935Oyprpyyz distribution width Auto (Bld) [Entitic vol]19.29 %0.00-20.00[facility] CenterMonocytes Auto (Bld) [#/Vol]Ordered By: Terrence Gilbert on 09-14-2023 Monocytes (Bld) [#/Vol]1.1 10*3/uL0.0-0.8[facility] Monocytes/100 WBC Auto (Bld)Ordered By: Terrence Gilbert on 34-66-6677Izjhkgjsw/100 WBC (Bld)8.1 %.[facility] Medical CenterNeutrophils Auto (Bld) [#/Vol] Ordered By: Terrence Gilbert on 17-34-0692Nzwvpkmrfvv (Bld) [#/Vol]11.4 10*3/uL1.8-7.7 [facility] CenterNeutrophils/100 WBC Auto (Bld)Ordered By: Terrence Gilbert on 67-47-6738Vwhqdomkszb/100 WBC (Bld)85.8 %.[facility] CenterNo Panel InformationOrdered By: Terrence Gilbert on 40-40-3204Qexiitrkv GFR (CKD-EPI)> 60.0 mL/MinOhio State University Wexner Medical CenterPharmacy Creatinine Clearance (Ykyt367.51[facility] CenterNucleated erythrocytes [Presence] in Blood by Automated countOrdered By: Terrence Gilbert on 09-14-2023 Nucleated RBC Auto Ql (Bld)0.0 /100{WBC}0-0.5FWexner Medical Center Platelet mean volume Auto (Bld) [Entitic vol]Ordered By: Terrence Gilbert on 01-79-3605Gtousesh mean volume (Bld) [Entitic vol]7.9 fL6.6-10.1FWexner Medical CenterPlatelets Auto (Bld) [#/Vol]Ordered By: Terrence Gilbert on 76-42-2313Hfxjbpazv (Bld) [#/Vol]252 10*3/gT255-641KwxezmzzyOhio State University Wexner Medical CenterPotassium [Moles/volume] in Serum or PlasmaOrdered By: Terrence Gilbert on 38-57-9461Stxvkecgi [Moles/Vol]4.2 mmol/L3.5-5.1FWexner Medical CenterProthrombin time (PT)Ordered By: Terrence Gilbert on 78-26-3382HB Coag (PPP) [Time]11.7 s9.0-12.9[facility] CenterComment on above:A hematocrit value greater than 55% may lead to inaccurate results in coagulation testing. Patientshaving hematocrit values >55% require a special collection tube for coagulation studies. Please contact the laboratory at [phone] for redraw instructions.RBC Auto (Bld) [#/Vol]Ordered By: Terrence Gilbert on 09-14-2023 RBC (Bld) [#/Vol]4.15 10*6/uL3.90-5.60[facility] Hospitalerum or plasma anion gap determinationOrdered By: Terrence Gilbert on 04-71-5291Jrvgu gap [Moles/Vol]14.4 mmol/L6.0-15.0[facility] Hospitalodium [Moles/volume] in Serum or PlasmaOrdered By: Terrence Gilbert on 22-11-7003Carlkg [Moles/Vol]134 mmol/E151-373SujlgywdyOhio State University Wexner Medical CenterUrea nitrogen [Mass/volume] in Serum or PlasmaOrdered By: Terrence Gilbert on 43-03-2521Qonb nitrogen [Mass/Vol]17 mg/dL7-25[facility] CenterWBC Auto (Bld) [#/Vol]Ordered By: Terrence Gilbert on 80-36-0063VWB (Bld) [#/Vol]13.2 10*3/uL4.1-10.5 [facility] CenterAmphetamine Screen Ql (U)Ordered By: Ilya Carr on 96-03-1261Agbpktdbngkg Ql (U)NegativeNegMartins Ferry HospitalBarbiturates [Presence] in Urine by Screen methodOrdered By: Ilya Carr on 19-24-5514Voetysemddkn Screen Ql (U)NegativeNegMartins Ferry HospitalBenzodiazepines Screen Ql (U)Ordered By: Ilya Carr on 06-13-8985Uhsacnqemjumdxv Ql (U)NegativeNegMartins Ferry HospitalBenzoylecgonine [Presence] in Urine by Screen methodOrdered By: Ilya Carr on 15-71-9512Yxpjaahsvofiscr Screen Ql (U)NegativeNegMartins Ferry HospitalCannabinoids [Presence] in Urine by Screen methodOrdered By: Ilya Carr on 57-56-1071Rkmllgvbswyf Screen Ql (U)PositiveNegative [facility] CenterComment on above:These are unconfirmed results and should not be used for legal purposes. Drug Cut-Off Concentration: AMPH 1000 ng/mL JUANI 200 ng/mL MOHAMUD 200 ng/mL COCM 300 ng/mL OP 300 ng/mL PCP 25 ng/mL THC 20 ng/mLNo Panel InformationOrdered By: Lino Nguyen on 50-41-8094Lqyrigb Glucose CommentGlu2: cleaned meterOhio State University Wexner Medical CenterOpiates [Presence] in Urine by Screen methodOrdered By: Ilya Carr on 11-27-2023 Opiates Screen Ql (U)NegativeNegativeOhio State University [facility] Center Phencyclidine Screen Ql (U)Ordered By: Ilya aCrr on 04-72-7531Zrzqgxsqqmdoz Ql (U)NegativeNegativeOhio State University Wexner Medical CenterBasophils Auto (Bld) [#/Vol]Ordered By: Lino Nguyen on 33-48-8279Larbyrelm (Bld) [#/Vol]0.0 10*3/uL 0.0-0.2FWexner Medical CenterBasophils/100 WBC Auto (Bld)Ordered By: Lino Nguyen on 05-93-5457Baomnbjur/100 WBC (Bld)0.6 %.[facility] CenterCalcium [Mass/volume] in Serum or PlasmaOrdered By: Lino Nguyen on 53-80-3563Rjddjpg [Mass/Vol]9.0 mg/dL8.6-10.3FWexner Medical Center Carbon dioxide, total [Moles/volume] in Serum or PlasmaOrdered By: Lino Nguyen on 32-39-2105JH1 [Moles/Vol]27.3 mmol/L21.0-31.0[facility] Chloride [Moles/volume] in Serum or PlasmaOrdered By: Lino Nguyen on 08-30-2023 Chloride [Moles/Vol]105 mmol/D68-012SwnnvzwuqOhio State University Wexner Medical CenterCreatinine [Mass/volume] in Serum or PlasmaOrdered By: Lino Nguyen on 73-58-5478Wkxqvczgqz [Mass/Vol]1.02 mg/dL0.70-1.30[facility] CenterEosinophils Auto (Bld) [#/Vol]Ordered By: Lino Nguyen on 79-54-9260Ujghednbmxm (Bld) [#/Vol]0.0 10*3/uL0.0-0.45[facility] CenterEosinophils/100 WBC Auto (Bld) Ordered By: Lino Nguyen on 70-95-1373Ldtrpanyjlz/100 WBC (Bld)0.8 %.[facility] CenterErythrocyte distribution width Auto (RBC) [Ratio]Ordered By: Lino Nguyen on 10-33-9377Gjzepjymxfj distribution width (RBC) [Ratio]14.1 % 12.0-14.8[facility] CenterGlucose [Mass/volume] in Serum or PlasmaOrdered By: Lino Nguyen on 86-40-5578Ymbgtda [Mass/Vol]141 mg/yP73-149 [facility] CenterComment on above:ADA recommended reference rangeRandom Glucose Reference Range is dependent on time and content of last meal. Glucose of more than 200 mg/dL in a nonstressed, ambulatory subject supports the diagnosisof Diabetes Mellitus.Hematocrit Auto (Bld) [Volume fraction]Ordered By: Lino Nguyen on 91-85-8502Remgcpqevk (Bld) [Volume fraction] 43.3 %38.8-50.0[facility] CenterHemoglobin [Mass/volume] in BloodOrdered By: Lino Nguyen on 71-40-2230Tayhdipubm (Bld) [Mass/Vol]14.5 g/dL 13.0-17.0[facility] CenterLeukocytes [#/volume] corrected for nucleated erythrocytes in Blood by Automated counOrdered By: Lino Nguyen on 71-58-6529PCY corrected for nucl RBC Auto (Bld) [#/Vol]4.4 10*3/uL4.1-10.5 [facility] CenterLymphocytes Auto (Bld) [#/Vol]Ordered By: Lino Nguyen on 14-68-1285Twzgrkzmkdk (Bld) [#/Vol]1.1 10*3/uL1.00-4.8[facility] CenterLymphocytes/100 WBC Auto (Bld)Ordered By: Lino Nguyen on 79-27-8420Pdqjzcyttqg/100 WBC (Bld)24.3 %.[facility] CenterH Auto (RBC) [Entitic mass]Ordered By: Lino Nguyen on 86-09-6802SDY (RBC) [Entitic mass]32.2 pg27.5-35.2FWexner Medical CenterMCHC Auto (RBC) [Mass/Vol] Ordered By: Lino Nguyen on 83-45-7461OWRJ (RBC) [Mass/Vol]33.6 g/dL32.5-35.6 [facility] CenterMCV Auto (RBC) [Entitic vol]Ordered By: Lino Nguyen on 30-78-8628TZZ (RBC) [Entitic vol]95.8 fL83.5-101[facility] CenterMonocytes Auto (Bld) [#/Vol]Ordered By: Lino Nguyen on 08-30-2023 Monocytes (Bld) [#/Vol]0.6 10*3/uL0.0-0.8[facility] Monocytes/100 WBC Auto (Bld)Ordered By: Lino Nguyen on 33-72-2640Canafrdcl/100 WBC (Bld)14.5 %.[facility] CenterNeutrophils Auto (Bld) [#/Vol] Ordered By: Lino Nguyen on 00-58-0517Ubqnjaelrie (Bld) [#/Vol]2.6 10*3/uL1.8-7.7 [facility] CenterNeutrophils/100 WBC Auto (Bld)Ordered By: Lino Nguyen on 54-32-7437Ytgpqltkztx/100 WBC (Bld)59.8 %.[facility] CenterNo Panel InformationOrdered By: Lino Nguyen on 47-43-5078Mtbhrzyxn GFR (CKD-EPI)> 60.0 mL/MinOhio State University Wexner Medical CenterPharmacy Creatinine Clearance (ChemN/[facility] CenterNucleated erythrocytes [Presence] in Blood by Automated countOrdered By: Lino Nguyen on 08-30-2023 Nucleated RBC Auto Ql (Bld)0.2 /100{WBC}0-0.5FWexner Medical Center Platelet mean volume Auto (Bld) [Entitic vol]Ordered By: Lino Nguyen on 89-80-9988Jgiidsgq mean volume (Bld) [Entitic vol]7.9 fL6.6-10.1FWexner Medical CenterPlatelets Auto (Bld) [#/Vol]Ordered By: Lino Nguyen on 67-28-7557Zmtlflumt (Bld) [#/Vol]210 10*3/sL640-810RfcscmxpoOhio State University Wexner Medical CenterPotassium [Moles/volume] in Serum or PlasmaOrdered By: Lino Nguyen on 17-63-5281Cerwrlxmm [Moles/Vol]4.3 mmol/L3.5-5.1FWexner Medical CenterRBC Auto (Bld) [#/Vol]Ordered By: Lino Nguyen on 88-50-2758AKI (Bld) [#/Vol]4.52 10*6/uL3.90-5.60[facility] God Hospitalerum or plasma anion gap determinationOrdered By: Lino Nguyen on 45-03-5464Cxjqd gap [Moles/Vol] 11.0 mmol/L6.0-15.0[facility] Hospitalodium [Moles/volume] in Serum or PlasmaOrdered By: Lino Nguyen on 72-58-4843Uvxeep [Moles/Vol]139 mmol/L 136-145[facility] CenterUrea nitrogen [Mass/volume] in Serum or PlasmaOrdered By: Lino Nguyen on 74-91-9795Fqwc nitrogen [Mass/Vol]8 mg/dL7-25 [facility] CenterWBC Auto (Bld) [#/Vol]Ordered By: Lino Nguyen on 77-98-1396IYO (Bld) [#/Vol]4.4 10*3/uL4.1-10.5FWexner Medical Center XR Chest 2 Views*on 93-68-0528SA Chest 2 Views*HISTORY: Shortness of breath and cough. COMPARISON: Chest radiographs 12/29/2019 TECHNIQUE: Frontal and lateral views of the chest FINDINGS: The cardiomediastinal silhouette is within normal limits. No pneumothorax, pleural effusion, or consolidation. Bones of the thorax appear intact. IMPRESSION: No radiographic evidence of acute intrathoracic process. Report reported and signed by Ilya Mendosa on 08/19/2022 1355NormalNorthern Natchaug HospitalXR wrist min BI 3Von 40-35-7943MA wrist min BI 3V [facility] [employer] Other XR wrist min BI 3VBuchanan County Health Center [employer] Other XR wrist min BI [id number] [place] [address] [employer] Other XR wrist min BI 3VSYolanda Ville [id number] [employer] Other XR wrist min BI 3VXRay ReportBlue Creek [employer] Other XR wrist min BI 3VSignedBlue Creek [employer] Other XR wrist min BI 3VPatient: Mo Randhawa MR#: [id number] [place] [employer] Other XR wrist min BI 3VDOB: 1970 Acct:[id number] [employer] Other XR wrist min BI 3VAge/Sex: 52 / M ADM Date: 05/27/22 [employer] Other XR wrist min BI 3VLoc: SOXD Room: Type: [facility] [employer] Other XR wrist min BI 3VAttending Dr: Magaly Rosario MD [employer] Other XR wrist min BI 3VCopies to: Magaly Rosario MDTwist and Shout [employer] Other XR wrist min BI 3VOrdering Provider: Magaly Rosario MDTwist and Shout [employer] Other XR wrist min BI 3VDate of Service: 05/27/22cielo24 [employer] Other XR wrist min BI 3VAccession #: ([id number]) XR/XR wrist min BI 3V: S62.035[facility] [employer] Other XR wrist min BI 3VBILATERAL WRIST SERIES, 4 VIEWS EACH [employer] Other XR wrist min BI 3VCLINICAL HISTORY: Status post removal of hardware left scaphoid.[employer] Other XR wrist min BI 3VCOMPARISON: Left wrist series 04/01/2022cielo24 [employer] Other XR wrist min BI 3VFINDINGS:[employer] Other XR wrist min BI 3VLeft wrist demonstrate hardware fixation involving the scaphoid bone unchanged in alignment withoutcielo24 [employer] Other XR wrist min BI 3Vevidence of radiographic complication. No significant healing is seen at the fracture site. [facility] [employer] Other XR wrist min BI 3Vacute bony process is seen. There is questionable calcification of the TFCC.[employer] Other XR wrist min BI 3VRight wrist demonstrates presumed surgical resection versus osteonecrosis of the scaphoid bone.[employer] Other XR wrist min BI 3VThere also appears to be osteonecrosis possibly the lunate bone. There is possible developing slaSaint Mary's Health Center [employer] Other XR wrist min BI 3Vwrist deformity. No acute bony process is seen.[employer] Other XR wrist min BI 3VORDER #: [id number] XR/XR wrist min BI 3VNogeneral [facility] [employer] Other XR wrist min BI 3VIMPRESSION:[employer] Other XR wrist min BI 3V1. LEFT WRIST DEMONSTRATES HARDWARE FIXATION OF THE SCAPHOID BONE WITHOUT RADIOGRAPHICNort [employer] Other XR wrist min BI 3VCOMPLICATION. NO SIGNIFICANT HEALING IS SEEN AT THE FRACTURE SITE.[employer] Other XR wrist min BI 3V2. RIGHT WRIST DEMONSTRATES A PRESUMED OSTEONECROSIS VERSUS POSTSURGICAL CHANGES INVOLVING [facility] [employer] Other XR wrist min BI 3VSCAPHOID AND LUNATE BONES WITH WHAT APPEARS TO BE DEVELOPING SLAC WRIST DEFORMITY.[employer] Other XR wrist min BI 3VImpression dictated by: Taras Holman Jr., DKanuOKanu05/27/2022 4:09 [facility] [employer] Other XR wrist min BI 3VDictation Location: [id number] [employer] Other XR wrist min BI 3VTranscribed By: JOHANNY 05/27/22 1604 [employer] Other XR wrist min BI 3VDictated By: Taras Holman Jr, DO 05/27/22 160[facility] [employer] Other XR wrist min BI 3VSigned By:[employer] Other XR wrist min BI 3V05/27/22 160[facility] [employer] Other XR wrist LT min 3V*on 66-34-3860ZF wrist LT min 3V* [facility] [employer] Other XR wrist LT min 3V*[facility] [employer] Other XR wrist LT min 3V*[facility] [employer] Other XR wrist LT min 3V*[place] [employer] Other XR wrist LT min 3V*XRay [facility] [employer] Other XR wrist LT min 3V*Critical access hospital [employer] Other XR wrist LT min 3V*Patient: Mo Randhawa MR#: [id number] [place] [employer] Other XR wrist LT min 3V*: 1970 Acct:[id number] [employer] Other XR wrist LT min 3V*Age/Sex: 51 / M ADM Date: 04/01/22 [employer] Other XR wrist LT min 3V*Loc: SOXD Room: Type: [facility] [employer] Other XR wrist LT min 3V*Attending Dr: Magaly Rosario MD [employer] Other XR wrist LT min 3V*Copies to: Magaly Rosario MD [employer] Other XR wrist LT min 3V*Ordering Provider: Magaly Rosario MDcielo24 [employer] Other XR wrist LT min 3V*Date of Service: 04/01/22[place] [employer] Other XR wrist LT min 3V* XR/XR wrist LT min 3V*: Nondisplaced fracture of proximal third ofBlue Creek [employer] Other XR wrist LT min 3V*navicular [scaphoBlue Creek [employer] Other XR wrist LT min 3V*LEFT WRIST - 4 viewsBlue Creek [employer] Other XR wrist LT min 3V*COMPARISON: [facility] [employer] Other XR wrist LT min 3V*CLINICAL DATA: Follow-up scaphoid fractureBlue Creek [employer] Other XR wrist LT min 3V*COMPARISON: 03/04/2022[place] [employer] Other XR wrist LT min 3V*AP, lateral, oblique and ulnar deviation views were obtained. There is redemonstration of [facility] MichiganHeartWare International Other XR wrist LT min 3V*through the scaphoid traversing a fracture at the proximal third of the bone. There is appropriateHeartWare International Other XR wrist LT min 3V*alignment, unchanged from the comparison. Lucency at the distal radial metaphysis might be a boneBlue Creek [employer] Other XR wrist LT min 3V*grafting donor site. There are no other acute fractures or dislocation. There is dorsal soft tissueBlue Creek [employer] Other XR wrist LT min 3V*swelling.[employer] Other XR wrist LT min 3V* XR/XR wrist LT min 3V*[employer] Other XR wrist LT min 3V*IMPRESSION:[employer] Other XR wrist LT min 3V*STABLE SCAPHOID FRACTURE, STATUS POST FIXATION.[facility] [employer] Other XR wrist LT min 3V*Impression dictated by: Leslye Maher M.D.04/01/2022 5:15 PMNRockefeller [facility] [employer] Other XR wrist LT min 3V*Dictation Location: [address] [employer] Other XR wrist LT min 3V*Transcribed By: JOHANNY 04/01/22 1715 [facility] [employer] Other XR wrist LT min 3V*Dictated By: Leslye Maher MD 04/01/[address] [place] [address] [employer] Other XR wrist LT min 3V*Signed By:[employer] Other XR wrist LT min 3V*04/01/[address] [place] [address] [employer] Other XR hand LT min 3V*on 13-98-3199MA hand LT min 3V* [facility] [employer] Other XR hand LT min 3V*[facility] [employer] Other XR hand LT min 3V*[address] [place] [address] [employer] Other XR hand LT min 3V*[place] [id number] [employer] Other XR hand LT min 3V*XRay ReportBlue Creek [employer] Other XR hand LT min 3V*SignedBlue Creek [employer] Other XR hand LT min 3V*Patient: Mo Randhawa MR#: [id number] [place] [employer] Other XR hand LT min 3V*: 1970 Acct:[id number] [employer] Other XR hand LT min 3V*Age/Sex: 51 / M ADM Date: 01/21/22 [place] [employer] Other XR hand LT min 3V*Loc: SOXD Room: [facility]ITALThe [facility] Other XR hand LT min 3V*Attending Dr: Magaly Rosario MD [employer] Other XR hand LT min 3V*Ordering Provider: Magaly Rosario MDBlue Creek [employer] Other XR hand LT min 3V*Date of Service: 01/21/22[place] [employer] Other XR hand LT min 3V* XR/XR hand LT min 3V*: Nondisplaced fracture of proximal third [facility] [employer] Other XR hand LT min 3V*navicular [[facility] [employer] Other XR hand LT min 3V*Copies to: Magaly Rosario MDBlue Creek [employer] Other XR hand LT min 3V*XR hand LT min 3V* 01/21/2022 9:56 AM [employer] Other XR hand LT min 3V*SIGNS AND SYMPTOMS: Status post fixation of previous left scaphoid fractureBlue Creek [employer] Other XR hand LT min 3V*PROTOCOL: Frontal, lateral, and oblique radiographs of the left wristBlue Creek [employer] Other XR hand LT min 3V*COMPARISON: 12/08/2019[place] [employer] Other XR hand LT min 3V*FINDINGS:[employer] Other XR hand LT min 3V*The patient is status post screw fixation across a proximal scaphoid fracture. The healing remainsBlue Creek [employer] Other XR hand LT min 3V*incomplete. The bony structures are in anatomic alignment. Findings suggest partial collapse of [facility] HospitalThe Old Reader Other XR hand LT min 3V*scaphoid with the distal threads of the screw traversing the junction of the scaphoid and trapeziumNoSelect Specialty Hospital [facility] [employer] Other XR hand LT min 3V*and extending into the articular surface of the trapezium. This is new when compared to the priorBlue Creek [employer] Other XR hand LT min 3V*exam. There is moderate narrowing of the radiocarpal joint space. Similar subcortical cystic changeNorthwest Hospital [employer] Other XR hand LT min 3V*is partly visualized in the distal radius.[place] [employer] Other XR hand LT min 3V* XR/XR hand LT min 3V*[place] [employer] Other XR hand LT min 3V*IMPRESSION:[employer] Other XR hand LT min 3V*Incomplete healing of a scaphoid fracture with partial collapse of the scaphoid. The distal aspectNogeneral [facility] [employer] Other XR hand LT min 3V*of the fixation screw now protrudes across the junction of the scaphoid and trapezium into [facility] [employer] Other XR hand LT min 3V*articular surface of the trapezium. [employer] Other XR hand LT min 3V*Similar moderate degenerative changes of the radiocarpal joint.[place] [employer] Other XR hand LT min 3V*Impression dictated by: Ady Costello M.D.01/21/2022 11:21 [facility] [employer] Other XR hand LT min 3V*Dictation Location: [id number] [employer] Other XR hand LT min 3V*Transcribed By: JOHANNY 01/21/22 1121 [place] [employer] Other XR hand LT min 3V*Dictated By: dAy Costello II, MD 01/21/22 1119[place] [employer] Other xr hand LT min 3V*Signed By:[facility] [employer] Other xr hand LT min 3V*01/21/22 1121NoSelect Specialty [facility] [employer] Other CBC AUTO DIFFon 27-00-6024ICHS #0.1 103/ulNormal 0.0-0.1The [facility] HospitalComment on above:Performed By: #### CBC #### [facility] [address] [address] Dawit KarenBasophils/100 WBC (Bld)0.8 %Normal0.2-2.0[facility] Comment on above:Performed By: #### CBC #### [facility] [address] [place] [address] Dawit KarenEO #0.2 103/ulNormal0.0-0.7The [facility] HospitalComment on above: Performed By: #### CBC #### [facility] [address] [place] [address] Dawit KarenEosinophils/100 WBC (Bld)3.0 %Normal0.9-7.0[facility] Comment on above:Performed By: #### CBC #### [facility] [address] [place] [address] Dawit KarenErythrocyte distribution width (RBC) [Ratio]12.3 %Xncpag75.0-15.0The [facility] HospitalComment on above:Performed By: #### CBC #### [facility] [address] [place] [address] Dawit KarenHematocrit (Bld) [Volume fraction]43.3 %Krasjr39.0-54.0The [facility] HospitalComment on above:Performed By: #### CBC #### [facility] [address] [place] [address] Dawit KarenHemoglobin (Bld) [Mass/Vol]14.9 g/oHYwxvwe11.0-18.0The [facility] HospitalComment on above:Performed By: #### CBC #### [facility] [address] [place] [address] Dawit PhillipsenIG #0.02 10e3/ulNormal0.00-0.03[facility] - DublinComment on above:Performed By: #### CBC #### [facility] [address] [place] [address] Dawit GutierrezG %0.3 %Normal0.0-0.5The [facility] HospitalComment on above: Performed By: #### CBC #### [facility] [address] [place] [address] Dawit PhillipsenLYMPH #2.1 103/ulNormal1.2-3.8The [facility] HospitalComment on above: Performed By: #### CBC #### [facility] [address] [place] [address] Dawit GavinLymphocytes/100 WBC (Bld)33.8 %Owwyhu88.5-60.0[facility] Comment on above:Performed By: #### CBC #### [facility] [address] [place] [address] Dawit GavinMANUAL DIFF REQNONormalThe [facility] HospitalComment on above: Performed By: #### CBC #### [facility] [address] [place] [address] Dawit KarenH (RBC) [Entitic mass]31.6 iaZamffm63.9-34.0[facility] Comment on above:Performed By: #### CBC #### [facility] [address] [place] [address] Dawit KarenMCHC (RBC) [Mass/Vol]34.4 g/nCBnxjao88.9-35.2[facility] Comment on above:Performed By: #### CBC #### [facility] [address] [place] [address] Dawit KarenMCV (RBC) [Entitic vol]91.9 qAIiipmy41.0-94.0[facility] Comment on above:Performed By: #### CBC #### [facility] [address] [place] [address] Dawit KarenMONO #0.7 103/ulNormal0.3-0.8The [facility] HospitalComment on above: Performed By: #### CBC #### [facility] [address] [place] [address] Dawit KarenMonocytes/100 WBC (Bld)10.7 %Normal1.7-12.0[facility] Comment on above:Performed By: #### CBC #### [facility] [address] [place] [address] Dawit PhillipsenNEUT #3.1 103/ulNormal1.4-6.5The [facility] HospitalComment on above: Performed By: #### CBC #### [facility] [address] [place] [address] Dawit KarenNeutrophils/100 WBC (Bld)51.4 %Dqzqnn40.0-75.0[facility] Comment on above:Performed By: #### CBC #### [facility] [address] [place] [address] Dwait KarenPlatelet mean volume (Bld) [Entitic vol]9.2 fLCritically low9.5-13.5 The [facility] HospitalComment on above:Performed By: #### CBC #### [facility] [address] [place] [address] Dawit HnvxqARR810 103/quYqfelv111-322Psk [facility] HospitalComment on above: Performed By: #### CBC #### [facility] [address] [place] [address] Dawit KarenRBC4.71 106/ulNormal4.70-6.10The [facility] HospitalComment on above: Performed By: #### CBC #### [facility] [address] [place] [address] Dawit KarenWBC6.1 103/ulNormal4.0-11.0The [facility] HospitalComment on above: Performed By: #### CBC #### [facility] [address] [place] [address] Dawit KarenGLYCOHEMOGLOBIN A1Con 10-15-8918LHN RECOMMENDATIONADA THERAPEUTIC TARGET 6.0 - 7.0 ACTION SUGGESTED > 7.0[facility] CenterComment on above:Performed By: #### A1C #### [facility] [address] [address] Dawit KarenGlucose [Mass/Vol]143 mg/dLNoClinton Memorial HospitalComment on above:Performed By: #### A1C #### [facility] [address] [address] Dawit LllnkNyG6n (Bld) [Mass fraction]6.6 %Critically high<=6.0[facility] - DublinComment on above:Performed By: #### A1C #### [facility] [address] [place] [address] Dawit KarenLIPID PROFILEon [id number]-HDL RATIO NORMSEE BELOWAshtabula County Medical CenterComment on above:Result Comment: 3.3 - 4.4 LOW RISK 4.4 - 7.1 AVERAGE RISK 7.1 - 11.0 MODERATE RISK >11.0 HIGH RISKPerformed By: #### TSH, PSAD, LIPID, CMP #### [facility] [address] [address] Dawit KarenCholesterol [Mass/Vol]196 mg/dLNormal<=200[facility] Comment on above:Performed By: #### TSH, PSAD, LIPID, CMP #### [facility] [address] [address] Dawit KarenCholesterol in HDL [Mass/Vol]35 mg/dLAshtabula County Medical Center Comment on above:Performed By: #### TSH, PSAD, LIPID, CMP #### [facility] [address] [address] Dawit KarenCholesterol in LDL [Mass/Vol]114.8 mg/dLAshtabula County Medical Center Comment on above:Performed By: #### TSH, PSAD, LIPID, CMP #### [facility] [address] [address] Dawit KarenCholesterol.total/Cholesterol in HDL [Mass ratio]5.6 {ratio}Normal [facility] on above:Performed By: #### TSH, PSAD, LIPID, CMP #### [facility] [address] [place] [address] Dawit KarenHDL NORMAL> or = 60 mg/dl - LOW CARDIOVASCULAR RISK <40 mg/dl - HIGH CARDIOVASCULAR RISKHolzer Hospital on above:Performed By: #### TSH, PSAD, LIPID, CMP #### [facility] [facility] [address] [place] [address] Dawit KarenLDL CALC NORMALSEE [facility] SystemComuniversity of [facility] on above: Result Comment: <100 mg/dl OPTIMAL 100 - 129 mg/dl NEAR OR ABOVE OPTIMAL 130 - 159 mg/dl BORDERLINE HIGH 160 - 189 mg/dl HIGH >190 mg/dl VERY HIGHPerformed By: #### TSH, PSAD, LIPID, CMP #### [facility] [address] [place] [address] Dawit KarenTriglyceride [Mass/Vol]231 mg/dLCritically high<=150[facility] on above:Performed By: #### TSH, PSAD, LIPID, CMP #### [facility] [address] [place] [address] Dawit KarenVLDL CALC46.2 mg/dLHolzer Hospital on above: Performed By: #### TSH, PSAD, LIPID, CMP #### [facility] [address] [place] [address] Dawit KarenMICROALB CREAT RATIO RANDOMon 12-53-7447oLFD<1.3Normal<=30.0[facility] on above:Performed By: #### MCRR #### [facility] [address] [place] [address] Dawit KarenMALB CR RATIO4.9 mg/gNormal0.0-29.9[facility] on above:Performed By: #### MCRR #### [facility] [address] [place] [address] Dawit KarenMALB CR RATIO RANGESEE [facility] SystemComment on above:Result Comment: NO MICROALBUMINURIA 0-29 MG/G CLINICAL MICROALBUMINURIA 30-300 MG/G MACROALBUMINURIA >300 MG/GPerformed By: #### MCRR #### [facility] [address] [place] [address] Dawit KarenURINE ZPLNR797.88 mg/yZMulxik06.00-300.00[facility] Comment on above:Performed By: #### MCRR #### [facility] [address] [address] Dawit KarenPROF 14(COMP METB)on 07-58-3362Tnsfztr [Mass/Vol]4.1 g/dLNormal 3.5-5.0[facility] - DublinComment on above:Performed By: #### TSH, PSAD, LIPID, CMP #### [facility] [address] [place] [address] Dawit KarenAlbumin/Globulin [Mass ratio]1.2 {ratio}NormalSelect [facility] Comment on above:Performed By: #### TSH, PSAD, LIPID, CMP #### [facility] [address] [place] [address] Dawit KarenALP [Catalytic activity/Vol]66 U/DIwejqt13-959UxgSelect Medical [facility] Comment on above:Performed By: #### TSH, PSAD, LIPID, CMP #### [facility] [address] [place] [address] Dawit KarenALT [Catalytic activity/Vol]95 U/LCritically lsyz11-82Uyq [facility] HospitalComment on above:Performed By: #### TSH, PSAD, LIPID, CMP #### [facility] [address] [place] [address] Dawit KarenAnion gap [Moles/Vol]13.5 mmol/LNormalPremier Health [facility] on above:Performed By: #### TSH, PSAD, LIPID, CMP #### [facility] [address] [place] [address] Dawit KarenAST [Catalytic activity/Vol]34 U/LTrktcl94-66IylSelect Medical [facility] Comment on above:Performed By: #### TSH, PSAD, LIPID, CMP #### [facility] [address] [place] [address] Dawit KarenBilirubin [Mass/Vol]0.3 mg/dLNormal0.2-1.3The [facility] Comment on above:Performed By: #### TSH, PSAD, LIPID, CMP #### [facility] [address] [place] [address] Dawit KarenCalcium [Mass/Vol]8.8 mg/dLNormal8.4-10.2[facility] Comment on above:Performed By: #### TSH, PSAD, LIPID, CMP #### [facility] [address] [place] [address] Dawit KarenChloride [Moles/Vol]103 mmol/HDuxttp96-264NefSelect Medical [facility] Comment on above:Performed By: #### TSH, PSAD, LIPID, CMP #### [facility] [address] [place] [address] Dawit KarenCO2 [Moles/Vol]28.7 mmol/CNqowre74.0-30.0[facility] Comment on above:Performed By: #### TSH, PSAD, LIPID, CMP #### [facility] [address] [place] [address] Dawit KarenCreatinine [Mass/Vol]1.23 mg/dLNormal0.66-1.25The [facility] Comment on above:Performed By: #### TSH, PSAD, LIPID, CMP #### [facility] [address] [place] [address] Dawit KarenEGFR-AF BERMUDIAN>60Normal>=60[facility] - DublinComment on above: Performed By: #### TSH, PSAD, LIPID, CMP #### [facility] [address] [place] [address] Dawit KarenEGFR-NON AF BERMUDIAN>60Normal>=60The [facility] HospitalComment on above:Performed By: #### TSH, PSAD, LIPID, CMP #### [facility] [address] [place], [place] [address] Dawit KarenGlobulin (S) [Mass/Vol]3.3 g/dLNormMercy Health Clermont HospitalComment on above:Performed By: #### TSH, PSAD, LIPID, CMP #### [facility] [address] [place] [address] Dawit KarenGlucose [Mass/Vol]140 mg/dLCritically jxmw01-656Wmy [facility] HospitalComment on above:Performed By: #### TSH, PSAD, LIPID, CMP #### [facility] [address] [place] [address] Dawit KarenPotassium [Moles/Vol]4.2 mmol/LNormal3.4-5.0The [facility] Comment on above:Performed By: #### TSH, PSAD, LIPID, CMP #### [facility] [address] [place] [address] Dawit KarenProtein [Mass/Vol]7.4 g/dLNormal6.1-8.2The [facility] HospitalComment on above:Performed By: #### TSH, PSAD, LIPID, CMP #### [facility] [address] [place] [address] Dawit KarenSodium [Moles/Vol]141 mmol/GCpdyaj913-065Zsx [facility] Comment on above:Performed By: #### TSH, PSAD, LIPID, CMP #### [facility] [address] [place] [address] Dawit KarenUrea nitrogen [Mass/Vol]20.0 mg/dLNormal9.0-20.0The [facility] HospitalComment on above:Performed By: #### TSH, PSAD, LIPID, CMP #### [facility] [address] [place] [address] Dawit KarenUrea nitrogen/Creatinine [Mass ratio]16.3 mg/mgNoClinton Memorial HospitalComuniversity of michigan health on above:Performed By: #### TSH, PSAD, LIPID, CMP #### [facility] [address] [place] [address] Dawit KarenTSHon 62-46-0092ITF2.314 uIU/mLNormal0.470-4.680The [place] HospitalComment on above:Performed By: #### TSH, PSAD, LIPID, CMP #### [facility] [address] [place], [place] [address] Dawit RAMIREZOhioHealth Berger HospitalComment on above:Result Comment: <0.34 UIU/ml HYPERTHYROID 0.34-5.60 UIU/ml EUTHYROID >5.60 UIU/ml HYPOTHYROIDPerformed By: #### TSH, PSAD, LIPID, CMP #### [facility] [address] [place], [place] [address] Dawit Gavin Vital Signs Date TimeVital SignValuePerforming BlvnjpexiHphodjva70-71-7831 14:13-0400Body sjedqb380.3 cmZeinabariana Chinchilla DPM Work Phone: [facility] HospitalGirtqapjxs41-78-7374 14:13-0400Body mass index (BMI) [Ratio]29.01 kg/s3Bfauiistluis Chinchilla DPM Work Phone: [facility] HospitalMutbxtmsja91-10-1146 14:13-0400Body hxotfn29.35 kgNicluis Chinchilla DPM Work Phone: [facility] HospitalAdbzykrykj92-04-9983 14:13-0400Respiratory rate16 /minDeliophillipariana Chinchilla DPM Work Phone: [facility] HospitalVjmlwtybpb82-88-5865 16:05-0400Body ijyyci360.3 cmMatthetyler Petznick DO Work Phone: noSaint [facility] HospitalRzqrihrqvd81-03-8883 16:05-0400Body mass index (BMI) [Ratio]31.94 kg/m0Dqyfofb Petznick DO Work Phone: noSaint Luke's East HospitalGvyboneani60-03-9229 16:05-0400Body temperature 97.9 [degF]Aagta Cordova DO Work Phone: noSaint [facility] East HospitalTtdxeppnxd77-17-0043 16:05-0400Body tpfogk543.87 kgMatthew Petznick DO Work Phone: noSaint [facility] HospitalKirgvsjxmb94-93-3072 16:05-0400Diastolic blood jfdrcbii79 mm[Hg]Agata Petluigiick DO Work Phone: 1(204)[facility] [place], [place] [address]Zyefhsobzb87-78-6781 16:05-0400Heart rate64 /min Agata Petznick DO Work Phone: 1(230)[facility] [place], [place] [address]Kecsmtgycl80-96-8622 16:05-3727FxK2% (BldA) [Mass fraction]97 %Agata Tateznick DO Work Phone: 1(412)[facility] [place], [place] [address]Mvbkwxasqi60-89-2624 16:05-0400Systolic blood ydfozsmv786 mm[Hg]Agata Petznick DO Work Phone: 1(068)[facility] [place], [place] [address]Abrjsvbguq02-87-5289 13:39-0500Body vevncg811.3 cmMattadonay Cordova DO Work Phone: 1(065)[facility] [place], [place] [address]Cyfqlzhqzj15-28-1346 13:39-0500Body mass index (BMI) [Ratio]32.36 kg/b3Ojtzayn Petluigiick DO Work Phone: 1(411)[facility] [place], [place] [address]Snirzbyzrw68-41-2164 13:39-0500Body temperature 98.29 [degF]Agata Petluigiick DO Work Phone: 1(582)[facility] [place], [place] [address]Huuvvczfuu64-81-5455 13:39-0500Body mbytue322.23 kgMattadonay Cordova DO Work Phone: 1(788)[facility] [place], [place] [address]Ygsbawwdyk01-56-4923 13:39-0500Diastolic blood plolepqk10 mm[Hg]Agata Harrisonick DO Work Phone: 1(591)[facility] [place], [place] [address]Crecdiokxp57-41-5583 13:39-0500Heart rate74 /min Agata Petznick DO Work Phone: 1(931)[facility] [place], [place] [address]Eilggrplct72-01-3083 13:39-2337ZbZ2% (BldA) [Mass fraction]97 %Agata Harrisonick DO Work Phone: 1(970)[facility] [place], [place] [address]Gimjfjmgkl68-08-8851 13:39-0500Systolic blood mm[Hg]Agata Petluigiick DO Work Phone: 1(489)[facility] [place], [place] [address]Ynypuyfngz17-85-4233 12:07-0500Body zswnev155.3 cmAngela Lowe PA Work Phone: [facility] HospitalZvuaojjryz93-76-3018 12:07-0500Body mass index (BMI) [Ratio]31.52 kg/t9Ixknop Lowe PA Work Phone: [facility] HospitalKfbutquqfo52-63-9079 12:07-0500Body .51 kgAngela Lowe PA Work Phone: [facility] HospitalPikppyozro43-17-4820 12:07-0500Diastolic blood yclgfyip47 mm[Hg]Delicia Lowe PA Work Phone: [facility] HospitalPpvvsditsz11-05-6123 12:07-0500Systolic blood mm[Hg]Delicia Lowe PA Work Phone: [facility] HospitalOkthckxmjl51-55-0337 09:49-0400Body odqftq504.3 cmFelicia Nandininagel POACHER OPERATOR Work Phone: [facility] HospitalGyolpzxkra59-00-7371 09:49-0400Body mass index (BMI) [Ratio]30.4 kg/h3Aonidke Windnagel POACHER OPERATOR Work Phone: [facility] HospitalCsjpqgcrwm71-06-3033 09:49-0400Body erqtbr07.88 kgFelicia Windnagel POACHER OPERATOR Work Phone: [facility] HospitalLudbjihoxd92-32-2372 09:49-0400Diastolic blood oqmeohxu31 mm[Hg]Dieter Windnagel POACHER OPERATOR Work Phone: [facility] HospitalXlzalamxss47-52-3122 09:49-0400Heart ndwh200 /min Dieter Windnagel POACHER OPERATOR Work Phone: [facility] HospitalRtqymwcrki26-73-0571 09:49-0400Systolic blood sygoaggd078 mm[Hg]Dieter Windnagel POACHER OPERATOR Work Phone: [facility] HospitalPcjbcktkvn52-31-0158 12:30-0400Diastolic blood oimihuxc04 mm[Hg]DO Agata Cordova Work Phone: [facility]08-26-2024 12:30-0400 Heart rate67 /minDO Agata Cordova Work Phone: 1(652)[address] [place], [place] 795[address]08-26-2024 12:30-0400 Respiratory rate18 /Ilir Cordova Work Phone: 1(648)[address] [place], [place] 7951208-26-2024 12:30-0400 SaO2% (BldA) [Mass fraction]95 %DO Agata Cordova Work Phone: 1(847)[address] [place], [place] 7951208-26-2024 12:30-0400 Systolic blood cmzqwkuo641 mm[Hg]DO Agata Cordova Work Phone: 1(705)[address] [place], [place] 7951208-26-2024 11:45-0400 Body yiblgnnggez66.9 [degF]DO Agata Cordova Work Phone: 1(797)[address] [place], [place] 7951208-26-2024 11:45-0400 Inhaled oxygen flow rate4 L/Ilir Cordova Work Phone: 1(363)[address] [place], [place] 7951208-26-2024 08:21-0400 Body mjchty402.88 cmDO Agata Cordova Work Phone: 1(466)[address] [place], [place] 7951208-26-2024 08:21-0400 Body tqascb25 kgDO Agata Cordova Work Phone: 1(622)[address] [place], [place] 7951208-12-2024 10:21-0400 Diastolic blood clucqhrs11 mm[Hg]Kristal Singh MD Work Phone: 1(304)943-[address] [place], [place] 0705008-12-2024 10:21-0400 Systolic blood reljtzgl704 mm[Hg]Kristal Singh MD Work Phone: 1(153)[address]08-12-2024 10:18-0400 Body .3 cmKristal Singh MD Work Phone: 1(055)[address]08-12-2024 10:18-0400 Body mass index (BMI) [Ratio]30.4 kg/y0YsinliaKristal Singh MD Work Phone: 5(246)[address]08-12-2024 10:18-0400 Body cjfjhe03.88 kgKristal Signh MD Work Phone: [facility]08-12-2024 10:18-0400 Heart rate66 /minKristal Singh MD Work Phone: [facility]07-10-2024 15:10-0400 Body foonjo736.34 cmDO Agata Petznick Work Phone: 1(206)[address] [place], [place] 7951207-10-2024 15:10-0400 Body yvanavraqdy91.9 [degF]DO Agata Petznick Work Phone: 1(180)[address] [place], [place] 7951207-10-2024 15:10-0400 Body nkvfxy68 kgDO Agata Petznick Work Phone: 1(933)[address] [place], [place] 7951207-10-2024 15:10-0400 Diastolic blood tnhwvbaa19 mm[Hg]DO Agata Petznick Work Phone: 1(902)[address] [place], [place] 7951207-10-2024 15:10-0400 Heart rate69 /minDO Agata Petznick Work Phone: 1(539)[address] [place], [place] 7951207-10-2024 15:10-0400 Respiratory rate20 /minDO Agata Petznick Work Phone: 1(540)[address] [place], [place] 7951207-10-2024 15:10-0400 SaO2% (BldA) [Mass fraction]98 %DO Agata Petznick Work Phone: 1(838)[address] [place], [place] 7951207-10-2024 15:10-0400 Systolic blood wtzxtnak979 mm[Hg]DO Agata Petznick Work Phone: 1(703)[address] [place], [place] 7951202-29-2024 14:12-0500 Body kzqorv643.42 cmDO Agata Petznick Work Phone: 1(314)[address] [place], [place] 7951202-29-2024 14:12-0500 Body mass index (BMI) [Ratio]29.9 kg/m2DO Agata Petznick Work Phone: 1(486)[address] [place], [place] 7951202-29-2024 14:12-0500 Body sdothd908.96 kgDO Agata Cordova Work Phone: 1(550)[address] [place], [place] 7951202-29-2024 11:40-0500 Body jxoddl038.42 cmDO Agata Cordova Work Phone: 1(909)[address] [place], [place] 7951202-29-2024 11:40-0500 Body mass index (BMI) [Ratio]29.9 kg/m2DO Agata Cordova Work Phone: 1(152)[address] [place], [place] 7951202-29-2024 11:40-0500 Body uojsnf605.13 kgDO Agata Cordova Work Phone: 1(790)[address] [place], [place] 7951202-01-2024 08:20-0500 Body rqopcm156.34 cmKim Felipe Other [address]02-01-2024 08:20-0500 Body mass index (BMI) [Ratio]32.21 kg/w6Nkljrvg Matteo Other [employer] Other 02-01-2024 08:20-0500Body ztqcyc746.78 kgJessica Matteo Other [employer] Other 02-01-2024 08:20-0500Body dhfhiq249.77 kgDO Agata Cordova Work Phone: 1(003)907-[address] [place], [place] 6896412-12-2023 10:00-0500 Body twynfw275.34 cmLino Nguyen Other [employer] Other 12-12-2023 10:00-0500Body mass index (BMI) [Ratio] 33.83 kg/m2Lino Nguyen Other [employer] Other 12-12-2023 10:00-0500Body bzuggt422.04 kgDale Patrick Other [employer] Other 11-28-2023 20:55-0500Body vxvvkwfzjyf99.1 [degF]DO Agata Petznick Work Phone: 1(429)[address] [place], [place] 7951211-28-2023 20:55-0500 Diastolic blood orghfgyp75 mm[Hg]DO Agata Petznick Work Phone: 1419)[address] [place], [place] 7951211-28-2023 20:55-0500 Heart rate88 /minDO Agata Petznick Work Phone: 1419)[address] [place], [place] 7951211-28-2023 20:55-0500 Respiratory rate17 /minDO Agata Petznick Work Phone: 1(816)[address] [place], [place] 7951211-28-2023 20:55-0500 SaO2% (BldA) [Mass fraction]95 %DO Agata Petznick Work Phone: 1(573)[address] [place], [place] 7951211-28-2023 20:55-0500 Systolic blood bumzllhw623 mm[Hg]DO Agata Petznick Work Phone: 1(212)[address] [place], [place] 7951211-28-2023 19:06-0500 Body .88 cmDO Agata Petznick Work Phone: 1(696)[address] [place], [place] 7951211-28-2023 19:06-0500 Body .2 kgDO Agaat Petznick Work Phone: 1(429)[address] [place], [place] 7951211-28-2023 12:46-0500 Body kinjecsbqnm03 [degF]DO Agata Petznick Work Phone: 1(522)[address] [place], [place] 7951211-28-2023 12:46-0500 Diastolic blood hlibqwsp58 mm[Hg]DO Agata Petznick Work Phone: 1(414)[address] [place], [place] 7951211-28-2023 12:46-0500 Heart rate77 /minDO Agata Petznick Work Phone: 1419)[address] [place], [place] 7951211-28-2023 12:46-0500 Respiratory rate14 /minDO Agata Petznick Work Phone: 1(850)[address] [place], [place] 7951211-28-2023 12:46-0500 SaO2% (BldA) [Mass fraction]96 %DO Agata Cordova Work Phone: 1(437)[address] [place], [place] 7951211-28-2023 12:46-0500 Systolic blood ohsowtdh854 mm[Hg]DO Agata Cordova Work Phone: 1(169)[address] [place], [place] 7951211-28-2023 04:33-0500 Body .2 kgDO Agata Cordova Work Phone: 1(119)[address] [place], [place] 7951211-27-2023 16:06-0500 Inhaled oxygen flow rate8 L/minDO Agata Cordova Work Phone: 1(567)[address] [place], [place] 7951211-27-2023 13:08-0500 Body zwywue358.88 cmDO Agata Cordova Work Phone: 1(756)[address] [place], [place] 7951211-27-2023 13:08-0500 Body mass index (BMI) [Ratio]33.2 kg/m2DO Agata Cordova Work Phone: 1(332)[address] [place], [place] 7951211-09-2023 13:20-0500 Body dwldja134.34 cmDanader Nguyen Other [employer] Other 11-09-2023 13:20-0500Body mass index (BMI) [Ratio] 33.61 kg/m2Danader Nguyen Other [employer] Other 11-09-2023 13:20-0500Body xmdcbu151.32 kgDale Nguyen Other [employer] Other 11-02-2022 15:45-0400Body ikesty270.34 Hugo Rosario Other [employer] Other 08-10-2022 14:30-0400Body iyukot696.34 Nataliabeba Rosario Other [employer] Other 08-10-2022 14:30-0400Body mass index (BMI) [Ratio] 33.47 kg/x2RhcybkpMagaly Rosario Other [employer] Other 08-10-2022 14:30-0400Body wgvgab156.86 kgMagaly Rosario Other [employer] Other 04-06-2022 11:30-0400Body itycgc646.34 cmCari Rosario Other [employer] Other Encounters Encounter DateEncounter TypeCare ProviderFacilityStart: 07-05-2025 End: 83-49-7043ijjglkpvpjMNSOLTFL A BROWNNot AvailableStart: 07-05-2025 End: 05-29-7583Qixxxs flowsheetBharathi Chinchilla DPM Work Phone: [facility] CI PODIATRYStart: 07-05-2025 End: 47-52-9719Mpsfhi flowsKenji Chinchilla DPM Work Phone: [facility] CI PODIATRYStart: 07-05-2025 End: 76-70-6349Uyfxtv outpatient new 30 minutesBharathi Chinchilla DPM Work Phone: [facility] CI PODIATRYComment on above:Contusion of left foot, initial encounter (Primary Dx); Diabetes mellitus due to underlying condition with diabetic polyneuropathy, without long-term current use of insulin (HCC); Pain due to onychomycosis of toenails of both feetStart: 04-17-2025 End: 33-37-3082ppypwrmpwdPLHUSDZ Prasanth PETZNICKNot AvailableStart: 04-17-2025 End: 29-32-4378Ywrpmz outpatient visit 25 minutesMattfarhatw Prasanth Harrisonick DO Work Phone: [facility] FM 230Comment on above:Onychomycosis of multiple toenails with type 2 diabetes mellitus (HCC) (Primary Dx); Type 2 diabetes mellitus with other specified complication, without long-term current use of insulin (HCC); Inflammation of toenail, right; Chronic pain syndrome; Cognitive impairment; Bipolar 1 disorder (HCC); BMI 30.0-30.9,adultStart: 04-17-2025 End: 88-58-0052Tigtbh flowsheetMatthew C Petznick DO Work Phone: [facility] FM 230Start: 04-17-2025 End: 71-77-6072Vfawmz flowsheetMatthew C Petznick DO Work Phone: [facility] FM 230Start: 00-32-8034bqjcatytnuKdoswga PetznickFacility:[facility] Hospitaltart: 01-03-2025 End: 03-91-5864wdlegnsyxpUXODYB LOWENot AvailableStart: 12-13-2024 End: 37-02-6100Tcxnqz flowsheetMatthew C Petznick DO Work Phone: [facility] FM 230Start: 12-13-2024 End: 73-59-3300Zepuec flowsheetMatthew C Petznick DO Work Phone: [facility] FM 230Start: 12-13-2024 End: 92-78-0642Uutjtjt encounter procedureMatthew C Petznick DO Work Phone: [facility] 230Comment on above:Routine general medical examination at [...] disease; Screening for colorectal cancerStart: 12-13-2024 End: 21-39-6788Febback encounter statusMatthew C Petznick DO Work Phone: [facility] HealthcareStart: 12-13-2024 End: 99-41-3373kmkeluonkuHXHQVMX C PETZNICKNot AvailableStart: 12-07-2024 End: 14-84-6237yoplbjiaucIHBXESI C PETZNICKNot AvailableStart: 12-07-2024 End: 03-61-3916Ikkccmh encounter procedureBharathi Rivera PhD Work Phone: ana [facility] VAL[facility] CITYUSKYComment on above:Cognitive impairment (Primary Dx); Acute post-traumatic headache, not intractable; Abnormal finding on MRI of brain; Injury of head, sequela; Concentration deficit; MARCIA (obstructive sleep apnea); Other insomnia; Other chronic pain; Bipolar affective disorder, remission status unspecified (CMS/HCC); Severe episode of recurrent major depressive disorder, without psychotic features (HCC) (CMS/HCC); Severe anxietyStart: 09-13-2024 End: 72-16-9895Ejyasc flowsheetAngela Lowe PA Work Phone: [facility] [facility] R[facility]TEStart: 09-13-2024 End: 96-24-2626Feitrw flowsheetAngela Lowe PA Work Phone: [facility] [facility] R[facility]TEStart: 09-13-2024 End: 77-01-2070lkhjeqzacnDZZBYT LOWENot AvailableStart: 09-13-2024 End: 38-14-6079Jwxtgm outpatient visit 15 minutesAngela Dress Codee PA Work Phone: [facility] [facility] ROUTEComment on above:Classical migraine with intractable migraine, so stated (CMS/HCC) (Primary Dx); Injury of head, sequela; Cognitive impairment; Concentration deficitStart: 08-21-2024 End: 13-66-1755fhmvilrfqsQATCIHQN DENBESTENNot AvailableStart: 08-21-2024 End: 85-76-0497Proeobx encounter procedureBharathi Rivera PhD Work Phone: noMS NEUROLOGYComment on above:Cognitive impairment (Primary Dx); Concentration deficit; Injury of head, sequela; Bipolar affective disorder, remission status unspecified (CMS/HCC); Other insomnia; MARCIA (obstructive sleep apnea); Other chronic painStart: 08-21-2024 End: 56-35-3759Bhfqkh Fredi Rivera PhD Work Phone: noms NEUROLOGYStart: 08-21-2024 End: 36-39-5559Bvycxp Fredi Rivera PhD Work Phone: noms NEUROLOGYStart: 07-20-2024 End: 07-81-1252Syvgwy flowsheetFelicia C Windnagel POACHER OPERATOR Work Phone: [facility] [facility] R[facility]TEStart: 07-20-2024 End: 20-94-7357Ykqioq flowsheetFelicia C Windnagel POACHER OPERATOR Work Phone: [facility] [facility]TEStart: 07-20-2024 End: 02-56-2203Pwsnhb outpatient new 60 minutesFelicia C Windnagel POACHER OPERATOR Work Phone: noms [facility] ROUTEComment on above:Cognitive impairment (Primary Dx); Classical migraine with intractable migraine, so stated ([facility])Start: 07-20-2024 End: 66-37-5791jjobbuoailPQDAABS C WINDNAGELNot AvailableStart: 07-10-2024 End: 80-82-1027cuhvpxpvhnXA Agata Cordova Work Phone: [facility] Work Phone: Start: 07-10-2024 End: 33-89-3078Rpnpgyt encounter procedureDO Agata Cordova Work Phone: [facility] Work Phone: Start: 64-54-8878Ymqdsmidgg RecurringDO Agata Cordova Work Phone: [facility]- CredibleStart: 28-39-9623Aha-patient / Non-visitDO Agata Cordova Work Phone: [facility] Work Phone: Start: 06-12-2024 End: 76-65-3726Wtusyjknq to same day surgery centerDO Agata Cordova Work Phone: [facility] CampusStart: 06-12-2024 End: 44-93-1054yxfesmyshoTZ Agata Cordova Work Phone: [facility] Work Phone: Start: 06-07-2024 End: 73-55-6092guplvrootiLF Agata Cordova Work Phone: [facility] Work Phone: Start: 06-07-2024 End: 12-21-2115Bimvyqb encounter procedureDO Agata Leayonatan Work Phone: [facility] Work Phone: Start: 06-01-2024 End: 09-00-8362esygbcekhaMN Agata Leayonatan Work Phone: [facility] Work Phone: Start: 06-01-2024 End: 13-54-2376Tsrjuyv encounter procedureDO Agata Leayonatan Work Phone: [facility]-Pre-Surgical Testing Work Phone: Start: 05-29-2024 End: 26-42-4894Pdgrzl consultation new/estab patient 62 Susie Singh MD Work Phone: [facility] on above:Abnormal EKG (Primary Dx); Preop cardiovascular exam; Mixed hyperlipidemia; Essential hypertension; Diabetes mellitus type II, non insulin dependent (Multi); BMI 30.0-30.9,adult; Current smokerStart: 05-29-2024 End: 80-80-7118Nsphkww encounter statusKristal Singh MD Work Phone: [facility] Work Phone: Start: 05-29-2024 End: 51-24-2812yronngryseWQYQLJWAdventHealth Daytona Beach AmbulatoryStart: 05-29-2024 End: 27-47-3102Qxhueytoy for preprocedural cardiovascular examinationSt. Mary's [facility] AmbulatoryStart: 05-24-2024 End: 84-55-6474cojipgsnuaKGLXN [facility] Systemtart: 05-08-2024 End: 37-38-0286togyxdmmiyGP Agata Cordova Work Phone: [facility] Work Phone: Start: 05-08-2024 End: 01-00-2015Bjlskhao ReferredDO Agata Cordova Work Phone: [facility] CampusStart: 04-26-2024 End: 18-50-6884aaycpeyxchBR Agata Cordova Work Phone: [facility] Work Phone: Start: 04-26-2024 End: 10-10-4379Tayruiq encounter procedureDO Agata Cordova Work Phone: [facility] Ekw-Qrh-Ziqczqsn Testing Work Phone: Start: 04-18-2024 End: 51-03-1156ajfcfoikecDU Agtaa Cordova Work Phone: [facility] Work Phone: Start: 04-18-2024 End: 21-60-9455Kjabhnh encounter procedureDO Agata Cordova Work Phone: [facility] Work Phone: Start: 03-29-2024 End: 54-19-8622cchkedkwdbXIMNT VERHOFFProMedica Independence HospitalStart: 11-45-3995Jrokegmdxa RecurringDO Agata Cordova Work Phone: [facility]- CredibleStart: 03-15-2024 End: 59-38-7184ejrlwxncfcJF Agata Petznmehrdad Work Phone: [facility] Work Phone: Start: 03-15-2024 End: 02-50-0299Bhaoqeu encounter procedureDO Agata Cordova Work Phone: [facility] Work Phone: Start: 02-12-2024 End: 47-57-9733hkgzheumdlVRSFVD SALENA MILLERSelect Medical Specialty Hospital - [facility] HospitalStart: 02-11-2024 End: 43-43-7788cnjezhyunsWQXSRHZ E HOGANProRegency Hospital Toledo HospitalStart: 01-29-2024 End: 82-33-4400sldclghjkyIDRWXQ S DROWNProMedica Independence HospitalStart: 01-28-2024 End: 97-97-8386fecbzqmepfHTCMWNR E HOGANProRegency Hospital Toledo HospitalStart: 01-19-2024 End: 20-11-8078efxcriidyzXM Agata Cordova Work Phone: [facility] Work Phone: Start: 01-19-2024 End: 86-57-3156Beoznnf encounter procedureDO Agata Cordova Work Phone: [facility] Work Phone: Start: 98-15-9397Zsinwfhvyh RecurringDO Agata Cordova Work Phone: [facility] CredibleStart: 12-22-2023 End: 03-00-0161jklhabynwlSKICQ L SPROUTProMedica Independence HospitalStart: 12-22-2023 End: 55-52-2695aumiekeeovGWRUL N VERHOFFProMediCooper County Memorial Hospital HospitalStart: 12-16-2023 End: 62-95-1191Qqhoqba encounter procedureDO Agata Cordova Work Phone: [facility] Work Phone: Start: 12-16-2023 End: 07-30-7420Xeylgac encounter procedureDO Agata Cordova Work Phone: [facility] Work Phone: start: 86-95-1288Utbftmdq Result EncounterMatthew Prasanth Cordova DO Work Phone: noms External Department UnsolicitedStart: 11-25-2023 External Result EncounterMatthew Prasanth Cordova DO Work Phone: noms External Department UnsolicitedStart: 11-25-2023 End: 27-33-1148jbnexyqmxnAM Agata Cordova Work Phone: [facility] Work Phone: Start: 11-25-2023 End: 34-24-7106Sjthjiq encounter procedureDO Agata Cordova Work Phone: [facility]-Digestive Health Work Phone: Start: 11-24-2023 End: 06-67-4157dszpvmjwljYtzlylo Marlene Other [employer]iel[employer] Other Start: 81-35-3737Jxidxc outpatient visit 15 minutes Magaly RosarioTSEHOOTSOOI [facility] [place] OrthopedicsStart: 11-18-2023 End: 39-72-6403rrvhvttmyhSbivtqy Felipe Other [employer]iel[employer] Other start: 84-04-5525Semfts follow up visit related to original pxJessica [facility] NeurosurgeryStart: 11-18-2023 End: 46-39-7924Wxxxfpg encounter procedureDO Agata Cordova Work Phone: [facility]-Start: 09-28-2023 End: 21-84-3959heckjtwdtuApja Braun Other [employer] Other start: 88-88-6137Ugyxcd follow up visit related to original pxDale BraunJohnson County Community Hospital NeurosurgeryStart: 09-28-2023 End: 43-97-9429Floooxy encounter procedureDO Agata Leayonatna Work Phone: [facility] Neurosurgery Work Phone: start: 09-21-2023 End: 30-85-7426lhrnmcvvdaMzjchzn Calvey Other [employer] Other Start: 16-43-3221Pnajuc outpatient visit 15 minutes Magaly [facility] OrthopedicsStart: 09-14-2023 End: 72-36-3622Zntxnngxf department patient visitDO Agata Cordova Work Phone: [facility]-Emergency Room Work Phone: Start: 09-14-2023 End: 09-45-9314edyaxgacuiTkwssah Calveduardo Other [employer] Other Start: 43-32-9594Fyiyhrhhq encounterColleen [facility] OrthopedicsStart: 09-13-2023 End: 20-72-2235Uqdmidzls to same day surgery centerDO Agata Cordova Work Phone: [facility]-Surgery [facility] HospitalStart: 09-13-2023 End: 47-94-5180srfnnwusipBN Matthew Leayonatan Work Phone: [facility] Work Phone: Start: 08-30-2023 End: 64-53-8860gnuzzisubgEY Agata Leayonatan Work Phone: [facility] Work Phone: Start: 08-30-2023 End: 31-94-6879Wlwqxub encounter procedureDO Agata Leayonatan Work Phone: [facility] Aqq-Gvr-Xmfbvidi Testing Work Phone: Start: 08-26-2023 End: 77-30-2373ucfgudzkmrCoag Nguyen Other [employer] Other start: 76-32-0366Ezfbeh outpatient new 30 minutesDale BraunFPG [facility] NeurosurgeryStart: 07-14-2023 End: 78-08-9357yydenqjbzlUponloy Calvey Other [employer] Other Start: 80-69-0322Dawzeh outpatient visit 15 minutes Magaly MarleneFPG [place] OrthopedicsStart: 02-15-2023 End: 00-06-3125zosnplzxhzET Agata Cordova Work Phone: [facility] Work Phone: Start: 02-15-2023 End: 61-83-0342Yognhjc encounter procedureDO Agata Cordova Work Phone: [facility] Work Phone: Start: 02-15-2023 End: 40-51-4010jnskmuzaucEV Agata Cordova Work Phone: [facility] Work Phone: Start: 02-15-2023 End: 31-64-4837Rbplqjt encounter procedureDO Agata Cordova Work Phone: [facility] Work Phone: Start: 11-18-2022 End: 92-67-6665igbxllkmfbKlfkziv Calvey Other [employer] Other Start: 91-09-1409Jzfkgn outpatient visit 15 minutes Magaly CalveduardoFPG [place] OrthopedicsStart: 08-19-2022 End: 12-02-2621acrwprhvhjOkegtsn Calvey Other [employer] Other Start: 95-61-9927Mpuadd outpatient visit 15 minutes Magaly CalveyFPG [place] OrthopedicsStart: 07-29-2022 End: 55-54-7617zjlnqoccmcFgipmwa Calvey Other [employer] Other Start: 20-85-1769Fujfag outpatient visit 15 minutes Magaly CalveyFPG [place] OrthopedicsStart: 06-24-2022 End: 42-22-6756nyeqliuulaTtxcsfx Calvey Other [employer] Other start: 17-11-0592Penntt outpatient visit 15 minutes Magaly CalveyFPG [place] OrthopedicsStart: 05-27-2022 End: 88-29-0804wgaxvahnabIyyemaa Calvey Other [employer]iel[employer] Other start: 61-19-5177Ekgzdv outpatient visit 15 minutes Magaly CalveyFPG [place] OrthopedicsStart: 04-01-2022 End: 04-50-0725bvuhpslyxpKnfxbcc Calvey Other [employer] Other start: 52-86-3332Abqpiw follow up visit related to original pxColleen CalveyFPG [place] OrthopedicsStart: 03-04-2022 End: 66-80-1070thxvhnsxqfXgkpuhz Calvey Other [employer] Other Start: 80-42-0085Jxpnbd follow up visit related to original pxColleen CalveyFPG [place] OrthopedicsStart: 02-03-2022 End: 18-27-6895ktsvxppcexPnhtigk Calvey Other [employer] Other Start: 86-93-0798Zwhamj follow up visit related to original pxColleen CalveyFPG [place] OrthopedicsStart: 01-21-2022 End: 44-89-5665kypnondlzpUlrdugg Calvey Other Nort [employer] Other Start: 18-93-6750Demmej outpatient visit 25 minutes Magaly [facility] OrthopedicsStart: 58-75-1561qorfbrcwelEVPIUOB PETZNICKFacility:D7Tysxe: 50-40-1458Bsttqlpjr for general adult medical examination without abnormal findingsMATTHEW PETZNICKThe Tioga HospitalStart: 04-24-2021 End: 68-29-7890cftekgsauyHPVLCXJ PETZNICKFacility:U9Aicbi: 04-24-2021 End: 24-96-2397Zjisiovrd for general adult medical examination without abnormal findingsMATTHEW PETZNICKFacility:C7Mjqki: 47-16-5629vugifmaxnqMBQNRRR PETZNICK Facility:T3Bfqww: 01-06-2021 End: 68-31-2565rjdespglzkQK NONE LISTED REQUESTFacility:H1 Procedures DateProcedureProcedure DetailPerforming ClinicianStart: 40-37-0126Iwjzgoarhd glycosylated e6qLmmezkf C Petznick DO Work Phone: Start: 01-18-0407Ujeufxtm blood count with white cell differential, automatedMatthew C Petznick DO Work Phone: Start: 94-87-4041Vdbglhcxtbcxq metabolic panelMatthew C Petznick DO Work Phone: Start: 49-45-5784Djqom panelMatthew C Petznick DO Work Phone: Start: 00-83-2637Yawms albumin quantitativeMatthew C Petznick DO Work Phone: Start: 81-65-2442Lszepnxocrdcv of median nerveDO Agata Cordova Work Phone: Start: 35-46-1419Xxl routine ecg w/least 12 lds w/i&r Kristal Singh MD Work Phone: Start: 19-97-3409Vatpy x-ray of pelvis and lower extremityDO Agata Cordova Work Phone: Start: 30-53-1684Bakbq of amylaseMatthew C Petznick DO Work Phone: Start: 38-95-2978Zilfqet function panelMatthew C Petznick DO Work Phone: Start: 55-76-3909Qkgrozvzoy elastography of liverDO Agata Cordova Work Phone: Start: 69-25-2688Cendmx scan veins of upper limbDO Agata Cordova Work Phone: Start: 76-18-9163K-ray of cervical spineDO Agata Cordova Work Phone: Start: 11-77-7388Xpfdjwzsmuqyn of cervical spineDO Agata Cordova Work Phone: Start: 55-83-0595Flcej X-ray of left tibia and left fibulaDO Agata Cordova Work Phone: Start: 73-17-6352VBX screeningMATTHEW PETZNICKComment on above:Performed By: #### TSH, PSAD, LIPID,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 [facility] [employer] Other Evaluation noteNo assessment information available [facility] Work Phone: Evaluation note* Diagnosis Onset Date Resolution Status Right cervical radiculopathy acute [facility] Work Phone: Evaluation noteNo InformationNortHoly Redeemer Hospital [employer] Other Evaluation note* Diagnosis Onset Date Resolution Status Cervical disc disease acutePostoperative visitacuteAlcohol abuseacuteBilateral hip painacuteNicotine abuseacuteAvascular necrosis of bones of both hipsnoneactiveAcquired mallet deformity of right ring yhbdhjjlspsOZL-ECCU-[id number]-ZUKS-923171jhnyhQramw carpal tunnel syndromeacute [facility] Work Phone: Evaluation note* Diagnosis Onset Date Resolution Status Cervical disc disease acutePostoperative visitacuteAlcohol abuseacuteBilateral hip painacuteNicotine abuseacuteAvascular necrosis of bones of both hipsnoneactiveAcquired mallet deformity of right ring pdnvulczqwiYON-UBEE-[id number]-WKGI-482748tdofeIvupp carpal tunnel syndromeacute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acute DQT-SXKC-[id number]-EJHB-113923gatmkAsyag carpal tunnel syndromeacute 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 Work Phone: Evaluation note* Diagnosis Cognitive impairment- Primary Unspecified persistent mental disorders due to conditions classified elsewhere Acute post-traumatic headache, not intractable Abnormal finding on MRI of brain Injury of head, sequela Concentration deficit MARCIA (obstructive sleep apnea) Obstructive sleep apnea (adult) (pediatric) Other insomnia Other chronic pain Bipolar affective disorder, remission status unspecified ([facility]) Severe episode of recurrent major depressive disorder, without psychotic features ([facility]) ([facility]) Severe anxiety documented [facility]* Diagnosis Routine general medical examination at a health care facility- Primary Chronic pain syndrome Peripheral vascular disorder due to diabetes mellitus ([facility]) Primary hypertension ([facility]) Unspecified essential hypertension Spondylosis of lumbar spine Type 2 diabetes mellitus with other specified complication, without long-term current use of insulin ([facility]) Anxiety Anxiety state, unspecified Bipolar 1 disorder ([facility]/HCC) Chronic depression ([facility]) Current smoker Mixed hyperlipidemia ([facility]) Mixed hyperlipidemia Thrombocytopenia ([facility]) Unspecified thrombocytopenia Alcohol abuse Nondependent alcohol abuse, unspecified drinking behavior Hypothyroidism, unspecified type ([facility]) BMI 30.0-30.9,adult Cervical disc disease Screening for colorectal cancer documented in this encounter [facility] HealthcareEvaluation note* Diagnosis Onychomycosis of multiple toenails with type 2 diabetes mellitus (HCC)- Primary Type 2 diabetes mellitus with other specified complication, without long-term current use of insulin ([facility]) Inflammation of toenail, right Chronic pain syndrome Cognitive impairment Unspecified persistent mental disorders due to conditions classified elsewhere Bipolar 1 disorder (HCC) BMI 30.0-30.9,adult documented in this encounter [facility] HealthcareEvaluation note* Diagnosis Contusion of left foot, initial encounter- Primary Diabetes mellitus due to underlying condition with diabetic polyneuropathy, without long-term current use of insulin ([facility]) Pain due to onychomycosis of toenails of both feet documented in this encounter [facility] HealthcareHistory general Narrative - Reported* Type Description Date Medical History Bipolar 1 disorder Medical HistoryHypertensionMedical HistoryHyperlipidemiaMedical History HypothyroidMedical HistoryThrombocytopeniaMedical HistoryOsteomyelitisMedical HistoryMRSA (methicillin resistant staph aureus) culture positiveMedical History DM IIMedical HistoryGERDSurgical Historyfracture repairSurgical Historywrist surgeryHospitalization [id number] [facility] Other History general Narrative - Reported* Type Description Date Medical History Bipolar 1 disorder Medical HistoryHypertensionMedical HistoryHyperlipidemiaMedical History HypothyroidMedical HistoryThrombocytopeniaMedical HistoryOsteomyelitisMedical HistoryMRSA (methicillin resistant staph aureus) culture positiveMedical History DM IIMedical HistoryGERDSurgical Historyfracture repairSurgical Historywrist surgerySurgical HistoryRemoval Hardware Left WristHospitalization [id number] [employer] [facility] Other History general Narrative - Reported* Type Description Date Medical History Bipolar 1 disorder Medical HistoryHypertensionMedical HistoryHyperlipidemiaMedical History HypothyroidMedical HistoryThrombocytopeniaMedical HistoryOsteomyelitisMedical HistoryMRSA (methicillin resistant staph aureus) culture positiveMedical History DM IIMedical HistoryGERDMedical HistoryArthritisMedical Historydiabetes mallitus Medical Historyhigh cholesterolMedical Historykidney diseaseMedical History chronic depressionMedical HistoryanxietySurgical Historyfracture repairSurgical Historywrist surgerySurgical HistoryRemoval Hardware Left WristHospitalization [id number] [facility] Other Hospital Discharge instructions Additional Instructions May shower Wednesday Wear soft collar for comfort If wound drains placed a dressing if not a dressing may not be needed Ice to affected area as needed for neck spasm for the next 5 days No lifting greater than [address] not taking narcoticsUniversity [facility]als [facility] Work Phone: Hospital Discharge instructions Additional Instructions Continue current meds Elevate your arm above your heart at home on pillows Return if symptoms are worse Follow-up [facility]. [facility] Work Phone: Hospital Discharge instructions [...] to decrease risk of infection after surgery [facility] Work Phone: Reason for visit Narrative* Self Referral (Routine) - ClosedSpecialtyDiagnoses / ProceduresReferred By ContactReferred To Contact Neurology Diagnoses Memory changes, MRI @ [facility] ref by Dr Buddy Cordova Procedures NEURO NEW PATIENT Dieter Calle, POACHER OPERATOR [address] [facility] [address] [place] [address] Referral IDStatusReasonStart DateExpiration DateVisits RequestedVisits [id number] Consult and Treat [facility] HealthcareReason for visit Narrative* Consultation (Routine) - Closed SpecialtyDiagnoses / ProceduresReferred By ContactReferred To Contact Psychology Diagnoses Cognitive impairment Procedures IN OFFICE/OUTPATIENT [facility] MDM 60 MINUTES Dieter Calle, POACHER OPERATOR [address] [place] [address] Phone: tel: fax: Bharathi Rivera, PhD [address] [facility] [address] [place] [address] Phone: tel: fax: Referral IDStatusReasonStwestford DateExpiration DateVisits RequestedVisits [id number] Specialty Services Required [facility] HealthcareReason for visit Narrative* Consultation (Routine) - Closed SpecialtyDiagnoses / ProceduresReferred By ContactReferred To ContactNeurology Diagnoses Acute post-traumatic headache, not intractable Abnormal finding on MRI of brain Procedures IN OFFICE/OUTPATIENT [facility] 60 MINUTES Agata Cordova DO [address] [facility] [address] [place] [address] Phone: tel: fax: Ady Olson MD [address] [facility] [address] [place] [address] Phone: tel: fax: Referral IDStatusReasonStwestford DateExpiration DateVisits RequestedVisits [id number] Specialty Services Required [facility] Healthcare Summary Purpose Family History No Family [...] ECG 12 Lead Kristal Singh MD [address] [facility] [address] [place] [address] Referral IDStatusReasonStart DateExpiration DateVisits RequestedVisits [id number]/12/[id number] / Procedures Referred By ContactReferred To Contact Diagnoses Intractable chronic migraine without aura and without status migrainosus (CMS/HCC) Dieter Calle NP [address] [place] [address] Referral IDStatusReasonHonor DateExpiration DateVisits RequestedVisits [id number] / Procedures Referred By ContactReferred To ContactPsychology Diagnoses Cognitive impairment Procedures IN OFFICE/OUTPATIENT NEW HIGH MDM 60 MINUTES Dieter Calle NP [address] [place] [address] Bharathi Rivera, PhD [address] [facility] [address] [place] [address] Referral IDStatusasonHonor DateExpiration DateVisits RequestedVisits [id number] Specialty Services Required / Reason Bilateral upper EMG Diagnosis 1 Left carpal tunnel s yndrome (G56.02) Referral Organization [facility] Referring Provider First Name Magaly Referring Provider Last Name Brendaeduardo Referring Provider Specialty Hand Surger y Referred Organization [facility] Referred Address [address] [place] [place], [place],[address] Referred Provider Specialty Neurology Referral Priority Routine [...] 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 [id number] BUM-[id number] Right carpal tunnel syndrome Chief Complaint 3 mo po 09/13/[address] [place] OF BILAT HIP CT NOMS 6 month fu / 6 week recheck rt ring finger 6-8 WEEKSReason for VisitCervical disc disease Postoperative visit Alcohol abuse Bilateral hip pain Nicotine abuse Avascular necrosis of bones of both hips 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 [id number] QHO-[id number] Right carpal tunnel syndrome 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 [id number]-[id number] CCP-MUZZ-[id number] Right carpal tunnel syndrome Chief Complaint 6 month fu / 6 week recheck rt ring finger 6-8 WEEKS H&P REVISION RCTRReason for 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 MLT-[id number] OGS-IIGF-[id number] Right carpal tunnel syndrome 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 KAZ-[id number] AHO-ELQP-[id number] Right carpal tunnel syndrome 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 RQI-QAVM-[id number] AUY-MAIK-[id number] Right carpal tunnel syndrome Chief Complaint 6-8 WEEKS BH H&P REVISION RCTR Carpal TunnelReason for 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 TPQ-WDBH-[id number] ZVS-SDIF-[id number] Right carpal tunnel syndrome 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 GTH-VFTH-[id number] FUE-AIRP-191007 Right carpal tunnel syndrome Chief Complaint 6-8 WEEKS BH H&P REVISION RCTR Carpal Tunnel CTS, Bone SpurReason for 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 IAK-MGLB-[id number] KDU-ANYQ-[id number] Right carpal tunnel syndrome 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 XXO-DLTC-[id number] XAM-AUUR-[id number] Right carpal tunnel syndrome Chief Complaint 6-8 WEEKS BH H&P REVISION RCTR Carpal Tunnel CTS, Bone Spur H&P RIGHT CARPAL TUNNEL REVISIONReason for 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 CEZ-YGNQ-[id number] DGC-OWGZ-976555 Right carpal tunnel syndrome 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 WZH-QEKM-027820 QHI-ROUH-584149 Right carpal tunnel syndrome 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 TLJ-TNSL-671284 FWT-SDAL-738401 Right carpal tunnel syndrome Chief Complaint 6-8 WEEKS BH H&P REVISION RCTR Carpal Tunnel CTS, Bone Spur H&P RIGHT CARPAL TUNNEL REVISION CTS, Bone SpurReason for 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 PAL-KCSW-[id number] VGD-ZHBA-[id number] Right carpal tunnel syndrome 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 DJH-PTLW-509554 PNT-DMSH-653470 Right carpal tunnel syndrome 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 XDR-AKVL-954704 HGN-EMFG-069162 Right carpal tunnel syndrome Chief Complaint H&P REVISION RCTR Carpal Tunnel CTS, Bone Spur H&P RIGHT CARPAL TUNNEL REVISION CTS, Bone Spur CTS, Bone Spur BH 2-3 WK POST OPReason for 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 XHL-XHNK-128138 ENL-DVVS-660945 Right carpal tunnel syndrome 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 SNN-PZCA-838317 OQF-YACT-649404 Right carpal tunnel syndrome 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 FWA-KCQC-707270 WBL-SMDZ-927444 Right carpal tunnel syndrome Chief Complaint H&P REVISION RCTR Carpal Tunnel Carpal Tunnel CTS, Bone Spur H&P RIGHT CARPAL TUNNEL REVISION CTS, Bone Spur CTS, Bone Spur BH 2-3 WK POST OPReason for 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 IFN-HHJK-393031 COJ-BVDY-625766 Right carpal tunnel syndrome 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 UAW-GIGJ-769738 KWU-HOZD-237850 Right carpal tunnel syndrome 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 DKB-HOPM-721807 RKG-CBJR-408392 Right carpal tunnel syndrome Additional Source Comments (unrecognized sect ion and content) No Status Records FoundNo Status Records FoundNo Status Records FoundNo Status Records FoundNo Status Records FoundNo Status Records Found INFORMATION SOURCE (unrecogn ized section and content) DATE CREATED AUTHOR 12/05/2021 [facility] DATE CREATED AUTHOR AUTHOR'S ORGANIZ ATION 08/20/2022 [facility] DATE CREATED AUTHOR AUTHOR'S ORGANIZ ATION 05/27/2024 [facility] DATE CREATED AUTHOR AUTHOR'S ORGANIZ ATION 05/30/2024 [facility] DATE CREATED AUTHOR AUTHOR'S ORGANIZ ATION 07/07/2025 [facility] DATE CREATED AUTHOR AUTHOR'S ORGANIZ ATION 07/08/2025 [facility] REASON FOR VISIT (unrecogniz ed section and content) ReasonCommentsMemory LossHeadacheReasonCommentsEstablish CarepocPre-op Clearance SpecialtyDiagnoses / ProceduresReferred By ContactReferred To Contact Diagnoses Preop cardiovascular exam Procedures ECG 12 Lead Kristal Singh MD [address] [address], [address] [address] Referral IDStatusReasonStart DateExpiration DateVisits RequestedVisits [id number]/12/20248/12/644954ByxqqsFfspmahzTqvdgb ExamReason CommentsDiabetesReasonCommentsToe Problem Care Teams (unrecognized sec [...] DO [address] [place] [address] PCP - [facility]02/23/23 Team Status: Inactive Member Role Status Dates [...] Status: Inactive Member Role Status Dates Agata oCrdova DO Primary Care Provider Active Start: June [...] DO [address] [place] [address] PCP - [facility]02/23/23Team MemberRelationshipSpecialtyStart DateEnd Date Agata Cordova DO [address] [place] [address] PCP - Generalmily Medicine02/23/23Team MemberRelationshipSpecialtyStart DateEnd Date Agata Cordova, DO [address] [place] [address] [facility] - [facility]02/23/23Team MemberRelationshipSpecialtyStart DateEnd Date Agata Cordova, DO [address] [place] [address] [facility] - [facility]02/23/23Team MemberRelationshipSpecialtyStart DateEnd Date Agata Cordova, DO [address] [place] [address] [facility] - [facility]02/23/23Team MemberRelationshipSpecialtyStart DateEnd Date Agata Cordova, DO [address] [place] [address] PCP - Generalmi Medicine05/29/24Team MemberRelationshipSpecialtyStart DateEnd Date Agata Cordova, DO [address] [place] [address] [facility] - [facility]02/23/23 Agata Cordova, DO [address] [place] [address] PCP - [facility]11/24/24 Edwige Garcias LSW Social [facility] Medicine11/29/24Team MemberRelationshipSpecialtyStart DateEnd Date Agata Cordova, DO [address] [place] [address] PCP - [facility] Medicine02/23/23 Agata Cordova, DO [address] [place] [address] PCP - O Reach11/24/24 Edwige Garcias, [facility] Social [facility]11/29/24Team MemberRelationshipSpecialtyStart DateEnd Date Agata Cordova, DO [address] [place] [address] [facility] Medicine02/23/23 Agata Cordova, DO [address] [place] [address] PCP - [facility] Reach11/24/24 Edwige Garcias, AUTOMATIC SHIRRING MACHINE OPERATOR [facility]11/29/24Team MemberRelationshipSpecialtyStart DateEnd Date Agata Cordova, DO [address] [place] [address] [facility]02/23/23 Agata Cordova, DO [address] [place] [address] [facility]11/24/24 Edwige Garcias, AUTOMATIC SHIRRING MACHINE OPERATOR [address] [place] [address] Social [facility] Medicine11/29/24 Delicia Hearn PA [address] [place] [address] Physician AssistantNeurology01/03/25Team MemberRelationshipSpecialtyStart DateEnd Date Agata Cordova, DO [address] [place] [address] PCP - GeneralFamily Medicine02/23/23 Agata Cordova, DO [address] [place] [address] PCP - [facility]11/24/24 Edwige Garcias, AUTOMATIC SHIRRING MACHINE OPERATOR [address] [place] [address] Social [facility] Medicine11/29/24 Delicia Hearn PA [address] [place] [address] Physician AssistantNeurology01/03/25Team MemberRelationshipSpecialtyStart DateEnd Date Agata Cordova, DO [address] [place] [address] PCP - GeneralFamily Medicine02/23/23 Agata Cordova, DO [address] [place] [address] PCP - [facility] Re[facility]11/24/24 Edwige Garcias, AUTOMATIC SHIRRING MACHINE OPERATOR [address] [place] [address] Social WorkerH[facility]ally Medicine11/29/24 Delicia Hearn PA [address] [address] Physician AssistantNeurology01/03/25Team MemberRelationshipSpecialtyStart DateEnd Date Agata Cordova DO [address] [place] [address] PCP - GeneralFamily Medicine02/23/23 Agata Crodova, DO [address] [place] [address] PCP - [facility]11/24/24 Mukul Edwige, AUTOMATIC SHIRRING MACHINE OPERATOR [address] [place] [address] [facility] Medicine11/29/24 Delicia Hearn PA [address] [place] [address] Physician AssistantNeurology01/03/25 Goals (unrecognized section and content) [...] BE BASED ON THE PRIMARY CLINICAL RECORDS. [employer] provides no warranty or guarantee of the accuracy or completeness of information in this document.
--- OUTSIDE RECORDS SUMMARY | 2025-10-14 05:25 | XMS_ITS | Encounter Summary ---
Author Organization [facility] Address [address] [place] [address] Care Team Providers Care Cylinder Honer Name Role Phone Gabnio Hdez DO Primary Care Provider [phone] Gabino Hdez DO Unavailable [phone] Edwige Gilman RFP WRITER Unavailable [phone] Delicia Hearn Unavailable Reason for Visit * ReasonOnset DateCommentsWrist Lynovk5710/08/2025 Encounter Details DateTypeDepartmentCare Team (Latest Contact Info)Ydnvphqgzjs28/22/2025Telephone [facility] [address] [place] [address] Gabino Hdez, [address] [place] [address] Wrist Injury Social History Tobacco UseTypesPacks/DayYears UsedDateSmoking Tobacco: Every UtiFwiyaaqsch136 Started: 10/18/1984Smokeless Tobacco: NeverAlcohol UseStandard Drinks/Week ZfcudbxvJdg26 (1 standard drink = 0.6 oz pure alcohol)caffeine more than 4 cups per tnaM3861 Health LiteracyAnswerDate RecordedHow often do you need [...] relatives?Once a week05/19/2024How often do you attend rastafari or christian services?Never05/19/2024o you belong to any clubs or organizations such as rastafari groups, unions, fraternal or athletic groups, or school groups?No05/19/2024How often do you attend meetings of the clubs or organizations you belong to?Never05/19/2024re you , , , , never , or living with a partner?Buhtduy0205/19/2024 AUDIT-CAnswerDate RecordedQ1: How often do you have [...] hard at all05/19/2024HQ-2AnswerDate RecordedPatient Health Questionnaire-2 Score0 12/13/2024[facility] [place] of Occup[facility] Health - Occupational Stress QuestionnaireAnswerDate RecordedDo you feel stress - tense, restless, nervous, or anxious, or unable to sleep at night because yourmind is troubled all the time - these days?To some mszemp7205/19/2024Exercise Vital SignAnswerDate Recorded On average, how many [...] or from getting things needed for daily living?05/19/2024Housing Stability Vital SignAnswerDate RecordedIn the last 12 months, was there a time when you were not able to pay the mortgage or rent on time?05/19/2024Number of Times Moved in the Last YearNot on file 05/19/2024t any time in the past 12 months, were you homeless or living in a halfway (including now)?No05/19/2024Sex and Gender InformationValueDate Recorded Sex Assigned at BirthNot on fileLegal HghHptb8512/30/2022 6:39 PM EDTGender IdentityNot on fileSexual OrientationNot on filedocumented as of this encounter Miscellaneous Notes * Addendum Note - Adia Ramirez MA - 10/08/2025 11:13 AM ESTAddended by: AIDA RAMIREZ on: 10/08/2025 11:13 AM Modules accepted: Orders * Telephone Encounter - Adia Ramirez MA - 10/08/2025 11:12 AM EST Spouse notified that xray order was faxed to [facility]. * Telephone Encounter - Gabino Hdez DO - 10/08/2025 10:37 AM EST Ok for xray * Telephone Encounter - Norma Mcduffie - 10/08/2025 8:17 AM EST Pt fell yesterday and landed on the right wrist/hand. Pt's spouse is requesting an xray of right wrist/hand. She spoke with ortho and they would not schedule appointment unless there is a fracture. Please send xray order to [facility] and give spouse a call when sent. documented in this encounter Plan of Treatment DateTypeDepartmentCare Team (Latest Contact Info)Bfamugjgqjy69/15/2026 4:10 PM ESTOffice Visit [facility] [address] [facility] [address] [place] [phone] Bharathi Chinchilla, DPBuddy [address] [facility] [address] [place] [address] NameTypePriorityAssociated DiagnosesOrder ScheduleXR wrist 3+ views rightImaging Routine Right wrist pain Expected: 10/08/2025, Expires: 10/08/2026documented as of this encounter Visit Diagnoses Diagnosis Right wrist pain Pain in joint, forearm documented in this encounter Care Teams Team MemberRelationshipSpecialtyStart DateEnd Date Gabino Hdez DO [address] [facility] [address] [place] [address] PCP - GeneralFamily Medicine02/23/23 Gabino Hdez DO [address] [facility] [address] [place] [address] PCP - [facility]CO Reach11/24/24 Edwige Gilman LSW [address] [facility] [address] [place] [address] Social WorkerFamily Medicine11/29/24 Delicia Hearn PA [address] [facility] Physician AssistantNeurology01/03/25documented as of this encounter
--- OUTSIDE RECORDS SUMMARY | 2025-10-14 05:25 | XMS_ITS | Clinical Summary ---
Author Organization [employer] tem Address [id number] [address] [place] [address] Care Team Providers Care Forensic Technician Name Role Phone Gabino Hdez DO Primary Care Provider [phone] Allergies Active AllergyReactionsCriticalityNoted UtxuPnkfzsvcVyuhozlaRavuQyp58/29/2017 Patch only-irritation from Heparin AnaloguesOther (See Comments)Low01/13/2017 Unknown XpgcrWxsxCmd25/25/2020 After prolong use MorphineOther (See Comments)Low01/13/2017 Brings pain on ZxzjsmyqdbjKfkzmErr87/29/2017RifampinOther (See Comments)High01/13/2017 Did not wake up for [...] ctive Active Problems ProblemNoted DateDiagnosed DateChronic pain yrnpojee35/07/2024ervical qydzpfibxhrgw59/07/2023Lumbosacral spondylosis without lrfljafpkl69/09/2020 Lumbosacral spondylosis without ejwashqcav91/04/2018 Overview (06/21/2018): Added automatically from request for surgery [id number] Disorder of djrixr9703/08/2018 Overview (03/08/2018): Added automatically from request for surgery [id number] Disc displacement, agduvw3411/11/2017 Overview (11/11/2017): Added automatically from request for surgery [id number] Other intervertebral disc displacement, lumbar btwznr7801/13/2017Cervical spondylosis without cjahgdovxl04/29/2017Sacrococcygeal disorders, not elsewhere kgjqzycojn64/29/2017Spondylosis without myelopathy or radiculopathy, lumbar reoiex4101/13/2017Encounter for long-term opiate analgesic use01/13/2017 Displacement of lumbar intervertebral disc without dmwmboolim89/29/2004Pain in limb01/29/2003 Family History Medical HistoryRelationNameCommentsDiabetesDaughterDiabetesMotherRelationName StatusCommentsDaughterMother Social History Tobacco UseTypesPacks/DayYears UsedDateSmoking Tobacco: Every DayCigarettes Smokeless Tobacco: FormerAlcohol UseStandard Drinks/WeekCommentsYes0 (1 standard drink = 0.6 oz pure alcohol)drinks beer occasionallyChildcareAnswerDate Recorded LjbnikmfbQdbqkks35/12/2019EmploymentAnswerDate RecordedEmploymentUnknown 03/29/2019Hunger ScreeningAnswerDate RecordedWithin the past 12 months we worried whether our food would run out before we got money to buy more.Never True05/24/2024Within the past 12 months the food we bought just didn't last and we didn't have money to get more.Never True4Purpose - LifeAnswerDate RecordedPurpose and direction in yjoxLofashf16/11/2021ex and Gender Information ValueDate RecordedSex Assigned at BirthNot on fileLegal KpjSpik2905/23/2015 11:34 AM EDTGender IdentityNot on fileSexual OrientationNot on file Last Filed Vital Signs Vital SignReadingTime TakenCommentsBlood Kgypgese508/8008 2:09 PM EDT Byiwt567405/24/2024 2:09 PM RYLJsjvfztgack31.1 ??C (97 ??F)02/11/2024 8:17 AM EDT Respiratory Yvac675105/24/2024 2:09 PM EDTOxygen Kfttaikndj91%05/24/2024 2:09 PM EDTInhaled Oxygen Concentration--Iaetfe05.3 kg (219 lb)05/24/2024 2:09 PM EDT Ngyzag197.9 cm (6')05/24/2024 2:09 PM EDTBody Mass Index29.708 2:09 PM EDT Plan of Treatment Health MaintenanceDue DateLast DoneCommentsDepression Vukflmomc84/26/1984 DTaP,Tdap and Td Vaccines (1 - Tdap)1991Zoster (Shingles) Vaccine (1 of 2) 1991Adult BMI Hpgtieima18/07/155064/04/2024Tobacco Wupmoomqk26/07/2025 05/24/2024OVID-19 Vaccine ( season)/, 01/28/2021, 01/06/2021Influenza Gbzwezr58/, 07/29/2017 Medical Devices ImplantedTypeAreaManufacturerDevice IdentifierShelf Expiration DateModel / Serial / LotScrewDescription:screws in left hand Insurance Care Teams Team MemberRelationshipSpecialtyStart DateEnd Date Gabino Hdez DO [address] [place] [address] [facility]02/22/17
--- OUTSIDE RECORDS SUMMARY | 2025-10-14 05:25 | XMS_ITS | Clinical Summary ---
Author Organization [facility] Address [address] [place] [address] Care Team Providers Care Drop Shipment Clerk Name Role Phone Gabino Hdez Primary Care Provid er Allergies Active AllergyReactionsCriticalityNoted DateCommentsHeparin Afexljqmg75/29/2004 Znmzunpaw94/29/4213Cljhzlpmoqn36/29/1195Ihddwgtwlnb98/29/2004 Medications MedicationSigDispense QuantityRefillsLast FilledStart DateEnd DateStatus MS CONTIN 30MG TABLET SA Take one(1) tablet two(2) times daily.Active TOPAMAX 100MG TABLET Take one(1) tablet two(2) times daily.Active FLEXERIL 10MG TABLET Take one(1) tablet three times daily.Active PROMETHAZINE 25MG TABLET Take one(1) tablet four (4) times daily.Active PAXIL CR 25MG TABLET Take one(1) tablet daily.Active METHADONE HCL 10MG TABLET every 8 hrs giq531Active ATIVAN 1MG TABLET 1 2 mgmqid eff043Active SYNTHROID 100MCG TABLET Take one(1) tablet daily.Active MULTIVITAMIN TABLET Take one(1) tablet daily.Active GLUCOSAMINE 500MG CAPLET 2 tabs frg985Active BEXTRA 20MG TABLET Take one(1) tablet daily.Active Active Problems ProblemNoted DateDiagnosed DateDisplacement of lumbar intervertebral disc without oxziswccic75/29/2004 Social History Tobacco UseTypesPacks/DayYears UsedDateSmoking Tobacco: Never AssessedSex and Gender InformationValueDate RecordedSex Assigned at BirthNot on fileLegal Sex Male09/18/2012 10:02 AM ESTGender IdentityNot on fileSexual OrientationNot on file Plan of Treatment Health MaintenanceDue DateLast DoneCommentsAnxiety Jvaqwvwlz52/26/1990Depression Ekoupozkr55/26/1990HIV Mjzunczui77/26/1990Hepatitis C Hqdiwquef26/26/1990 DTaP,Tdap,Td Vaccine (1 - Tdap)1991Hepatitis B Vaccine (1 of 3 - 19+ 3- dose series)1991Lipid Ysxbmgqqp06/26/2007CT Ssotfranrrye85/26/2017 Cologuard (FIT-DNA)04/12/20178343Zmpiqrbodyp85/26/2017Colorectal Cancer Screening 2017Diabetes Dbkwchbuu12/26/2017Fecal Occult Blood2017Sigmoidoscopy 2017Pneumococcal Vaccine: 50+ (1 of 1 - PCV)2022hingrix Vaccine (1 of 2)2Covid-19 Vaccine (1 - season)2025Influenza Vaccine (#1)2025RSV Vaccine (1 - 1-dose 75+ series)2047 Insurance Care Teams Team MemberRelationshipSpecialtyStart DateEnd Date Gabino Hdez DO [address] [facility] [address] [place] [address] [facility]11/15/15
--- OUTSIDE RECORDS SUMMARY | 2025-10-14 05:25 | XMS_ITS | Encounter Summary ---
Author Organization [facility] Address [address] [facility] [place] [address] Care Team Providers Care Electric Welder Helper Name Role Phone Gabino Hdez DO Primary Care Provider [phone] Gabino Hdez DO Unavailable [phone] Edwige Gilman HEAD BELLHOP CAPTAIN Unavailable [phone] Delicia Hearn Unavailable Reason for Visit * ReasonCommentsMed Refill Encounter Details DateTypeDepartmentCare Team (Latest Contact Info)Bpuoflpejhw22/18/2025Refill [facility] [address] [facility] [address] [place] [address] Gabino Hdez, DO [address] [facility] [address] [place], [place] [address] Hypothyroidism, unspecified type Social History Tobacco UseTypesPacks/DayYears UsedDateSmoking Tobacco: Every MzrPylbygxkol246 Started: 10/18/1984Smokeless Tobacco: NeverAlcohol UseStandard Drinks/Week NgvzhhdlFka90 (1 standard drink = 0.6 oz pure alcohol)caffeine more than 4 cups per jdgT8416 Health LiteracyAnswerDate RecordedHow often do you need [...] relatives?Once a week05/19/2024How often do you attend yarsani or christianity services?Never05/19/2024o you belong to any clubs or organizations such as yarsani groups, unions, fraternal or athletic groups, or school groups?No05/19/2024How often do you attend meetings of the clubs or organizations you belong to?Never05/19/2024re you , , , , never , or living with a partner?Ztefcux1405/19/2024 AUDIT-CAnswerDate RecordedQ1: How often do you have [...] RecordedPatient Health Questionnaire-2 Score0 12/13/2024[facility] [place] of Occupational Health - Occupational Stress QuestionnaireAnswerDate RecordedDo you feel stress - tense, restless, nervous, or anxious, or unable to sleep at night because yourmind is troubled all the time - these days?To some vhswlb7705/19/2024Exercise Vital SignAnswerDate Recorded On average, how many [...] were you homeless or living in a intermediate (including now)?No05/19/2024Sex and Gender InformationValueDate Recorded Sex Assigned at BirthNot on fileLegal HjgHqhu2412/30/2022 6:39 PM EDTGender IdentityNot on fileSexual OrientationNot on filedocumented as of this encounter Miscellaneous Notes * Telephone Encounter - Adia Ramirez MA - 10/05/2025 8:11 AM EST 11.26.25 - TSH 3.116, FT4 1.29 Okay to send? documented in this encounter Plan of Treatment DateTypeDepartmentCare Team (Latest Contact Info)Bvgbgrrcujf13/15/2026 4:10 PM ESTOffice Visit [facility] [address] [facility] [address] [place] [phone] Bharathi Chinchilla, ANNAMARIE [address] [facility] [address] [place] [address] documented as of this encounter Visit Diagnoses Diagnosis Hypothyroidism, unspecified type documented in this encounter Care Teams Team MemberRelationshipSpecialtyStart DateEnd Date Gabino Hdez DO [address] [place] [address] PCP - GeneralFamily Medicine02/23/23 Gabino Hdez DO [address] [place] [address] PCP - ACO Reach11/24/24 Edwige Gilman, THEA [address] [facility] [address] [place] [address] Social WorkerFalawrence general hospital Medicine11/29/24 Delicia Hearn PA [address] [place] [address] Physician AssistantNeurology01/03/25documented as of this encounter
--- OUTSIDE RECORDS SUMMARY | 2025-10-14 05:25 | XMS_ITS | Clinical Summary ---
Author Organization [facility] Address [address] [place] [address] Phone Care Team Providers Care Dye Maker Name Role Phone Gabino Hdez DO Primary Care Provider [phone] Allergies Active AllergyReactionsCriticalityNoted DateCommentsHeparin AnaloguesOtherLow 02/14/2004 Unknown ExzgrqudOzatfxdJdo93/14/2013 Brings pain on Other Reaction(s): Pt. states sometimes increases pain rather than decreasing Brings pain on PenicillinsHives,CaltqqoSzua41/29/2004 Other Reaction(s): Hives and rash Rifamycin AnaloguesAnaphylaxis,ZpevvenWfcg38/29/2004 Did not wake up for 3 days [...] Active Problems ProblemNoted DateDiagnosed DatePreop cardiovascular exam05/29/2024Essential hwzlprjjxegh64/12/2024Mixed gizuuwdqkpzdom56/12/2024iabetes mellitus type II, non insulin ihnytnwjf72/12/2024MI 30.0-30.9,adult05/29/2024urrent smoker 05/29/2024bnormal EKG005/29/2024 Family History Medical HistoryRelationNameCommentsNo Known ProblemsFatherAtrial fibrillation MotherDiabetes type IMotherThyroid diseaseMothercancer gallbladderMotherRheum arthritisSisterRelationNameStatusCommentsFatherMotherSister Social History Tobacco UseTypesPacks/DayYears UsedDateSmoking Tobacco: Every DayCigarettes Smokeless Tobacco: Former Tobacco Cessation:Ready to Q uit: No; Counseling Given: Yes Comments:vapin Alcohol UseStandard Drinks/WeekCommentsYes0 (1 standard drink = 0.6 oz pure alcohol)occSex and Gender InformationValueDate RecordedSex Assigned at BirthNot on fileLegal RxxVcif2204/27/2024 1:18 PM EDTGender IdentityNot on fileSexual OrientationNot on file Last Filed Vital Signs Vital SignReadingTime TakenCommentsBlood Wciatdbn523/8008 10:21 AM EDT Ezraj5123 10:18 AM EDTTemperature--Respiratory Rate--Oxygen Saturation-- Inhaled Oxygen Concentration--Syauln13.9 kg (218 lb)05/29/2024 10:18 AM EDT Znjtdm833.3 cm (5' 11 )05/29/2024 10:18 AM EDTBody Mass Index30. 10:18 AM EDT Plan of Treatment Health MaintenanceDue DateLast DoneCommentsDiabetes: Hemoglobin A1C1972HIV Rszrxiubn1972Lipid Panel1972Medicare Annual Wellness Visit (AWV) 1972TSH Level1972MMR Vaccines (1 of 1 - Standard series)1973 Diabetes: Retinopathy Jxohmpwfn15/26/1982Hepatitis C Ebgkggwpy99/26/1990 Hepatitis B Vaccines (1 of 3 - 19+ 3-dose series)1991Pneumococcal Vaccine (1 of 2 - PCV)1991DTaP/Tdap/Td Vaccines (1 - Tdap)1994PSA Prostate Cancer Nppsywovt26/26/2022Zoster Vaccines (1 of 2)2Diabetes: Urine Protein Ubdtmjybj75/3COVID-19 Vaccine ( - season) , 01/28/2021, 01/06/2021Influenza Vaccine (#1)2025 08/12/2021, 07/29/2017HIB VaccinesAged OutNo longer eligible based on patient's age to complete this topicHPV VaccinesAged OutNo longer eligible based on patient's age to complete this topicHepatitis A VaccinesAged OutNo longer eligible based on patient's age to complete this topicIPV VaccinesAged OutNo longer eligible based on patient's age to complete this topicMeningococcal VaccineAged OutNo longer eligible based on patient's age to complete this topic Rotavirus VaccinesAged OutNo longer eligible based on patient's age to complete this topic Insurance Care Teams Team MemberRelationshipSpecialtyStart DateEnd Date Gabino Hdez DO [address] [place] [address] PCP - GeneralFamily Medicine05/29/24
--- OUTSIDE RECORDS SUMMARY | 2025-10-14 05:26 | XMS_ITS | Clinical Summary ---
Author Organization [facility] Address [address], [address] [place] [address] Care Team Providers Care Radiology Transcriptionist Name Role Phone Unavailable Primary Care Provider Unavailabl e Allergies Active AllergyReactionsCriticalityNoted HzlyBpeudvplBxbbfnm70/14/2013Morphine 12/01/20120477Bhhgliwedcb79/14/8669Msocqtmxvg28/14/2013 Medications MedicationSigDispense QuantityRefillsLast FilledStart DateEnd DateStatus ATENOLOL [...] InformationValueDate RecordedSex Assigned at BirthNot on fileLegal RyoOyoh2211/27/2012 6:15 PM ESTGender IdentityNot on fileSexual OrientationNot on file Last Filed Vital Signs Vital SignReadingTime TakenCommentsBlood Hygnjbex996/71012/01/2012 12:08 PM EST Iyyqp871712/01/2012 12:08 PM ESTTemperature--Respiratory Odcw813012/01/2012 12:08 PM ESTOxygen Uhwcfylxjf16%12/01/2012 12:08 PM ESTInhaled Oxygen Concentration-- Nouyyk89.8 kg (220 lb)12/01/2012 12:08 PM ESTHeight--Body Mass Index-- Plan of Treatment Not on file
--- OUTSIDE RECORDS SUMMARY | 2025-10-14 05:26 | XMS_ITS | Clinical Summary ---
Author Organization [facility] Address [address] [place] [address] Care Team Providers Care Burglary Investigator Name Role Phone Gabino Hdez DO Primary Care Provider [phone] Gabino Hdez DO Unavailable [phone] Edwige Gilman MANAGER OF INTERNAL AUDIT Unavailable [phone] Delicia Hearn Unavailable Allergies Active AllergyReactionsCriticalityNoted DateCommentsFentanylRash,Unknown,Itching Low01/13/2017 Patch only-irritation from HeparinOther,GI wayvltmcKzo66/29/2004 Unknown Heparin (Porcine)Zogszzl9604/26/20241102SgyypJholPyw54/25/2020 After prolong use MorphineOther,JwfwdnfPgi38/14/2013 Brings pain on Other Reaction(s): Pt. states sometimes increases pain rather than decreasing PenicillinsHives,OgmwotpKint74/29/2004 Other Reaction(s): Hives and rash RifampinOther,VqjnczheyqhDrku25/29/2017 Did not wake up for 3 days RifamycinsOther,PwzbzhhPrrw19/29/2004 Did not wake up for 3 days Ozhjygjzhqa24/29/2004 Medications MedicationSigDispense QuantityRefillsLast FilledStart DateEnd DateStatus albuterol [...] AT BEDTIME 60 tablet 5Active glucose blood (RetrieveTouch Verio) test strip Indications:Type 2 diabetes mellitus with other specified complication, without long-term current use of insulin ([facility])Fsbs daily 100 strip 5Active Blood Glucose Monitoring Suppl (OneTouch Verio Flex System) w/Device kit Indications:Type 2 diabetes mellitus with other specified complication, without long-term current use of insulin ([facility])1 each Daily 1 kit 5Active Lancets 33G [facility] Indications:Type 2 diabetes mellitus with other specified complication, without long-term current use of insulin ([facility])1 each Daily 100 each 5Active glimepiride (Amaryl) 1 MG tablet Indications:Type 2 diabetes mellitus with other specified complication, without long-term current use of insulin ([facility])Take 1 tablet (1 mg) by mouth in [...] the evening. Take with meals. 180 tablet 503/6Active methylPREDNISolone (Medrol Dospak) 4 MG tablets Indications:Left Achilles tendinitisFollow schedule on MEDROL PACK package instructions to be used as directed 21 tablet 5Active ipratropium (Atrovent) 0.06 % nasal spray Indications:Chronic rhinitisAdminister 2 sprays into each nostril in the morning and 2 sprays in the evening and 2 sprays before bedtime. 15 mL 502/6Active levothyroxine (Synthroid, Levoxyl) 175 MCG tablet Indications:Hypothyroidism, unspecified typeTAKE 1 TABLET ONE TIME DAILY IN THE MORNING ON AN EMPTY STOMACH 90 tablet 5Active levothyroxine (Synthroid, Levoxyl) 175 MCG tablet Indications:Hypothyroidism, unspecified typeTAKE 1 TABLET ONE TIME DAILY IN THE MORNING ON AN EMPTY STOMACH 90 tablet Discontinued Active Problems ProblemNoted DateDiagnosed DateCognitive nhqkmuinao75/03/2024MI 30.0-30.9,adult 05/29/2024urrent vpwqzi4905/29/2024Mixed hjhwnepxoypqdw06/12/2024Essential tdrnqkgaykiz15/12/2024hronic pain myrvdbdo25/07/2024cquired mallet deformity of right ring nzyctd8505/22/20247585Hijtuae80/05/2024hronic hlcrwpigmm26/05/2024 Kidney wztqovj3605/22/2024ervical disc muecfsc0005/22/2024Herniation of intervertebral disc of cervical oqlrqs9605/22/2024Type 2 diabetes mellitus with other specified shnbrlltyhpk42/10/2023ervical aunnjqshlwavs94/07/2023ipolar 1 cufbaxya81/09/2017Type 2 diabetes mellitus with other skin complications 01/24/2017Encounter for long-term opiate analgesic use01/13/2017Cervical spondylosis without fendzpkaxg90/08/2135Vngowt66/11/2016Gastroesophageal reflux vehsbjc7712/27/20153013Flbxcvruckvazi58/11/5475Uulcujzbsjhi92/11/2016Hypothyroidism 12/27/2015 Resolved Problems ProblemNoted DateDiagnosed DateResolved DateAbnormal EKG0 Preop cardiovascular examDiabetes mellitus type II, non insulin gdksuilru39vascular necrosis of bone of hip05/22/2024 04/17/2025ilateral hip painarpal tunnel syndrome of left wristRight carpal tunnel nkitdvgc47MRSA (methicillin resistant staph aureus) culture kcsniqcf92 Nondisplaced fracture of proximal third of navicular (scaphoid) bone of left wrist, initial encounter for closed tzbfvsmk89Osteomyelitis Other specified postprocedural Paresthesia of skinPostoperative visit Vrdydhomktmiriec74Edema of right upper blhhdizkp95/05/2024 04/17/2025Nicotine abusePain due to internal orthopedic prosthetic devices, implants and grafts, initial xqnylcmmj83 Edema of right upper gdmbupahc20ight cervical radiculopathy ainyspepsia and disorder of function of hrilyaz48GERD (gastroesophageal reflux disease)12/30/2023 01/03/2024ostoperative pain of elkstlcsp19Intractable migraine without status siwnjqaymmw83Peripheral vascular disorder due to diabetes dnoiaicl37Skin sensation disturbance lcohol abuseRefractory migraine Lumbosacral spondylosis without twtwzasjqa51/04/2018 04/17/2025 Overview (05/27/2023): Added automatically from request for surgery [id number] Disorder of Overview (05/27/2023): Added automatically from request for surgery [id number] Disc displacement, Overview (05/27/2023): Added automatically from request for surgery [id number] Sacrococcygeal disorders, not elsewhere fnkeoeiwqq59Other intervertebral disc displacement, lumbar elhbps26Spondylosis without myelopathy or radiculopathy, lumbar mjsmdy72Fatigue Spondylosis of lumbar spineTesticular lbcgwgxxpqqg25Vitamin B khzjqccuwp98/11/858539/ Displacement of lumbar intervertebral disc without impcypacii18/29/2004 01/03/2024ain in limb Encounters DateTypeDepartmentCare AatvOuqozbkyvvz98/22/2025Telephone [facility] [address] [place] [address] Gabino Hdez, DO Wrist Nhvhsu6410/04/2025Refill [facility] [address] [place] [address] Gabino Hdez, DO Hypothyroidism, unspecified type09/26/2025Patient Outreach [facility] [address] [place] [address] Edwige Gilman LSW 09/20/2025 2:00 PM ESTOffice Visit [facility] [address] [place] [address] Bharathi Chinchilla DPM Paronychia, toe, left (Primary Dx); Contusion of left foot, initial encounter; Diabetes mellitus due to underlying condition with diabetic polyneuropathy, without long-term current use of insulin (HCC); Left Achilles tendinitis; Contracture of left ankle09/20/2025amboo flowsheet [facility] [address] [place] [address] Bharathi Chinchilla DPM 09/20/20256398Zwzyfk62/30/2025bstract [facility] [address] [place] [phone] Gabino Hdez, DO 09/16/2025bstract [facility] [address] [place] [address] Gabino Hdez, DO 09/16/2025bstract [facility] [address] [place] [address] Gabino Hdez, DO 09/12/2025 9:00 AM ESTOffice Visit [facility] [place] [facility] [address] [place] [phone] Christiano Haley MD Multiple chemical sensitivity syndrome, initial encounter (Primary Dx); Chronic fvdzewuw11/26/2025amboo flowsheet [facility] [place] [facility] [address] [place] [address] Christiano Haley MD 09/12/20259554Iswcgg85/20/2025 8:30 AM ESTOffice Visit [facility] [address] [place] [phone] Bharathi Chinchilla DPM Contusion of left foot, initial encounter (Primary Dx); Diabetes mellitus due to underlying condition with diabetic polyneuropathy, without long-term current use of insulin (HCC); Paronychia, toe, left; Left Achilles tendinitis; Contracture of left ankle; Contracture of right ankle09/06/2025bstract [facility] [address] [place] [phone] Bharathi Chinchilla DPM 09/06/2025amboo flowsheet [facility] [address] [place] [phone] Bharathi Chinchilla DPM 09/06/20253637Mshkmg31/10/2025Telephone [facility] [address] [place] [address] Edwige Gilman LSW 08/20/2025Patient Outreach [facility] [address] [place] [address] Edwige Gilman LSW 07/19/2025Refill [facility] [address] [place] [address] Adia Raimrez MA Primary hypertension; Type 2 diabetes mellitus with other skin complications (HCC); Hypothyroidism, unspecified type07/16/2025Patient Outreach [facility] [address] [place] [address] Edwige Gilman LSW from Last 3 Months Immunizations ImmunizationAdministration DatesNext DueInfluenza, Injectable, MDCK, preservative free07/29/2017Influenza, injectable, lyomgqyowdts00/26/2021 Family History Medical HistoryRelationNameCommentsHypertensionFatherMental illnessFatherCancer MotherDiabetesMotherObesityMotherOsteoporosisMotherRelationNameStatusComments DaughterAliveFatherAliveMotherAliveSisterAliveSonAlive Social History Tobacco UseTypesPacks/DayYears UsedDateSmoking Tobacco: Every OuwCmdroyedma572 Started: 10/18/1984Smokeless Tobacco: Never Tobacco Cessation:Ready to Q uit: Not Asked; Counseling Given: Not Answered Alcohol UseStandard Drinks/NyoxElqvwdzcGtg05 (1 standard drink = 0.6 oz pure alcohol)caffeine more than 4 cups per tbdO2335 Health LiteracyAnswerDate RecordedHow often do you need [...] relatives?Once a week05/19/2024How often do you attend holiness or temple services?Never05/19/2024o you belong to any clubs or organizations such as holiness groups, unions, fraternal or athletic groups, or school groups?No 05/19/2024How often do you attend meetings of the clubs or organizations you belong to?Never05/19/2024re you , , , , never , or living with a partner?Mhcgghi0405/19/2024UDIT-CAnswerDate RecordedQ1: How often do you have a [...] hard at all05/19/2024 PHQ-2AnswerDate RecordedPatient Health Questionnaire-2 Ronyh317Fin[facility] - Occupational Stress QuestionnaireAnswerDate RecordedDo you feel stress - tense, restless, nervous, or anxious, or unable to sleep at night because yourmind is troubled all the time - these days?To some xolgpq1105/19/2024Exercise Vital SignAnswerDate RecordedOn average, how many days [...] were you homeless or living in a detention (including now)?No 05/19/2024Sex and Gender InformationValueDate RecordedSex Assigned at BirthNot on fileLegal CvxMupf0612/30/2022 6:39 PM EDTGender IdentityNot on fileSexual OrientationNot on file Last Filed Vital Signs Vital SignReadingTime TakenCommentsBlood Olfdnnzb009/7612 2:07 PM EST Qjjbg803909/20/2025 2:07 PM YYSRdlanlagtmi50.6 ??C (97.9 ??F)04/17/2025 4:05 PM EDTRespiratory Untz921911/06/2024 8:32 AM ESTOxygen Iwdsebdnlq20%04/17/2025 4:05 PM EDTInhaled Oxygen Concentration--Tvyuwm39.7 kg (200 lb)09/20/2025 2:07 PM EST Srefpp056.3 cm (5' 11 )09/20/2025 2:07 PM ESTBody Mass Index27.8909/20/2025 2:07 PM EST Plan of Treatment DateTypeDepartmentCare Team (Latest Contact Info)Ftmvhfromxp86/15/2026 4:10 PM ESTOffice Visit [facility] [address] [facility] [address] [place] [phone] Bharathi Chinchilla, ANNAMARIE [address] [facility] [address] [place] [address] Health MaintenanceDue DateLast DoneCommentsCT Fhpuhwwboyao1972Colonoscopy 1972Colorectal Cancer Wppjpoxmq1972FIT-DNA1972FIT1972 FOBT1972Lung Cancer Screening Shared Decision Rcmudx28 1972 Mfqnurjrgudmw1972Pneumococcal Vaccine: Pediatrics (0 to 5 Years) and At- Risk Patients (6 to 64 Years) (1 of 2 - PCV)1991Diabetes: Retinopathy Swskjlkvs85/18/930037/, 12/20/2020, 12/08/2019Influenza Vaccine (#1) , 07/29/2017Diabetes: Hemoglobin A1C/10/2024, 12/13/2024, 03/15/2024, Additional history existsDiabetes: Urine Protein Pfycwfotk62, 05/25/2023, 05/25/2023, Additional history exists Medicare Annual Wellness (AWV)602/, 05/27/2023, 05/26/2022 Procedures Procedure NamePriorityDate/TimeAssociated DiagnosisCommentsTSH+FREE D7Wjckvjy 09/27/2025 12:40 PM EST Kidney disease Nausea and vomiting, unspecified vomiting type Weight loss, abnormal URINALYSIS WITH MICROSCOPIC (REFLEX CULTURE IF INDICATED)Demlfwx3409/27/2025 12:39 PM EST Kidney disease Nausea and vomiting, unspecified vomiting type Weight loss, abnormal COMPREHENSIVE METABOLIC TGANBPxpdcap92/11/2025 12:39 PM EST Kidney disease Nausea and vomiting, unspecified vomiting type Weight loss, abnormal CBC (INCLUDES DIFF/PLT)Ydjgceb5509/27/2025 12:38 PM EST Kidney disease Nausea and vomiting, unspecified vomiting type Weight loss, abnormal POCT GLYCOSYLATED HEMOGLOBIN (HGB A1C)Zrstwxq1904/17/2025 4:24 PM EDT Type 2 diabetes mellitus with other specified complication, without long-term current use of insulin (HCC) MICROALBUMIN / CREATININE URINE TKAOUYdfxfzk35/26/2025 2:43 PM EST Type 2 diabetes mellitus with other specified complication, without long-term current use of insulin (HCC) COLOR FUNDUS PHOTOGRAPHY - OU - BOTH BDBEOifrubc84/18/2023 12:00 PM EDT from Last 3 Months or Most Recently Relevant to Health Maintenance Results * Tsh+free t4 (09/27/2025 12:40 PM EST)Specimen (Source)Anatomical Location / LateralityCollection Method / VolumeCollection TimeReceived TimeBloodVenous blood specimen / Unknown Narrative Authorizing ProviderResult TypeResult StatusMatthew Prasanth KNOX BLOOD ORDERABLESFinal ResultPerforming OrganizationAddressCity/State/ZIP CodePhone Number [facility] * Urinalysis with microscopic (reflex culture if indicated) (09/27/2025 12:39 PM EST)Specimen (Source)Anatomical Location / LateralityCollection Method / VolumeCollection TimeReceived TimeUrineUrine specimen obtained by clean catch procedure / Unknown Narrative Authorizing ProviderResult TypeResult StatusMattadonay Harrisonick DOLAB URINE ORDERABLESFinal ResultPerforming OrganizationAddressCity/State/ZIP CodePhone Number EXTERNAL LAB * Comprehensive metabolic panel (09/27/2025 12:39 PM EST)Specimen (Source) Anatomical Location / LateralityCollection Method / VolumeCollection Time Received TimeBloodVenous blood specimen / Unknown Narrative Authorizing ProviderResult TypeResult StatusMaalivia Tateznmehrdad DOLAB BLOOD ORDERABLESFinal ResultPerforming OrganizationAddressCity/State/ZIP CodePhone Number [facility] * CBC and differential (09/27/2025 12:38 PM EST)Specimen (Source)Anatomical Location / LateralityCollection Method / VolumeCollection TimeReceived Time BloodVenous blood specimen / Unknown Narrative Authorizing ProviderResult TypeResult StatusMaalivia Hdez DOLAB BLOOD ORDERABLESFinal ResultPerforming OrganizationAddressCity/State/ZIP CodePhone Number EXTERNAL LAB * POCT glycosylated hemoglobin (Hb A1C) docked device (04/17/2025 4:24 PM EDT) ComponentValueRef RangeTest MethodAnalysis TimePerformed AtPathologist SignatureHemoglobin A1C5.5Specimen (Source)Anatomical Location / Laterality Collection Method / VolumeCollection TimeReceived TimeBloodVenous blood specimen / Zfjrdqb7404/17/2025 4:24 PM EDT Narrative Authorizing ProviderResult TypeResult StatusMaalivia Tateznick DOPOINT OF CARE TEST ENTER/EDIT ORDERABLESFinal Result [...] specimen obtained by clean catch procedure / Bqbgsmk0212/13/2024 2:43 PM EST12/13/2024 Narrative [facility] - 12/14/2024 6:06 AM EST Performed at: - [facility] [address] ??[id number] Weatherization Technician: Devon Leos PhD, Phone: ??[phone] Authorizing ProviderResult TypeResult StatusMatthew C Petznick DOLAB URINE ORDERABLESFinal ResultPerforming OrganizationAddressCity/State/[facility] CodePhone Number [facility] * Color Fundus Photography - OU - Both Eyes (02/02/2023 12:00 PM EDT)Anatomical RegionLateralityModalityHeadFundus PhotographySpecimen (Source)Anatomical Location / LateralityCollection Method / VolumeCollection TimeReceived Time 02/02/2023 12:00 PM EDT Narrative 02/02/2023 12:00 PM EDT PERFORMED AT [facility] LOCATION:[id number] [facility] Procedure Note CONVERSION, GENERIC - 03/04/2023 PERFORMED AT [facility] LOCATION:[id number] [facility] Authorizing ProviderResult TypeResult StatusMatthew C Petznick DOOPHTH PHOTOGRAPHYFinal Result from Last 3 Months or Most Recently Relevant to Health Maintenance Insurance * Guarantor: Mo Randhawa TypeRelation to PatientDate of BirthPhoneBilling AddressPersonal/VrvtqqOsth1970 [address] [address] Care Teams Team MemberRelationshipSpecialtyStart DateEnd Date Gabino Hdez, DO [address] [place] [address] PCP - GeneralFamily Medicine02/23/23 Gabino Hdez DO [address] [place] [address] PCP - [facility]11/24/24 Edwige Gilman LSW [address] [place] [address] Social WorkerFami Medicine11/29/24 Delicia Hearn PA [address] [place] [address] Physician AssistantNeurology01/03/25
== END 2025-10-14 05:34 | disposition home or self-care (01) ==
PROVIDERS: Emergency Provider Emergency Medicine; PCP Family Medicine
DX: H66.91 Otitis media, unspecified, right ear (principal); H60.91 Unspecified otitis externa, right ear
CPT/HCPCS: 96372; 99284; J1885